=== PATIENT | female | born 1995 | race Caucasian/White ===

== ENCOUNTER 2017-06-03 19:43 | Emergency (ER) | payer OTHER, SELFPAY ==
[2017-06-03 21:56] VITALS: BP 151/76; PULSE 65; RESP 16; TEMP 36.7; O2SAT 100; BMI 31.1
[2017-06-03 22:29] LABS: Strep Scrn Group A (Rapid) Negative (Negative)
== END 2017-06-03 23:57 | disposition left against medical advice (07) ==
PROVIDERS: Emergency Provider Emergency Medicine
DX: Z53.29 Procedure and treatment not carried out because of patient's decision for other reasons (principal)
CPT/HCPCS: 87275; 87276; 87430; 99283

== ENCOUNTER → 2017-06-13 10:54 | Outpatient (REF) | payer OTHER, SELFPAY ==
[2017-06-13 15:33] LABS: Basophils # 0.1 K/mm3 (0-0.2); Basophils % 0.8 % (0.1-2.0); Eosinophils # 0.1 K/mm3 (0.0-0.4); Eosinophils % 0.9 % (0.1-12.0); Hematocrit 39.9 % (37.0-47.0); Hemoglobin 12.9 g/dL (12.2-16.2); Lymphocytes # 2.8 K/mm3 (0.7-4.5); Lymphocytes % 41.5 K/mm3 (10-50); Mean Corpuscular HGB Conc 32.2 g/dL (31.8-35.4); Mean Corpuscular Hemoglobin 29.7 pg (27.0-31.2); Mean Corpuscular Volume 92.1 fl (81-99); Mean Platelet Volume 9.1 fl (7.4-10.4); Monocytes # 0.8 K/mm3 (0.1-1.0); Monocytes % 11.2 % (1.7-9.3); Neutrophils # 3.1 K/mm3 (1.8-7.8); Neutrophils % 45.6 % (37.0-80.0); Platelet Count 338 K/mm3 (142-424); Red Blood Count 4.33 M/mm3 (4.20-5.40); Red Cell Distribution Width 12.5 % (11.5-17.5); White Blood Count 6.7 K/mm3 (4.5-13.0)
[2017-06-13 16:20] LABS: Alanine Aminotransferase 52 U/L (12-78); Albumin Level 4.3 gm/dL (3.4-5.0); Albumin/Globulin Ratio 1.4 (1.1-1.8); Alkaline Phosphatase 122 U/L (46-116); Anion Gap 14.2 mEq/L (5-15); Aspartate Amino Transferase 29 U/L (15-37); Bilirubin,Total 0.4 mg/dL (0.2-1.0); Blood Urea Nitrogen 11 mg/dL (7-18); Calcium 9.2 mg/dL (8.5-10.1); Carbon Dioxide 26 mmol/L (21.0-32.0); Chloride 105 mmol/L (98-107); Chol/HDL Ratio 2.3 (1-3.5); Cholesterol 152 mg/dL (140-200); Estimated Glomerular Filt Rate 129 ml/min (>60); Free T4 (Free Thyroxine) 0.98 ng/dl (0.78-1.34); GFR (African American) 156 ML/MIN (>60); Glucose 90 mg/dL (74-106); HDL Cholesterol 67 mg/dL (29-89); LDL Cholesterol 72 mg/dL (0-130); Potassium 4.2 mmoL/L (3.5-5.1); Sodium 141 mmol/L (136-145); Total Protein,Serum 7.3 gm/dL (6.4-8.2); Triglycerides 65 mg/dL (30-200); VLDL Cholesterol 13 mg/dL (0-40)
[2017-06-13 16:34] LABS: Hemoglobin A1C 5.1 % (0.0-7.0)
[2017-06-15 09:13] LABS: Vitamin D 25 Hydroxy 15.3 ng/mL (30.0-100.0)
== END ==
LOC: LAB 10:54
PROVIDERS: Visit Provider Nurse Practitioner Family
DX: R53.83 Other fatigue (principal); R35.1 Nocturia; N64.4 Mastodynia; E55.9 Vitamin D deficiency, unspecified
CPT/HCPCS: 80053; 80061; 82652; 83036; 84439; 84443; 85025

== ENCOUNTER 2017-06-16 14:14 | Emergency (ER) | payer OTHER, SELFPAY ==
[2017-06-16 15:19] VITALS: BMI 31.1
== END 2017-06-16 16:00 | disposition left against medical advice (07) ==
PROVIDERS: Emergency Provider Nurse Practitioner Family; PCP Nurse Practitioner Family
DX: Z53.29 Procedure and treatment not carried out because of patient's decision for other reasons (principal)

== ENCOUNTER → 2017-12-11 19:13 | Outpatient (REF) | payer OTHER, SELFPAY ==
[2017-12-15 01:08] LABS: Neisseria gonorrhoeae, NAA Negative (Negative)
== END ==
LOC: LAB 19:13
PROVIDERS: Visit Provider Nurse Practitioner Obstetrics & Gynecology
DX: Z34.90 Encounter for supervision of normal pregnancy, unspecified, unspecified trimester (principal)
CPT/HCPCS: 87491; 87591

== ENCOUNTER → 2017-12-13 12:57 | Outpatient (CLI) | payer OTHER, SELFPAY ==
--- NOTE | 2017-12-13 13:01 | US_ITS ---
US OB transvaginal: INDICATION: ITS.REASON: US OB Dates ORDERING PHYSICIAN: Carson De Leon MD PATIENT AGE: 22 years TECHNIQUE: ultrasound. Primarily transvaginal scanning. COMPARISON: No previous relevant studies. FINDINGS: Single viable intrauterine gestation. Variable position study fetus mainly towards cephalic position for majority of study Placenta: Developing Posterior. Small 8 mm venous brink mid placenta noted The cervix appears satisfactory. Closed and measuring 2.75 cm-3 cm length. Small 8 mm venous brink MID placenta Limited survey performed at this early point in gestation. Submitted images unremarkable in PACS. No discrete anomalies identified on survey imaging by technologist. Active fetus.Three-vessel cord with satisfactory umbilical cord insertion. Survey of brain & ventricles. posterior fossa region unremarkable Face and neck survey unremarkable. At this limited early point in gestation Diaphragm and chest region unremarkable. What appears to be 4- chamber heart imaged. Cine loop included documenting cardiac activity Abdomen: Region of kidneys noted unremarkable.. Stomach noted and satisfactory. Spine: Limited images of developing spine unremarkable. Both arms and legs noted.Amniotic Fluid: Adequate. Maternal adnexa: No significant findings encountered. Measurements: Average ultrasound age 13 weeks 1 day. Gestational Age 11 weeks 4 days based on LMP 09/23/2017. Estimated due date by ultrasound age 106/19/2018. CRL = 6.42 cm = 12 weeks 6 day BPD = 1.94 cm = 13 weeks 1 day AC = 6.29 cm = 13 week 1 day FL = 1.01 cm = 13 week 1 day Heart Rate = 139 BPM FL/BPD is 52%. FL/AC is 16%. IMPRESSION: Single active viable intrauterine gestation. 13 week 1 day average ultrasound age Developing posterior Placenta. . Limited but unremarkable survey at this early point in gestation.. .
[2017-12-13 14:32] LABS: Basophils % 0.3 % (0.1-2.0); Eosinophils % 0.3 % (0.1-12.0); Hematocrit 39.5 % (37.0-47.0); Hemoglobin 12.9 g/dL (12.2-16.2); Lymphocytes # 3.3 K/mm3 (0.7-4.5); Lymphocytes % 33.4 K/mm3 (10-50); Mean Corpuscular HGB Conc 32.7 g/dL (31.8-35.4); Mean Corpuscular Hemoglobin 29.5 pg (27.0-31.2); Mean Corpuscular Volume 90.3 fl (81-99); Mean Platelet Volume 8.4 fl (7.4-10.4); Monocytes # 0.9 K/mm3 (0.1-1.0); Monocytes % 9.6 % (1.7-9.3); Neutrophils # 5.6 K/mm3 (1.8-7.8); Neutrophils % 56.3 % (37.0-80.0); Platelet Count 317 K/mm3 (142-424); Red Blood Count 4.38 M/mm3 (4.20-5.40); Red Cell Distribution Width 12.5 % (11.5-17.5); White Blood Count 9.9 K/mm3 (4.5-13.0)
[2017-12-15 17:43] LABS: Rapid Plasma Reagin Ab Titer Non Reactive (NonRea<1:1)
[2017-12-17 02:27] LABS: HIV Screen 4th Generation wRfx Non Reactive (Non Reactive)
[2017-12-17 19:21] LABS: Hepatitis B Surface Antigen Negative (Negative); Hepatitis C Antibody <0.1 s/co ratio (0.0-0.9)
== END ==
PROVIDERS: PCP Physician Assistant; Visit Provider Nurse Practitioner Obstetrics & Gynecology
DX: O26.841 Uterine size-date discrepancy, first trimester (principal)
CPT/HCPCS: 36415; 76830; 85025; 86592; 86703; 86762; 86850; 87340; 87380; G0432

== ENCOUNTER → 2018-02-05 12:55 | Outpatient (CLI) | payer OTHER, SELFPAY ==
--- NOTE | 2018-02-05 12:57 | US_ITS ---
US OB /maternal detail: INDICATION: ITS.REASON: US OB Complete ORDERING PHYSICIAN: Carson De Leon MD PATIENT AGE: 22 years TECHNIQUE: ultrasound transabdominal scanning. COMPARISON: No previous relevant studies. FINDINGS: Single viable intrauterine gestation. Cephalic position. Placenta: Posterior placenta grade 1. There is average amount fluid. The cervix appears satisfactory. Closed and measuring 3 cm in length. Complete survey performed and was unremarkable on the submitted images as in PACS. No discrete anomalies identified on survey imaging by technologist. Active fetus. Three-vessel cord with satisfactory umbilical cord insertion. 4- chamber heart noted. Survey of brain & ventricles unremarkable. Face and neck survey unremarkable. Diaphragm and chest views unremarkable. Abdomen: Both kidneys noted and unremarkable. Stomach noted and satisfactory. Spine: Survey of the spine satisfactory with no anomalies identified nor imaged. Both arms and legs noted. Amniotic Fluid: Adequate. Maternal adnexa: No significant findings. Measurements: Average ultrasound age 20w0d. Gestational Age 20w6d. Estimated due date by ultrasound age 0106/25/2018. Estimated weight 315 grams. BPD = 20w1d OFD = 20w4d HC = 19w5d AC = 19w4d FL = 20w2d Growth Percentile= 7% based on established due date of 06/19/2018 Heart Rate = 144 Cerebellum = 20w5d Humerus = 19w6d HC/AC is 1.21 (1.09-1.26). CI is 77% (70-86%). FL/BPD is 70%. FL/AC is 23%. IMPRESSION: There is a single live fetus which is in cephalic presentation with an average ultrasound age of 20 weeks and 0 days. Weight percentile is 7%. No obvious anomalies. All parameters correlate. The placenta is posterior and grade 1. Please see above for detail
== END ==
PROVIDERS: PCP Physician Assistant; Visit Provider Nurse Practitioner Obstetrics & Gynecology
DX: Z36.0 Encounter for antenatal screening for chromosomal anomalies (principal)
CPT/HCPCS: 76811

== ENCOUNTER 2018-03-16 23:01 | Observation (INO) ==
[2018-03-16 23:16] LABS: Microscopic, Urine URINE MICROSCOPIC (MICROSCOPIC)
[2018-03-16 23:17] LABS: Appearance,Urine SL CLOUDY (Clear); Blood, Urine Negative (Negative); Color,Urine YELLOW (Yellow); Glucose,Urine (UA) Negative (Negative); Ketones,Urine 1+ (Negative); Leukocyte Esterase,Urine TRACE (Negative); PH,Urine 5.5 (5.0-8.5); Protein,Urine 1+ (Negative); Specific Gravity, Urine >= 1.030 (1.005-1.030)
[2018-03-16 23:24] LABS: Bilirubin,Urine Negative (Negative)
[2018-03-16 23:25] LABS: Amorphous Sediment,Urine 1+ /lpf; Bacteria,Urine Trace /lpf
[2018-03-16 23:55] VITALS: BP 138/71
[2018-03-17 00:25] LABS: Amphetamine/Metha Screen,Urine Negative ng/mL (<1000); Barbiturates Screen,Urine Negative ng/mL (<200); Benzodiazepines Screen,Urine Negative ng/mL (<200); Cannabinoid Screen,Urine Negative ng/mL (<50); Cocaine Screen,Urine Negative ng/mL (<300); Methadone Screen,Urine Negative ng/mL (<300); Opiate Screen,Urine Negative ng/mL (<300); Phencyclidine Screen,Urine Negative ng/mL (<25)
[2018-03-17 00:48] LABS: Basophils % 0.1 % (0.1-2.0); Eosinophils % 0.3 % (0.1-12.0); Hematocrit 30.6 % (37.0-47.0); Hemoglobin 10.2 g/dL (12.2-16.2); Lymphocytes # 2.7 K/mm3 (0.7-4.5); Lymphocytes % 24.5 K/mm3 (10-50); Mean Corpuscular HGB Conc 33.3 g/dL (31.8-35.4); Mean Corpuscular Hemoglobin 30.7 pg (27.0-31.2); Mean Corpuscular Volume 92.4 fl (81-99); Mean Platelet Volume 7.7 fl (7.4-10.4); Monocytes # 0.9 K/mm3 (0.1-1.0); Monocytes % 8.1 % (1.7-9.3); Neutrophils # 7.3 K/mm3 (1.8-7.8); Platelet Count 377 K/mm3 (142-424); Red Blood Count 3.31 M/mm3 (4.20-5.40); Red Cell Distribution Width 13.2 % (11.5-17.5); White Blood Count 10.9 K/mm3 (4.5-13.0)
[2018-03-17 00:57] LABS: Activated Partial Thrombo Time 25.6 seconds (23.6-34.0); INR 0.91 (0.9-1.1); Prothrombin Time 9.4 seconds (9.4-11.8)
[2018-03-17 00:59] LABS: Albumin/Globulin Ratio 0.8 (1.1-1.8); Anion Gap 13.5 mEq/L (5-15); Bilirubin,Total 0.4 mg/dL (0.2-1.0); Calcium 9.2 mg/dL (8.5-10.1); Globulin 3.8 gm/dl (1.3-3.2); Potassium 4.5 mmoL/L (3.5-5.1); Total Protein,Serum 6.8 gm/dL (6.4-8.2); Uric Acid 3.2 mg/dL (2.6-7.2)
--- NOTE | 2018-03-17 08:45 | H&P/Discharge Summary ---
General - General Admission date:: 03/17/18 Discharge date: 03/17/18 *Admission Date: 03/16/18 *Chief complaint: Lightheadedness *History of present illness: She is a 22-year-old 1 para 0 who is approximately 26 weeks gestational age. She is working at [employer] and felt that she was quite lightheaded and was seeing spots in front of her eyes. She was also quite nauseous. As result of that she was admitted for observation. [facility] History I have reviewed the patient's past medical history: Yes Medical History: Reports:: Asthma Denies:: Cancer, Diabetes Mellitus Type 1, Diabetes Mellitus Type 2, MRSA Other Surgeries: Yes: Appendectomy. No: Amputation: No Fractures: No - *Social History Smoking Status: Never smoker Alcohol Intake: never Substance Use Type: denies use *Family Hx:: Diabetes, Cancer, Hypertension Para: 2 Review of Systems - Review of Systems Review of systems:: pertinent systems reviewed and negative unless documented below Exam Vital signs and Labs for Last 24 Hours: Temp Pulse Resp BP Pulse Ox 98.4 F 92 H 17 138/71 98 03/16/18 23:55 03/16/18 23:55 03/16/18 23:55 03/16/18 23:55 03/16/18 23:55 Laboratory Results - last 24 hr 03/16/18 23:10: Urine Color Yellow, Urine Appearance Sl cloudy, Urine pH 5.5, Ur Specific [place] >= 1.030, Urine Protein 1+, Urine Glucose (UA) Negative, Urine Ketones 1+, Urine Blood Negative, Urine Nitrate Negative, Urine Bilirubin Negative, Urine Urobilinogen 1.0, Ur Leukocyte Esterase Trace, Urine WBC 3-5, Ur Squamous Epith Cells 10-20, Amorphous Sediment 1+, Urine Bacteria Trace 03/16/18 23:10: Urine Opiates Screen Negative, Urine Methadone Screen Negative, Ur Barbituates Screen Negative, Ur Phencyclidine Scrn Negative, Ur Amphetamines Screen Negative, U Benzodiazepines Scrn Negative, Urine Cocaine Screen Negative, U Marijuana (THC) Screen Negative 03/16/18 23:19: POC Glucose 132 H 03/17/18 00:40: WBC 10.9, RBC 3.31 L, Hgb 10.2 L, Hct 30.6 L, MCV 92.4, MCH 30.7, MCHC 33.3, RDW 13.2, Plt Count 377, MPV 7.7, Neut % (Auto) 67.0, Lymph % (Auto) 24.5, [place] % (Auto) 8.1, Eos % (Auto) 0.3, Baso % (Auto) 0.1, Neut # (Auto) 7.3, Lymph # (Auto) 2.7, [place] # (Auto) 0.9, Eos # (Auto) 0.0, Baso # (Auto) 0.0 03/17/18 00:40: PT 9.4, INR 0.91, APTT 25.6, Fibrinogen 474, D-Dimer 1260 H* 03/17/18 00:40: Sodium 137, Potassium 4.5, Chloride 104, Carbon Dioxide 24, Anion Gap 13.5, BUN 10, Creatinine 0.45 L, Estimated Creat Clear 252, Estimated GFR 178, Est GFR ( Amer) 215, Glucose 93, Uric Acid 3.2, Calcium 9.2, Total Bilirubin 0.4, AST 13 L, ALT 14, Alkaline Phosphatase 125 H, Total Protein 6.8, Albumin 3.0 L, Globulin 3.8 H, Albumin/Globulin Ratio 0.8 L I & O for Last 24 hours: Intake & Output 03/14/18 03/15/18 03/16/18 03/17/18 11:59 11:59 11:59 11:59 Weight 176 lb 4 oz - Constitutional no acute distress - *Routine HEENT Exam Head: Present: normocephalic Eye: Present: EOMI, PERRL ENT: Present: mucous membranes moist - *Routine Neck Exam Present: supple, full ROM - *Routine Respiratory Exam Absent: accessory muscle use (good air entry bilaterally), wheezes, crackles - *Routine Cardiovascular Exam Present: RRR. Absent: murmur - *Routine Abdominal Exam Present: soft, normoactive bowel sounds. Absent: tenderness, rebound, guarding, mass - *Routine Rectal Exam Patient deferred: visual exam, digital exam - *Routine Exam Patient deferred: external exam, groin exam, perineal exam - *Routine Extremities Exam Present: full ROM. Absent: cyanosis, edema, calf tenderness - *Routine Skin Exam Present: intact (good color) - *Routine Neurological Exam Present: alert, oriented X3 - Routine Psychiatric Exam Present: normal affect Hospital Course Hospital Course: She received IV fluids as well as IV Phenergan. She is doing a little better this morning. She is hungry. We will feed her before she goes. She still has some episodes of lightheadedness and I suspect this is just related or possibly low blood sugar. I have reassured her. She has an appointment with me next week. Results Labs on day of discharge: Labs from last 24 hours 03/17/18 03/17/18 03/17/18 00:40 00:40 00:40 WBC 10.9 RBC 3.31 L Hgb 10.2 L Hct 30.6 L MCV 92.4 MCH 30.7 MCHC 33.3 RDW 13.2 Plt Count 377 MPV 7.7 Neut % (Auto) 67.0 Lymph % (Auto) 24.5 [place] % (Auto) 8.1 Eos % (Auto) 0.3 Baso % (Auto) 0.1 Neut # (Auto) 7.3 Lymph # (Auto) 2.7 [place] # (Auto) 0.9 Eos # (Auto) 0.0 Baso # (Auto) 0.0 PT 9.4 INR 0.91 APTT 25.6 Fibrinogen 474 D-Dimer 1260 H* Sodium 137 Potassium 4.5 Chloride 104 Carbon Dioxide 24 Anion Gap 13.5 BUN 10 Creatinine 0.45 L Estimated Creat Clear 252 Estimated GFR 178 Est GFR ( Amer) 215 Glucose 93 POC Glucose Uric Acid 3.2 Calcium 9.2 Total Bilirubin 0.4 AST 13 L ALT 14 Alkaline Phosphatase 125 H Total Protein 6.8 Albumin 3.0 L Globulin 3.8 H Albumin/Globulin Ratio 0.8 L Urine Color Urine Appearance Urine pH Ur Specific [place] Urine Protein Urine Glucose (UA) Urine Ketones Urine Blood Urine Nitrate Urine Bilirubin Urine Urobilinogen Ur Leukocyte Esterase Urine WBC Ur Squamous Epith Cells Amorphous Sediment Urine Bacteria Urine Opiates Screen Urine Methadone Screen Ur Barbituates Screen Ur Phencyclidine Scrn Ur Amphetamines Screen U Benzodiazepines Scrn Urine Cocaine Screen U Marijuana (THC) Screen 03/16/18 03/16/18 03/16/18 23:19 23:10 23:10 WBC RBC Hgb Hct MCV MCH MCHC RDW Plt Count MPV Neut % (Auto) Lymph % (Auto) [place] % (Auto) Eos % (Auto) Baso % (Auto) Neut # (Auto) Lymph # (Auto) [place] # (Auto) Eos # (Auto) Baso # (Auto) PT INR APTT Fibrinogen D-Dimer Sodium Potassium Chloride Carbon Dioxide Anion Gap BUN Creatinine Estimated Creat Clear Estimated GFR Est GFR ( Amer) Glucose POC Glucose 132 H Uric Acid Calcium Total Bilirubin AST ALT Alkaline Phosphatase Total Protein Albumin Globulin Albumin/Globulin Ratio Urine Color Yellow Urine Appearance Sl cloudy Urine pH 5.5 Ur Specific [place] >= 1.030 Urine Protein 1+ Urine Glucose (UA) Negative Urine Ketones 1+ Urine Blood Negative Urine Nitrate Negative Urine Bilirubin Negative Urine Urobilinogen 1.0 Ur Leukocyte Esterase Trace Urine WBC 3-5 Ur Squamous Epith Cells 10-20 Amorphous Sediment 1+ Urine Bacteria Trace Urine Opiates Screen Negative Urine Methadone Screen Negative Ur Barbituates Screen Negative Ur Phencyclidine Scrn Negative Ur Amphetamines Screen Negative U Benzodiazepines Scrn Negative Urine Cocaine Screen Negative U Marijuana (THC) Screen Negative DS: Diagnosis - Discharge Diagnosis (1) Benign paroxysmal positional vertigo Status: Acute (2) Hyperemesis gravidarum Status: Acute (3) Nausea & vomiting Status: Acute Discharge Medications - Medications for Discharge Home Medication List at Discharge: Continue ferrous sulfate 325 mg (65 mg iron) tablet 325 mg PO DAILY #30 tab Ergocalciferol (Vitamin D2) [Vitamin D2] 50,000 unit PO QWEEK Cholecalciferol (Vitamin D3) [Vitamin D3 1,000 Unit Cap] 1,000 unit PO ONCE Promethazine HCl [Phenergan 25mg tab] 25 mg PO Q6H PRN #12 tablet PRN Reason: Nausea And Vomiting Albuterol Sulfate [Proventil-HFA 90mcg/puff Inh] 1 puff INHALATION Q6H Disposition Disposition: Home, Self-Care
== END 2018-03-17 09:40 | disposition home or self-care (01) ==
LOC: OB 23:01 → OBOUT 23:01 → OB 23:02
PROVIDERS: ADMIT Obstetrics & Gynecology; ATTEND Obstetrics & Gynecology

== ENCOUNTER 2018-04-11 01:36 | Outpatient (CLI) | payer OTHER, SELFPAY ==
[2018-04-11 01:56] VITALS: BMI 31.0
[2018-04-11 02:16] VITALS: BP 117/71; PULSE 135; RESP 20; TEMP 37.2; O2SAT 97; BMI 31.0
[2018-04-11 02:37] LABS: Appearance,Urine CLEAR (Clear); Bilirubin,Urine Negative (Negative); Blood, Urine Negative (Negative); Color,Urine YELLOW (Yellow); Glucose,Urine (UA) Negative (Negative); Ketones,Urine Negative (Negative); Leukocyte Esterase,Urine Negative (Negative); Microscopic, Urine URINE MICROSCOPIC (MICROSCOPIC); Nitrate,Urine Negative (Negative); Protein,Urine Negative (Negative); Specific Gravity, Urine 1.025 (1.005-1.030); Urobilinogen,Urine 0.2 EU/dl (0.2)
[2018-04-11 02:45] LABS: Fetal Membrane Rupture (Rapid) Negative (Negative)
[2018-04-11 03:20] LABS: Bacteria,Urine 1+ /lpf; Mucus,Urine 1+ /lpf
[2018-04-11 03:50] LABS: Fetal Fibronectin (Rapid) Negative (Negative)
[2018-04-11 04:00] LABS: Anion Gap 16.4 mEq/L (5-15); Blood Urea Nitrogen 7 mg/dL (7-18); Calcium 9.3 mg/dL (8.5-10.1); Carbon Dioxide 22 mmol/L (21.0-32.0); Chloride 102 mmol/L (98-107); Creatinine Clearance Estimated 323 mL/min (50-200); Creatinine,Serum 0.36 mg/dL (0.55-1.02); Estimated Glomerular Filt Rate 230 ml/min (>60); GFR (African American) 278 ML/MIN (>60); Glucose 90 mg/dL (74-106); Potassium 3.4 mmoL/L (3.5-5.1); Sodium 137 mmol/L (136-145)
== END 2018-04-11 04:50 | disposition home or self-care (01) ==
LOC: OBOUT 01:40 → OB 01:40
PROVIDERS: PCP Nurse Practitioner Family; Referring Provider Nurse Practitioner Obstetrics & Gynecology; Visit Provider Obstetrics & Gynecology
DX: O26.893 Other specified pregnancy related conditions, third trimester (principal); Z3A.30 30 weeks gestation of pregnancy; R10.30 Lower abdominal pain, unspecified
CPT/HCPCS: 59025; 80048; 81001; 82731; 84112; 96360; 96367

== ENCOUNTER 2018-05-05 22:23 | Outpatient (CLI) | payer OTHER, SELFPAY ==
[2018-05-05 23:04] VITALS: BMI 32.1
[2018-05-05 23:05] VITALS: BP 128/78; PULSE 108; RESP 22; TEMP 36.6; O2SAT 99
[2018-05-05 23:06] VITALS: BMI 32.1
[2018-05-06 00:10] VITALS: BP 128/78; PULSE 108; RESP 22; TEMP 36.6; O2SAT 99
== END 2018-05-06 01:25 | disposition home or self-care (01) ==
LOC: OBOUT 22:25 → OB 22:26
PROVIDERS: PCP Nurse Practitioner Obstetrics & Gynecology; Visit Provider Nurse Practitioner Obstetrics & Gynecology
DX: O47.03 False labor before 37 completed weeks of gestation, third trimester (principal); Z3A.33 33 weeks gestation of pregnancy; R11.2 Nausea with vomiting, unspecified
CPT/HCPCS: 59025; 96360; 96361; J2405

== ENCOUNTER 2018-05-07 21:47 | Observation (INO) ==
[2018-05-07 23:25] VITALS: BP 122/61
[2018-05-07 23:57] LABS: Microscopic, Urine URINE MICROSCOPIC (MICROSCOPIC)
[2018-05-08 00:28] LABS: Appearance,Urine CLEAR (Clear); Bilirubin,Urine Negative (Negative); Blood, Urine Negative (Negative); Color,Urine YELLOW (Yellow); Glucose,Urine (UA) Negative (Negative); Ketones,Urine Negative (Negative); Leukocyte Esterase,Urine Negative (Negative); PH,Urine 5.5 (5.0-8.5); Protein,Urine Negative (Negative); Specific Gravity, Urine >= 1.030 (1.005-1.030); Urobilinogen,Urine 0.2 EU/dl (0.2)
[2018-05-08 00:36] LABS: Bacteria,Urine 1+ /lpf; Mucus,Urine 1+ /lpf; RBC,Urine Occasional #/hpf (0-3); WBC,Urine Occasional #/hpf (0-3)
--- NOTE | 2018-05-08 08:05 | History & Physical Report ---
OB - H&P: HPI Antepartum - History of Present Illness Chief complaint: Right lower quadrant pain, lower abdominal pain, labor History of present illness: She is a 22-year-old 1 para 0 at 34 weeks gestational age. She complains of lower abdominal pain. Her pain is mostly on the right side down near her right lower quadrant. She was having a few contrast on arrival. Her urine is clear. She is no longer having contractions on the monitor now. - History of Present Criteria for establishing EDC:: LMP confirmed by 1st trimester US care: good care Ultrasounds: normal 1st trimester US, normal mid trimester US Obstetrical complications: none Medical complications: psychiatric [facility] History I have reviewed the patient's past medical history: Yes Medical History: Reports:: Asthma Denies:: Cancer, Diabetes Mellitus Type 1, Diabetes Mellitus Type 2, MRSA Other Surgeries: Yes: Appendectomy. No: Amputation: No Fractures: No - *Social History Smoking Status: Never smoker Alcohol Intake: never Substance Use Type: denies use *Family Hx:: Diabetes, Cancer, Hypertension Para: 0 Review of Systems - Review of Systems Review of systems:: pertinent systems reviewed and negative unless documented below Meds Home Medications Medication Instructions Recorded Confirmed Type ferrous sulfate 325 mg (65 mg 325 mg PO DAILY tab 03/19/18 05/07/18 History iron) tablet Fluoxetine HCl [Prozac 10mg 10 mg PO DAILY 05/08/18 05/08/18 History Capsule] Allergies Allergy/AdvReac Type Severity Reaction Status Date / Time No Known Allergies Allergy Verified 05/06/18 14:53 OB - H&P: Exam - Physical Exam Vital signs: Temp Pulse Resp BP Pulse Ox 98.0 F 110 H 18 122/61 97 05/07/18 23:21 05/07/18 23:21 05/07/18 23:21 05/07/18 23:21 05/07/18 23:21 - Constitutional no acute distress - Routine HEENT Exam Head: Present: normocephalic Eye: Present: EOMI, PERRL ENT: Present: mucous membranes moist - Routine Neck Exam Present: supple, full ROM - Routine Respiratory Exam Absent: accessory muscle use (good air entry bilaterally), respiratory distress, wheezes, crackles - Routine Cardiovascular Exam Present: RRR. Absent: murmur - Routine Abdominal Exam Present: soft, normoactive bowel sounds, tenderness. Absent: distended, guarding Comments: She is tender in the right lower quadrant. - Routine Rectal Exam Patient deferred: visual exam, digital exam - Routine Exam Patient deferred: external exam, groin exam, perineal exam - Routine Extremities Exam Present: full ROM. Absent: cyanosis, edema - Routine Skin Exam Present: intact. Absent: cyanosis - Routine Neurological Exam Present: alert, oriented X3 - Routine Psychiatric Exam Present: normal affect OB - Results - Labs Labs: Urine 05/07/18 Range/Units 23:55 Urine Color Yellow (Yellow) Urine Appearance Clear (Clear) Urine pH 5.5 (5.0-8.5) Ur Specific [place] >= 1.030 (1.005-1.030) Urine Protein Negative (Negative) Urine Glucose (UA) Negative (Negative) OB - A/P Antepartum - Additional Plan Plan: expectant management Additional Information:: We will get an ultrasound this morning. We will go ahead and give her steroids. We will give her Tylenol for pain. We will continue to observe her throughout the day.
[2018-05-08 12:14] LABS: Basophils % 0.2 % (0.1-2.0); Eosinophils % 0.2 % (0.1-12.0); Hematocrit 28.9 % (37.0-47.0); Hemoglobin 9.4 g/dL (12.2-16.2); Lymphocytes # 2.1 K/mm3 (0.7-4.5); Lymphocytes % 23.8 % (10-50); Mean Corpuscular HGB Conc 32.4 g/dL (31.8-35.4); Mean Corpuscular Hemoglobin 30.1 pg (27.0-31.2); Mean Corpuscular Volume 92.8 fl (81-99); Mean Platelet Volume 8.9 fl (7.4-10.4); Monocytes # 0.4 K/mm3 (0.1-1.0); Monocytes % 4.3 % (1.7-9.3); Neutrophils # 6.4 K/mm3 (1.8-7.8); Neutrophils % 71.4 % (37.0-80.0); Platelet Count 336 K/mm3 (142-424); Red Blood Count 3.11 M/mm3 (4.20-5.40); Red Cell Distribution Width 13.8 % (11.5-17.5); White Blood Count 8.9 K/mm3 (4.5-13.0)
[2018-05-08 12:18] LABS: Anion Gap 15.3 mEq/L (5-15); Potassium 4.3 mmoL/L (3.5-5.1)
--- NOTE | 2018-05-08 17:34 | Discharge Summary ---
General - General Admission date:: 05/08/18 Discharge date: 05/08/18 HPI HPI: She is a 22-year-old 1 para 0 at 34 weeks gestational age. She complains of severe lower abdominal pain. She was having a few contractions on arrival and received Brethine and fluids. Urinalysis was negative. She was admitted overnight. Hospital Course Hospital Course: She continued to have lower abdominal pain. The pain was in the right lower quadrant overlying the bladder. She had point tenderness there. There is no lateralizing appendicitis. There were no peritoneal signs. There were no contractions on the monitor after initially receiving fluids and 1 dose of Brethine. The Brethine did not help with her pain. She did receive Tylenol as well as Stadol and refused these pain medicines later on this afternoon. She was crying in bed and did not seem to be getting any better. She did have an ultrasound that was essentially negative for abruption. She has no bleeding. Growth and fluid was appropriate. She also received her first dose of Celestone. As result of her continued pain we have elected to transfer her to for further care. She was accepted by Dr. Franklin. Objective Vital signs: Temp Pulse Resp BP Pulse Ox 98.0 F 110 H 18 122/61 97 05/07/18 23:21 05/07/18 23:21 05/07/18 23:21 05/07/18 23:21 05/07/18 23:21 mild distress, obese - *Routine Abdominal Exam Present: soft, tenderness Comments: She had tenderness in the right side of her lower uterus. Results Labs on day of discharge: Labs from last 24 hours 05/08/18 05/08/18 05/07/18 12:00 12:00 23:55 WBC 8.9 RBC 3.11 L Hgb 9.4 L Hct 28.9 L MCV 92.8 MCH 30.1 MCHC 32.4 RDW 13.8 Plt Count 336 MPV 8.9 Neut % (Auto) 71.4 Lymph % (Auto) 23.8 [place] % (Auto) 4.3 Eos % (Auto) 0.2 Baso % (Auto) 0.2 Neut # (Auto) 6.4 Lymph # (Auto) 2.1 [place] # (Auto) 0.4 Eos # (Auto) 0.0 Baso # (Auto) 0.0 Sodium 136 Potassium 4.3 Chloride 104 Carbon Dioxide 21 Anion Gap 15.3 H BUN 6 L Creatinine 0.41 L Estimated Creat Clear 288 Estimated GFR 198 Est GFR ( Amer) 239 Glucose 109 H Calcium 9.0 Urine Color Yellow Urine Appearance Clear Urine pH 5.5 Ur Specific [place] >= 1.030 Urine Protein Negative Urine Glucose (UA) Negative Urine Ketones Negative Urine Blood Negative Urine Nitrate Negative Urine Bilirubin Negative Urine Urobilinogen 0.2 Ur Leukocyte Esterase Negative Urine RBC Occasional Urine WBC Occasional Urine Bacteria 1+ Urine Mucus 1+ Membrane Rupture Fibronectin 05/07/18 05/07/18 22:10 22:10 WBC RBC Hgb Hct MCV MCH MCHC RDW Plt Count MPV Neut % (Auto) Lymph % (Auto) [place] % (Auto) Eos % (Auto) Baso % (Auto) Neut # (Auto) Lymph # (Auto) [place] # (Auto) Eos # (Auto) Baso # (Auto) Sodium Potassium Chloride Carbon Dioxide Anion Gap BUN Creatinine Estimated Creat Clear Estimated GFR Est GFR ( Amer) Glucose Calcium Urine Color Urine Appearance Urine pH Ur Specific [place] Urine Protein Urine Glucose (UA) Urine Ketones Urine Blood Urine Nitrate Urine Bilirubin Urine Urobilinogen Ur Leukocyte Esterase Urine RBC Urine WBC Urine Bacteria Urine Mucus Membrane Rupture Negative Fibronectin Negative DS: Diagnosis - Discharge Diagnosis (1) Right lower quadrant pain Status: Acute (2) labor Status: Acute Discharge Plan - Patient Discharge Instructions ACTIVITY: No heavy lifting DIET: continue same diet Patient Instructions: Antepartum Care Forms: Transfer Record - Follow up Plan Disposition: Xfer Short-Term Hosp Home Medications: Home Medications Medication Instructions Recorded Confirmed Type ferrous sulfate 325 mg (65 mg 325 mg PO DAILY tab 03/19/18 05/07/18 History iron) tablet Fluoxetine HCl [Prozac 10mg 10 mg PO DAILY 05/08/18 05/08/18 History Capsule] Prescriptions/Medication Reconciliation: Continue ferrous sulfate 325 mg (65 mg iron) tablet 325 mg PO DAILY tab ondansetron 4 mg disintegrating tablet 4 mg PO Q4H PRN 30 Days #30 tab PRN Reason: nausea and vomiting Fluoxetine HCl [Prozac 10mg Capsule] 10 mg PO DAILY
== END 2018-05-08 18:20 | disposition short-term general hospital (02) ==
LOC: OB 21:47 → OBOUT 21:47 → OB 21:51
PROVIDERS: ADMIT Nurse Practitioner Obstetrics & Gynecology; ATTEND Nurse Practitioner Obstetrics & Gynecology
CPT/HCPCS: 36415; 59025; 76819; 76820; 80048; 81001; 82731; 84112; 85025; 96360; 96372; G0378; J0595

== ENCOUNTER → 2018-05-20 16:58 | Outpatient (CLI) | payer OTHER, SELFPAY | LOC: LAB 17:02 → LAB.DROPOF 18:09 | PROVIDERS: Visit Provider Nurse Practitioner Obstetrics & Gynecology | DX: Z34.90 Encounter for supervision of normal pregnancy, unspecified, unspecified trimester (principal) | CPT/HCPCS: 86403 ==

== ENCOUNTER 2018-05-27 18:24 | Outpatient (CLI) | payer OTHER, SELFPAY ==
[2018-05-27 18:47] VITALS: RESP 20; TEMP 36.9; O2SAT 95; BMI 32.3; BMI 32.8
[2018-05-27 18:55] LABS: Microscopic, Urine URINE MICROSCOPIC (MICROSCOPIC)
[2018-05-27 18:57] LABS: Appearance,Urine CLEAR (Clear); Bilirubin,Urine Negative (Negative); Blood, Urine Negative (Negative); Color,Urine YELLOW (Yellow); Glucose,Urine (UA) Negative (Negative); Ketones,Urine Negative (Negative); Leukocyte Esterase,Urine TRACE (Negative); Nitrate,Urine Negative (Negative); Protein,Urine Negative (Negative); Urobilinogen,Urine 0.2 EU/dl (0.2)
[2018-05-27 19:12] LABS: Bacteria,Urine 1+ /lpf; Fetal Membrane Rupture (Rapid) Negative (Negative); Mucus,Urine 1+ /lpf; Squamous Epithelial Cell,Urine TNTC #/hpf (0-5)
== END 2018-05-27 19:30 | disposition home or self-care (01) ==
LOC: OBOUT 18:26 → OB 18:28
PROVIDERS: PCP Physician Assistant; Visit Provider Obstetrics & Gynecology
DX: O26.893 Other specified pregnancy related conditions, third trimester (principal); Z3A.37 37 weeks gestation of pregnancy; R10.9 Unspecified abdominal pain
CPT/HCPCS: 59025; 81001; 84112

== ENCOUNTER 2018-05-29 23:10 | Outpatient (CLI) | payer OTHER, SELFPAY ==
[2018-05-29 23:52] VITALS: BMI 32.5
[2018-05-29 23:58] VITALS: BP 140/58; PULSE 97; RESP 22; O2SAT 99; BMI 28.8
[2018-05-30 00:05] LABS: Fetal Membrane Rupture (Rapid) Negative (Negative)
[2018-05-30 00:49] LABS: Microscopic, Urine URINE MICROSCOPIC (MICROSCOPIC)
[2018-05-30 00:50] LABS: Appearance,Urine CLEAR (Clear); Blood, Urine Negative (Negative); Color,Urine YELLOW (Yellow); Glucose,Urine (UA) Negative (Negative); Ketones,Urine TRACE (Negative); Leukocyte Esterase,Urine Negative (Negative); Nitrate,Urine Negative (Negative); Protein,Urine TRACE (Negative); Specific Gravity, Urine >= 1.030 (1.005-1.030)
[2018-05-30 00:54] LABS: Bilirubin,Urine Negative (Negative)
[2018-05-30 01:28] LABS: Bacteria,Urine 1+ /lpf; Mucus,Urine 2+ /lpf
== END 2018-05-30 03:28 | disposition home or self-care (01) ==
LOC: OBOUT 23:12 → OB 23:13
PROVIDERS: PCP Physician Assistant; Visit Provider Obstetrics & Gynecology
DX: O60.03 Preterm labor without delivery, third trimester (principal); Z3A.37 37 weeks gestation of pregnancy
CPT/HCPCS: 59025; 81001; 84112; 96360

== ENCOUNTER 2018-06-02 20:29 | Outpatient (CLI) | payer OTHER, SELFPAY ==
[2018-06-02 20:38] VITALS: BMI 32.5
[2018-06-02 20:46] LABS: Microscopic, Urine URINE MICROSCOPIC (MICROSCOPIC)
[2018-06-02 20:48] LABS: Appearance,Urine CLEAR (Clear); Bilirubin,Urine Negative (Negative); Blood, Urine Negative (Negative); Color,Urine YELLOW (Yellow); Glucose,Urine (UA) Negative (Negative); Ketones,Urine Negative (Negative); Leukocyte Esterase,Urine 1+ (Negative); Nitrate,Urine Negative (Negative); Protein,Urine Negative (Negative); Specific Gravity, Urine >= 1.030 (1.005-1.030)
[2018-06-02 21:01] LABS: Bacteria,Urine Trace /lpf
[2018-06-02 21:06] VITALS: BP 150/76; PULSE 85; RESP 18; TEMP 36.8; O2SAT 99; BMI 32.5
== END 2018-06-02 21:45 | disposition home or self-care (01) ==
LOC: OBOUT 20:32 → OB 20:32
PROVIDERS: PCP Nurse Practitioner Obstetrics & Gynecology; Visit Provider Obstetrics & Gynecology
DX: Z34.90 Encounter for supervision of normal pregnancy, unspecified, unspecified trimester (principal)
CPT/HCPCS: 59025; 81001; 87086

== ENCOUNTER → 2018-06-04 11:26 | Outpatient (CLI) | payer OTHER, SELFPAY ==
[2018-06-04 12:08] LABS: Basophils # 0.1 K/mm3 (0-0.2); Basophils % 0.6 % (0.1-2.0); Eosinophils % 0.5 % (0.1-12.0); Hematocrit 28.9 % (37.0-47.0); Hemoglobin 9.2 g/dL (12.2-16.2); Lymphocytes # 2.9 K/mm3 (0.7-4.5); Lymphocytes % 36.8 % (10-50); Mean Corpuscular HGB Conc 31.8 g/dL (31.8-35.4); Mean Corpuscular Hemoglobin 28.5 pg (27.0-31.2); Mean Corpuscular Volume 89.7 fl (81-99); Mean Platelet Volume 9.9 fl (7.4-10.4); Monocytes # 0.7 K/mm3 (0.1-1.0); Monocytes % 9.1 % (1.7-9.3); Neutrophils # 4.1 K/mm3 (1.8-7.8); Platelet Count 334 K/mm3 (142-424); Red Blood Count 3.22 M/mm3 (4.20-5.40); Red Cell Distribution Width 14.6 % (11.5-17.5); White Blood Count 7.7 K/mm3 (4.5-13.0)
[2018-06-04 12:18] LABS: Activated Partial Thrombo Time 26.2 seconds (23.6-34.0); Fibrinogen 423 mg/dL (204-500); INR 0.91 (0.9-1.1); Prothrombin Time 9.4 seconds (9.4-11.8)
[2018-06-04 13:03] LABS: Alanine Aminotransferase 28 U/L (12-78); Anion Gap 15.9 mEq/L (5-15); Aspartate Amino Transferase 34 U/L (15-37); Blood Urea Nitrogen 7 mg/dL (7-18); Calcium 9.2 mg/dL (8.5-10.1); Carbon Dioxide 21 mmol/L (21.0-32.0); Chloride 104 mmol/L (98-107); Creatinine,Serum 0.43 mg/dL (0.55-1.02); Estimated Glomerular Filt Rate 187 ml/min (>60); GFR (African American) 227 ML/MIN (>60); Glucose 87 mg/dL (74-106); Potassium 3.9 mmoL/L (3.5-5.1); Sodium 137 mmol/L (136-145)
[2018-06-04 13:14] LABS: D-Dimer 2680 ng/mL (0-400)
== END ==
PROVIDERS: Visit Provider Nurse Practitioner Obstetrics & Gynecology
DX: Z34.90 Encounter for supervision of normal pregnancy, unspecified, unspecified trimester (principal)
CPT/HCPCS: 36415; 80048; 84450; 84460; 84550; 85025; 85378; 85384; 85610; 85730

== ENCOUNTER → 2018-06-06 08:47 | Outpatient (CLI) | payer OTHER, SELFPAY ==
[2018-06-06 09:17] LABS: Creatinine,Urine Random 106 mg/dL (20-320)
[2018-06-06 09:23] LABS: Collection Time,Urine 24 hours; Creatinine 24 Hour,Urine 1219 mg/24hr (630-2500); Total Volume,Urine 1150 mL (600-1600)
[2018-06-06 13:02] LABS: Total Protein 24 Hour,Urine 259 mg/24 hr (40-90); Total Protein,Urine Random 22.5 mg/dL (0.0-11.9)
== END ==
PROVIDERS: Visit Provider Nurse Practitioner Obstetrics & Gynecology
DX: Z34.90 Encounter for supervision of normal pregnancy, unspecified, unspecified trimester (principal)
CPT/HCPCS: 82570; 84155

== ENCOUNTER 2018-06-09 05:09 | Inpatient (IN) ==
[2018-06-09 05:30] LABS: Microscopic, Urine URINE MICROSCOPIC (MICROSCOPIC)
[2018-06-09 05:52] LABS: Basophils # 0.1 K/mm3 (0-0.2); Basophils % 0.6 % (0.1-2.0); Eosinophils # 0.1 K/mm3 (0.0-0.4); Eosinophils % 0.7 % (0.1-12.0); Hemoglobin 9.4 g/dL (12.2-16.2); Lymphocytes # 3.4 K/mm3 (0.7-4.5); Lymphocytes % 38.1 % (10-50); Mean Corpuscular HGB Conc 32.2 g/dL (31.8-35.4); Mean Corpuscular Hemoglobin 28.6 pg (27.0-31.2); Mean Corpuscular Volume 88.8 fl (81-99); Monocytes # 0.7 K/mm3 (0.1-1.0); Monocytes % 8.3 % (1.7-9.3); Neutrophils # 4.6 K/mm3 (1.8-7.8); Neutrophils % 52.3 % (37.0-80.0); Platelet Count 339 K/mm3 (142-424); Red Blood Count 3.27 M/mm3 (4.20-5.40); Red Cell Distribution Width 14.8 % (11.5-17.5); White Blood Count 8.9 K/mm3 (4.5-13.0)
[2018-06-09 05:55] LABS: Hematocrit 29.1 % (37.0-47.0)
[2018-06-09 05:58] LABS: Appearance,Urine SL CLOUDY (Clear); Bilirubin,Urine Negative (Negative); Blood, Urine Negative (Negative); Color,Urine YELLOW (Yellow); Glucose,Urine (UA) Negative (Negative); Ketones,Urine Negative (Negative); Leukocyte Esterase,Urine 1+ (Negative); Protein,Urine Negative (Negative); Specific Gravity, Urine >= 1.030 (1.005-1.030); Urobilinogen,Urine 0.2 EU/dl (0.2)
[2018-06-09 06:01] LABS: Anion Gap 14.7 mEq/L (5-15); Calcium 8.8 mg/dL (8.5-10.1); Potassium 3.7 mmoL/L (3.5-5.1); Uric Acid 3.5 mg/dL (2.6-7.2)
[2018-06-09 06:04] LABS: Amorphous Sediment,Urine Trace /lpf; Bacteria,Urine Trace /lpf; Mucus,Urine Trace /lpf; Squamous Epithelial Cell,Urine 20-50 #/hpf (0-5)
[2018-06-09 06:58] LABS: INR 0.91 (0.9-1.1); Prothrombin Time 9.4 seconds (9.4-11.8)
--- NOTE | 2018-06-09 07:29 | History & Physical Report ---
OB - H&P: HPI Antepartum - History of Present Illness Chief complaint: -induced hypertension, term History of present illness: She is a 22-year-old 1 para 0 at 38 and 6 weeks gestational age. She has induced hypertension and pressure in the office was in the 150 over 90s range as much as 150/100 range. Blood pressure did settle with bedrest but since she is now term we have elected to deliver her. - History of Present Criteria for establishing EDC:: LMP confirmed by 1st trimester US care: good care Ultrasounds: normal 1st trimester US, normal mid trimester US Obstetrical complications: preeclampsia Medical complications: none [facility] History I have reviewed the patient's past medical history: Yes Medical History: Reports:: Asthma Denies:: Cancer, Diabetes Mellitus Type 1, Diabetes Mellitus Type 2, MRSA Other Surgeries: Yes: Appendectomy. No: Amputation: No Fractures: No - *Social History Smoking Status: Never smoker Alcohol Intake: never Substance Use Type: denies use *Family Hx:: Diabetes, Cancer, Hypertension Para: 0 Review of Systems - Review of Systems Review of systems:: pertinent systems reviewed and negative unless documented below Meds Home Medications Medication Instructions Recorded Confirmed Type ferrous sulfate 325 mg (65 mg 325 mg PO DAILY tab 03/19/18 06/09/18 History iron) tablet ondansetron 4 mg disintegrating 4 mg PO Q4H PRN 30 Days #30 tab 05/06/18 06/09/18 Rx tablet 1 tab PO DAILY 05/29/18 06/09/18 History vitamin,calcium,onjoaxgc-rpls-eyepk acid tablet Allergies Allergy/AdvReac Type Severity Reaction Status Date / Time No Known Allergies Allergy Verified 06/06/18 09:02 OB - H&P: Exam - Physical Exam Vital signs: Temp Pulse Resp BP Pulse Ox 98.5 F 86 18 136/72 98 06/09/18 06:18 06/09/18 06:18 06/09/18 06:18 06/09/18 06:55 06/09/18 06:18 - Constitutional no acute distress - Routine HEENT Exam Head: Present: normocephalic Eye: Present: EOMI, PERRL ENT: Present: mucous membranes moist - Routine Neck Exam Present: supple, full ROM - Routine Respiratory Exam Absent: accessory muscle use (good air entry bilaterally), respiratory distress, wheezes, crackles - Routine Cardiovascular Exam Present: RRR. Absent: murmur - Routine Abdominal Exam Present: soft, normoactive bowel sounds. Absent: tenderness, distended, guarding - Routine Rectal Exam Patient deferred: visual exam, digital exam - Routine Exam Patient deferred: external exam, groin exam, perineal exam - Routine Extremities Exam Present: full ROM. Absent: cyanosis, edema - Routine Skin Exam Present: intact. Absent: cyanosis - Routine Neurological Exam Present: alert, oriented X3 - Routine Psychiatric Exam Present: normal affect OB - Results - Labs Labs: Short CBC 06/09/18 Range/Units 05:40 WBC 8.9 (4.5-13.0) K/mm3 Hgb 9.4 L (12.2-16.2) g/dL Hct 29.1 L (37.0-47.0) % Plt Count 339 (142-424) K/mm3 BMP 06/09/18 05:40 Sodium 135 L Potassium 3.7 Chloride 103 Carbon Dioxide 21 BUN 8 Creatinine 0.37 L Glucose 89 Calcium 8.8 Liver Function 06/09/18 Range/Units 05:40 AST 50 H (15-37) U/L ALT 43 (12-78) U/L Urine 06/09/18 Range/Units 05:15 Urine Color Yellow (Yellow) Urine Appearance Sl cloudy (Clear) Urine pH 6.0 (5.0-8.5) Ur Specific [place] >= 1.030 (1.005-1.030) Urine Protein Negative (Negative) Urine Glucose (UA) Negative (Negative) OB - A/P Antepartum (1) induced hypertension Current visit: Yes Status: Acute - Additional Plan Planning to breastfeed?: No Plan: induction Additional Information:: She is 38 and 6 weeks gestational age with increased blood pressure. We will go ahead and deliver her.
--- NOTE | 2018-06-09 11:58 | Progress Note ---
Labor Note - Subjective: Date: 06/09/18 Time: 11:57 regular contraction - Objective: NST:: Reactive Contractions:: every 2-3 minutes Cervical Dilation:: 4 Effacement:: 75% Station: -2 Membranes: artificially ruptured - Fetus: Monitoring?: Yes monitoring type:: Internal and External - Assessment: Labor progressing?: Yes Cephalopelvic disproportion?: No Patient Problems: All Active Problems (Last Updated 06/26/17 @ 13:36 by SOHEILA Damian) (Acute) Hyperemesis gravidarum (Acute) Benign paroxysmal positional vertigo (Acute) Nausea & vomiting (Acute) Viral URI with cough (Acute) Right lower quadrant pain (Acute) labor (Acute) induced hypertension (Acute) Contraceptive management (Acute) Vitamin D deficiency (Acute ~06/2017) Streptococcal sore throat (Acute) - Plan: Anesthesia for epidural?: Yes Continue to labor down?: Yes Plan for ?: No Continue to monitor?: Yes Start pushing?: No
--- NOTE | 2018-06-09 15:14 | Progress Note ---
Labor Note - Subjective: Date: 06/09/18 Time: 15:13 regular contraction - Objective: NST:: Reactive Contractions:: every 2-3 minutes Cervical Dilation:: 9-10 Effacement:: 100% Station: +1 Membranes: artificially ruptured - Fetus: Monitoring?: Yes monitoring type:: Internal Comment:: She had an IUPC and I have applied a scalp clip - Assessment: Labor progressing?: Yes Cephalopelvic disproportion?: No Patient Problems: All Active Problems (Last Updated 06/26/17 @ 13:36 by SOHEILA Damian) (Acute) Hyperemesis gravidarum (Acute) Benign paroxysmal positional vertigo (Acute) Nausea & vomiting (Acute) Viral URI with cough (Acute) Right lower quadrant pain (Acute) labor (Acute) induced hypertension (Acute) Contraceptive management (Acute) Vitamin D deficiency (Acute ~06/2017) Streptococcal sore throat (Acute) - Plan: Anesthesia for epidural?: Yes Continue to labor down?: Yes Plan for ?: No Continue to monitor?: Yes Start pushing?: No
--- NOTE | 2018-06-09 16:00 | Procedure Note ---
- Delivery Note Delivery Date:: 06/09/18 Delivery Time:: 15:33 Anesthesia Type: Epidural Was labor medically induced?: Yes Induction method: per pitocin protocol Infant delivered prior to 39 weeks?: Yes Justification for early elective delivery:: Pre-eclampsia Infant Gender: Female at 1 minute: 8 at 5 minutes: 9 AF:: Clear fluid Delivery Procedure:: She is a 22-year-old 1 para 0 at 38 and 6 weeks gestational age. She has had an increase in blood pressure and as a result of that we elected to deliver her. She was started on IV oxytocin and progressed to full dilation under labor epidural. She delivered spontaneously a liveborn female child at 3:33 PM in the afternoon of June 09, 2018. On deliver the head the anterior shoulder rapidly delivered followed by the rest of the infant's body atraumatically. The oropharynx and nasopharynx were bulb suction. The baby was stimulated and she cried. We allowed the cord to continue to pulsate for 1 minute. The cord was then doubly clamped and cut and the infant was placed on the mother's abdomen for further care. The nurses assigned Apgars of 8 at 1 and 9 at 5 minutes. We then obtained cord blood as well as cord pH. I attempted to deliver the placenta but the cord tore off and the placenta was still firmly attached to the uterine wall. As result of this we are going to take her for a manual removal and exploration of the uterine contents. This will be done under ultrasound guidance. We discussed the risks of surgery that includes bleeding and infection. Estimated blood loss was approximately 400 cc. There were no perineal or vaginal lacerations. Placental Delivery Description: Manual Removal, Uterine Exploration
--- NOTE | 2018-06-09 16:56 | Operative Note ---
Date of procedure: 06/09/18 Pre-op Diagnosis:: Retained placenta Post-op Diagnosis:: Retained placenta Procedure performed:: Manual removal of retained placenta under ultrasound guidance Surgeon:: Carson De Leon MD SUPPLIER SPECIALIST:: Miguel Angel Matthews Anesthesia: MAC, regional Estimated blood loss (mL): 500 Clinical Note:: She is a 22-year-old 1 now para 1 who was approximately 30 minutes . She had a cane placenta and as a result of that was taken the operating room for manual removal of the placenta. Operative findings:: She had a completely retained placenta. I was able to remove it in pieces. I did this under ultrasound guidance and at the end of the procedure it seemed that the entire placenta had been removed. Operative note:: She was taken to the operating room where epidural anesthesia was found be adequate. She also received propofol and fentanyl. She was placed in lithotomy position and I was able to grasp the placenta and remove it in pieces. As we went we used the ultrasound to ensure that the placenta was completely removed. At the end of procedure the placenta was completely removed from the uterine cavity. The estimated blood loss was approximately 500 cc. She had a small posterior vaginal laceration that was repaired with a single [id number] 3-0 Vicryl Rapide suture. She She tolerated procedure well and was taken to the recovery room in excellent condition. All sponge instrument and needle counts were correct. The estimated blood loss was approximately 500 cc. Condition: stable Disposition: PACU Specimens:: Placenta Complications:: None
--- NOTE | 2018-06-09 17:05 | Progress Note ---
[facility] Anesthesia Checklist - Patient Identification Patient Identification: Arm Band, Verbal (Name & ) - Structural Data Admitted From: Inpatient Planned Operative Procedure/s: labor epidural Consent for Planned Operative Procedure(s) Verified: Yes Verified Documents: History and Physical - NPO Status Verified Time NPO: 00:00 - Additional verifications Patient : Yes Anesthesia Reactions: No Hx Blood Transfusions: No Blood Transfusion Reaction: No Cephalosporin Allergy: No Previous Colonoscopy: No - Cardiovascular Assessment Heart Sounds: S1 & S2 Pulse Strength: Baseline Pulse Rhythm: Regular Peripheral Edema: No - Airway Assessment C-Spine Mobility Assessed: Yes TMJ Mobility Assessed: Yes Dentition: Good Dentition - Neurological Assessment Level of Consciousness: Awake, Alert, Appropriate Hx Seizures: No Numbness or tingling in extremities: No - Anesthesia Plan Anesthesia Risk discussed: Yes Anesthesia Plan: Verified ASA Class: II Anesthesia Type: Epidural [facility] History I have reviewed the patient's past medical history: Yes Medical History: Reports:: Asthma Denies:: Cancer, Diabetes Mellitus Type 1, Diabetes Mellitus Type 2, MRSA Have you ever received a pneumonia vaccine?: No Have you received a flu vaccine this season?: No Other Surgeries: Yes: Appendectomy. No: Amputation: No Fractures: No - *Social History Smoking Status: Never smoker Alcohol Intake: never Substance Use Type: denies use *Family Hx:: Diabetes, Cancer, Hypertension Para: 0
--- NOTE | 2018-06-09 17:07 | Progress Note ---
[facility] Anesthesia Record Part I Intake, IV Amount: 700 Estimated blood loss (mL): 500 Urine output (mL): 0 Blood Products used (#): none Blood Pressure: 129/76 SaO2: 96 Pulse Rate: 79 Respiratory Rate: 20 Temperature: 98.0 F Patient is:: Awake, Stable Stable to PACU at:: 17:02
--- NOTE | 2018-06-09 17:08 | Progress Note ---
[facility] Anesthesia Record Part II Discharge Time: 17:32 Destination: Obstetric PACU nurse assessment reviewed?: Yes Patient Condition:: Good Anesthesia Complications:: None
[2018-06-10 06:57] LABS: Hematocrit 25.6 % (37.0-47.0); Hemoglobin 8.4 g/dL (12.2-16.2)
--- NOTE | 2018-06-10 08:12 | Progress Note ---
Internal Medicine - PN: Subj *Date: 06/10/18 *Time: 08:10 Interval history: She continued warning. She is eating and drinking and ambulating. She is bottlefeeding. Her lochia is normal. She continues with IV antibiotics as well as oxytocin. She had a retained placenta. We will stop oxytocin this morning.. She has 1 more dose of antibiotics. Exam Vital signs and Labs for Last 24 Hours: Temp Pulse Resp BP Pulse Ox 98.2 F 77 18 126/86 95 06/09/18 17:32 06/09/18 17:32 06/09/18 17:32 06/09/18 17:32 06/09/18 17:32 Laboratory Results - last 24 hr 06/09/18 15:59: Cord ABG pH 7.30 L 06/10/18 06:12: Hgb 8.4 L, Hct 25.6 L I & O for Last 24 hours: Intake & Output 06/07/18 06/08/18 06/09/18 06/10/18 11:59 11:59 11:59 11:59 Intake Total 775 / 775 Balance 775 / 775 Weight 184 lb Microbiology Reports for the Last 24 Hours: Microbiology 06/09/18 05:15 Urine,Random Urine Culture - Final Multiple organisms, suggests contamination. - Constitutional no acute distress Assessment and Plan (1) induced hypertension Current visit: Yes Status: Acute Category: Medical Code(s): O13.9 - Gestational [-induced] hypertension without significant proteinuria, unspecified trimester (2) Retained placenta after delivery without hemorrhage but with other complication Current visit: Yes Status: Acute Category: Medical Code(s): O73.0 - Retained placenta without hemorrhage (3) Anemia in , delivered, current hospitalization Current visit: Yes Status: Acute Category: Medical Code(s): O99.02 - Anemia complicating childbirth - Assessment and plan all Dx Assessment and Plan for all problems:: Her hemoglobin is 8.4 this morning. It was 9.4 prior to delivery. We will make sure she takes iron tablets and vitamins when she goes home. We will plan to discharge her home tomorrow at she has 1 more dose of antibiotics this morning.
[2018-06-10 21:44] VITALS: BP 131/63
--- NOTE | 2018-06-11 08:35 | Discharge Summary ---
General - General Admission date:: 06/09/18 Discharge date: 06/11/18 HPI HPI: She is a 22-year-old 1 now para 0 who was 38 and 4 weeks gestational age. She had increased blood pressure and as result of that was brought in for induction of labor at term. Blood pressure was in the 150/90 range. Hospital Course Hospital Course: She was started on IV oxytocin and had her membranes ruptured. She progressed to full dilation and delivered spontaneously a liveborn female child at 3:33 PM in the afternoon of June 09, 2018. The baby had Apgars of 8 at 1 minute and 9 at 5 minutes. She had a retained placenta and as a result of that was taken to the operating room where the placenta was nearly removed. Postoperatively she has done well and has remained afebrile throughout her hospitalization. She is eating and drinking and ambulating. She is bottlefeeding. She has attempted to feed as well. She has O+ blood, is rubella immune and was group B streptococcus negative. She is discharged home to follow-up with me in approximately 2 weeks time. She was given the signs of worsening blood pressure. Her condition on discharge is stable. Rhogam Administration: Not Indicated Objective Vital signs: Temp Pulse Resp BP Pulse Ox 98.5 F 76 18 131/63 98 06/10/18 19:37 06/10/18 19:37 06/10/18 19:37 06/10/18 19:37 06/10/18 19:37 no acute distress DS: Diagnosis - Discharge Diagnosis (1) induced hypertension Status: Acute (2) Retained placenta after delivery without hemorrhage but with other complication Status: Acute (3) Anemia in , delivered, current hospitalization Status: Acute Discharge Plan - Patient Discharge Instructions ACTIVITY: No heavy lifting DIET: continue same diet - Follow up Plan Disposition: Home, Self-Snf Medications: Home Medications Medication Instructions Recorded Confirmed Type ferrous sulfate 325 mg (65 mg 325 mg PO DAILY tab 03/19/18 06/09/18 History iron) tablet ondansetron 4 mg disintegrating 4 mg PO Q4H PRN 30 Days #30 tab 05/06/18 06/09/18 Rx tablet 1 tab PO DAILY 05/29/18 06/09/18 History vitamin,calcium,prtdwhtv-ocxj-bteeb acid tablet Prescriptions/Medication Reconciliation: Continue ferrous sulfate 325 mg (65 mg iron) tablet 325 mg PO DAILY tab ondansetron 4 mg disintegrating tablet 4 mg PO Q4H PRN 30 Days #30 tab PRN Reason: nausea and vomiting vitamin,calcium,azpsfltq-rolv-jfnhi acid tablet 1 tab PO DAILY
== END 2018-06-11 10:55 | disposition home or self-care (01) | DRG 807 ==
LOC: OB 05:09
PROVIDERS: ADMIT Nurse Practitioner Obstetrics & Gynecology; ATTEND Nurse Practitioner Obstetrics & Gynecology
CPT/HCPCS: 36415; 59025; 76856; 80048; 81001; 82570; 82800; 84155; 84450; 84460; 84550; 85014; 85018; 85025; 85378; 85384; 85610; 85730; 86850; 87086; 94761; C1758; J2405

== ENCOUNTER 2018-08-12 21:25 | Observation (INO) ==
[2018-08-12 21:46] LABS: Microscopic, Urine URINE MICROSCOPIC (MICROSCOPIC)
[2018-08-12 21:48] LABS: Appearance,Urine CLOUDY (Clear); Blood, Urine 3+ (Negative); Color,Urine AMBER (Yellow); Glucose,Urine (UA) Negative (Negative); Ketones,Urine Negative (Negative); Leukocyte Esterase,Urine Negative (Negative); Protein,Urine 1+ (Negative); Specific Gravity, Urine >= 1.030 (1.005-1.030); Urobilinogen,Urine 0.2 EU/dl (0.2)
[2018-08-12 21:51] LABS: Bacteria,Urine Trace /lpf; Bilirubin,Urine Negative (Negative); RBC,Urine 20-50 #/hpf (0-3); WBC,Urine Occasional #/hpf (0-3)
[2018-08-12 22:02] LABS: Albumin Level 4.1 gm/dL (3.4-5.0); Albumin/Globulin Ratio 1.1 (1.1-1.8); Anion Gap 15.7 mEq/L (5-15); Bilirubin,Total 0.9 mg/dL (0.2-1.0); C-Reactive Protein 0.2 mg/L (0.0-0.9); Calcium 9.3 mg/dL (8.5-10.1); Globulin 3.7 gm/dl (1.3-3.2); Potassium 3.7 mmoL/L (3.5-5.1); Total Protein,Serum 7.8 gm/dL (6.4-8.2)
[2018-08-12 22:16] LABS: Basophils % 0.6 % (0.1-2.0); Eosinophils % 0.3 % (0.1-12.0); Hematocrit 37.6 % (37.0-47.0); Hemoglobin 12.1 g/dL (12.2-16.2); Lymphocytes # 2.4 K/mm3 (0.7-4.5); Lymphocytes % 40.1 % (10-50); Mean Corpuscular HGB Conc 32.4 g/dL (31.8-35.4); Mean Corpuscular Volume 86.4 fl (81-99); Mean Platelet Volume 8.5 fl (7.4-10.4); Monocytes # 0.4 K/mm3 (0.1-1.0); Monocytes % 6.9 % (1.7-9.3); Neutrophils # 3.1 K/mm3 (1.8-7.8); Neutrophils % 52.2 % (37.0-80.0); Platelet Count 294 K/mm3 (142-424); Red Blood Count 4.34 M/mm3 (4.20-5.40); Red Cell Distribution Width 15.5 % (11.5-17.5)
--- NOTE | 2018-08-12 22:46 | Emergency Department Note ---
ED Disposition Clinical Impression: Elevated liver enzymes Cholelithiasis Qualifiers: Cholelithiasis location: gallbladder Cholecystitis presence: without cholecystitis Biliary obstruction: without biliary obstruction Qualified Co de(s): K80.20 - Calculus of gallbladder without cholecystitis without obstruction Disposition: Admitted as Observation Condition on Discharge: Good Instructions: DI for Acute Abdomen Referrals: Glo Horowitz PA [Primary Care Provider] - - Critical Care Critical Care Time: No Attestation: On 08/12/18, the high probability of a clinically significant, sudden or life threatening deterioration of the following system(s) required my full and direct attention, intervention and personal management. The time I documented below is in addition to time spent performing reported procedures but includes the following listed in this critical care notation. Medical Decision Making - Medical Records Medical records reviewed: Yes: I reviewed the patient's medical records. - Zach Inquiry Pt receiving controlled substance: No Vital Signs: 08/12/18 21:32 Temperature 98.5 F Temperature Source Oral Pulse Rate [Right Radial] 66 Respiratory Rate 18 Blood Pressure [Right Arm] 133/83 Blood Pressure Mean [Right Arm] 99 02 Sat by Pulse Oximetry 100 - Lab Data Lab results reviewed: Yes: I reviewed the patient's lab results. Lab Results 08/12/18 21:30: Urine Color Katie, Urine Appearance Cloudy, Urine pH 5.0, Ur Specific [place] >= 1.030, Urine Protein 1+, Urine Glucose (UA) Negative, Urine Ketones Negative, Urine Blood 3+, Urine Nitrate Negative, Urine Bilirubin Negative, Urine Urobilinogen 0.2, Ur Leukocyte Esterase Negative, Urine RBC 20- 50, Urine WBC Occasional, Urine Bacteria Trace 08/12/18 21:30: Urine HCG, Qual Negative 08/12/18 21:35: WBC 6.0, RBC 4.34, Hgb 12.1 L, Hct 37.6, MCV 86.4, MCH 28.0, MCHC 32.4, RDW 15.5, Plt Count 294, MPV 8.5, Neut % (Auto) 52.2, Lymph % (Auto) 40.1, [place] % (Auto) 6.9, Eos % (Auto) 0.3, Baso % (Auto) 0.6, Neut # (Auto) 3.1, Lymph # (Auto) 2.4, [place] # (Auto) 0.4, Eos # (Auto) 0.0, Baso # (Auto) 0.0 08/12/18 21:35: Sodium 140, Potassium 3.7, Chloride 102, Carbon Dioxide 26, Anion Gap 15.7 H, BUN 10, Creatinine 0.65, Estimated Creat Clear 165, Estimated GFR 116, Est GFR ( Amer) 141, Glucose 96, Calcium 9.3, Total Bilirubin 0.9, AST 416 H* D, ALT 231 H D, Alkaline Phosphatase 220 H, C-Reactive Protein 0.2, Total Protein 7.8, Albumin 4.1, Globulin 3.7 H, Albumin/Globulin Ratio 1.1, Amylase 27 D, Lipase 90 Result diagrams: 08/12/18 21:35 08/12/18 21:35 Orders (Tests/Meds): ED MEDICATIONS Generic Name Dose Route Start Last Admin Trade Name Freq PRN Reason Stop Dose Admin Sodium Chloride 1,000 mls @ 999 mls/hr 08/12/18 21:45 08/12/18 21:56 Sod Chlor 0.9% 1000ml Bag IV 08/12/18 22:45 999 mls/hr .Q1H1M NICHO Administration Sodium Chloride 10 ml 08/12/18 21:39 Saline Flush 10ml Syringe IV 09/11/18 21:38 NEEDED PRN Maintain IV Site Discontinued Medications Generic Name Dose Route Start Last Admin Trade Name Freq PRN Reason Stop Dose Admin Famotidine 20 mg 08/12/18 21:39 08/12/18 21:56 Pepcid 20mg/2ml Vial IV 08/12/18 21:40 20 mg ONCE ONE Administration Ioversol 75 ml 08/12/18 22:15 08/12/18 22:16 Rad-Optiray 350 100ml Vial IV 08/12/18 22:16 75 ml ONCE ONE Administration Ketorolac Tromethamine 30 mg 08/12/18 21:39 08/12/18 21:56 Toradol 30mg/Ml Vial IV 08/12/18 21:40 30 mg ONCE ONE Administration Metoclopramide HCl 10 mg 08/12/18 21:39 08/12/18 21:56 Reglan 10mg/2ml Vial IVP 08/12/18 21:40 10 mg ONCE ONE Administration Ondansetron HCl 4 mg 08/12/18 21:39 08/12/18 21:56 Zofran 4mg/2ml Vial IV 08/12/18 21:40 4 mg ONCE ONE Administration Sodium Chloride 10 ml 08/12/18 22:15 08/12/18 22:16 Rad-Saline Flush 10ml Syringe IV 08/12/18 22:16 10 ml ONCE ONE Administration ORDERS Category Date Time Status CT abdomen pelvis w con Stat Cat Scan 08/12/18 21:39 Taken Erythrocyte Sedimentation Rate Stat Lab 08/12/18 21:35 Received - CT Data CT Scan: Abdomen, Pelvis Time Received: 23:[address] Reviewed: Yes: I have viewed the radiologist's interpretation Preliminary Findings: Abnormal (see report) - Physician Consults Physician Consulted: roberto Reason -: Pt condition Nausea/Vomiting/Diarrhea HPI - General Chief complaint: Abdominal Pain Stated complaint: Right Abd pain Time Seen by Provider: 08/12/18 21:50 Mode of Arrival: Family Vehicle Source of Information: Patient, Medical Record Limitations: No Limitations Description of Symptoms (Recalled from ER Triage Doc. by RN): pt c/o epigastric/right upper quad pain, nausea/vomiting. pt states she was seen in [facility] today and told that it was probley her galbladder and to come to ed if it worsened. pt states the pain is worse now. - History of Present Illness HPI Narrative: pt with rt upper abd pain with nausea with hx of gallbladder disease - MD complaint: nausea, vomiting, abdominal pain Onset (ago): day(s) Associated Abdominal Pain: Yes Location of pain: RUQ Severity: moderate Quality: sharp Consistency: intermittent Associated symptoms: denies other symptoms - Related Data Home Medications Medication Instructions Recorded Confirmed Omeprazole [Omeprazole 40mg 40 mg PO DAILY 08/12/18 08/12/18 Capsule] Previous Rx's Medication Instructions Recorded Ondansetron [Zofran 4mg ODT] 4 mg PO Q8HP PRN #20 tab.rapdis 08/12/18 Allergies Allergy/AdvReac Type Severity Reaction Status Date / Time No Known Allergies Allergy Verified 08/12/18 21:38 [facility] History - Hepatitis A Screen Drug use history?: No High risk sexual behaviors?: No History of sexually transmitted infection?: No Currently employed?: No Childcare worker?: No Do you have indoor plumbing?: Yes Do you have electricity?: Yes Attestation statement:: This patient has been screened for Hepatitis A risk factors. I have reviewed the patient's past medical history: Yes Medical History: Reports:: Asthma Denies:: Cancer, Diabetes Mellitus Type 1, Diabetes Mellitus Type 2, MRSA, Seizures Other Medical History: Denies: Blood Transfusion Reaction Other Surgeries: Yes: Appendectomy. No: Amputation: No Fractures: No Comment: Cyst Removal of lower abdomen X 2 - Social History Smoking Status: Never smoker Alcohol Intake: never Substance Use Type: denies use Occupational Status: unemployed Housing: house - Psychiatric History Expresses thoughts of harming self/others: None Suicide Plan Description: No Plan Family Hx:: Diabetes, Cancer, Hypertension ROS Obtained: Yes All systems reviewed & no additional complaints - Constitutional Constitutional: Denies fever(s) - Eyes Eyes: Denies change in vision - ENT Ears, Nose, Mouth, and Throat: Denies sore throat - Cardiovascular Cardiovascular: Denies chest pain - Respiratory Respiratory: No cough - Gastrointestinal Gastrointestingal: Reports: as per HPI, abdominal pain, nausea, vomiting - Genitourinary Female Genitourinary: Denies hematuria - Musculoskeletal Musculoskeletal: Denies joint pain, Denies neck pain - Integumentary/Breasts Skin/Breast: Denies rash - Neurologic Neurologic: Denies seizure-like activity Physical Exam - General General appearance: alert - Head Head exam: normocephalic - Eye Eye exam: Present: PERRL, EOMI. Absent: scleral icterus - ENT ENT exam: Present: mucous membranes moist, mucous membranes dry - Neck Neck exam: Present: trachea midline - Respiratory Respiratory exam: Absent: respiratory distress - Cardiovascular Cardiovascular exam: Present: regular rate - Abdominal Exam Abdominal exam: Present: soft, tenderness, Levin's sign Abdominal tenderness: Present: RUQ, moderate - Extremities Exam Extremities exam: Present: normal inspection - Neurological Exam Neurological exam: Present: alert, CN II-XII intact - Skin Skin exam: Absent: rash
[2018-08-13 07:10] LABS: Basophils % 0.9 % (0.1-2.0); Eosinophils % 0.8 % (0.1-12.0); Hematocrit 33.7 % (37.0-47.0); Lymphocytes # 1.8 K/mm3 (0.7-4.5); Lymphocytes % 55.4 % (10-50); Mean Corpuscular HGB Conc 31.9 g/dL (31.8-35.4); Mean Corpuscular Hemoglobin 27.8 pg (27.0-31.2); Mean Corpuscular Volume 87.1 fl (81-99); Mean Platelet Volume 8.9 fl (7.4-10.4); Monocytes # 0.3 K/mm3 (0.1-1.0); Monocytes % 8.9 % (1.7-9.3); Neutrophils # 1.1 K/mm3 (1.8-7.8); Platelet Count 260 K/mm3 (142-424); Red Blood Count 3.87 M/mm3 (4.20-5.40); Red Cell Distribution Width 15.6 % (11.5-17.5); White Blood Count 3.2 K/mm3 (4.5-13.0)
[2018-08-13 07:18] LABS: Albumin Level 3.2 gm/dL (3.4-5.0); Anion Gap 12.6 mEq/L (5-15); Bilirubin,Total 1.1 mg/dL (0.2-1.0); Calcium 8.4 mg/dL (8.5-10.1); Globulin 3.1 gm/dl (1.3-3.2); Potassium 3.6 mmoL/L (3.5-5.1); Total Protein,Serum 6.3 gm/dL (6.4-8.2)
--- NOTE | 2018-08-13 07:19 | Consult Report ---
*Admission Date: 08/13/18 *Chief complaint: Abdominal pain *History of present illness: Patient is a 22-year-old white female who is 2 months from vaginal delivery. She apparently had been having symptoms of abdominal pain possibly consistent with biliary colic late in her and had an ultrasound performed at an outside facility which reportedly revealed gallstones. She had delivered on June 09 of this year. She had presented to the urgent treatment center yesterday afternoon with right upper quadrant epigastric pain with associated nausea. Laboratory studies were unremarkable at that time. Gallbladder disease was suspected. She was able to be managed as an outpatient but then developed recurrent progressive symptoms in the evening and presented to the emergency department. She was seen and evaluated and had some increasing elevation of transaminases and alkaline phosphatase with unremarkable bilirubin. She was admitted for inpatient management and surgical consultation. Review of Systems - Review of Systems Review of systems:: pertinent systems reviewed and negative unless documented below - Constitutional Reports anorexia - Eyes Denies change in vision - ENT Denies abnormal hearing - *Cardiovascular Denies chest pain - *Respiratory Denies shortness of breath - *Gastrointestinal Reports abdominal pain - *Musculoskeletal Denies joint pain - *Neurologic Denies seizure-like activity [facility] History Medical History: Reports:: Asthma Denies:: Cancer, Diabetes Mellitus Type 1, Diabetes Mellitus Type 2, MRSA, Seizures *Have you ever received a pneumonia vaccine?: No (refuses) *Have you received a flu vaccine this season?: No (refuses) Other Medical History: Denies: Blood Transfusion Reaction Other Surgeries: Yes: Appendectomy. No: Amputation: No Fractures: No - *Social History Educational Level: Completed High School Smoking Status: Never smoker Alcohol Intake: never Substance Use Type: denies use *Occupational Status:: unemployed Housing: house Household Members: significant other *Travel in the last 8 weeks: None - Psychiatric History Expresses thoughts of harming self/others: None Suicide Plan Description: No Plan Family Hx:: Diabetes, Cancer, Hypertension Meds Home Medications Medication Instructions Recorded Confirmed Type Omeprazole [Omeprazole 40mg 40 mg PO DAILY 08/12/18 08/12/18 History Capsule] Ondansetron [Zofran 4mg ODT] 4 mg PO Q8HP PRN #20 tab.rapdis 08/12/18 08/12/18 Rx Allergies Allergy/AdvReac Type Severity Reaction Status Date / Time No Known Allergies Allergy Verified 08/12/18 21:38 Exam Vital signs and Labs for Last 24 Hours: Temp Pulse Resp BP Pulse Ox 98.2 F 58 L 17 113/59 L 97 08/13/18 04:00 08/13/18 04:00 08/13/18 04:00 08/13/18 04:00 08/13/18 04:00 Laboratory Results - last 24 hr 08/12/18 21:30: Urine Color Katie, Urine Appearance Cloudy, Urine pH 5.0, Ur Specific [place] >= 1.030, Urine Protein 1+, Urine Glucose (UA) Negative, Urine Ketones Negative, Urine Blood 3+, Urine Nitrate Negative, Urine Bilirubin Negative, Urine Urobilinogen 0.2, Ur Leukocyte Esterase Negative, Urine RBC 20- 50, Urine WBC Occasional, Urine Bacteria Trace 08/12/18 21:30: Urine HCG, Qual Negative 08/12/18 21:35: WBC 6.0, RBC 4.34, Hgb 12.1 L, Hct 37.6, MCV 86.4, MCH 28.0, MCHC 32.4, RDW 15.5, Plt Count 294, MPV 8.5, Neut % (Auto) 52.2, Lymph % (Auto) 40.1, [place] % (Auto) 6.9, Eos % (Auto) 0.3, Baso % (Auto) 0.6, Neut # (Auto) 3.1, Lymph # (Auto) 2.4, [place] # (Auto) 0.4, Eos # (Auto) 0.0, Baso # (Auto) 0.0 08/12/18 21:35: Sodium 140, Potassium 3.7, Chloride 102, Carbon Dioxide 26, Anion Gap 15.7 H, BUN 10, Creatinine 0.65, Estimated Creat Clear 165, Estimated GFR 116, Est GFR ( Amer) 141, Glucose 96, Calcium 9.3, Total Bilirubin 0.9, AST 416 H* D, ALT 231 H D, Alkaline Phosphatase 220 H, C-Reactive Protein 0.2, Total Protein 7.8, Albumin 4.1, Globulin 3.7 H, Albumin/Globulin Ratio 1.1, Amylase 27 D, Lipase 90 08/12/18 21:35: ESR 16 I & O for Last 24 hours: Intake & Output 08/10/18 08/11/18 08/12/18 08/13/18 11:59 11:59 11:59 11:59 Intake Total 1651 / 1651 Balance 1651 / 1651 Weight 165 lb 5 oz - *Routine HEENT Exam Head: Present: normocephalic Eye: Present: EOMI, PERRL ENT: Present: mucous membranes moist - *Routine Neck Exam Present: supple. Absent: lymphadenopathy - *Routine Respiratory Exam Present: CTA bilaterally - *Routine Cardiovascular Exam Present: RRR - *Routine Abdominal Exam Present: soft, normoactive bowel sounds. Absent: tenderness - *Routine Extremities Exam Absent: cyanosis, clubbing, edema - *Routine Skin Exam Present: warm. Absent: rash - *Routine Neurological Exam Present: alert, oriented X3 - Detailed Eye Exam Eyelids: Left normal inspection Results - Labs 08/12/18 21:35 08/12/18 21:35 Laboratory Results - last 24 hr 08/12/18 21:30: Urine Color Katie, Urine Appearance Cloudy, Urine pH 5.0, Ur Specific [place] >= 1.030, Urine Protein 1+, Urine Glucose (UA) Negative, Urine Ketones Negative, Urine Blood 3+, Urine Nitrate Negative, Urine Bilirubin Negative, Urine Urobilinogen 0.2, Ur Leukocyte Esterase Negative, Urine RBC 20- 50, Urine WBC Occasional, Urine Bacteria Trace 08/12/18 21:30: Urine HCG, Qual Negative 08/12/18 21:35: WBC 6.0, RBC 4.34, Hgb 12.1 L, Hct 37.6, MCV 86.4, MCH 28.0, MCHC 32.4, RDW 15.5, Plt Count 294, MPV 8.5, Neut % (Auto) 52.2, Lymph % (Auto) 40.1, [place] % (Auto) 6.9, Eos % (Auto) 0.3, Baso % (Auto) 0.6, Neut # (Auto) 3.1, Lymph # (Auto) 2.4, [place] # (Auto) 0.4, Eos # (Auto) 0.0, Baso # (Auto) 0.0 08/12/18 21:35: Sodium 140, Potassium 3.7, Chloride 102, Carbon Dioxide 26, Anion Gap 15.7 H, BUN 10, Creatinine 0.65, Estimated Creat Clear 165, Estimated GFR 116, Est GFR ( Amer) 141, Glucose 96, Calcium 9.3, Total Bilirubin 0.9, AST 416 H* D, ALT 231 H D, Alkaline Phosphatase 220 H, C-Reactive Protein 0.2, Total Protein 7.8, Albumin 4.1, Globulin 3.7 H, Albumin/Globulin Ratio 1.1, Amylase 27 D, Lipase 90 08/12/18 21:35: ESR 16 Assessment and Plan - Assessment and plan all Dx Assessment and Plan for all problems:: Clinical scenario is consistent with cholelithiasis and possible cholecystitis. Agree with ultrasound. Recheck laboratory studies. Possible cholecystectomy.
--- NOTE | 2018-08-13 07:38 | Pharmacy Consult Notes ---
[facility] Pharmacy VTE Monitoring - Patient Demographics Admission date: 08/12/18 Report Date: 08/13/18 Time: 07:37 Allergies/Adverse Reactions: Patient Allergies No Known Allergies Allergy (Verified 08/12/18 21:38) Height: 1.65 m Weight: 74.984 kg Patient Problems: Current Active Problems (Last Updated 06/26/17 @ 13:36 by SOHEILA Damian) Cholelithiasis (Acute) Elevated liver enzymes (Acute) - VTE Risk Labs: VTE Related Lab Results Hgb 12.1 g/dL (12.2-16.2) L 08/12/18 21:35 Hct 33.7 % (37.0-47.0) L 08/13/18 06:29 Plt Count 260 K/mm3 (142-424) 08/13/18 06:29 BUN 10 mg/dL (7-18) 08/13/18 06:29 Creatinine 0.61 mg/dL (0.55-1.02) 08/13/18 06:29 Estimated Creat Clear 174 mL/min (50-200) 08/13/18 06:29 Was VTE Risk Assessment Performed: Yes VTE Score: 0 VTE Risk Level: Very Low Risk Clinical Trial Participant: No - Prophylaxis VTE Prophylaxis Ordered?: Yes Types of VTE Prophylaxis: TEDS Knee High Location of Applied Device: Bilateral Lower Extremeties
[2018-08-13 08:05] LABS: Hemoglobin 10.8 g/dL (12.2-16.2)
[2018-08-13 09:38] LABS: Lymphocytes % 45 % (10-50); Monocytes % 10 % (2-9); Neutrophils % 40 % (42-76); Total Cells Counted 100
--- NOTE | 2018-08-13 19:13 | Operative Note ---
Date of procedure: 08/13/18 Pre-op Diagnosis:: Cholecystitis, cholelithiasis Post-op Diagnosis:: Same Procedure performed:: Laparoscopic cholecystectomy with intraoperative cholangiogram Surgeon:: Magdaleno Waters MD CHILLER OPERATOR:: [place] Anesthesia: GETA Estimated blood loss (mL): 15 Clinical Note:: Patient is a 22-year-old white female who is 2 months from a normal vaginal delivery. Late in her she had some symptoms consistent with symptomatic gallstones. She actually was sent to [facility] due to the potential need for surgical intervention during her . She did not undergo cholecystectomy. Yesterday she had recurrent episode of right upper quadrant pain and nausea. This was felt to be possible biliary in etiology after she had been seen in the urgent treatment center. At that time her laboratory studies were unremarkable. She had progressive recurrent pain and presented to the emergency department in the late evening of 08/12/17. At that time she had some abnormality of her liver function tests. She was admitted for inpatient management and surgical consultation was obtained. She had progressive increase in transaminases the following morning. She had a gallbladder ultrasound performed which revealed some prominence of the biliary tree and gallstones. Please note that the CT scan performed in the emergency department questioned if she had possible stone within her bile duct. She therefore underwent MRCP which revealed no evidence of any definite filling defect but radiology did recommend intraoperative cholangiogram at the time of her cholecystectomy. Patient had significant ongoing abdominal tenderness and plan was made to proceed with cholecystectomy with intraoperative cholangiogram. Operative findings:: Patient had an acutely inflamed edematous gallbladder. Operative note:: Consent was obtained and patient was taken to the operating room. She was given preoperative intravenous antibiotics. In the operating room she was placed within a supine position. General anesthesia was induced via endotracheal tube. Abdomen was prepped and draped in the standard surgical fashion. Subumbilical skin incision was made and while performing abdominal wall lift Veress needle was inserted. CO2 pneumoperitoneum was achieved to 15 mmHg. 10/11 mm optical trocar was inserted at the umbilicus. Intraperitoneal contents were visualized. She was positioned in reverse Trendelenburg left side down. A couple of 5 mm trochars were inserted in the right upper abdomen. 10 mm trocar was inserted in the epigastrium. Gallbladder was grasped and retracted anteriorly and superiorly over the dome of the liver. Gallbladder was noninfected but it was acutely inflamed and edematous with some mild pericholecystic fluid. Infundibulum/Mann's pouch of the gallbladder was retracted anterior laterally. Blunt dissection was carried out at the neck of the gallbladder bluntly incising the visceral peritoneum. The cystic duct was dissected free and isolated. Cystic duct was clipped proximal to the gallbladder. Through a small incision in the right upper quadrant taut cholangiocatheter introducer was inserted. A taut cholangiocatheter was manipulated into the cystic duct after a small ductotomy was created. Cholangiocatheter was secured with a Hemoclip. Intraoperative cholangiogram was performed which revealed no evidence of any filling defect or obstruction. Patient was repositioned and the cholangiocatheter was removed. The cystic duct was then multiply clipped and then divided. Cystic artery was carefully coagulated with JULIANNA ultrasonic harmonic shantanu and divided. The gallbladder was dissected free from the liver in a retrograde fashion using JULIANNA ultrasonic harmonic shantanu. Gallbladder was placed within an Endo Catch retrieval device and removed from the peritoneal cavity via the umbilical trocar site. Gallbladder fossa and perihepatic space were irrigated and aspirated until clear. Trochars were removed as CO2 pneumoperitoneum was evacuated. Fascia at the umbilicus was closed with a 0 Vicryl [id number] suture. Local anesthetic was infiltrated. Skin incisions were closed with 4-0 Monocryl in a subcuticular fashion. Steri-Strips and dressings were applied. Condition: stable Disposition: PACU Specimens:: Gallbladder and contents Complications:: None immediately apparent
--- NOTE | 2018-08-13 19:20 | Progress Note ---
[facility] Anesthesia Checklist - Structural Data Admitted From: Inpatient Planned Operative Procedure/s: gerber valle Consent for Planned Operative Procedure(s) Verified: Yes - Airway Assessment C-Spine Mobility Assessed: Yes TMJ Mobility Assessed: Yes Dentition: Good Dentition - Neurological Assessment Level of Consciousness: Awake, Alert, Appropriate - Anesthesia Plan Anesthesia Risk discussed: Yes Anesthesia Plan: Verified ASA Class: II Anesthesia Type: General [facility] History I have reviewed the patient's past medical history: Yes Medical History: Reports:: Asthma Denies:: Cancer, Diabetes Mellitus Type 1, Diabetes Mellitus Type 2, MRSA, Seizures *Have you ever received a pneumonia vaccine?: No (refuses) *Have you received a flu vaccine this season?: No (refuses) Other Medical History: Denies: Blood Transfusion Reaction Other Surgeries: Yes: Appendectomy. No: Amputation: No Fractures: No - *Social History Educational Level: Completed High School Smoking Status: Never smoker Alcohol Intake: never Substance Use Type: denies use *Occupational Status:: unemployed Housing: house Household Members: significant other *Travel in the last 8 weeks: None - Psychiatric History Expresses thoughts of harming self/others: None Suicide Plan Description: No Plan Family Hx:: Diabetes, Cancer, Hypertension
--- NOTE | 2018-08-13 19:21 | Progress Note ---
[facility] Anesthesia Record Part II Discharge Time: 19:40 Destination: floor PACU nurse assessment reviewed?: Yes Patient Condition:: Good Anesthesia Complications:: None Swallowing reflex intact?: Yes Cyanosis?: No
--- NOTE | 2018-08-13 19:21 | Progress Note ---
[facility] Anesthesia Record Part I Intake, IV Amount: 2,000 Estimated blood loss (mL): 0 Urine output (mL): 0 Blood Pressure: 127/63 SaO2: 96 Pulse Rate: 76 Respiratory Rate: 12 Temperature: 97.5 F Patient is:: Awake, Stable Stable to PACU at:: 19:10
--- NOTE | 2018-08-13 21:07 | History & Physical Report ---
*Admission Date: 08/12/18 *Chief complaint: abd pain *History of present illness: pt with hx of progressive rt upper abd pain - she had known gallstones while - she presented to ed with increased pain and elevated lft and abn ct and was admitted -for pain meds and ivf and surg consult [facility] History I have reviewed the patient's past medical history: Yes Medical History: Reports:: Asthma Denies:: Cancer, Diabetes Mellitus Type 1, Diabetes Mellitus Type 2, MRSA, Seizures *Have you ever received a pneumonia vaccine?: No (refuses) *Have you received a flu vaccine this season?: No (refuses) Other Medical History: Denies: Blood Transfusion Reaction Other Surgeries: Yes: Appendectomy. No: Amputation: No Fractures: No - *Social History Educational Level: Completed High School Smoking Status: Never smoker Alcohol Intake: never Substance Use Type: denies use *Occupational Status:: unemployed Housing: house Household Members: significant other *Travel in the last 8 weeks: None - Psychiatric History Expresses thoughts of harming self/others: None Suicide Plan Description: No Plan Family Hx:: Diabetes, Cancer, Hypertension Review of Systems - Review of Systems Review of systems:: pertinent systems reviewed and negative unless documented below - Constitutional Denies fever(s) - Eyes Denies change in vision - ENT Denies ear discharge - *Cardiovascular Denies chest pain with activity - *Respiratory Denies cough - *Gastrointestinal Reports abdominal pain, Reports nausea, Reports vomiting, Denies black, tarry stools - *Genitourinary Denies blood in urine, Denies pelvic pain - *Musculoskeletal Denies joint pain, Denies neck pain - Integumentary/Breasts Denies rash - *Neurologic Denies abnormal hearing, Denies seizure-like activity Meds Allergies Allergy/AdvReac Type Severity Reaction Status Date / Time No Known Allergies Allergy Verified 08/12/18 21:38 Exam Vital signs and Labs for Last 24 Hours: Temp Pulse Resp BP Pulse Ox 98.0 F 61 14 118/69 99 08/13/18 19:50 08/13/18 19:50 08/13/18 19:50 08/13/18 19:50 08/13/18 20:00 Laboratory Results - last 24 hr 08/12/18 21:30: Urine Color Katie, Urine Appearance Cloudy, Urine pH 5.0, Ur Specific [place] >= 1.030, Urine Protein 1+, Urine Glucose (UA) Negative, Urine Ketones Negative, Urine Blood 3+, Urine Nitrate Negative, Urine Bilirubin N egative, Urine Urobilinogen 0.2, Ur Leukocyte Esterase Negative, Urine RBC 20- 50, Urine WBC Occasional, Urine Bacteria Trace 08/12/18 21:30: Urine HCG, Qual Negative 08/12/18 21:35: WBC 6.0, RBC 4.34, Hgb 12.1 L, Hct 37.6, MCV 86.4, MCH 28.0, MCHC 32.4, RDW 15.5, Plt Count 294, MPV 8.5, Neut % (Auto) 52.2, Lymph % (Auto) 40.1, [place] % (Auto) 6.9, Eos % (Auto) 0.3, Baso % (Auto) 0.6, Neut # (Auto) 3.1, Lymph # (Auto) 2.4, [place] # (Auto) 0.4, Eos # (Auto) 0.0, Baso # (Auto) 0.0 08/12/18 21:35: Sodium 140, Potassium 3.7, Chloride 102, Carbon Dioxide 26, Anion Gap 15.7 H, BUN 10, Creatinine 0.65, Estimated Creat Clear 165, Estimated GFR 116, Est GFR ( Amer) 141, Glucose 96, Calcium 9.3, Total Bilirubin 0.9, AST 416 H* D, ALT 231 H D, Alkaline Phosphatase 220 H, C-Reactive Protein 0.2, Total Protein 7.8, Albumin 4.1, Globulin 3.7 H, Albumin/Globulin Ratio 1.1, Amylase 27 D, Lipase 90 08/12/18 21:35: ESR 16 08/13/18 06:29: WBC 3.2 L D, RBC 3.87 L, Hgb 10.8 L D, Hct 33.7 L, MCV 87.1, MCH 27.8, MCHC 31.9, RDW 15.6, Plt Count 260, MPV 8.9, Neut % (Auto) 34.0 L, Lymph % (Auto) 55.4 H, [place] % (Auto) 8.9, Eos % (Auto) 0.8, Baso % (Auto) 0.9, Neut # ( Auto) 1.1 L, Lymph # (Auto) 1.8, [place] # (Auto) 0.3, Eos # (Auto) 0.0, Baso # (Auto) 0.0, Total Counted 100, Neutrophils % (Manual) 40 L, Lymphocytes % (Manual) 45, Atypical Lymphs % 5.0, Monocytes % (Manual) 10 H, Platelet Estimate Normal, RBC Morphology Not Reportable 08/13/18 06:29: Sodium 141, Potassium 3.6, Chloride 108 H, Carbon Dioxide 24, Anion Gap 12.6, BUN 10, Creatinine 0.61, Estimated Creat Clear 174, Estimated GFR 125, Est GFR ( Amer) 151, Glucose 87, Calcium 8.4 L, Total Bilirubin 1.1 H, AST 884 H* D, ALT 606 H*, Alkaline Phosphatase 217 H, Total Protein 6.3 L , Albumin 3.2 L D, Globulin 3.1, Albumin/Globulin Ratio 1.0 L 08/13/18 06:29: Lipase 67 L I & O for Last 24 hours: Intake & Output 08/11/18 08/12/18 08/13/18 08/14/18 11:59 11:59 11:59 11:59 Intake Total 1651 / 1651 2825 / 2825 Balance 1651 / 1651 2825 / 2825 Weight 165 lb 5 oz - Constitutional no acute distress - *Routine HEENT Exam Head: Present: normocephalic Eye: Present: EOMI, PERRL. Absent: conjunctival icterus ENT: Present: mucous membranes dry - *Routine Neck Exam Present: supple - *Routine Respiratory Exam Present: CTA bilaterally - *Routine Cardiovascular Exam Present: RRR, murmur - *Routine Abdominal Exam Present: soft, tenderness Comments: positive murphys sign - *Routine Extremities Exam Present: full ROM - Routine Back/Spine/Pelvis Exam Back/Spine: Absent: CVA tenderness - *Routine Skin Exam Present: intact - *Routine Neurological Exam Present: alert, oriented X3, CN II-XII intact - Routine Psychiatric Exam Present: normal affect Assessment and Plan (1) Cholelithiasis Current visit: Yes Status: Acute Qualifiers: Cholelithiasis location: gallbladder Cholecystitis presence: without cholecystitis Biliary obstruction: without biliary obstruction Qualified Code(s): K80.20 - Calculus of gallbladder without cholecystitis without obstruction Category: Medical Code(s): K80.20 - Calculus of gallbladder without cholecystitis without obstruction (2) Elevated liver enzymes Current visit: Yes Status: Acute Category: Medical Code(s): R74.8 - Abnormal levels of other serum enzymes
[2018-08-14 07:36] LABS: Basophils % 0.2 % (0.1-2.0); Hematocrit 34.6 % (37.0-47.0); Lymphocytes # 1.3 K/mm3 (0.7-4.5); Lymphocytes % 33.4 % (10-50); Mean Corpuscular HGB Conc 31.9 g/dL (31.8-35.4); Mean Corpuscular Hemoglobin 27.7 pg (27.0-31.2); Mean Corpuscular Volume 86.8 fl (81-99); Monocytes # 0.3 K/mm3 (0.1-1.0); Monocytes % 7.1 % (1.7-9.3); Neutrophils # 2.3 K/mm3 (1.8-7.8); Neutrophils % 59.3 % (37.0-80.0); Platelet Count 250 K/mm3 (142-424); Red Blood Count 3.98 M/mm3 (4.20-5.40); Red Cell Distribution Width 15.5 % (11.5-17.5); White Blood Count 3.9 K/mm3 (4.5-13.0)
[2018-08-14 07:47] LABS: Albumin Level 3.3 gm/dL (3.4-5.0); Anion Gap 17.9 mEq/L (5-15); Bilirubin,Total 1.9 mg/dL (0.2-1.0); Calcium 8.8 mg/dL (8.5-10.1); Globulin 3.3 gm/dl (1.3-3.2); Potassium 3.9 mmoL/L (3.5-5.1); Total Protein,Serum 6.6 gm/dL (6.4-8.2)
--- NOTE | 2018-08-14 08:08 | Progress Note ---
Subjective Patient reports: feels better Narrative: Patient feels better. No complaints. Tolerating diet. Exam Vital signs and Labs for Last 24 Hours: Temp Pulse Resp BP Pulse Ox 98.4 F 57 L 16 112/53 L 96 08/14/18 04:00 08/14/18 04:00 08/14/18 04:00 08/14/18 04:00 08/14/18 04:00 Laboratory Results - last 24 hr 08/13/18 06:29: Hgb 10.8 L D, Total Counted 100, Neutrophils % (Manual) 40 L, Lymphocytes % (Manual) 45, Atypical Lymphs % 5.0, Monocytes % (Manual) 10 H, Platelet Estimate Normal, RBC Morphology Not Reportable 08/14/18 06:32: WBC 3.9 L, RBC 3.98 L, Hgb 11.0 L, Hct 34.6 L, MCV 86.8, MCH 27.7, MCHC 31.9, RDW 15.5, Plt Count 250, MPV 9.0, Neut % (Auto) 59.3, Lymph % (Auto) 33.4, [place] % (Auto) 7.1, Eos % (Auto) 0.0 L, Baso % (Auto) 0.2, Neut # (Auto) 2.3, Lymph # (Auto) 1.3, [place] # (Auto) 0.3, Eos # (Auto) 0.0, Baso # (Auto) 0.0 08/14/18 06:32: Sodium 139, Potassium 3.9, Chloride 103, Carbon Dioxide 22, Anion Gap 17.9 H, BUN 7 D, Creatinine 0.56, Estimated Creat Clear 190, Estimated GFR 138, Est GFR ( Amer) 167, Glucose 156 H, Calcium 8.8, Total Bilirubin 1.9 H, AST 600 H* D, ALT 713 H*, Alkaline Phosphatase 348 H, Total Protein 6.6, Albumin 3.3 L, Globulin 3.3 H, Albumin/Globulin Ratio 1.0 L I & O for Last 24 hours: Intake & Output 08/11/18 08/12/18 08/13/18 08/14/18 11:59 11:59 11:59 11:59 Intake Total 1651 / 1651 2825 / 2825 Output Total 300 / 300 Balance 1651 / 1651 2525 / 2525 Weight 165 lb 5 oz - *Routine Abdominal Exam Present: soft Progress Note: A&P (1) Cholelithiasis Status: Acute Current Visit: Yes (2) Elevated liver enzymes Status: Acute Current Visit: Yes Assessment and Plan for All Diagnoses:: LFTs somewhat elevated but within reasonable limits. Clinically better with normal MRCP and cholangiogram yesterday. Hepatitis panel pending. Should be okay to discharge home with outpatient follow up.
[2018-08-14 08:20] VITALS: BP 109/54
--- NOTE | 2018-08-14 08:20 | Discharge Summary ---
General - General Admission date:: 08/12/18 Discharge date: 08/14/18 HPI HPI: pt with hx of progressive rt upper abd pain - she had known gallstones while - she presented to ed with increased pain and elevated lft and abn ct and was admitted -for pain meds and ivf and surg consult Hospital Course Hospital Course: CT ABD/Pelvis: IMPRESSION: 1. Cholelithiasis with distended gallbladder. Suggest right upper quadrant ultrasound for confirmation 2. Mild prominence of the intra and extrahepatic biliary radicals with possible choledocholithiasis. Consider MRCP for further evaluation. 3. 3 cm right ovarian cyst GB U/S: IMPRESSION: Cholelithiasis with mild intrahepatic biliary ductal dilatation and minimal gallbladder wall thickening. MRCP may be of further value for the possibility of a common duct stone MRI ABD W/O Contrast: IMPRESSION: 1. Cholelithiasis. 2. No definite common bile duct stone. There is mild ectasia of the intra and extrahepatic biliary radicals which may be due to spasm at the sphincter [place] from recently passed stone. Would recommend intraoperative cholangiogram if patient has gallbladder surgery to confirm the above findings 3. There is distal insertion of the cystic duct on the common bile duct as well as low insertion of a normal caliber pancreatic duct on the common bile duct Objective Vital signs: Temp Pulse Resp BP Pulse Ox 98.4 F 57 L 16 112/53 L 96 08/14/18 04:00 08/14/18 04:00 08/14/18 04:00 08/14/18 04:00 08/14/18 04:00 no acute distress - *Routine HEENT Exam Head: Present: normocephalic Eye: Present: EOMI, PERRL, normal accommodation ENT: Present: mucous membranes moist - *Routine Neck Exam Present: supple, full ROM - Routine Chest/Breast/Axilla Exam Chest wall: Absent: tenderness - *Routine Respiratory Exam Present: CTA bilaterally - *Routine Cardiovascular Exam Present: RRR, Normal S1, Normal S2 - *Routine Abdominal Exam Present: soft, normoactive bowel sounds - *Routine Extremities Exam Present: full ROM, pulses intact, normal capillary refill - Routine Back/Spine/Pelvis Exam Back/Spine: Present: full ROM - *Routine Skin Exam Present: intact, dry - *Routine Neurological Exam Present: alert, oriented X3, CN II-XII intact - Routine Psychiatric Exam Present: normal affect, normal thought process Results Labs on day of discharge: Labs from last 24 hours 08/14/18 08/14/18 08/13/18 06:32 06:32 06:29 WBC 3.9 L RBC 3.98 L Hgb 11.0 L Hct 34.6 L MCV 86.8 MCH 27.7 MCHC 31.9 RDW 15.5 Plt Count 250 MPV 9.0 Neut % (Auto) 59.3 Lymph % (Auto) 33.4 [place] % (Auto) 7.1 Eos % (Auto) 0.0 L Baso % (Auto) 0.2 Neut # (Auto) 2.3 Lymph # (Auto) 1.3 [place] # (Auto) 0.3 Eos # (Auto) 0.0 Baso # (Auto) 0.0 Total Counted 100 Neutrophils % (Manual) 40 L Lymphocytes % (Manual) 45 Atypical Lymphs % 5.0 Monocytes % (Manual) 10 H Platelet Estimate Normal RBC Morphology Not Reportable Sodium 139 Potassium 3.9 Chloride 103 Carbon Dioxide 22 Anion Gap 17.9 H BUN 7 D Creatinine 0.56 Estimated Creat Clear 190 Estimated GFR 138 Est GFR ( Amer) 167 Glucose 156 H Calcium 8.8 Total Bilirubin 1.9 H AST 600 H* D ALT 713 H* Alkaline Phosphatase 348 H Total Protein 6.6 Albumin 3.3 L Globulin 3.3 H Albumin/Globulin Ratio 1.0 L DS: Diagnosis - Discharge Diagnosis (1) Cholelithiasis Status: Acute (2) Elevated liver enzymes Status: Acute Discharge Plan - Patient Discharge Instructions ACTIVITY: Continue current activity, Ambulate as tolerated DIET: advance to your usual diet Patient Instructions: DI for Strep Throat, DI for Cholecystectomy, DI for Gallstones, DI for Surgical Site Infection, Cholecystectomy -- Laparoscopic Surgery - Follow up Plan Follow up with: Grayson Hines MD [Emergency Provider] - Robbin Dean MD [Staff Physician] - Disposition: Home, Self-Longterm Medications: Home Medications Medication Instructions Recorded Confirmed Type Hydrocod/Acet 5/325 mg [[place] 1 - 2 tab PO Q6HP PRN #21 tab 08/14/18 Rx 5/325mg tablet] Prescriptions/Medication Reconciliation: New Hydrocod/Acet 5/325 mg [[place] 5/325mg tablet] 1 - 2 tab PO Q6HP PRN #21 tab PRN Reason: Moderate Pain - Additional Information Additional Information: Follow up with General Surgery
[2018-08-14 10:26] LABS: Hepatitis B Core Antibody IgM Negative (Negative); Hepatitis B Surface Antigen Negative (Negative)
[2018-08-14 12:53] LABS: Hepatitis C Antibody <0.1 s/co ratio (0.0-0.9)
== END 2018-08-14 10:36 | disposition home or self-care (01) ==
LOC: ER 21:25 → 2ND 21:25
PROVIDERS: ADMIT Emergency Medicine; ATTEND Emergency Medicine
DX: K80.46 Calculus of bile duct with acute and chronic cholecystitis without obstruction; Z82.49 Family history of ischemic heart disease and other diseases of the circulatory system; Z80.9 Family history of malignant neoplasm, unspecified; Z83.3 Family history of diabetes mellitus; J45.909 Unspecified asthma, uncomplicated; Z87.19 Personal history of other diseases of the digestive system; R74.8 Abnormal levels of other serum enzymes
CPT/HCPCS: 36415; 74177; 74181; 74300; 76000; 76376; 76705; 80053; 80074; 81001; 81025; 82150; 83690; 85007; 85025; 85651; 86140; 88304; 96365; 96375; 96376; 99284; G0378; J2405; J2710; Q9967

== ENCOUNTER → 2018-08-22 13:29 | Outpatient (CLI) | payer OTHER, SELFPAY ==
[2018-08-22 14:25] LABS: Alanine Aminotransferase 251 U/L (12-78); Albumin Level 3.8 gm/dL (3.4-5.0); Albumin/Globulin Ratio 1.1 (1.1-1.8); Alkaline Phosphatase 399 U/L (46-116); Amylase 41 U/L (25-115); Aspartate Amino Transferase 76 U/L (15-37); Bilirubin,Total 1.2 mg/dL (0.2-1.0); Blood Urea Nitrogen 11 mg/dL (7-18); Calcium 9.7 mg/dL (8.5-10.1); Carbon Dioxide 29 mmol/L (21.0-32.0); Chloride 107 mmol/L (98-107); Creatinine,Serum 0.52 mg/dL (0.55-1.02); Estimated Glomerular Filt Rate 150 ml/min (>60); GFR (African American) 182 ML/MIN (>60); Globulin 3.4 gm/dl (1.3-3.2); Glucose 90 mg/dL (74-106); Lipase 206 u/L (73-393); Sodium 144 mmol/L (136-145); Total Protein,Serum 7.2 gm/dL (6.4-8.2)
== END ==
PROVIDERS: Visit Provider Surgery
DX: R10.9 Unspecified abdominal pain (principal)
CPT/HCPCS: 36415; 80053; 82150; 83690

== ENCOUNTER 2020-04-02 05:46 | Emergency (ER) | payer OTHER, SELFPAY ==
[2020-04-02 05:46] VITALS: BP 121/82; PULSE 101; RESP 16; TEMP 37.2; O2SAT 98; BMI 32.0
[2020-04-02 06:00] VITALS: BP 139/78; PULSE 88; RESP 18; O2SAT 99
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
[2020-04-02 06:20] LABS: Basophils # 0.1 K/mm3 (0-0.2); Basophils % 0.6 % (0.1-2.0); Eosinophils # 0.3 K/mm3 (0.0-0.4); Eosinophils % 2.6 % (0.1-12.0); Hematocrit 40.4 % (37.0-47.0); Hemoglobin 13.1 g/dL (12.2-16.2); Lymphocytes # 2.3 K/mm3 (0.7-4.5); Lymphocytes % 23.1 % (10-50); Mean Corpuscular HGB Conc 32.5 g/dL (31.8-35.4); Mean Corpuscular Hemoglobin 29.9 pg (27.0-31.2); Mean Corpuscular Volume 91.9 fl (81-99); Monocytes # 1.1 K/mm3 (0.1-1.0); Monocytes % 10.4 % (1.7-9.3); Neutrophils # 6.4 K/mm3 (1.8-7.8); Neutrophils % 63.2 % (37.0-80.0); Platelet Count 321 K/mm3 (142-424); Red Blood Count 4.39 M/mm3 (4.20-5.40); Red Cell Distribution Width 13.5 % (11.5-17.5); White Blood Count 10.1 K/mm3 (4.8-10.8)
[2020-04-02 06:22] LABS: Chloride 104 mmol/L (98-107); Sodium 139 mmol/L (136-145)
[2020-04-02 06:25] LABS: Alanine Aminotransferase 26 U/L (12-78); Albumin Level 4.6 g/dl (3.5-5.0); Albumin/Globulin Ratio 1.5 (1.1-1.8); Alkaline Phosphatase 98 U/L (38-126); Aspartate Amino Transferase 39 U/L (14-36); Bilirubin,Total 0.8 mg/dl (0.2-1.3); Blood Urea Nitrogen 12 mg/dl (7-17); Calcium 9.4 mg/dl (8.4-10.2); Carbon Dioxide 26 mmol/L (22.0-30.0); Creatinine Clearance Estimated 158 mL/min (50-200); Estimated Glomerular Filt Rate 105 ml/min (>60); GFR (African American) 127 ML/MIN (>60); Globulin 3.1 g/dL (1.3-3.2); Glucose 123 mg/dl (74-100); Total Protein,Serum 7.7 g/dl (6.3-8.2)
[2020-04-02 06:27] LABS: HCG Qualitative, Serum Negative (Negative)
[2020-04-02 06:28] VITALS: BP 148/85; PULSE 104; RESP 18; O2SAT 100
[2020-04-02 06:29] LABS: Ethyl Alcohol < 10 mg/dl (0-10)
--- NOTE | 2020-04-02 06:31 | PC.NURSE ---
pt to CT
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
--- NOTE | 2020-04-02 07:25 | PC.NURSE ---
pt return from ct
[2020-04-02 07:27] VITALS: BP 122/70; PULSE 80; O2SAT 100
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
--- NOTE | 2020-04-02 07:32 | PC.NURSE ---
c-collar removed per verbal order dr beltran
[2020-04-02 08:00] VITALS: BP 116/66; PULSE 79; O2SAT 100
[2020-04-02 08:27] VITALS: BP 122/74; PULSE 74; RESP 18; TEMP 36.6; O2SAT 98
[2020-04-21 09:33] LABS: POC Glucose,Bedside 181 (70-110)
== END 2020-04-02 08:28 | disposition home or self-care (01) ==
PROVIDERS: Emergency Provider Emergency Medicine; PCP Physician Assistant
DX: S16.1XXA Strain of muscle, fascia and tendon at neck level, initial encounter (principal); S29.019A Strain of muscle and tendon of unspecified wall of thorax, initial encounter; S89.92XA Unspecified injury of left lower leg, initial encounter; V40.5XXA Car driver injured in collision with pedestrian or animal in traffic accident, initial encounter; Y92.488 Other paved roadways as the place of occurrence of the external cause
CPT/HCPCS: 70450; 71045; 71100; 71275; 72125; 72128; 72170; 73590; 73610; 80053; 82962; 84703; 85025; 96374; 99282; Q9967

== ENCOUNTER 2020-11-18 16:23 | Emergency (ER) | payer OTHER, SELFPAY ==
[2020-11-18 17:05] VITALS: BP 112/65; PULSE 83; RESP 21; TEMP 36.8; O2SAT 98; BMI 37.0
[2020-11-18 17:50] LABS: UTC Pregnancy Test, Urine Negative (Negative)
[2020-11-18 18:16] VITALS: BP 112/65; PULSE 83; RESP 21; TEMP 36.8; O2SAT 98
--- NOTE | 2020-11-18 18:16 | HMH.EDUTC ---
[facility] [place] Disposition Clinical Impression: Amenorrhea, Nausea Disposition: Home, Self-Care Condition on Discharge: Good Instructions: DI for Amenorrhea Additional Instructions: FoDrink plenty of fluids. Take tylenol for pain or fever. Follow up with your regular doctor. GO TO THE ER FOR ANY WORSENING SYMPTOMS Referrals: Dennise Mejía APRN [Primary Care Provider] - Time of Disposition: 18:18 Medical Decision Making - Medical Records Medical records reviewed: No: I reviewed the patient's medical records. - Zach Inquiry Pt receiving controlled substance: No Vital Signs: 11/18/20 17:05 11/18/20 18:16 Temperature 98.3 F 98.3 F Temperature Source Oral Pulse Rate 83 Pulse Rate [Right Brachial] 83 Respiratory Rate 21 21 Blood Pressure 112/65 Blood Pressure [Right Arm] 112/65 Blood Pressure Mean [Right Arm] 80 Blood Pressure Source [Right Arm] Automatic Cuff Blood Pressure Position [Right Arm] Sitting 02 Sat by Pulse Oximetry 98 Oxygen Delivery Method Room Air - Lab Data Lab results reviewed: Yes: I reviewed the patient's lab results. Lab Results 11/18/20 17:46: Tst Clinic Negative [facility] [place] HPI - General Stated complaint: upset stomach, vomitting Time Seen by Provider: 11/18/20 17:35 Mode of Arrival: Ambulatory Source of Information: Patient Limitations: No Limitations Description of Symptoms (Recalled from Triage Doc. by RN): PATIENT C/O VOMITING X 2 WEEKS HEENT Symptoms (Recalled from RN notes): No Resp Symptoms (Recalled from RN notes): No Skin Symptoms (Recalled from RN notes): No MS Symptoms (Recalled from RN notes): No Functional Status (Recalled from RN notes): WNL - History of Present Illness Provider Complaint: She states that her period is late and she has been having nausea at times. - Related Data Home Medications Medication Instructions Recorded Confirmed etonogestrel 68 mg subdermal SUBDERMAL 08/22/20 10/19/20 implant Previous Rx's Medication Instructions Recorded vit no.127-ferrous fum 15 1 tab PO HS #60 tab 08/22/20 mg iron-folic acid 1,000 mcg tablet Allergies Allergy/AdvReac Type Severity Reaction Status Date / Time famotidine Allergy Intermediate Rash Verified 10/19/20 15:23 metoclopramide [From Reglan] Allergy Intermediate Rash Verified 10/19/20 15:23 - Worker's Comp Is this a Worker's Comp case?: No [facility] History - Hepatitis A Screen Drug use history?: No High risk sexual behaviors?: No History of sexually transmitted infection?: No Currently employed?: No Childcare worker?: No Do you have indoor plumbing?: Yes Do you have electricity?: Yes Attestation statement:: This patient has been screened for Hepatitis A risk factors. I have reviewed the patient's past medical history: Yes Medical History: Reports:: Asthma Denies:: Cancer, Diabetes Mellitus Type 1, Diabetes Mellitus Type 2, MRSA, Seizures Other Medical History: Denies: Blood Transfusion Reaction Other Surgeries: Yes: Appendectomy, Cholecystectomy, Other. No: Amputation: No Fractures: No Comment: Cyst Removal of lower abdomen X 2 - Social History Smoking Status: Never smoker Alcohol Intake: never Alcohol Intake Frequency:: other Substance Use Type: denies use Occupational Status: other Housing: house Household Members: significant other Family Hx:: Diabetes, Cancer, Hypertension ROS Obtained: Yes All systems reviewed & no additional complaints - Constitutional Constitutional: Reports system reviewed and no additional complaints, except as docu - Eyes Eyes: Reports system reviewed and no additional complaints, except as docu - ENT Ears, Nose, Mouth, and Throat: Reports system reviewed and no additional complaints, except as docu - Cardiovascular Cardiovascular: Reports system reviewed and no additional complaints, except as docu - Respiratory Respiratory: Reports system reviewed and no additional complaints, ex
== END 2020-11-18 18:24 | disposition home or self-care (01) ==
PROVIDERS: Emergency Provider Nurse Practitioner Family; PCP Nurse Practitioner Family
DX: N91.2 Amenorrhea, unspecified (principal); R11.0 Nausea
CPT/HCPCS: 81025; 99202; G0463

== ENCOUNTER 2020-11-25 16:33 | Emergency (ER) | payer OTHER, SELFPAY ==
[2020-11-25 16:43] VITALS: BP 131/64; PULSE 91; RESP 16; TEMP 37.1; O2SAT 100; BMI 23.2
--- NOTE | 2020-11-25 17:24 | HMH.EDUTC ---
[facility] [place] Disposition Clinical Impression: Abscess, abdomen Cellulitis Qualifiers: Site of cellulitis: trunk Site of cellulitis of trunk: abdominal wall Qualified Code(s): L03.311 - Cellulitis of abdominal wall Disposition: Home, Self-Care Condition on Discharge: Good Instructions: Cellulitis, Boil Additional Instructions: Apply warm wet compresses to the affected sites three or four times per day for 15 minutes as tolerated. Take the antibiotics as directed and apply the topical antibiotic ointment as directed. Follow up with your regular doctor. GO TO THE ER FOR ANY WORSENING SYMPTOMS OR CONCERNS Prescriptions: Sulfamethoxazole/Trimethoprim [Bactrim DS tablet] 1 each PO BID 10 Days #20 tab Transmission Status: Received by [facility] Mupirocin [Bactroban 2% Ointment 22gm tube] 1 applicatio TP TID 7 Days #1 tube Transmission Status: Received by [facility] cephALEXin [cephALEXin 500mg capsule] 500 mg PO Q6H 10 Days #40 cap Transmission Status: Received by [facility] Referrals: Glo Horowitz PA [Primary Care Provider] - Forms: Work/School Release Time of Disposition: 17:27 Medical Decision Making - Medical Records Medical records reviewed: No: I reviewed the patient's medical records. - Zach Inquiry Pt receiving controlled substance: No Vital Signs: 11/25/20 16:43 11/25/20 17:47 Temperature 98.7 F 0 F L Temperature Source Oral Pulse Rate 0 L Pulse Rate [Right] 91 H Respiratory Rate 16 16 Blood Pressure 000/00 L Blood Pressure [Right Arm] 131/64 Blood Pressure Mean [Right Arm] 86 02 Sat by Pulse Oximetry 100 Oxygen Delivery Method Room Air - Lab Data Lab Results 11/25/20 18:08: Tst Clinic Negative [facility] [place] HPI - General Stated complaint: Knot on botton stomach Time Seen by Provider: 11/25/20 17:24 Mode of Arrival: Ambulatory Source of Information: Patient Limitations: No Limitations Description of Symptoms (Recalled from Triage Doc. by RN): pt c/o a knot on her lower stomach. that is red warm and tender to the touch. pt states, I'm in so much pain I can barely walk. HEENT Symptoms (Recalled from RN notes): No Resp Symptoms (Recalled from RN notes): No Skin Symptoms (Recalled from RN notes): Yes (red warm swollen area on lower abd) MS Symptoms (Recalled from RN notes): No Functional Status (Recalled from RN notes): na - History of Present Illness Provider Complaint: She reports that she has a red area on her lower abdomen. She states that is has been present for the past 3 days. It is painful to touch. She denies any fever/chills. - Related Data Home Medications Medication Instructions Recorded Confirmed etonogestrel 68 mg subdermal SUBDERMAL 08/22/20 10/19/20 implant Previous Rx's Medication Instructions Recorded vit no.127-ferrous fum 15 1 tab PO HS #60 tab 08/22/20 mg iron-folic acid 1,000 mcg tablet Mupirocin [Bactroban 2% Ointment 1 applicatio TP TID 7 Days #1 tube 11/25/20 22gm tube] Sulfamethoxazole/Trimethoprim 1 each PO BID 10 Days #20 tab 11/25/20 [Bactrim DS tablet] cephALEXin [cephALEXin 500mg 500 mg PO Q6H 10 Days #40 cap 11/25/20 capsule] Allergies Allergy/AdvReac Type Severity Reaction Status Date / Time famotidine Allergy Intermediate Rash Verified 10/19/20 15:23 metoclopramide [From Reglan] Allergy Intermediate Rash Verified 10/19/20 15:23 - Worker's Comp Is this a Worker's Comp case?: No [facility] History - Hepatitis A Screen Drug use history?: No High risk sexual behaviors?: No History of sexually transmitted infection?: No Currently employed?: No Childcare worker?: No Do you have indoor plumbing?: Yes Do you have electricity?: Yes Attestation statement:: This patient has been screened for Hepatitis A risk factors. I have reviewed the patient's past medical history: Yes Medical History: Reports:: Asthma Denies:: Cancer, Diabetes Mellitus
[2020-11-25 17:47] VITALS: BP 000/00; PULSE 0; RESP 16; TEMP -17.7; TEMP 0
[2020-11-25 18:33] LABS: UTC Pregnancy Test, Urine Negative (Negative)
== END 2020-11-25 17:51 | disposition home or self-care (01) ==
PROVIDERS: Emergency Provider Nurse Practitioner Family; PCP Physician Assistant
DX: L03.311 Cellulitis of abdominal wall (principal); J45.909 Unspecified asthma, uncomplicated
CPT/HCPCS: 81025; 99202; G0463

== ENCOUNTER → 2021-02-01 15:20 | Outpatient (CLI) | payer OTHER, SELFPAY ==
[2021-02-01 16:49] LABS: HCG,Quantitative < 2 mIU/ml (0-5.42)
== END ==
PROVIDERS: Visit Provider Physician Assistant
DX: Z32.00 Encounter for pregnancy test, result unknown (principal)
CPT/HCPCS: 36415; 84702

== ENCOUNTER 2021-02-27 17:27 | Emergency (ER) | payer OTHER, SELFPAY ==
[2021-02-27 17:30] VITALS: BP 125/74; PULSE 85; RESP 20; TEMP 36.9; O2SAT 98; BMI 31.4
--- NOTE | 2021-02-27 18:16 | HMH.EDUTC ---
[facility] Disposition Clinical Impression: test negative Disposition: Home, Self-Care Condition on Discharge: Good Instructions: Home and Clinic Tests, In-Home Tests: Your Questions Answered Additional Instructions: Make sure to follow up for retest in a couple weeks with your Family Doctor or OBGYN if needed Straight to ER if any life threatening symptoms Return if needed Follow up with OBGYN as needed Referrals: Glo Horowitz PA [Primary Care Provider] - As needed Time of Disposition: 18:52 Medical Decision Making - Zach Inquiry Pt receiving controlled substance: No Zach was queried for this patient: No Vital Signs: 02/27/21 17:30 Temperature 98.5 F Temperature Source Oral Pulse Rate [Right Brachial] 85 Respiratory Rate 20 Blood Pressure [Right Arm] 125/74 Blood Pressure Mean [Right Arm] 91 Blood Pressure Source [Right Arm] Automatic Cuff Blood Pressure Position [Right Arm] Sitting 02 Sat by Pulse Oximetry 98 Oxygen Delivery Method Room Air - Lab Data Lab results reviewed: Yes: I reviewed the patient's lab results. Lab Results 02/27/21 18:15: Serum HCG, Qual Positive Medical Decision Narrative: Urine test positive in [facility] so ordered HCG Qual and the result was negative recommended that patient follow up in the next few weeks if she still has not had her monthly period to get rechecked for Pregancy Patient denies cramping, bleeding or any pain [facility] HPI - General Stated complaint: vomiting Time Seen by Provider: 02/27/21 18:17 Mode of Arrival: Ambulatory Source of Information: Patient Limitations: No Limitations Description of Symptoms (Recalled from Triage Doc. by RN): PATIENT C/O NAUSEA AND VOMITING, REQUESTING TEST HEENT Symptoms (Recalled from RN notes): No Resp Symptoms (Recalled from RN notes): No Skin Symptoms (Recalled from RN notes): No MS Symptoms (Recalled from RN notes): No Functional Status (Recalled from RN notes): WNL - History of Present Illness Provider Complaint: Patient states that she noticed she was having some nausea and vomiting in the mornings when she would get up and she has taken multiple home tests States that earlier a test that she took was positive so she came in to get checked here to see if the test here showed positive too - Related Data Home Medications Medication Instructions Recorded Confirmed etonogestrel 68 mg subdermal SUBDERMAL 08/22/20 10/19/20 implant Previous Rx's Medication Instructions Recorded vit no.127-ferrous fum 15 1 tab PO HS #60 tab 08/22/20 mg iron-folic acid 1,000 mcg tablet Mupirocin [Bactroban 2% Ointment 1 applicatio TP TID 7 Days #1 tube 11/25/20 22gm tube] Sulfamethoxazole/Trimethoprim 1 each PO BID 10 Days #20 tab 11/25/20 [Bactrim DS tablet] cephALEXin [cephALEXin 500mg 500 mg PO Q6H 10 Days #40 cap 11/25/20 capsule] Allergies Allergy/AdvReac Type Severity Reaction Status Date / Time famotidine Allergy Intermediate Rash Verified 10/19/20 15:23 metoclopramide [From Reglan] Allergy Intermediate Rash Verified 10/19/20 15:23 - Worker's Comp Is this a Worker's Comp case?: No [facility] History - Hepatitis A Screen Drug use history?: No High risk sexual behaviors?: No History of sexually transmitted infection?: No Currently employed?: No Childcare worker?: No Do you have indoor plumbing?: Yes Do you have electricity?: Yes Attestation statement:: This patient has been screened for Hepatitis A risk factors. I have reviewed the patient's past medical history: Yes Medical History: Reports:: Asthma Denies:: Cancer, Diabetes Mellitus Type 1, Diabetes Mellitus Type 2, MRSA, Seizures Other Medical History: Denies: Blood Transfusion Reaction Other Surgeries: Yes: Appendectomy, Cholecystectomy, Other. No: Amputation: No Fractures: No Comment: Cyst Removal of lower abdomen X 2 - Social History Smoking Statu
[2021-02-27 18:47] LABS: HCG Qualitative, Serum Positive (Negative)
[2021-02-27 18:57] VITALS: BP 125/74; PULSE 85; RESP 20; TEMP 36.9; O2SAT 98
[2021-02-27 21:46] LABS: UTC Pregnancy Test, Urine Positive (Negative)
== END 2021-02-27 18:59 | disposition home or self-care (01) ==
PROVIDERS: Emergency Provider Nurse Practitioner; PCP Physician Assistant
DX: R11.2 Nausea with vomiting, unspecified (principal); Z32.02 Encounter for pregnancy test, result negative; J45.909 Unspecified asthma, uncomplicated
CPT/HCPCS: 81025; 84703; 99203; G0463

== ENCOUNTER → 2021-03-04 11:07 | Outpatient (CLI) | payer OTHER, SELFPAY ==
[2021-03-04 14:01] LABS: HCG,Quantitative < 2 mIU/ml (0-5.42)
== END ==
PROVIDERS: Visit Provider Nurse Practitioner Obstetrics & Gynecology
DX: Z32.00 Encounter for pregnancy test, result unknown (principal)
CPT/HCPCS: 36415; 84702

== ENCOUNTER → 2021-03-11 10:21 | Outpatient (CLI) | payer OTHER, SELFPAY ==
[2021-03-11 12:20] LABS: HCG,Quantitative < 2 mIU/ml (0-5.42)
== END ==
PROVIDERS: Visit Provider Nurse Practitioner Obstetrics & Gynecology
DX: N92.6 Irregular menstruation, unspecified (principal)
CPT/HCPCS: 36415; 84702

== ENCOUNTER 2021-05-02 19:36 | Emergency (ER) | payer OTHER, SELFPAY ==
[2021-05-02 21:14] VITALS: BP 128/64; PULSE 59; RESP 18; TEMP 36.7; O2SAT 100; BMI 37.5
--- NOTE | 2021-05-02 21:26 | HMH.EDUTC ---
[facility] [place] Clinical Impression: Gastroenteritis Disposition: Home, Self-Care Condition on Discharge: Good Instructions: DI for Viral Gastroenteritis -- Adult, Ondansetron Additional Instructions: Drink plenty of fluids. Take tylenol for pain. Take the medications as directed. The zofran is for nausea/vomiting. Follow up with your regular doctor. GO TO THE ER FOR ANY WORSENING SYMPTOMS If your symptoms get worse, please return celine and got to the ER. Prescriptions: Ondansetron [Zofran 4mg ODT] 4 mg PO Q8HP PRN #20 tab PRN Reason: Nausea Transmission Status: Pending to [id number] Referrals: Glo Horowitz PA [Primary Care Provider] - Forms: Work/School Release Time of Disposition: 21:30 Medical Decision Making - Medical Records Medical records reviewed: No: I reviewed the patient's medical records. - Zach Inquiry Pt receiving controlled substance: No Vital Signs: 05/02/21 21:14 Temperature 98.1 F Temperature Source Oral Pulse Rate [Left] 59 L Respiratory Rate 18 Blood Pressure [Right Arm] 128/64 Blood Pressure Mean [Right Arm] 85 02 Sat by Pulse Oximetry 100 - Lab Data Lab results reviewed: Yes: I reviewed the patient's lab results. Orders (Tests/Meds): ORDERS Category Date Time Status Urine Culture Stat Micro 05/02/21 21:11 Ordered [facility] [place] - General Stated complaint: vomiting Time Seen by Provider: 05/02/21 21:26 Mode of Arrival: Ambulatory Source of Information: Patient Limitations: No Limitations Description of Symptoms (Recalled from Triage Doc. by RN): pt c/o n/v and epigasteric pain. HEENT Symptoms (Recalled from RN notes): No Resp Symptoms (Recalled from RN notes): No Skin Symptoms (Recalled from RN notes): No MS Symptoms (Recalled from RN notes): No Functional Status (Recalled from RN notes): wnl - History of Present Illness Provider Complaint: She states that for the for the past 2 days she has had vomiting and abdominal cramping. She denies any fever or chills. She has had a normal bm. She does not have an appendix or gall bladder. She denies any history of bowel blockage or symptoms similar to what she is having now. - Related Data Previous Rx's Medication Instructions Recorded Ondansetron [Zofran 4mg ODT] 4 mg PO Q8HP PRN #20 tab 05/02/21 medroxyprogesterone 10 mg tablet 10 mg PO DAILY 10 Days #10 tab 05/02/21 Allergies Allergy/AdvReac Type Severity Reaction Status Date / Time famotidine Allergy Intermediate Rash Verified 05/02/21 14:47 metoclopramide [From Reglan] Allergy Intermediate Rash Verified 05/02/21 14:47 - Worker's Comp Is this a Worker's Comp case?: No [facility] History - Hepatitis A Screen Drug use history?: No High risk sexual behaviors?: No History of sexually transmitted infection?: No Currently employed?: No Childcare worker?: No Do you have indoor plumbing?: Yes Do you have electricity?: Yes Attestation statement:: This patient has been screened for Hepatitis A risk factors. I have reviewed the patient's past medical history: Yes Medical History: Reports:: Asthma Denies:: Cancer, Diabetes Mellitus Type 1, Diabetes Mellitus Type 2, MRSA, Seizures Other Medical History: Denies: Blood Transfusion Reaction Other Surgeries: Yes: Appendectomy, Cholecystectomy, Other. No: Amputation: No Fractures: No Comment: Cyst Removal of lower abdomen X 2 - Social History Smoking Status: Never smoker Alcohol Intake: never Alcohol Intake Frequency:: other Substance Use Type: denies use Occupational Status: other Housing: house Household Members: significant other Family Hx:: Diabetes, Cancer, Hypertension ROS Obtained: Yes All systems reviewed & no additional complaints - Constitutional Constitutional: Denies chills, Denies fever(s), Reports poor appetite, Denies malaise - Eyes Eyes: Denies eye discharge - ENT Ears, Nose, Mouth, and Throat: Denies dizziness, De
[2021-05-02 21:30] LABS: Apearance,Urine Slightly Cloudy (Clear); Color,Urine Yellow (Yellow); Glucose,Urine (UA) Negative (Negative); Ketones,Urine Negative (Negative); PH,Urine 5.5 (5.0-8.5); Protein,Urine Negative (Negative); Specific Gravity, Urine > 1.030 (1.005-1.030)
[2021-05-02 21:31] LABS: Bilirubin,Urine Negative (Negative); Blood, Urine Trace (Negative); UTC Leukocyte Esterase,Urine Negative (Negative); UTC Nitrate,Urine Negative (Negative); UTC Pregnancy Test, Urine Negative (Negative); Urobilinogen,Urine 0.2 EU/dl (0.2)
[2021-05-02 21:36] VITALS: BP 128/64; PULSE 63; RESP 16; TEMP 36.6
== END 2021-05-02 21:37 | disposition home or self-care (01) ==
PROVIDERS: Emergency Provider Nurse Practitioner Family; PCP Physician Assistant
DX: K52.9 Noninfective gastroenteritis and colitis, unspecified (principal); J45.909 Unspecified asthma, uncomplicated
CPT/HCPCS: 81003; 81025; 87086; 99202; G0463

== ENCOUNTER 2021-06-15 15:13 | Emergency (ER) | payer OTHER, SELFPAY ==
--- NOTE | 2021-06-15 15:16 | ECG_ITS ---
APPROVED REPORT Exam: Resting ECG HR:70 bpm ECG Measurements Heart Rate 70 AXES RI 148 P 20 QRSd 82 QRS 20 QT 408 T -3 QTc 440 Conclusion Normal sinus rhythm Normal ECG Electronically signed by : Miguel Angel Auguste MD 06/16/2021 17:34:09
[2021-06-15 15:17] VITALS: BMI 28.3
[2021-06-15 15:30] VITALS: BP 139/90; PULSE 69; RESP 16; O2SAT 100
--- NOTE | 2021-06-15 15:32 | XR_ITS ---
FINAL REPORT CLINICAL HISTORY: chest pain COMPARISON: 04/02/2020 FINDINGS: SINGLE VIEW CHEST The heart is normal in size. The mediastinum is unremarkable. The lungs are clear. There is no pneumothorax. IMPRESSION: No acute cardiopulmonary process. Reviewed, Interpreted and Dictated by Magdaleno Davies III, MD Transcribed by Temitope Cameron Authenticated by Magdaleno Davies III, MD on 06/15/2021 04:25:[address] [facility]
--- NOTE | 2021-06-15 15:45 | HMH.EDGENADL ---
ED Disposition Clinical Impression: Atypical chest pain Disposition: Home, Self-Care Condition on Discharge: Good Instructions: DI for Atypical Chest Pain Additional Instructions: follow up pcp Referrals: Provider,Referral, [Referring] - Time of Disposition: 17:25 - Critical Care Critical Care Time: No Attestation: On 06/15/21, the high probability of a clinically significant, sudden or life threatening deterioration of the following system(s) required my full and direct attention, intervention and personal management. The time I documented below is in addition to time spent performing reported procedures but includes the following listed in this critical care notation. Medical Decision Making - Zach Inquiry Pt receiving controlled substance: No - Lab Data Lab Results 06/15/21 15:40: WBC 10.4, RBC 4.32, Hgb 13.4, Hct 41.3, MCV 95.7, MCH 30.9, MCHC 32.3, RDW 12.9, Plt Count 386, MPV 8.8, Neut % (Auto) 54.2, Lymph % (Auto) 36.2, [place] % (Auto) 8.3, Eos % (Auto) 0.4, Baso % (Auto) 0.9, Neut # (Auto) 5.6, Lymph # (Auto) 3.8, [place] # (Auto) 0.9, Eos # (Auto) 0.0, Baso # (Auto) 0.1 06/15/21 15:40: Sodium 139, Potassium 4.0, Chloride 102, Carbon Dioxide 29, Anion Gap 12.0, BUN 12, Creatinine 0.60, Estimated Creat Clear 178, Estimated GFR 124, Est GFR ( Amer) 150, Glucose 85, Calcium 9.6, Total Bilirubin 0.8, AST 54 H, ALT 58, Alkaline Phosphatase 127 H, Troponin I < 0.01, Total Protein 7.8, Albumin 4.8, Globulin 3.0, Albumin/Globulin Ratio 1.6 06/15/21 15:40: D-Dimer 0.53 H 06/15/21 15:40: Serum HCG, Qual Negative Result diagrams: 06/15/21 15:40 06/15/21 15:40 Orders (Tests/Meds): ED MEDICATIONS Discontinued Medications Generic Name Dose Route Start Last Admin Trade Name Freq PRN Reason Stop Dose Admin Aspirin 324 mg 06/15/21 15:47 06/15/21 15:49 Aspirin 81mg Chewable Tablet PO 06/15/21 15:48 324 mg ONCE ONE Administration Iopamidol 70 ml 06/15/21 16:58 06/15/21 16:59 Iopamidol-370 (76%);100ml Bottle IV 06/15/21 16:59 70 ml ONCE ONE Administration Sodium Chloride 10 ml 06/15/21 16:58 06/15/21 16:59 Sodium Chloride 0.9% 10ml Syr (Rad Only) IV 06/15/21 16:59 10 ml ONCE ONE Administration Sodium Chloride 50 ml 06/15/21 16:58 06/15/21 16:59 0.9 % Sodium Chloride 50 Ml Vial IV 06/15/21 16:59 50 ml ONCE ONE Administration ORDERS Category Date Time Status Troponin I Q3H Lab 06/15/21 18:45 Ordered Troponin I Q3H Lab 06/15/21 21:45 Ordered - ECG Data Tracing #1 ekg by ak nsr, qrs nml, no st elev General Adult HPI - General Chief complaint: Chest Pain Stated complaint: CHEST PAIN Time Seen by Provider: 06/15/21 15:13 Mode of Arrival: Ambulatory Source of Information: Patient Limitations: No Limitations - History of Present Illness HPI narrative: sharp cp 1 week, constant non rad, moderate, no assoc symptoms Radiation: non-radiation Severity: moderate Relieving factors: none Exacerbating factors: none Associated symptoms: denies other symptoms - Related Data Previous Rx's Medication Instructions Recorded Ondansetron [Zofran 4mg ODT] 4 mg PO Q8HP PRN #20 tab 05/02/21 medroxyprogesterone 10 mg tablet 10 mg PO DAILY 10 Days #10 tab 05/02/21 Allergies Allergy/AdvReac Type Severity Reaction Status Date / Time famotidine Allergy Intermediate Rash Verified 05/02/21 14:47 metoclopramide [From Reglan] Allergy Intermediate Rash Verified 05/02/21 14:47 [facility] History - Hepatitis A Screen Attestation statement:: This patient has been screened for Hepatitis A risk factors. Medical History: Reports:: Asthma Denies:: Cancer, Diabetes Mellitus Type 1, Diabetes Mellitus Type 2, MRSA, Seizures Other Medical History: Denies: Blood Transfusion Reaction Other Surgeries: Yes: Appendectomy, Cholecystectomy, Other. No: Amputation: No Fractures: No Comment: Cyst Removal of lower abdomen X 2 - Social Hist
[2021-06-15 16:00] VITALS: BP 155/80; PULSE 73; RESP 16; O2SAT 97
[2021-06-15 16:06] LABS: Alanine Aminotransferase 58 U/L (12-78); Albumin Level 4.8 g/dl (3.5-5.0); Albumin/Globulin Ratio 1.6 (1.1-1.8); Alkaline Phosphatase 127 U/L (38-126); Aspartate Amino Transferase 54 U/L (14-36); Bilirubin,Total 0.8 mg/dl (0.2-1.3); Blood Urea Nitrogen 12 mg/dl (7-17); Calcium 9.6 mg/dl (8.4-10.2); Carbon Dioxide 29 mmol/L (22.0-30.0); Chloride 102 mmol/L (98-107); Creatinine Clearance Estimated 178 mL/min (50-200); Estimated Glomerular Filt Rate 124 ml/min (>60); GFR (African American) 150 ML/MIN (>60); Glucose 85 mg/dl (74-100); Sodium 139 mmol/L (136-145); Total Protein,Serum 7.8 g/dl (6.3-8.2)
[2021-06-15 16:10] LABS: D-Dimer 0.53 ug/mL (0.0-0.5)
[2021-06-15 16:11] LABS: Basophils # 0.1 K/mm3 (0-0.2); Basophils % 0.9 % (0.1-2.0); Eosinophils % 0.4 % (0.1-12.0); Hematocrit 41.3 % (37.0-47.0); Hemoglobin 13.4 g/dL (12.2-16.2); Lymphocytes # 3.8 K/mm3 (0.7-4.5); Lymphocytes % 36.2 % (10-50); Mean Corpuscular HGB Conc 32.3 g/dL (31.8-35.4); Mean Corpuscular Hemoglobin 30.9 pg (27.0-31.2); Mean Corpuscular Volume 95.7 fl (81-99); Mean Platelet Volume 8.8 fl (7.4-10.4); Monocytes # 0.9 K/mm3 (0.1-1.0); Monocytes % 8.3 % (1.7-9.3); Neutrophils # 5.6 K/mm3 (1.8-7.8); Neutrophils % 54.2 % (37.0-80.0); Platelet Count 386 K/mm3 (142-424); Red Blood Count 4.32 M/mm3 (4.20-5.40); Red Cell Distribution Width 12.9 % (11.5-17.5); White Blood Count 10.4 K/mm3 (4.8-10.8)
[2021-06-15 16:20] LABS: Troponin I < 0.01 ng/ml (0.00-0.034)
[2021-06-15 16:21] LABS: HCG Qualitative, Serum Negative (Negative)
--- NOTE | 2021-06-15 16:34 | CT_ITS ---
PROCEDURE INFORMATION: Exam: CTA Chest With Contrast Exam date and time: 06/15/2021 4:34 PM Age: 25 years old Clinical indication: Shortness of breath; Additional info: Pleuritic cp elev d dimer TECHNIQUE: Imaging protocol: Computed tomographic angiography of the chest with contrast. 3D rendering (Not supervised by radiologist): MIP and/or 3D reconstructed images were created by the technologist. Radiation optimization: All CT scans at this facility use at least one of these dose optimization techniques: automated exposure control; mA and/or kV adjustment per patient size (includes targeted exams where dose is matched to clinical indication); or iterative reconstruction. Contrast material: ISOVUE 370; Contrast volume: 70 ml; Contrast route: INTRAVENOUS (IV); COMPARISON: CT ANGIO CHEST 04/02/2020 6:57 AM FINDINGS: Pulmonary arteries: No pulmonary emboli. Aorta: No aortic aneurysm. No aortic dissection. Lungs: Unremarkable. No consolidation. No masses. Pleural spaces: Unremarkable. No pneumothorax. No pleural effusion. Heart: No cardiomegaly. No pericardial effusion. Lymph nodes: No significant adenopathy. Liver: Hepatic steatosis. Bones/joints: No acute findings. Soft tissues: Unremarkable. IMPRESSION: No acute findings.
[2021-06-15 17:00] VITALS: BP 140/75; PULSE 71; RESP 16; TEMP 36.6; O2SAT 98
[2021-06-15 19:15] VITALS: BP 132/63; PULSE 71; RESP 16; TEMP 36.6; O2SAT 94
== END 2021-06-15 19:17 | disposition home or self-care (01) ==
PROVIDERS: Emergency Provider Emergency Medicine; PCP Physician Assistant
DX: R07.89 Other chest pain (principal); J45.909 Unspecified asthma, uncomplicated
CPT/HCPCS: 71045; 71275; 80053; 84484; 84703; 85025; 85378; 93005; 99281; Q9967

== ENCOUNTER → 2021-08-21 16:00 | Outpatient (CLI) | payer OTHER, SELFPAY ==
[2021-08-21 19:04] LABS: HCG,Quantitative < 2 mIU/ml (0-5.42)
== END ==
PROVIDERS: Visit Provider Physician Assistant
DX: Z32.00 Encounter for pregnancy test, result unknown (principal)
CPT/HCPCS: 84702

== ENCOUNTER → 2021-09-04 22:16 | Outpatient (CLI) | payer OTHER, SELFPAY ==
[2021-09-04 22:32] LABS: Coronavirus 19, PCR Not Detected (NotDetected); Influenza A, PCR Not Detected (NotDetected); Influenza B, PCR Not Detected (NotDetected)
[2021-09-04 22:57] LABS: Strep Scrn Group A (Rapid) Negative (Negative)
== END ==
PROVIDERS: PCP Physician Assistant; Visit Provider Emergency Medicine
DX: Z20.822 Contact with and (suspected) exposure to COVID-19 (principal); R51.9 Headache, unspecified; R05.9 Cough, unspecified; R19.7 Diarrhea, unspecified; H92.03 Otalgia, bilateral
CPT/HCPCS: 87430; C9803; U0003; U0005

== ENCOUNTER → 2021-09-06 14:19 | Outpatient (CLI) | payer OTHER, SELFPAY ==
[2021-09-06 17:14] LABS: Adenovirus,PCR Not Detected (NotDetected); Bordetella Pertussis Not Detected (NotDetected); Chlamydophila Pneumoniae, PCR Not Detected (NotDetected); Coronavirus 19, PCR Not Detected (NotDetected); Coronavirus 229E Not Detected (NotDetected); Coronavirus NL63 Not Detected (NotDetected); Coronavirus OC43 Not Detected (NotDetected); Coronovirus HKU1,PCR Not Detected (NotDetected); Human Metapneumovirus Not Detected (NotDetected); Influenza A, PCR Not Detected (NotDetected); Influenza AH1, 2009 Not Detected (NotDetected); Influenza AH1, PCR Not Detected (NotDetected); Influenza AH3,PCR Not Detected (NotDetected); Influenza B, PCR Not Detected (NotDetected); Mycoplasma Pneumoniae, PCR Not Detected (NotDetected); Parainfluenza 1, PCR Not Detected (NotDetected); Parainfluenza 2, PCR Not Detected (NotDetected); Parainfluenza 3, PCR Not Detected (NotDetected); Parainfluenza 4, PCR Not Detected (NotDetected); Respiratory Syncytial Virus Not Detected (NotDetected); Rhinovirus/Enterovirus Not Detected (NotDetected)
== END ==
PROVIDERS: Visit Provider Nurse Practitioner Family
DX: R50.9 Fever, unspecified (principal); R05.9 Cough, unspecified; R51.9 Headache, unspecified; R09.89 Other specified symptoms and signs involving the circulatory and respiratory systems; R11.0 Nausea; Z11.52 Encounter for screening for COVID-19
CPT/HCPCS: 87581; 87632; 87798; C9803; U0003; U0005

== ENCOUNTER 2021-09-10 16:03 | Emergency (ER) | payer OTHER, SELFPAY ==
--- NOTE | 2021-09-10 16:46 | HMH.EDUTC ---
[facility] Disposition Clinical Impression: Viral syndrome Otitis media Qualifiers: Otitis media type: suppurative Chronicity: acute Laterality: bilateral Recurrence: non-recurrent Spontaneous tympanic membrane rupture: without spontaneous rupture Qualified Code(s): H66.003 - Acute suppurative otitis media without spontaneous rupture of ear drum, bilateral Disposition: Home, Self-Care Condition on Discharge: Good Instructions: Middle Ear Infection Additional Instructions: Drink plenty of fluids. Take tylenol or ibuprofen for pain or fever. Take the medications as directed. Follow up with your regular doctor. GO TO THE ER FOR ANY WORSENING SYMPTOMS Prescriptions: Amoxicillin/Potassium Clav [Amox-Clav 875-125 mg Tablet] 1 tab PO BID #20 tab Transmission Status: Received by [id number] methylPREDNISolone [Medrol] 4 mg PO DIRECTED 6 Days #21 packet Transmission Status: Received by [id number] Referrals: Glo Horowitz PA [Primary Care Provider] - Time of Disposition: 17:45 Medical Decision Making - Medical Records Medical records reviewed: No: I reviewed the patient's medical records. - Zach Inquiry Pt receiving controlled substance: No Vital Signs: 09/10/21 17:01 09/10/21 17:58 Temperature 98.1 F 98.1 F Temperature Source Oral Pulse Rate 89 Pulse Rate [Left] 89 Respiratory Rate 16 16 Blood Pressure 144/81 H Blood Pressure [Right Arm] 144/81 H Blood Pressure Mean [Right Arm] 102 02 Sat by Pulse Oximetry 96 - Lab Data Lab results reviewed: Yes: I reviewed the patient's lab results. [facility] HPI - General Stated complaint: right ear pain Time Seen by Provider: 09/10/21 16:46 - History of Present Illness Provider Complaint: She c/o right ear pain for the past 2 days. - Related Data Previous Rx's Medication Instructions Recorded gvlpwxljnhwurbv-baqzrzxvndnheaf-QL 5 ml PO Q4-6H PRN #118 ml 09/06/21 2 mg-30 mg-10 mg/5 mL oral syrup Amoxicillin/Potassium Clav 1 tab PO BID #20 tab 09/10/21 [Amox-Clav 875-125 mg Tablet] methylPREDNISolone [Medrol] 4 mg PO DIRECTED 6 Days #21 09/10/21 packet Allergies Allergy/AdvReac Type Severity Reaction Status Date / Time famotidine Allergy Intermediate Rash Verified 09/06/21 14:31 metoclopramide [From Reglan] Allergy Intermediate Rash Verified 09/06/21 14:31 [facility] History - Hepatitis A Screen Attestation statement:: This patient has been screened for Hepatitis A risk factors. I have reviewed the patient's past medical history: Yes Medical History: Reports:: Asthma Denies:: Cancer, Diabetes Mellitus Type 1, Diabetes Mellitus Type 2, MRSA, Seizures Other Medical History: Denies: Blood Transfusion Reaction Other Surgeries: Yes: Appendectomy, Cholecystectomy, Other. No: Amputation: No Fractures: No Comment: Cyst Removal of lower abdomen X 2 - Social History Smoking Status: Never smoker Alcohol Intake: never Alcohol Intake Frequency:: other Substance Use Type: denies use Occupational Status: other Housing: house Household Members: significant other Family Hx:: Diabetes, Cancer, Hypertension ROS Obtained: Yes All systems reviewed & no additional complaints - Constitutional Constitutional: Reports as per HPI - Eyes Eyes: Denies eye discharge - ENT Ears, Nose, Mouth, and Throat: Reports as per HPI - Cardiovascular Cardiovascular: Denies chest pain - Respiratory Respiratory: Reports chest congestion, Reports cough Physical Exam - General General appearance: alert, in no apparent distress - Head Head exam: atraumatic, normocephalic, normal inspection - Eye Eye exam: Present: normal appearance, PERRL, EOMI - ENT ENT exam: Present: mucous membranes moist, normal external ear exam - Expanded ENT Exam TM/Canal exam: Bilateral TM: erythema, bulging, effusion Nose exam: Absent: sinus tenderness Nasal speculum exam: Bilateral: normal Mouth exam: Pr
[2021-09-10 17:01] VITALS: BP 144/81; PULSE 89; RESP 16; TEMP 36.7; O2SAT 96; BMI 37.6
[2021-09-10 17:58] VITALS: BP 144/81; PULSE 89; RESP 16; TEMP 36.7
== END 2021-09-10 17:59 | disposition home or self-care (01) ==
PROVIDERS: Emergency Provider Nurse Practitioner Family; PCP Physician Assistant
DX: B34.9 Viral infection, unspecified (principal); H66.003 Acute suppurative otitis media without spontaneous rupture of ear drum, bilateral; E55.9 Vitamin D deficiency, unspecified; J45.909 Unspecified asthma, uncomplicated; Z88.8 Allergy status to other drugs, medicaments and biological substances; Z82.49 Family history of ischemic heart disease and other diseases of the circulatory system; Z80.9 Family history of malignant neoplasm, unspecified; Z83.3 Family history of diabetes mellitus
CPT/HCPCS: 99213; G0463

== ENCOUNTER 2021-09-23 21:58 | Emergency (ER) | payer OTHER, SELFPAY ==
[2021-09-23 22:00] VITALS: BP 115/64; PULSE 74; RESP 16; TEMP 37; O2SAT 99; BMI 35.6
[2021-09-23 22:55] VITALS: BP 115/63; PULSE 69; O2SAT 92
[2021-09-24] VITALS: BP 119/65; PULSE 74; O2SAT 99
--- NOTE | 2021-09-24 00:07 | PC.NURSE ---
Rechecked pt condition. No new needs.
--- NOTE | 2021-09-24 00:09 | HMH.EDEAR ---
ED Disposition Clinical Impression: Otitis externa Qualifiers: Otitis externa type: unspecified type Chronicity: acute Laterality: right Qualified Code(s): H60.501 - Unspecified acute noninfective otitis externa, right ear Disposition: Home, Self-Care Condition on Discharge: Good Instructions: DI for Otitis Externa Additional Instructions: use meds and see pcp this week Referrals: Glo Horowitz PA [Primary Care Provider] - - Critical Care Critical Care Time: No Attestation: On 09/23/21, the high probability of a clinically significant, sudden or life threatening deterioration of the following system(s) required my full and direct attention, intervention and personal management. The time I documented below is in addition to time spent performing reported procedures but includes the following listed in this critical care notation. Medical Decision Making - Medical Records Medical records reviewed: Yes: I reviewed the patient's medical records. - Zach Inquiry Pt receiving controlled substance: No Vital Signs: 09/23/21 22:00 Temperature 98.6 F Temperature Source Oral Pulse Rate [Right] 74 Respiratory Rate 16 Blood Pressure [Right Arm] 115/64 Blood Pressure Mean [Right Arm] 81 02 Sat by Pulse Oximetry 99 - Lab Data Lab results reviewed: Yes: I reviewed the patient's lab results. Medical Decision Narrative: has otitis externa and seble give trial of ear gtts and see pcp for follow up Ear HPI - General Chief complaint: Ear Stated complaint: ear ache Time Seen by Provider: 09/24/21 00:09 Mode of Arrival: Ambulatory Source of Information: Patient, Medical Record Limitations: No Limitations Description of Symptoms (Recalled from ER Triage Doc. by RN): pt c/o rt ear pain x 2 weeks and been on abx, when not relief - History of Present Illness HPI Narrative: rt ear pain over the last 2 weeks - has been on abx - has ongoing ear pain w/o d/c or bleeding Complaint: ear pain Location: right ear Duration: intermittent Discharge from ear: no - Related Data Allergies Allergy/AdvReac Type Severity Reaction Status Date / Time famotidine Allergy Intermediate Rash Verified 09/06/21 14:31 metoclopramide [From Reglan] Allergy Intermediate Rash Verified 09/06/21 14:31 [facility] History - Hepatitis A Screen Drug use history?: No High risk sexual behaviors?: No History of sexually transmitted infection?: No Currently employed?: No Childcare worker?: No Do you have indoor plumbing?: Yes Do you have electricity?: Yes Attestation statement:: This patient has been screened for Hepatitis A risk factors. I have reviewed the patient's past medical history: Yes Medical History: Reports:: Asthma Denies:: Cancer, Diabetes Mellitus Type 1, Diabetes Mellitus Type 2, MRSA, Seizures Other Medical History: Denies: Blood Transfusion Reaction Other Surgeries: Yes: Appendectomy, Cholecystectomy, Other. No: Amputation: No Fractures: No Comment: Cyst Removal of lower abdomen X 2 - Social History Smoking Status: Never smoker Alcohol Intake: never Alcohol Intake Frequency:: other Substance Use Type: denies use Occupational Status: other Housing: house Household Members: significant other Family Hx:: Diabetes, Cancer, Hypertension ROS Obtained: Yes All systems reviewed & no additional complaints - Constitutional Constitutional: Denies fever(s) - Eyes Eyes: Denies change in vision - ENT Ears, Nose, Mouth, and Throat: Reports as per HPI, Denies ear discharge, Reports otalgia, Denies sore throat - Cardiovascular Cardiovascular: Denies chest pain - Respiratory Respiratory: Denies shortness of breath - Gastrointestinal Gastrointestingal: Denies: abdominal pain - Genitourinary Female Genitourinary: Denies abnormal vaginal bleeding - Musculoskeletal Musculoskeletal: Denies joint pain - Integumentary/Breasts Skin/Breast: Denies rash - Neurologic Neurologic: Denies seizure
[2021-09-24 00:26] VITALS: BP 119/65; PULSE 76; RESP 16; TEMP 37.1; O2SAT 100
== END 2021-09-24 00:28 | disposition home or self-care (01) ==
PROVIDERS: Emergency Provider Emergency Medicine; PCP Physician Assistant
DX: H60.91 Unspecified otitis externa, right ear (principal); E55.9 Vitamin D deficiency, unspecified; J45.909 Unspecified asthma, uncomplicated; Z79.51 Long term (current) use of inhaled steroids; Z79.52 Long term (current) use of systemic steroids; Z79.899 Other long term (current) drug therapy; Z88.8 Allergy status to other drugs, medicaments and biological substances; Z82.49 Family history of ischemic heart disease and other diseases of the circulatory system; Z80.9 Family history of malignant neoplasm, unspecified; Z83.3 Family history of diabetes mellitus
CPT/HCPCS: 99282

== ENCOUNTER 2021-09-25 18:57 | Emergency (ER) | payer OTHER, SELFPAY ==
[2021-09-25 19:58] VITALS: BP 131/86; PULSE 78; RESP 19; TEMP 37; O2SAT 99; BMI 33.7
--- NOTE | 2021-09-25 20:21 | HMH.EDUTC ---
[facility] Disposition Clinical Impression: Otitis externa Qualifiers: Otitis externa type: unspecified type Chronicity: unspecified Laterality: right Qualified Code(s): H60.91 - Unspecified otitis externa, right ear Disposition: Home, Self-Care Condition on Discharge: Good Instructions: DI for Otitis Externa Additional Instructions: Continue using drops as prescribed Follow up with your Family Doctor as recommended Have family member help you place the drops in your ear Return if needed Straight to ER if any life threatening symptoms Referrals: Glo Horowitz PA [Primary Care Provider] - As needed Forms: Work/School Release Time of Disposition: 20:29 Medical Decision Making - Zach Inquiry Pt receiving controlled substance: No Zach was queried for this patient: No Vital Signs: 09/25/21 19:58 Temperature 98.6 F Temperature Source Oral Pulse Rate [Right Radial] 78 Respiratory Rate 19 Blood Pressure [Right Arm] 131/86 Blood Pressure Mean [Right Arm] 101 Blood Pressure Source [Right Arm] Automatic Cuff Blood Pressure Position [Right Arm] Sitting 02 Sat by Pulse Oximetry 99 Oxygen Delivery Method Room Air Medical Decision Narrative: Patient was concerned that with swelling the ear drops was not going into ear, ear canal swollen however not closed off Patient had ear drops with her had patient lay on her side and ear drops placed in right ear without difficulty Patient instructed if she is having trouble getting drops into her ear on her own have family member to assist her and she verbalized understanding [facility] HPI - General Stated complaint: r EAR PAIN Time Seen by Provider: 09/25/21 20:21 Mode of Arrival: Ambulatory Source of Information: Patient Limitations: No Limitations Description of Symptoms (Recalled from Triage Doc. by RN): C/O rt ear pain x3 weeks HEENT Symptoms (Recalled from RN notes): Yes (Ear pain) Resp Symptoms (Recalled from RN notes): No Skin Symptoms (Recalled from RN notes): No MS Symptoms (Recalled from RN notes): No Functional Status (Recalled from RN notes): n/a - History of Present Illness Provider Complaint: Patient states that she has been having pain in her right ear for about 2-3 weeks States that she was seen in ED and was prescribed drops but she has been having issues getting the drops in and was worried that it had got worse so she came in to get it checked again - Related Data Allergies Allergy/AdvReac Type Severity Reaction Status Date / Time famotidine Allergy Intermediate Rash Verified 09/06/21 14:31 metoclopramide [From Reglan] Allergy Intermediate Rash Verified 09/06/21 14:31 - Worker's Comp Is this a Worker's Comp case?: No [facility] History - Hepatitis A Screen Drug use history?: No High risk sexual behaviors?: No History of sexually transmitted infection?: No Currently employed?: No Childcare worker?: No Do you have indoor plumbing?: Yes Do you have electricity?: Yes Attestation statement:: This patient has been screened for Hepatitis A risk factors. I have reviewed the patient's past medical history: Yes Medical History: Reports:: Asthma Denies:: Cancer, Diabetes Mellitus Type 1, Diabetes Mellitus Type 2, MRSA, Seizures Other Medical History: Denies: Blood Transfusion Reaction Other Surgeries: Yes: Appendectomy, Cholecystectomy, Other. No: Amputation: No Fractures: No Comment: Cyst Removal of lower abdomen X 2 - Social History Smoking Status: Never smoker Alcohol Intake: never Alcohol Intake Frequency:: other Substance Use Type: denies use Occupational Status: other Housing: house Household Members: significant other Family Hx:: Diabetes, Cancer, Hypertension ROS Obtained: Yes All systems reviewed & no additional complaints, Yes Systems reviewed as appropriate & no additional complaints - Constitutional Constitutional: Reports system reviewed and no additional complaints, except as deborahu, Denies fever(s) - ENT Ears, No
[2021-09-25 20:37] VITALS: BP 131/86; PULSE 78; RESP 19; TEMP 37; O2SAT 99
== END 2021-09-25 20:38 | disposition home or self-care (01) ==
PROVIDERS: Emergency Provider Nurse Practitioner; PCP Physician Assistant
DX: H60.91 Unspecified otitis externa, right ear (principal); J45.909 Unspecified asthma, uncomplicated
CPT/HCPCS: 99212; G0463

== ENCOUNTER 2021-10-11 10:51 | Emergency (ER) | payer OTHER, SELFPAY ==
[2021-10-11 12:01] VITALS: BP 0/0; PULSE 0; RESP 0; TEMP -17.7; TEMP 0
== END 2021-10-11 12:02 | disposition left against medical advice (07) ==
LOC: UTC 10:58
PROVIDERS: Emergency Provider Nurse Practitioner Family; PCP Physician Assistant
DX: Z53.21 Procedure and treatment not carried out due to patient leaving prior to being seen by health care provider (principal)

== ENCOUNTER → 2022-03-20 10:54 | Outpatient (CLI) | payer OTHER, SELFPAY ==
[2022-03-20 13:17] LABS: Basophils # 0.1 K/mm3 (0-0.2); Basophils % 0.8 % (0.1-2.0); Eosinophils % 0.6 % (0.1-12.0); Hematocrit 41.8 % (37.0-47.0); Hemoglobin 13.5 g/dL (12.2-16.2); Lymphocytes # 2.9 K/mm3 (0.7-4.5); Lymphocytes % 37.8 % (10-50); Mean Corpuscular HGB Conc 32.2 g/dL (31.8-35.4); Mean Corpuscular Hemoglobin 31.3 pg (27.0-31.2); Mean Corpuscular Volume 97.3 fl (81-99); Monocytes # 0.7 K/mm3 (0.1-1.0); Monocytes % 9.2 % (1.7-9.3); Neutrophils % 51.7 % (37.0-80.0); Platelet Count 395 K/mm3 (142-424); Red Cell Distribution Width 12.9 % (11.5-17.5); White Blood Count 7.8 K/mm3 (4.8-10.8)
[2022-03-20 13:23] LABS: Chloride 102 mmol/L (98-107); Sodium 139 mmol/L (136-145)
[2022-03-20 13:24] LABS: HCG Qualitative, Serum Positive (Negative); Potassium 4.4 mmoL/L (3.5-5.1)
[2022-03-20 13:26] LABS: Alanine Aminotransferase 32 U/L (12-78); Albumin Level 4.5 g/dl (3.5-5.0); Albumin/Globulin Ratio 1.6 (1.1-1.8); Alkaline Phosphatase 128 U/L (38-126); Anion Gap 15.4 mEq/L (5-15); Aspartate Amino Transferase 37 U/L (14-36); Bilirubin,Total 0.7 mg/dl (0.2-1.3); Blood Urea Nitrogen 9 mg/dl (7-17); Carbon Dioxide 26 mmol/L (22.0-30.0); Estimated Glomerular Filt Rate 152 ml/min (>60); GFR (African American) 183 ML/MIN (>60); Globulin 2.9 g/dL (1.3-3.2); Total Protein,Serum 7.4 g/dl (6.3-8.2)
[2022-03-20 13:27] LABS: Calcium 9.3 mg/dl (8.4-10.2); Chol/HDL Ratio 2.9 (1-3.5); Cholesterol 147 mg/dl (140-200); Glucose 88 mg/dl (74-100); HDL Cholesterol 51 mg/dl (40-60); Triglycerides 85 mg/dl (30-150); VLDL Cholesterol 17 mg/dL (0-40)
[2022-03-20 13:38] LABS: Direct LDL Cholesterol 69.04 mg/dL (100-129)
[2022-03-20 13:43] LABS: 25-OH Vitamin D, Total 15.4 ng/mL (30-100)
[2022-03-20 13:57] LABS: Thyroid Stimulating Hormone 1.02 uIU/mL (0.465-4.68)
[2022-03-20 20:45] LABS: HCG,Quantitative 367 mIU/ml (0-5.42)
[2022-03-21 08:16] LABS: Prolactin 15.3 ng/mL (4.8-23.3)
[2022-03-21 10:41] LABS: FSH 0.5 mIU/mL (.); Testosterone,Total 56 ng/dL (13-71)
[2022-03-21 13:10] LABS: C-Peptide 3.9 ng/mL (1.1-4.4)
[2022-04-18 11:42] LABS: Anti Mullerian Hormone (AMH) 7.83
== END ==
PROVIDERS: PCP Physician Assistant; Visit Provider Physician Assistant
DX: N91.2 Amenorrhea, unspecified (principal)
CPT/HCPCS: 80053; 80061; 82306; 82397; 83001; 83036; 83498; 84146; 84403; 84443; 84681; 84702; 84703; 85025

== ENCOUNTER → 2022-04-03 13:42 | Outpatient (CLI) | payer OTHER, SELFPAY | PROVIDERS: PCP Physician Assistant; Visit Provider Physician Assistant | DX: G47.30 Sleep apnea, unspecified (principal); R53.83 Other fatigue | CPT/HCPCS: G0399 ==

== ENCOUNTER → 2022-04-05 09:44 | Outpatient (CLI) | payer OTHER, SELFPAY ==
--- NOTE | 2022-04-05 09:48 | US_ITS ---
FINAL REPORT CLINICAL HISTORY: amenorrhea FINDINGS: Transvaginal sonographic images of the pelvis were obtained. A gestational sac is present in the uterus. Yolk sac and pole are identified. Rotan-rump length measures 4.72 mm corresponding to 6 week 2 day gestation. Heart rate is identified at 125 beats per minute. The ovaries appear normal. There is a fluid collection in the region of the lower uterine segment measuring 2.2 x 0.4 cm of uncertain significance. IMPRESSION: Single living intrauterine . Fluid collection in the lower uterine segment of uncertain significance. Consider follow-up ultrasound. Reviewed, Interpreted and Dictated by Magdaleno Davies III, MD Transcribed by Temitope Cameron Authenticated and [facility]
== END ==
PROVIDERS: PCP Physician Assistant; Visit Provider Physician Assistant
DX: N91.2 Amenorrhea, unspecified (principal); E55.9 Vitamin D deficiency, unspecified
CPT/HCPCS: 76817

== ENCOUNTER 2022-04-08 20:01 | Emergency (ER) | payer OTHER, SELFPAY ==
[2022-04-08 20:18] VITALS: BP 112/62; PULSE 77; RESP 18; TEMP 36.7; O2SAT 99; BMI 37.5
--- NOTE | 2022-04-08 21:41 | HMH.EDGENADL ---
Discharge Plan Disposition Patient Disposition: Home, Self-Care Condition: Good Prescriptions Prescriptions: New ondansetron 4 mg tablet,disintegrating 4 mg PO Q8H PRN (Reason: nausea and vomiting) 3 Days Qty: 10 0RF No Action vit-iron fum-folic ac [ Vitamin with Minerals] 28 mg iron- 800 mcg tablet 1 tab PO DAILY Qty: 30 12RF metformin 500 mg tablet extended release 24 hr 500 mg PO BID Qty: 60 2RF Rx Instructions: Once a day for 2 weeks - if tolerated can increase to two a day albuterol sulfate [ProAir HFA] 90 mcg/actuation HFA aerosol inhaler See Rx Instructions .ROUTE .COMPLEX Qty: 9 0RF Dose Instruction: INHALE 2 PUFFS BY MOUTH EVERY 4 TO 6 HOURS NEEDED FOR SHORTNESS OF BREATH OR WHEEZING Rx Instructions: INHALE 2 PUFFS BY MOUTH EVERY 4 TO 6 HOURS NEEDED FOR SHORTNESS OF BREATH OR WHEEZING ergocalciferol (vitamin D2) 1,250 mcg (50,000 unit) capsule 1,250 mcg PO WEEKLY Qty: 14 3RF cholecalciferol (vitamin D3) 25 mcg (1,000 unit) capsule 25 mcg PO DAILY Qty: 90 3RF Referrals Follow up/Referrals: Glo Horowitz PA [Primary Care Provider] - See instructions Activity Restrictions/Add. Instructions Additional Instructions/Restrictions: Stay hydrated with water or a sports drink. Zofran as needed. PCP in 1 to 2 days. Clinical Impressions Clinical Impression: Acute viral syndrome Instructions Patient Instructions: DI for Diarrhea and Traveler's Diarrhea -- Adult, DI for Diarrhea and Traveler's Diarrhea -- Child, DI for Nausea -- Adult, DI for Nausea -- Child Discharge ED Provider: Sudhir Fonseca General Adult HPI General Chief complaint: Nausea/Vomiting/Diarrhea Stated complaint: vomiting stuffie nose Time Seen by Provider: 04/08/22 21:11 Mode of Arrival: Ambulatory Source of Information: Patient Limitations: No Limitations Description of Symptoms (Recalled from ER Triage Doc. by RN): Pt c/o nausea and vomiting for 3 days. Does report that she is 6 weeks . Also c/o stuffy nose and right ear pain. History of Present Illness HPI narrative: 26yo F reports being 6w5d presents to the ER secondary to rhinorrhea/stuffy nose, right otalgia, nausea with vomiting. Symptoms ongoing for approximately 4 days. Reports daughter recently became ill with the exact same symptoms. No fever. Has not seen OB yet. Related Data Previous Rx's Medication Instructions Recorded ProAir HFA 90 mcg/actuation See Rx Instructions .Route 12/27/21 aerosol inhaler (albuterol sulfate) .COMPLEX #9 grams metformin 500 mg tablet,extended 500 mg PO BID #60 tabs 03/20/22 release 24 hr vitamin-ferrous fumarate 1 tab PO DAILY #30 tabs 03/20/22 28 mg iron-folic acid 800 mcg tablet ( Vitamins with Minerals) cholecalciferol (vitamin D3) 25 25 mcg PO DAILY #90 caps 03/21/22 mcg (1,000 unit) capsule ergocalciferol (vitamin D2) 1,250 1,250 mcg PO WEEKLY #14 caps 03/21/22 mcg (50,000 unit) capsule ondansetron 4 mg disintegrating 4 mg PO Q8H PRN nausea and 04/08/22 tablet vomiting 3 days #10 tabs Allergies Allergy/AdvReac Type Severity Reaction Status Date / Time famotidine Allergy Intermediate Rash Verified 03/20/22 09:56 metoclopramide [From Reglan] Allergy Intermediate Rash Verified 03/20/22 09:56 [facility] Medical History Benign paroxysmal positional vertigo Vitamin D deficiency (~06/2017) Social History Smoking Status: Never smoker second hand exposure: No alcohol intake: never substance use type: denies use current occupational status: other Travel in the last 8 weeks: None household members: significant other housing: house 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
[2022-04-08 21:59] VITALS: BP 110/60; PULSE 75; RESP 18; TEMP 36.6; O2SAT 99
== END 2022-04-08 22:01 | disposition home or self-care (01) ==
PROVIDERS: Emergency Provider Family Medicine; PCP Physician Assistant
DX: O26.91 Pregnancy related conditions, unspecified, first trimester (principal); H81.13 Benign paroxysmal vertigo, bilateral; O21.9 Vomiting of pregnancy, unspecified; O99.611 Diseases of the digestive system complicating pregnancy, first trimester; R19.7 Diarrhea, unspecified; O99.511 Diseases of the respiratory system complicating pregnancy, first trimester; R06.02 Shortness of breath; O26.891 Other specified pregnancy related conditions, first trimester; H92.01 Otalgia, right ear; Z79.51 Long term (current) use of inhaled steroids; Z79.84 Long term (current) use of oral hypoglycemic drugs; Z79.899 Other long term (current) drug therapy; Z3A.01 Less than 8 weeks gestation of pregnancy
CPT/HCPCS: 99282

== ENCOUNTER → 2022-05-03 13:19 | Outpatient (CLI) | payer OTHER, SELFPAY ==
[2022-05-03 14:07] LABS: Basophils % 0.5 % (0.1-2.0); Eosinophils # 0.1 K/mm3 (0.0-0.4); Eosinophils % 0.9 % (0.1-12.0); Hematocrit 36.1 % (37.0-47.0); Lymphocytes # 2.3 K/mm3 (0.7-4.5); Lymphocytes % 29.3 % (10-50); Mean Corpuscular HGB Conc 33.2 g/dL (31.8-35.4); Mean Corpuscular Hemoglobin 30.6 pg (27.0-31.2); Mean Corpuscular Volume 92.3 fl (81-99); Mean Platelet Volume 9.4 fl (7.4-10.4); Monocytes # 0.8 K/mm3 (0.1-1.0); Monocytes % 9.8 % (1.7-9.3); Neutrophils # 4.7 K/mm3 (1.8-7.8); Neutrophils % 59.5 % (37.0-80.0); Platelet Count 319 K/mm3 (142-424); Red Blood Count 3.91 M/mm3 (4.20-5.40); Red Cell Distribution Width 12.7 % (11.5-17.5); White Blood Count 7.9 K/mm3 (4.8-10.8)
[2022-05-19 21:26] LABS: HIV Screen 4th Generation wRfx Non Reactive
[2022-05-19 21:27] LABS: Hepatitis B Surface Antigen Negative; Hepatitis C Antibody <0.1; Rapid Plasma Reagin Ab Titer Non Reactive; Rubella Antibodies, IgG 1.57
== END ==
PROVIDERS: PCP Physician Assistant; Visit Provider Nurse Practitioner Obstetrics & Gynecology
DX: Z34.90 Encounter for supervision of normal pregnancy, unspecified, unspecified trimester (principal)
CPT/HCPCS: 36415; 84702; 85025; 86592; 86703; 86762; 86850; 87340; 87380; G0432

== ENCOUNTER 2022-05-05 18:17 | Emergency (ER) | payer OTHER, SELFPAY ==
--- NOTE | 2022-05-05 20:13 | EXP.UTC ---
Discharge Plan Disposition Patient Disposition: Home, Self-Care Condition: Good Prescriptions Prescriptions: New promethazine 25 mg Tablet 25 mg PO Q6H PRN (Reason: Nausea And Vomiting) Qty: 20 1RF No Action vit-iron fum-folic ac [ Vitamin with Minerals] 28 mg iron- 800 mcg tablet 1 tab PO DAILY Qty: 30 12RF albuterol sulfate [ProAir HFA] 90 mcg/actuation HFA aerosol inhaler See Rx Instructions .ROUTE .COMPLEX Qty: 9 0RF Dose Instruction: INHALE 2 PUFFS BY MOUTH EVERY 4 TO 6 HOURS NEEDED FOR SHORTNESS OF BREATH OR WHEEZING Rx Instructions: INHALE 2 PUFFS BY MOUTH EVERY 4 TO 6 HOURS NEEDED FOR SHORTNESS OF BREATH OR WHEEZING ergocalciferol (vitamin D2) 1,250 mcg (50,000 unit) capsule 1,250 mcg PO WEEKLY Qty: 14 3RF cholecalciferol (vitamin D3) 25 mcg (1,000 unit) capsule 25 mcg PO DAILY Qty: 90 3RF ondansetron 4 mg tablet,disintegrating 4 mg PO Q8H PRN (Reason: nausea and vomiting) 3 Days Qty: 10 0RF Referrals Follow up/Referrals: Glo Horowitz PA [Primary Care Provider] - See instructions Activity Restrictions/Add. Instructions Additional Instructions/Restrictions: Drink plenty of fluids. Take tylenol for pain or fever. Take the medications as directed. Follow up with your regular doctor. Follow up with your forming department end finder doctor. GO TO THE ER FOR ANY WORSENING SYMPTOMS Clinical Impressions Clinical Impression: Nausea & vomiting, Instructions Patient Instructions: Diet, Promethazine Discharge ED Provider: Trung Peguero [facility] General Stated complaint: 10 WKS PREG VOMITING COUGH Time Seen by Provider: 05/05/22 20:13 History of Present Illness Provider Complaint: She states that for the past 1 day she has had nausea. She has vomited X2 today. She denies any abdominal pain. She is 10 weeks . She attibutes her n/v to her being . She does not have any promethazine at home. She denies any urinary symptoms, back pain and abdominal pain. Related Data Previous Rx's Medication Instructions Recorded ProAir HFA 90 mcg/actuation See Rx Instructions .Route 12/27/21 aerosol inhaler (albuterol sulfate) .COMPLEX #9 grams vitamin-ferrous fumarate 1 tab PO DAILY #30 tabs 03/20/22 28 mg iron-folic acid 800 mcg tablet ( Vitamins with Minerals) cholecalciferol (vitamin D3) 25 25 mcg PO DAILY #90 caps 03/21/22 mcg (1,000 unit) capsule ergocalciferol (vitamin D2) 1,250 1,250 mcg PO WEEKLY #14 caps 03/21/22 mcg (50,000 unit) capsule ondansetron 4 mg disintegrating 4 mg PO Q8H PRN nausea and 04/08/22 tablet vomiting 3 days #10 tabs promethazine 25 mg tablet 25 mg PO Q6H PRN Nausea And 05/05/22 Vomiting #20 tabs Allergies Allergy/AdvReac Type Severity Reaction Status Date / Time famotidine Allergy Intermediate Rash Verified 05/05/22 20:34 metoclopramide [From Reglan] Allergy Intermediate Rash Verified 05/05/22 20:34 [facility] PFS Disclaimer: The information contained in this section may have been updated after the patient was seen, as this information can be updated by other users. 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
[2022-05-05 20:26] LABS: UTC Influenza A Antigen Negative (Negative); UTC Influenza B Antigen Negative (Negative); UTC Strep Screen (Rapid) Negative (Negative)
[2022-05-05 20:29] VITALS: BP 143/66; PULSE 90; RESP 16; TEMP 36.7; O2SAT 98; BMI 35.4
[2022-05-05 20:43] VITALS: BP 143/66; PULSE 90; RESP 16; TEMP 36.7
== END 2022-05-05 20:44 | disposition home or self-care (01) ==
PROVIDERS: Emergency Provider Nurse Practitioner Family; PCP Physician Assistant
DX: O21.9 Vomiting of pregnancy, unspecified (principal); O99.355 Diseases of the nervous system complicating the puerperium; H81.10 Benign paroxysmal vertigo, unspecified ear; O99.511 Diseases of the respiratory system complicating pregnancy, first trimester; R06.02 Shortness of breath; O99.283 Endocrine, nutritional and metabolic diseases complicating pregnancy, third trimester; E55.9 Vitamin D deficiency, unspecified; Z3A.10 10 weeks gestation of pregnancy; Z79.51 Long term (current) use of inhaled steroids; Z79.899 Other long term (current) drug therapy
CPT/HCPCS: 87804; 87880; 99213; G0463

== ENCOUNTER → 2022-07-05 09:34 | Outpatient (CLI) | payer OTHER, SELFPAY ==
--- NOTE | 2022-07-05 09:38 | US_ITS ---
FINAL REPORT CLINICAL HISTORY: 20 wk+ Anatomy Scan US OB Complete FINDINGS: There is a single live intrauterine gestation. Presentation is cephalic. The cervix is closed and measures 3.1 cm. Placenta is posterior, grade 1. movement is noted. Heart rate is measured at 147 beats per minute. Three-vessel cord with satisfactory umbilical cord insertion. Four-chamber heart is noted. brain and ventricles are unremarkable. Chest and diaphragm are unremarkable. ABDOMEN: Both kidneys are unremarkable. Stomach is unremarkable. SPINE: No anomalies identified. Both arms and legs noted. AMNIOTIC FLUID: Appropriate amount. MEASUREMENTS: ULTRASOUND AGE: 19 weeks 5 days. GESTATION AGE: 20 weeks 1 days. ESTIMATED WEIGHT: 301 g GROWTH PERCENTILE: 18% LMP percentile BPD: 4.6 cm corresponding with 20 weeks 0 days. OFD: 5.6 cm corresponding with 19 weeks 4 days. HC: 16.1 cm corresponding with 19 weeks 0 days. AC: 14.1 cm corresponding with 19 weeks 4 days. FL: 3.1 cm corresponding with 19 weeks 6 days. CEREBELLUM: 1.9 cm corresponding with 19 weeks 6 days. HUMERUS: 3.0 cm corresponding with 20 weeks 0 days. HC/AC: 1.14 CI: 82% FL/BPD: 68% FL/AC: 22% IMPRESSION: Single living IUP with an ultrasound age of 19 weeks 5 days. No gross anomaly identified. Reviewed, Interpreted and Dictated by Magdaleno Davies III, MD Transcribed by Niki Thorne Authenticated and [facility]
== END ==
PROVIDERS: PCP Physician Assistant; Visit Provider Nurse Practitioner Obstetrics & Gynecology
DX: Z34.90 Encounter for supervision of normal pregnancy, unspecified, unspecified trimester (principal); Z3A.20 20 weeks gestation of pregnancy
CPT/HCPCS: 76811

== ENCOUNTER 2022-07-14 00:32 | Emergency (ER) | payer OTHER, SELFPAY ==
[2022-07-14 00:35] VITALS: BP 119/60; PULSE 99; RESP 18; TEMP 36.5; O2SAT 99; BMI 38.7
--- NOTE | 2022-07-14 00:47 | HMH.EDGENADL ---
Discharge Plan Disposition Patient Disposition: Home, Self-Care Condition: Fair Prescriptions Prescriptions: New promethazine 25 mg tablet 25 mg PO Q6H PRN (Reason: sedation) Qty: 30 0RF No Action vit-iron fum-folic ac [ Vitamin with Minerals] 28 mg iron- 800 mcg tablet 1 tab PO DAILY Qty: 30 12RF albuterol sulfate [ProAir HFA] 90 mcg/actuation HFA aerosol inhaler See Rx Instructions .ROUTE .COMPLEX Qty: 9 0RF Dose Instruction: INHALE 2 PUFFS BY MOUTH EVERY 4 TO 6 HOURS NEEDED FOR SHORTNESS OF BREATH OR WHEEZING Rx Instructions: INHALE 2 PUFFS BY MOUTH EVERY 4 TO 6 HOURS NEEDED FOR SHORTNESS OF BREATH OR WHEEZING ergocalciferol (vitamin D2) 1,250 mcg (50,000 unit) capsule 1,250 mcg PO WEEKLY Qty: 14 3RF cholecalciferol (vitamin D3) 25 mcg (1,000 unit) capsule 25 mcg PO DAILY Qty: 90 3RF promethazine 25 mg Tablet 25 mg PO Q6H PRN (Reason: Nausea And Vomiting) Qty: 20 1RF ondansetron 4 mg tablet,disintegrating 4 mg PO Q8H PRN (Reason: nausea and vomiting) 3 Days Qty: 10 0RF Referrals Follow up/Referrals: Glo Horowitz PA [Primary Care Provider] - See instructions Clinical Impressions Clinical Impression: Acute viral syndrome Instructions Patient Instructions: DI for Viral Upper Respiratory Infection -- Adult Discharge ED Provider: Taqueria Earl General Adult HPI General Chief complaint: Upper Respiratory Infection Stated complaint: Cough,vomiting,21 wks Time Seen by Provider: 07/14/22 00:35 History of Present Illness HPI narrative: Patient is a 26-year-old female who presents with concern for nausea, cough, right ear pain. She states that her symptoms started a couple days ago. She states that many of the people in her house are now are currently sick. She says that she has been coughing quite a bit. She has not taken anything for her symptoms because she is . She says that she has also been nauseous and has been vomiting. She says that she has been taking her Phenergan but she has ran out of this. Denies any fever. She locates her ear pain in her right ear. Related Data Previous Rx's Medication Instructions Recorded ProAir HFA 90 mcg/actuation See Rx Instructions .Route 12/27/21 aerosol inhaler (albuterol sulfate) .COMPLEX #9 grams vitamin-ferrous fumarate 1 tab PO DAILY #30 tabs 03/20/22 28 mg iron-folic acid 800 mcg tablet ( Vitamins with Minerals) cholecalciferol (vitamin D3) 25 25 mcg PO DAILY #90 caps 03/21/22 mcg (1,000 unit) capsule ergocalciferol (vitamin D2) 1,250 1,250 mcg PO WEEKLY #14 caps 03/21/22 mcg (50,000 unit) capsule ondansetron 4 mg disintegrating 4 mg PO Q8H PRN nausea and 04/08/22 tablet vomiting 3 days #10 tabs promethazine 25 mg tablet 25 mg PO Q6H PRN Nausea And 05/05/22 Vomiting #20 tabs promethazine 25 mg tablet 25 mg PO Q6H PRN sedation #30 tabs 07/14/22 Allergies Allergy/AdvReac Type Severity Reaction Status Date / Time famotidine Allergy Intermediate Rash Verified 07/05/22 10:59 metoclopramide [From Reglan] Allergy Intermediate Rash Verified 07/05/22 10:59 PFSH PFSH Disclaimer: The information contained in this section may have been updated after the patient was seen, as this information can be updated by other users. Medical History Benign paroxysmal positional vertigo Vitamin D deficiency (~06/2017) Surgical History History of laparoscopic appendectomy Hx laparoscopic cholecystectomy Social History Smoking Status: Unknown if ever smoked second hand exposure: No alcohol intake: never substance use type: denies use current occupational status: other Travel in the last 8 weeks: None household members: significant other housing: house current occupatio
[2022-07-14 00:52] LABS: Coronavirus 19, PCR Not Detected (NotDetected); Influenza A, PCR Not Detected (NotDetected); Influenza B, PCR Not Detected (NotDetected)
[2022-07-14 01:09] VITALS: BP 98/68; PULSE 109; O2SAT 96
[2022-07-14 01:23] VITALS: BP 105/72; PULSE 108; RESP 18; TEMP 36.6; O2SAT 99
== END 2022-07-14 01:27 | disposition home or self-care (01) ==
PROVIDERS: Emergency Provider Student in an Organized Health Care Education/Training Program; PCP Physician Assistant
DX: O99.891 Other specified diseases and conditions complicating pregnancy (principal); B34.9 Viral infection, unspecified; Z3A.21 21 weeks gestation of pregnancy; Z90.49 Acquired absence of other specified parts of digestive tract; Z20.822 Contact with and (suspected) exposure to COVID-19
CPT/HCPCS: 99283; 99284; C9803; U0003; U0005

== ENCOUNTER → 2022-09-05 10:27 | Outpatient (CLI) | payer OTHER, SELFPAY ==
[2022-09-05 11:15] LABS: Basophils # 0.1 K/mm3 (0-0.2); Basophils % 0.6 % (0.1-2.0); Eosinophils # 0.1 K/mm3 (0.0-0.4); Hematocrit 32.8 % (37.0-47.0); Hemoglobin 11.3 g/dL (12.2-16.2); Lymphocytes # 2.6 K/mm3 (0.7-4.5); Mean Corpuscular HGB Conc 34.4 g/dL (31.8-35.4); Mean Corpuscular Hemoglobin 31.8 pg (27.0-31.2); Mean Corpuscular Volume 92.6 fl (81-99); Mean Platelet Volume 9.3 fl (7.4-10.4); Monocytes % 11.4 % (1.7-9.3); Neutrophils # 4.6 K/mm3 (1.8-7.8); Platelet Count 348 K/mm3 (142-424); Red Blood Count 3.54 M/mm3 (4.20-5.40); White Blood Count 8.3 K/mm3 (4.8-10.8)
[2022-09-05 11:57] LABS: Glucose,Fasting 94 mg/dl (74-100)
[2022-09-05 12:34] LABS: Glucose 1 Hour 154 mg/dL (74-100)
== END ==
PROVIDERS: PCP Physician Assistant; Visit Provider Nurse Practitioner Obstetrics & Gynecology
DX: Z34.90 Encounter for supervision of normal pregnancy, unspecified, unspecified trimester (principal)
CPT/HCPCS: 82951; 85025

== ENCOUNTER 2022-09-19 01:40 | Emergency (ER) | payer OTHER, SELFPAY ==
[2022-09-19 01:45] VITALS: BP 126/82; PULSE 102; O2SAT 99
[2022-09-19 01:48] VITALS: BP 126/82; PULSE 98; RESP 15; TEMP 36.5; O2SAT 100; BMI 38.0
[2022-09-19 02:00] VITALS: BP 119/70; PULSE 105; O2SAT 96
[2022-09-19 02:11] LABS: Strep Scrn Group A (Rapid) Negative (Negative)
[2022-09-19 02:30] VITALS: BP 114/68; PULSE 103; O2SAT 100
--- NOTE | 2022-09-19 03:12 | HMH.EDURI ---
Discharge Plan Disposition Patient Disposition: Home, Self-Care Chief Complaint: Upper Respiratory Infection Prescriptions Prescriptions: No Action vit-iron fum-folic ac [ Vitamin with Minerals] 28 mg iron- 800 mcg tablet 1 tab PO DAILY Qty: 30 12RF ferrous sulfate 325 mg (65 mg iron) tablet 325 mg PO DAILY Qty: 30 11RF Rx Instructions: Take 1 tablet by mouth daily. albuterol sulfate [ProAir HFA] 90 mcg/actuation HFA aerosol inhaler See Rx Instructions .ROUTE .COMPLEX Qty: 9 0RF Dose Instruction: INHALE 2 PUFFS BY MOUTH EVERY 4 TO 6 HOURS NEEDED FOR SHORTNESS OF BREATH OR WHEEZING Rx Instructions: INHALE 2 PUFFS BY MOUTH EVERY 4 TO 6 HOURS NEEDED FOR SHORTNESS OF BREATH OR WHEEZING ergocalciferol (vitamin D2) 1,250 mcg (50,000 unit) capsule 1,250 mcg PO WEEKLY Qty: 14 3RF cholecalciferol (vitamin D3) 25 mcg (1,000 unit) capsule 25 mcg PO DAILY Qty: 90 3RF promethazine 25 mg tablet 25 mg PO Q6H PRN (Reason: sedation) Qty: 30 0RF Referrals Follow up/Referrals: Glo Horowitz PA [Primary Care Provider] - See instructions Clinical Impressions Clinical Impression: , Viral infection Instructions Patient Instructions: DI for Acute Bronchitis Discharge ED Provider: Donny (ED)[place] URI/Sore Throat HPI General Chief Complaint: Upper Respiratory Infection Stated Complaint: sore throat; cough; ear pain Time Seen by Provider: 09/19/22 03:12 Mode of Arrival: Family Vehicle Source of Information: Patient and Medical Record Limitations: No Limitations Description of Symptoms (Recalled from ER Triage Doc. by RN): 26 yo female 30 weeks preg presents with chief complaint of bilat ear pain, sore throat and cough. patient states she has had the symptoms for 24 hours and has remained afebrile to the best of her knowledge. no significant PMH. Current meds: vitamins and vit D supplements. Reports no known covid or flu contacts. History of Present Illness HPI Narrative: over the last 24 hrs has ear pain and sore throat with manager inpatient cough - pt is 30 weeks MD Complaint: cough, sore throat and nasal congestion Onset (ago): day(s) Duration: intermittent Severity: moderate Able to tolerate fluids by mouth: Yes Associated symptoms: denies other symptoms Related Data Previous Rx's Medication Instructions Recorded ProAir HFA 90 mcg/actuation See Rx Instructions .Route 12/27/21 aerosol inhaler (albuterol sulfate) .COMPLEX #9 grams vitamin-ferrous fumarate 1 tab PO DAILY #30 tabs 03/20/22 28 mg iron-folic acid 800 mcg tablet ( Vitamins with Minerals) cholecalciferol (vitamin D3) 25 25 mcg PO DAILY #90 caps 03/21/22 mcg (1,000 unit) capsule ergocalciferol (vitamin D2) 1,250 1,250 mcg PO WEEKLY #14 caps 03/21/22 mcg (50,000 unit) capsule promethazine 25 mg tablet 25 mg PO Q6H PRN sedation #30 tabs 07/14/22 ferrous sulfate 325 mg (65 mg 325 mg PO DAILY #30 tabs 08/06/22 iron) tablet Allergies Allergy/AdvReac Type Severity Reaction Status Date / Time famotidine Allergy Intermediate Rash Verified 09/04/22 14:51 metoclopramide [From Reglan] Allergy Intermediate Rash Verified 09/04/22 14:51 [facility] Disclaimer: The information contained in this section may have been updated after the patient was seen, as this information can be updated by other users. Medical History Benign paroxysmal positional vertigo Vitamin D deficiency (~06/2017) Surgical History History of laparoscopic appendectomy Hx laparoscopic cholecystectomy Social History Smoking Status: Never smoker second hand exposure: No alcohol intake: never substance use type: denies use current occupational status: other Travel in the last 8 weeks: None household members
[2022-09-19 03:23] LABS: Coronavirus 19, PCR Not Detected (NotDetected); Influenza A, PCR Not Detected (NotDetected); Influenza B, PCR Not Detected (NotDetected)
[2022-09-19 04:40] VITALS: BP 121/76; PULSE 97; RESP 15; TEMP 36.5; O2SAT 100
== END 2022-09-19 04:44 | disposition home or self-care (01) ==
PROVIDERS: Emergency Provider Emergency Medicine; PCP Physician Assistant
DX: O98.513 Other viral diseases complicating pregnancy, third trimester (principal); J06.9 Acute upper respiratory infection, unspecified; Z3A.30 30 weeks gestation of pregnancy
CPT/HCPCS: 87430; 99283; C9803; U0003; U0005

== ENCOUNTER → 2022-09-25 10:32 | Outpatient (CLI) | payer OTHER, SELFPAY ==
[2022-09-25 11:23] LABS: Glucose,Fasting 108 mg/dl (74-100)
[2022-09-25 12:52] LABS: Glucose 1 Hour 191 mg/dL (74-100)
[2022-09-25 13:48] LABS: Glucose 2 Hour 141 mg/dL (74-100)
[2022-09-25 15:54] LABS: Glucose 3 Hour 114 mg/dL (74-100)
== END ==
PROVIDERS: PCP Physician Assistant; Visit Provider Nurse Practitioner Obstetrics & Gynecology
DX: Z34.90 Encounter for supervision of normal pregnancy, unspecified, unspecified trimester (principal); Z3A.28 28 weeks gestation of pregnancy
CPT/HCPCS: 36415; 82951

== ENCOUNTER → 2022-11-01 14:44 | Outpatient (CLI) | payer OTHER, SELFPAY ==
--- NOTE | 2022-11-01 14:45 | US_ITS ---
PROCEDURE: US OB FOLLOW UP CLINICAL INDICATION: lga COMPARISON: US US OB TRANSVAGINAL from 04/05/2022 US US OB /MATERNAL DETAIL from 07/05/2022 FINDINGS: The following parameters are obtained: 37 weeks and 1 day from early dating ultrasound BPD: 37weeks 2days OFD: 38weeks 2days HC: 36weeks 5days AC: 38weeks FL: 36weeks 5days heart rate: 156bpm bpm. HC/AC: 0.95 Cephalic index: 0.81 FL/BPD: 0.78 FL/AC: 0.21 Amniotic fluid index: 17.31cm The femur length is 36weeks 5days No obvious anomalies evident from this limited scan. Four-chamber view seen. Placenta: Posterior placenta grade 1 Cervix: 3.61 centimeters IMPRESSION: There is a single live fetus present in cephalic presentation with a posterior placenta grade 1. Fetus is active. Average ultrasound age 37weeks 2days with an estimated weight 3,199g, 7 pounds 1 ounce which is 64 percentile. Amniotic fluid index is normal at 17.31 centimeters. Dictated by: Carson De Leon MD 11/01/2022 19:25 Carson De Leon MD in [facility] 11/01/2022 19:25
== END ==
PROVIDERS: PCP Physician Assistant; Visit Provider Nurse Practitioner Obstetrics & Gynecology
DX: O36.60X0 Maternal care for excessive fetal growth, unspecified trimester, not applicable or unspecified (principal)
CPT/HCPCS: 76816

== ENCOUNTER → 2022-11-06 23:34 | Outpatient (CLI) | payer OTHER, SELFPAY | PROVIDERS: PCP Physician Assistant; Visit Provider Nurse Practitioner Obstetrics & Gynecology | DX: Z34.90 Encounter for supervision of normal pregnancy, unspecified, unspecified trimester (principal) | CPT/HCPCS: 86403 ==

== ENCOUNTER 2022-11-08 02:04 | Outpatient (CLI) | payer OTHER, SELFPAY ==
[2022-11-08 02:07] VITALS: BMI 38.5
[2022-11-08 02:24] LABS: Microscopic, Urine URINE MICROSCOPIC (MICROSCOPIC)
[2022-11-08 02:26] VITALS: BP 135/78; PULSE 95; RESP 17; TEMP 37.1; O2SAT 98; BMI 38.5
[2022-11-08 02:28] LABS: Appearance,Urine CLEAR (Clear); Blood, Urine Negative (Negative); Color,Urine YELLOW (Yellow); Glucose,Urine (UA) Negative (Negative); Ketones,Urine Negative (Negative); Leukocyte Esterase,Urine Negative (Negative); Nitrate,Urine Negative (Negative); Protein,Urine TRACE (Negative); Specific Gravity, Urine >= 1.030 (1.005-1.030); Urobilinogen,Urine 0.2 EU/dl (0.2)
[2022-11-08 02:38] LABS: Bacteria,Urine 1+ /lpf; Bilirubin,Urine Negative (Negative); Mucus,Urine 1+ /lpf; WBC,Urine Occasional #/hpf (0-3)
[2022-11-08 03:09] LABS: Barbiturates Screen,Urine Negative ng/ml (<200)
[2022-11-08 03:10] LABS: Benzodiazepines Screen,Urine Negative ng/ml (<200)
[2022-11-08 03:11] LABS: Amphetamine/Metha Screen,Urine Negative ng/ml (<1000); Cocaine Screen,Urine Negative ng/ml (<300)
[2022-11-08 03:12] LABS: Cannabinoid Screen,Urine Negative ng/ml (<50); Methadone Screen,Urine Negative ng/ml (<300)
[2022-11-08 03:50] LABS: Phencyclidine Screen,Urine Negative ng/ml (<25)
[2022-11-08 03:51] LABS: Opiate Screen,Urine Negative ng/ml (<300)
== END 2022-11-08 03:01 | disposition home or self-care (01) ==
LOC: OBOUT 02:05 → OB 02:06
PROVIDERS: PCP Physician Assistant; Visit Provider Nurse Practitioner Obstetrics & Gynecology
DX: O60.03 Preterm labor without delivery, third trimester (principal); Z3A.37 37 weeks gestation of pregnancy
CPT/HCPCS: 59025; 80305; 81001; G0463

== ENCOUNTER → 2022-11-14 12:47 | Outpatient (CLI) | payer OTHER, SELFPAY ==
--- NOTE | 2022-11-14 12:48 | US_ITS ---
PROCEDURE: US OB BIOPHYSICAL PROFILE CLINICAL INDICATION: decreased movement COMPARISON: FINDINGS: From her last menstrual period she is 38weeks 1day. The following parameters are obtained: Viable fetus in the cephalic presentation. Average ultrasound age is 38weeks. Estimated due date by ultrasound is 11/28/2022. Estimated weight is 7lb 7.27oz. 61Percentile. heart rate: 121bpm bpm. BPD: 35weeks 5days OFD: 35weeks 5days HC: 36 weeks 4 days AC: 38 weeks 2 days FL: 38 weeks 1 day HC/AC: 0.94 Cephalic index: 0.86 FL/BPD: 0.79 FL/AC: 0.22 Amniotic fluid index: 14.8cm Qualitative AFV: 2 breathing movements: 2 Gross body movements: 2 Tone: 2 Biophysical profile score: 8 Doppler evaluation of the umbilical artery: SD ratio: 2.66 Resistive index: 0.62 No obvious anomalies evident.Kidney, three-vessel cord appear normal. Four-chamber view is seen and appears normal. Placenta: Posterior grade 2 IMPRESSION: 1. Viable fetus in the cephalic presentation with a posterior placenta grade 2. 2. The amniotic fluid index is normal. 3. Biophysical profile is 8/8 with good breathing movement seen. 4. There has been good interval growth. Dictated by: Carson De Leon MD 11/14/2022 19:15 Carson De Leon MD in [facility] 11/14/2022 19:15
== END ==
PROVIDERS: PCP Physician Assistant; Visit Provider Nurse Practitioner Obstetrics & Gynecology
DX: O36.8130 Decreased fetal movements, third trimester, not applicable or unspecified (principal); Z3A.38 38 weeks gestation of pregnancy
CPT/HCPCS: 76816; 76819; 76820

== ENCOUNTER 2022-11-21 04:59 | Inpatient (IN) | payer OTHER, SELFPAY ==
[2022-11-21 05:07] VITALS: BMI 38.4
[2022-11-21 05:27] VITALS: BP 123/65; PULSE 74; RESP 15; TEMP 36.7; O2SAT 98; BMI 38.4
[2022-11-21 06:08] LABS: Coronavirus 19, PCR Not Detected (NotDetected); Influenza A, PCR Not Detected (NotDetected); Influenza B, PCR Not Detected (NotDetected); Microscopic, Urine URINE MICROSCOPIC (MICROSCOPIC)
[2022-11-21 06:13] LABS: Basophils % 0.3 % (0.1-2.0); Eosinophils # 0.1 K/mm3 (0.0-0.4); Eosinophils % 0.7 % (0.1-12.0); Hematocrit 32.2 % (37.0-47.0); Hemoglobin 10.9 g/dL (12.2-16.2); Lymphocytes # 3.8 K/mm3 (0.7-4.5); Lymphocytes % 36.5 % (10-50); Mean Corpuscular HGB Conc 33.7 g/dL (31.8-35.4); Mean Corpuscular Hemoglobin 29.6 pg (27.0-31.2); Mean Corpuscular Volume 87.9 fl (81-99); Mean Platelet Volume 10.4 fl (7.4-10.4); Monocytes # 1.1 K/mm3 (0.1-1.0); Monocytes % 10.6 % (1.7-9.3); Neutrophils # 5.4 K/mm3 (1.8-7.8); Neutrophils % 51.9 % (37.0-80.0); Platelet Count 276 K/mm3 (142-424); Red Blood Count 3.66 M/mm3 (4.20-5.40); Red Cell Distribution Width 14.7 % (11.5-17.5); White Blood Count 10.4 K/mm3 (4.8-10.8)
[2022-11-21 06:28] LABS: Appearance,Urine CLEAR (Clear); Bilirubin,Urine Negative (Negative); Blood, Urine Negative (Negative); Color,Urine YELLOW (Yellow); Glucose,Urine (UA) Negative (Negative); Ketones,Urine Negative (Negative); Leukocyte Esterase,Urine 2+ (Negative); Nitrate,Urine Negative (Negative); Protein,Urine Negative (Negative); Specific Gravity, Urine 1.025 (1.005-1.030); Urobilinogen,Urine 0.2 EU/dl (0.2)
[2022-11-21 06:44] LABS: Bacteria,Urine 2+ /lpf; Mucus,Urine Trace /lpf
[2022-11-21 06:48] LABS: Amphetamine/Metha Screen,Urine Negative ng/ml (<1000); Barbiturates Screen,Urine Negative ng/ml (<200)
[2022-11-21 06:49] LABS: Benzodiazepines Screen,Urine Negative ng/ml (<200)
[2022-11-21 06:50] LABS: Cannabinoid Screen,Urine Negative ng/ml (<50); Cocaine Screen,Urine Negative ng/ml (<300)
[2022-11-21 06:51] LABS: Methadone Screen,Urine Negative ng/ml (<300); Opiate Screen,Urine Negative ng/ml (<300)
[2022-11-21 06:52] LABS: Phencyclidine Screen,Urine Negative ng/ml (<25)
--- NOTE | 2022-11-21 07:47 | HMH.PHAINT1 ---
Pharmacy Intervention Comments: MEDICATION RECONCILIATION COMPLETED ON PATIENT USING EXTERNAL FILL HISTORY FROM PHARMACY. -DEWEY SAGASTUME, KALEBD
--- NOTE | 2022-11-21 08:48 | EXP.LABOR.NO ---
Labor Note Subjective: Date: 11/21/22 Time: 08:48 regular contraction Objective: NST:: Reactive Contractions:: every 2-3 minutes Cervical Dilation:: 2-3 Effacement:: 50% Station: -1 Membranes: artificially ruptured Comment:: I ruptured her membranes and there was clear fluid. Fetus: Monitoring?: Yes monitoring type:: External Assessment: Labor progressing?: Yes Cephalopelvic disproportion?: No Plan: Anesthesia for epidural?: Yes Continue to labor down?: Yes Plan for ?: No Continue to monitor?: Yes Start pushing?: No Comment:: She is doing well. She is having regular contractions. The nonstress test is reactive. There was clear fluid when I ruptured her membranes.
--- NOTE | 2022-11-21 11:44 | EXP.LABOR.NO ---
Labor Note Subjective: Date: 11/21/22 Time: 11:44 regular contraction Objective: NST:: Reactive Contractions:: every 2-3 minutes Cervical Dilation:: 5-6 Effacement:: 100% Station: 0 Membranes: artificially ruptured Fetus: Monitoring?: Yes monitoring type:: External Assessment: Labor progressing?: Yes Cephalopelvic disproportion?: No Plan: Anesthesia for epidural?: Yes Continue to labor down?: Yes Plan for ?: No Continue to monitor?: Yes Start pushing?: No Comment:: She is doing well. Her contractions are regular. The cervix is dilating. Nonstress test is reactive. We will expect a vaginal delivery.
--- NOTE | 2022-11-21 13:25 | EXP.DN ---
Delivery Note Delivery Date:: 11/21/22 Delivery Time:: 13:03 Anesthesia Type: Epidural Was labor medically induced?: Yes Induction method: per pitocin protocol Gestational age (weeks): 39 delivered prior to 39 weeks?: No Infant Gender: Male at 1 minute: 8 at 5 minutes: 9 LAC or MLE?: LAC Delivery Procedure:: She is a 27-year-old 2 para 1 at 39 weeks gestational age. She requested induction of labor at term. She was started on IV oxytocin and had her membranes ruptured. Under labor epidural she progressed to full dilation and delivered spontaneously a liveborn male child at 1:03 PM in the afternoon of November 21, 2022. On deliver the head it was noted that there was a loose nuchal cord which was easily reduced. This was followed by the anterior shoulder and the rest the infant's body atraumatically. The baby was vigorous so we allowed the cord to continue to pulsate for approximately 1 minute. The oropharynx and nasopharynx were bulb suction. The cord was then doubly clamped and cut and the infant was placed on the mother's abdomen for further care. The nurses assigned Apgars of 8 at 1 minute and 9 at 5 minutes. We then obtained cord blood. She received IV oxytocin using gentle traction on the cord and countertraction the fundus I was able to easily deliver the placenta intact 4 minutes after delivery. He had a normal three-vessel cord. She had a small midline labial tear just below the clitoris and there was an active bleeding vessel there. [id number] sutures were used to reapproximate the tissue and stop the bleeding. Estimated blood loss was 250 cc. She has O+ blood, she is rubella immune and was group B streptococcus negative. She plans to breast-feed. Laceration:: labial Placental Delivery Description: Spontaneous
--- NOTE | 2022-11-21 13:35 | EXP.HP ---
History of Present Illness *Admission Date: 11/21/22 *Reason for visit:: Induction of labor at term. *History of present illness: She is a 27-year-old 2 para 1 at 39+ weeks gestational age. She requested induction of labor at term. [facility] Disclaimer: The information contained in this section may have been updated after the patient was seen, as this information can be updated by other users. 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 current occupational exposures/hazards: No caffeine: Yes do you feel safe at home: Yes victim of physical abuse: No victim of emotional abuse: No victim of sexual abuse: No Review of Systems Review of Systems Review of systems:: pertinent systems reviewed and negative unless documented below Meds Home Medications and Allergies Home Medications Medication Instructions Recorded Confirmed Type albuterol sulfate 90 mcg/actuation 2 puff inhalation Q4HP PRN 11/21/22 11/21/22 History aerosol inhaler (ProAir HFA) Shortness Of Breath cholecalciferol (vitamin D3) 25 25 mcg PO DAILY Supplement 11/21/22 11/21/22 History mcg (1,000 unit) capsule ergocalciferol (vitamin D2) 1,250 1,250 mcg PO WEEKLY Supplement 11/21/22 11/21/22 History mcg (50,000 unit) capsule ferrous sulfate 325 mg (65 mg 325 mg PO DAILY Supplement 11/21/22 11/21/22 History iron) tablet vitamin-ferrous fumarate 1 tab PO DAILY Supplement 11/21/22 11/21/22 History 28 mg iron-folic acid 800 mcg tablet ( Vitamins with Minerals) New Prescriptions to Start Prescriptions: Allergies Allergy/AdvReac Type Severity Reaction Status Date / Time famotidine Allergy Intermediate Rash Verified 11/13/22 11:02 metoclopramide [From Reglan] Allergy Intermediate Rash Verified 11/13/22 11:02 Exam Data for Last 24 hours Vital signs and Labs for Last 24 Hours: Temp Pulse Resp BP Pulse Ox 98.0 F 74 15 123/65 98 11/21/22 05:27 11/21/22 05:27 11/21/22 05:27 11/21/22 05:27 11/21/22 05:27 Laboratory Results - last 24 hr 11/21/22 05:54: WBC 10.4, RBC 3.66 L, Hgb 10.9 L, Hct 32.2 L, MCV 87.9, MCH 29.6, MCHC 33.7, RDW 14.7, Plt Count 276, MPV 10.4, Neut % (Auto) 51.9, Lymph % (Auto) 36.5, [place] % (Auto) 10.6 H, Eos % (Auto) 0.7, Baso % (Auto) 0.3, Neut # (Auto) 5.4, Lymph # (Auto) 3.8, [place] # (Auto) 1.1 H, Eos # (Auto) 0.1, Baso # (Auto) 0.0 11/21/22 05:54: Urine Color Yellow, Urine Appearance Clear, Urine pH 6.0, Ur Specific [place] 1.025, Urine Protein Negative, Urine Glucose (UA) Negative, Urine Ketones Negative, Urine Blood Negative, Urine Nitrate Negative, Urine Bilirubin Negative, Urine Urobilinogen 0.2, Ur Leukocyte Esterase 2+ A, Urine RBC 5-10, Urine WBC 10-20, Ur Squamous Epith Cells 5-10, Urine Bacteria 2+, Urine Mucus Trace 11/21/22 05:54: SARS-CoV-2 (PCR) Not detected, Influenza A Untype (PCR) Not detected, Influenza Type B (PCR) Not detected 11/21/22 05:54: Urine Opiates Screen Negative, Urine Methadone Screen Negative, Ur Barbituates Screen Negative, Ur Phencyclidine Scrn Negative, Ur Amphetamines Screen Negative, U Benzodiazepines Scrn Negative, Urine Cocaine Screen Negative, U Marijuana (THC) Screen Negative 11/21/22 05:54: Blood Type O Positive, Antibody Screen Negative I & O for Las
--- NOTE | 2022-11-21 14:06 | EXP.ANES.CKL ---
[facility] Disclaimer: The information contained in this section may have been updated after the patient was seen, as this information can be updated by other users. 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 current occupational exposures/hazards: No caffeine: Yes do you feel safe at home: Yes victim of physical abuse: No victim of emotional abuse: No victim of sexual abuse: No [facility] Anesthesia Checklist Patient Identification Patient Identification: Arm Band and Family Structural Data Admitted From: Home Planned Operative Procedure/s: Epidural for labor Consent for Planned Operative Procedure(s) Verified: Yes Verified Documents: Surgical Consent and History and Physical NPO Status Verified Time NPO: 00:00 Additional verifications Patient : Yes Anesthesia Reactions: No Hx Blood Transfusions: No Blood Transfusion Reaction: No Cephalosporin Allergy: No Previous Colonoscopy: No Airway Assessment C-Spine Mobility Assessed: Yes TMJ Mobility Assessed: Yes Dentition: Good Dentition Neurological Assessment Level of Consciousness: Awake, Alert, Appropriate, Follows Commands and Restless Hx Seizures: No Numbness or tingling in extremities: No Anesthesia Plan Anesthesia Risk discussed: Yes ASA Class: II Anesthesia Type: Epidural Preoperative Comments Pre-Operative Comments: 27 weeks in active labor
[2022-11-22 06:03] LABS: Hematocrit 30.9 % (37.0-47.0); Hemoglobin 10.2 g/dL (12.2-16.2)
--- NOTE | 2022-11-22 16:33 | EXP.ACUTE.PN ---
Subjective *Date: 11/22/22 *Time: 07:25 Interval history: She is doing very well this morning. She is eating and drinking and ambulating. Her lochia is normal. She is pumping her breast. Medical Exam Vital signs and Labs for Last 24 Hours: Laboratory Results - last 24 hr 11/22/22 05:26: Hgb 10.2 L, Hct 30.9 L I & O for Labs for Last 24 Hours: Intake & Output 11/20/22 11/21/22 11/22/22 11/23/22 11:59 11:59 11:59 11:59 Weight 210 lb Microbiology Reports for the Last 24 Hours: Microbiology 11/21/22 05:54 Urine,Clean Catch Urine Culture - Preliminary NO GROWTH AFTER 24 HOURS Head: Present atraumatic Neck: Present normal inspection Respiratory: Present normal respiratory effort; Absent accessory muscle use Assessment and Plan *Assessment and plan (1) Normal delivery at term: Status: Acute Category: Medical Code(s): O80 - Encounter for full-term uncomplicated delivery Plan She continues to do well. We will plan to send her home tomorrow.
[2022-11-22 20:15] VITALS: BP 118/60; PULSE 85; RESP 17; TEMP 36.8; O2SAT 99
[2022-11-23 04:45] VITALS: BP 126/61; PULSE 72; RESP 17; TEMP 36.7; O2SAT 99
--- NOTE | 2022-11-23 11:27 | EXP.DC.SUM ---
General Admission date:: 11/21/22 Discharge date: 11/23/22 HPI HPI HPI: She is a 27-year-old 2 para 1 at 39+ weeks gestational age. She requested induction of labor at term. Hospital Course Hospital Course Hospital Course: She was admitted on November 21, 2022 and started on IV oxytocin. She had her membranes ruptured and progressed under epidural to full dilation. She delivered spontaneously a liveborn male child at 1:07 PM in the afternoon of November 21, 2022. The baby weighed 8 pounds 12 ounces and was 20 inches long. He had Apgars of 8 at 1 minute and 9 at 5 minutes. She has done well and has remained afebrile throughout hospitalization. She is eating and drinking and ambulating. She is breast-feeding and bottlefeeding. Her lochia is normal. She denies any pain. She has O+ blood, she is rubella immune and was group B streptococcus negative. 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 Plans for ongoing care. She is discharged home to follow-up with me in approximately 2 weeks time. She would like Nexplanon for control. She will continue with her vitamins and iron. She was given the usual instructions with respect to limiting her activity, driving and sexual activity. She will take vsqm-tzq-tkfsvco analgesics for any discomfort. Her condition on discharge is stable and improved. Exam Data for Last 24 hours Vital signs and Labs for Last 24 Hours: Temp Pulse Resp BP Pulse Ox 98.1 F 72 17 126/61 99 11/23/22 04:45 11/23/22 04:45 11/23/22 04:45 11/23/22 04:45 11/23/22 04:45 I & O for Last 24 hours: Intake & Output 11/20/22 11/21/22 11/22/22 11/23/22 11:59 11:59 11:59 11:59 Weight 210 lb Microbiology Reports for the Last 24 Hours: Microbiology 11/21/22 05:54 Urine,Clean Catch Urine Culture - Final NO GROWTH AFTER 48 HOURS Constitutional Constitutional: no acute distress *Routine HEENT Exam Head: Present normocephalic *Routine Respiratory Exam Respiratory: Present normal respiratory effort *Routine Skin Exam Skin: Present intact DS: Diagnosis Discharge Diagnosis (1) Normal delivery at term: Status: Acute Code(s): O80 - Encounter for full-term uncomplicated delivery Meds Home Medications and Allergies Home Medications Medication Instructions Recorded Confirmed Type albuterol sulfate 90 mcg/actuation 2 puff inhalation Q4HP PRN 11/21/22 11/21/22 History aerosol inhaler (ProAir HFA) Shortness Of Breath cholecalciferol (vitamin D3) 25 25 mcg PO DAILY Supplement 11/21/22 11/21/22 History mcg (1,000 unit) capsule ergocalciferol (vitamin D2) 1,250 1,250 mcg PO WEEKLY Supplement 11/21/22 11/21/22 History mcg (50,000 unit) capsule ferrous sulfate 325 mg (65 mg 325 mg PO DAILY Supplement 11/21/22 11/21/22 History iron) tablet vitamin-ferrous fumarate 1 tab PO DAILY Supplement 11/21/22 11/21/22 History 28 mg iron-folic acid 800 mcg tablet ( Vitamins with Minerals) New Prescriptions to Start Prescriptions: Allergies Allergy/AdvReac Type Severity Reaction Status Date / Time famotidine Allergy Intermediate Rash Verified 11/13/22 11:02 metoclopramide [From Reglan] Allergy Intermediate Rash Verified 11/13/22 11:02 Discharge Plan Disposition Patient Disposition: Home, Self-Care Discharge Order Discharge Orders: Discharge Order (Routine); Ordered 11/23/22 Ordered By: Carson De Leon Follow up Plan Follow up with: Carson De Leon MD [Staff Physician] - 12/05/22 2:00 pm Prescriptions/Medication Reconciliation: Continued ferrous sulfate 325 mg (65 mg iron) tablet 325 mg PO DAILY vit-iron fum-folic ac [ Vitamin with Minerals] 28 mg iron- 800 mcg tablet 1 tab PO DAILY ergocalciferol (vitamin D2) 1,250 mcg (50,000 unit) capsule 1,250 mcg PO WEEKLY albuterol sulfate [ProAir HFA] 90 mcg/actuation HFA aerosol inhaler
== END 2022-11-23 11:45 | disposition home or self-care (01) | DRG 807 ==
PROVIDERS: Admitting Provider Nurse Practitioner Obstetrics & Gynecology; PCP Physician Assistant; Visit Provider Nurse Practitioner Obstetrics & Gynecology
DX: O70.0 First degree perineal laceration during delivery (principal); Z37.0 Single live birth; Z3A.39 39 weeks gestation of pregnancy; Z23 Encounter for immunization
CPT/HCPCS: 59409; 36415; 59025; 80305; 81001; 85014; 85018; 85025; 86850; 87086; 87636; 94761; C9803; G0283; J2405; U0003; U0005

== ENCOUNTER → 2023-01-18 21:21 | Outpatient (CLI) | payer OTHER, SELFPAY ==
[2023-01-18 22:10] LABS: Coronavirus 19, PCR Not Detected (NotDetected); Influenza A, PCR Not Detected (NotDetected); Influenza B, PCR Not Detected (NotDetected)
== END ==
PROVIDERS: PCP Emergency Medicine; Visit Provider Emergency Medicine
DX: Z20.822 Contact with and (suspected) exposure to COVID-19 (principal)
CPT/HCPCS: 87635; 87636

== ENCOUNTER → 2023-01-22 11:00 | Outpatient (CLI) | payer OTHER, SELFPAY | PROVIDERS: PCP Student in an Organized Health Care Education/Training Program; Visit Provider Student in an Organized Health Care Education/Training Program | DX: R50.9 Fever, unspecified (principal); J02.9 Acute pharyngitis, unspecified; R05.9 Cough, unspecified; Z20.822 Contact with and (suspected) exposure to COVID-19 | CPT/HCPCS: 87635 ==

== ENCOUNTER 2023-03-29 20:41 | Emergency (ER) | payer OTHER, SELFPAY ==
[2023-03-29 20:42] VITALS: BP 121/68; PULSE 83; RESP 16; TEMP 36.9; O2SAT 98; BMI 34.2
[2023-03-29 21:22] VITALS: BP 121/68; PULSE 83; RESP 16; TEMP 36.9; O2SAT 98
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
== END 2023-03-29 21:34 | disposition home or self-care (01) ==
PROVIDERS: Emergency Provider Student in an Organized Health Care Education/Training Program; PCP Physician Assistant
DX: S00.33XA Contusion of nose, initial encounter (principal); J45.909 Unspecified asthma, uncomplicated; W50.1XXA Accidental kick by another person, initial encounter
CPT/HCPCS: 99283

== ENCOUNTER 2023-07-03 17:23 | Emergency (ER) | payer OTHER, SELFPAY ==
--- NOTE | 2023-07-03 18:09 | EXP.UTC ---
Discharge Plan Disposition Patient Disposition: Home, Self-Care Condition: Good Prescriptions Prescriptions: New amoxicillin [amoxicillin] 875 mg tablet 875 mg PO Q12H Qty: 20 0RF qzefouaewqwiqma-mudaizvbw-WO [Bromfed DM] 2-30-10 mg/5 mL Syrup 5 ml PO Q6H PRN (Reason: Cough) Qty: 240 0RF methylprednisolone 4 mg Tablets,Dose Pack 4 mg PO DIRECTED 6 Days Qty: 21 0RF Rx Instructions: Take 1 pack as directed for 6 days albuterol sulfate [Ventolin HFA] 90 mcg/actuation HFA aerosol inhaler 2 puff inhalation Q6H PRN (Reason: shortness of breath or wheezing) Qty: 6.7 0RF No Action ferrous sulfate 325 mg (65 mg iron) tablet 325 mg PO DAILY vit-iron fum-folic ac [ Vitamin with Minerals] 28 mg iron- 800 mcg tablet 1 tab PO DAILY ergocalciferol (vitamin D2) 1,250 mcg (50,000 unit) capsule 1,250 mcg PO WEEKLY albuterol sulfate [ProAir HFA] 90 mcg/actuation HFA aerosol inhaler 2 puff inhalation Q4HP PRN (Reason: Shortness Of Breath) cholecalciferol (vitamin D3) 25 mcg (1,000 unit) capsule 25 mcg PO DAILY Referrals Follow up/Referrals: Glo Horowitz PA [Primary Care Provider] - See instructions Activity Restrictions/Add. Instructions Additional Instructions/Restrictions: Drink plenty of fluids. Take tylenol or ibuprofen for pain or fever. Take the medications as directed. Follow up with your regular doctor. GO TO THE ER FOR ANY WORSENING SYMPTOMS Clinical Impressions Clinical Impression: Asthma exacerbation, Otitis media Instructions Patient Instructions: Middle Ear Infection, Asthma -- Adult Discharge ED Provider: Trung Peguero [facility] General Stated complaint: cough, bilateral ear pain Time Seen by Provider: 07/03/23 18:08 History of Present Illness Provider Complaint: She states that for the past 3 days she has had worsening cough, chest congestion, sore throat, sinus congestion, and bilateral ear pain. She denies fever/chills/body aches. Related Data Home Medications Medication Instructions Recorded Confirmed albuterol sulfate 90 mcg/actuation 2 puff inhalation Q4HP PRN 11/21/22 07/03/23 aerosol inhaler (ProAir HFA) Shortness Of Breath cholecalciferol (vitamin D3) 25 25 mcg PO DAILY Supplement 11/21/22 01/22/23 mcg (1,000 unit) capsule ergocalciferol (vitamin D2) 1,250 1,250 mcg PO WEEKLY Supplement 11/21/22 01/22/23 mcg (50,000 unit) capsule ferrous sulfate 325 mg (65 mg 325 mg PO DAILY Supplement 11/21/22 01/22/23 iron) tablet vitamin-ferrous fumarate 1 tab PO DAILY Supplement 11/21/22 01/22/23 28 mg iron-folic acid 800 mcg tablet ( Vitamins with Minerals) Previous Rx's Medication Instructions Recorded albuterol sulfate 90 mcg/actuation 2 puff inhalation Q6H PRN 07/03/23 aerosol inhaler (Ventolin HFA) shortness of breath or wheezing #6.7 grams amoxicillin 875 mg tablet 875 mg PO Q12H #20 tabs 07/03/23 hvqatlpqqnvbqsz-qwwsotajrzvyukc-IY 5 ml PO Q6H PRN Cough #240 mL 07/03/23 2 mg-30 mg-10 mg/5 mL oral syrup (Bromfed DM) methylprednisolone 4 mg tablets in 4 mg PO DIRECTED 6 days #21 tabs 07/03/23 a dose pack Allergies Allergy/AdvReac Type Severity Reaction Status Date / Time famotidine Allergy Intermediate Rash Verified 07/03/23 18:21 metoclopramide [From Reglan] Allergy Intermediate Rash Verified 07/03/23 18:21 [facility] Disclaimer: The information contained in this section may have been updated after the patient was seen, as this information can be updated by other users. 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 current occupational exposures/hazards: No caffeine: Yes do you feel safe at home: Yes victim of physical abuse: No victim of emotional abuse: No victim of sexual abuse: No ROS Obtained: Yes All systems reviewed & no additional complaints except as documented Constitutional Constitutional: Denies chills, Reports fever(s) and Reports poor appetite Eyes Eyes: Denies eye discharge ENT Ears, Nose, Mouth, and Throat: Denies ear discharge, Reports otalgia, Denies hearing loss, Denies sinus pain and Reports sore throat Cardiovascular Cardiovascular: Denies chest pain and Denies dyspnea Respiratory Respiratory: Denies shortness of breath, Reports chest congestion, Reports cough, Denies dyspnea, Denies stridor and Denies wheezing Gastrointestinal Gastrointestingal: Denies abdominal pain, diarrhea, nausea or vomiting Musculoskeletal Musculoskeletal: Denies arthralgias Integumentary/Breasts Skin/Breast: Denies rash Allergic/Immunologic Allergic/Immunologic: Denies wheezing Physical Exam General General appearance: alert and in no apparent distress Head Head exam: atraumatic, normocephalic and normal inspection Eye Eye exam: Present normal appearance; Absent PERRL or EOMI ENT ENT exam: Present mucous membranes moist and normal external ear exam Expanded ENT Exam TM/Canal exam: Bilateral TM: erythema, bulging and effusion Nose exam: Absent sinus tenderness Nasal speculum exam: Bilateral: normal Mouth exam: Present normal external inspection and other; Absent drooling Teeth exam: Present normal inspection Throat exam: Present tonsillar erythema and tonsillomegaly Neck Neck exam: Present normal inspection, full ROM and trachea midline; Absent tenderness, meningismus or lymphadenopathy Chest Chest inspection: Present normal inspection and symmetric chest wall rise; Absent tenderness Respiratory Respiratory exam: Present normal lung sounds bilaterally; Absent respiratory distress, wheezes or stridor Cardiovascular Cardiovascular exam: Present regular rate, normal rhythm and normal heart sounds; Absent tachycardia or irregular rhythm Abdominal Exam Abdominal exam: Present soft and normal bowel sounds; Absent distention, tenderness, guarding, rebound or rigidity Extremities Exam Extremities exam: Present normal inspection and normal capillary refill; Absent tenderness, joint swelling or calf tenderness Back Exam Back exam: Present normal inspection and full ROM; Absent tenderness, CVA tenderness (R) or CVA tenderness (L) Neurological Exam Neurological exam: Present alert, oriented X3, CN II-XII intact, normal gait and reflexes normal; Absent motor sensory deficit Psychiatric Psychiatric exam: Present normal affect and normal mood Skin Skin exam: Present warm, dry, intact and normal color Lymphatic Lymphatic Findings: no adenopathy Medical Decision Making Medical Records Medical records reviewed: No I reviewed the patient's medical records. Zach Inquiry Pt receiving controlled substance: No
[2023-07-03 18:10] VITALS: BP 116/73; PULSE 76; RESP 18; TEMP 37.3; O2SAT 99; BMI 36.0
[2023-07-03 18:40] VITALS: BP 116/73; PULSE 76; RESP 18; TEMP 37.3; O2SAT 99
== END 2023-07-03 18:39 | disposition home or self-care (01) ==
PROVIDERS: Emergency Provider Nurse Practitioner Family; PCP Physician Assistant
DX: H66.93 Otitis media, unspecified, bilateral (principal); J45.901 Unspecified asthma with (acute) exacerbation; R50.9 Fever, unspecified; R05.9 Cough, unspecified; R09.89 Other specified symptoms and signs involving the circulatory and respiratory systems; R07.0 Pain in throat; R09.81 Nasal congestion
CPT/HCPCS: 99212; 99214; G0463

== ENCOUNTER 2023-08-16 17:48 | Outpatient (CLI) | payer OTHER, SELFPAY ==
[2023-08-16 19:00] LABS: Basophils # 0.1 K/mm3 (0-0.2); Basophils % 0.8 % (0.1-2.0); Eosinophils # 0.1 K/mm3 (0.0-0.4); Eosinophils % 0.8 % (0.1-12.0); Hematocrit 41.3 % (37.0-47.0); Hemoglobin 13.6 g/dL (12.2-16.2); Lymphocytes # 3.5 K/mm3 (0.7-4.5); Lymphocytes % 39.2 % (10-50); Mean Corpuscular HGB Conc 33.1 g/dL (31.8-35.4); Mean Corpuscular Hemoglobin 31.9 pg (27.0-31.2); Mean Corpuscular Volume 96.4 fl (81-99); Monocytes # 0.9 K/mm3 (0.1-1.0); Monocytes % 9.9 % (1.7-9.3); Neutrophils # 4.4 K/mm3 (1.8-7.8); Neutrophils % 49.3 % (37.0-80.0); Platelet Count 332 K/mm3 (142-424); Red Blood Count 4.28 M/mm3 (4.20-5.40); Red Cell Distribution Width 13.4 % (11.5-17.5); White Blood Count 8.9 K/mm3 (4.8-10.8)
[2023-08-16 19:10] LABS: HCG Qualitative, Serum Negative (Negative)
[2023-08-16 19:11] LABS: Alanine Aminotransferase 28 U/L (12-78); Albumin Level 4.7 g/dl (3.5-5.0); Albumin/Globulin Ratio 1.8 (1.1-1.8); Alkaline Phosphatase 127 U/L (38-126); Anion Gap 13.7 mEq/L (5-15); Aspartate Amino Transferase 30 U/L (14-36); Bilirubin,Total 0.6 mg/dl (0.2-1.3); Blood Urea Nitrogen 10 mg/dl (7-17); Calcium 9.6 mg/dl (8.4-10.2); Carbon Dioxide 25 mmol/L (22.0-30.0); Chloride 106 mmol/L (98-107); Chol/HDL Ratio 3.1 (1-3.5); Cholesterol 135 mg/dl (140-200); Estimated Glomerular Filt Rate 150 ml/min (>60); GFR (African American) 182 ML/MIN (>60); Globulin 2.6 g/dL (1.3-3.2); Glucose 101 mg/dl (74-100); HDL Cholesterol 43 mg/dl (40-60); Potassium 3.7 mmoL/L (3.5-5.1); Sodium 141 mmol/L (136-145); Total Protein,Serum 7.3 g/dl (6.3-8.2); Triglycerides 196 mg/dl (30-150); VLDL Cholesterol 39 mg/dL (0-40)
[2023-08-16 19:22] LABS: Direct LDL Cholesterol 61.45 mg/dL (100-129)
[2023-08-16 19:33] LABS: 25-OH Vitamin D, Total 29.8 ng/mL (30-100)
[2023-08-16 19:36] LABS: HCG,Quantitative < 2 mIU/ml (0-5.42)
[2023-08-16 19:42] LABS: Thyroid Stimulating Hormone 0.68 uIU/mL (0.465-4.68)
[2023-08-16 20:01] LABS: Vitamin B12 522 pg/mL (239-931)
== END 2023-08-16 23:59 ==
LOC: LAB.DROPOF 17:48
PROVIDERS: PCP Family Medicine; Visit Provider Family Medicine
DX: R53.83 Other fatigue (principal); L65.9 Nonscarring hair loss, unspecified; E55.9 Vitamin D deficiency, unspecified; Z80.8 Family history of malignant neoplasm of other organs or systems; Z32.00 Encounter for pregnancy test, result unknown; Z79.899 Other long term (current) drug therapy
CPT/HCPCS: 80053; 80061; 82306; 82607; 84443; 84702; 84703; 85025

== ENCOUNTER 2023-10-04 15:39 | Outpatient (CLI) | payer OTHER, SELFPAY ==
--- NOTE | 2023-10-04 15:44 | US_ITS ---
PROCEDURE: US TRANSVAGINAL CLINICAL INDICATION: Amenorrhea COMPARISON: No exams were available for comparison FINDINGS: Transvaginal sonographic images of the pelvis were obtained. Her last menstrual period is unknown. An intrauterine gestational sac is present with a pole with a crown-rump length of 3.44cm This correlates to a gestational age of 10weeks 3days. heart tones are present with an FHR of 156bpm. Yolk sac is noted. The yolk sac measures 8.0mm. There is a fluid-filled area in the lower uterine segment that measures 1.9 x 1.0 cm. Possible vanishing twin or small subchorionic hemorrhage. The right ovary is seen and appears normal. The left ovary is seen and appears normal. There is no fluid in the cul-de-sac. IMPRESSION: 1. Viable fetus within the uterine cavity. 2. Fetus measures 10 weeks and 3 days and the due date will be 04/28/2024. 3. There is a small cystic area in the lower uterine segment that could represent a vanishing twin or small subchorionic hemorrhage. 4. Both ovaries are seen and appear normal. Dictated by: Carson De Leon MD 10/05/2023 09:50 Carson De Leon MD in [facility] 10/05/2023 09:50
== END 2023-10-04 23:59 | disposition home or self-care (01) ==
LOC: RAD 15:40
PROVIDERS: PCP Physician Assistant; Visit Provider Nurse Practitioner Obstetrics & Gynecology
DX: N91.2 Amenorrhea, unspecified (principal)
CPT/HCPCS: 76830

== ENCOUNTER 2023-10-14 17:01 | Outpatient (CLI) | payer OTHER, SELFPAY | END 2023-10-14 23:59 | disposition home or self-care (01) | LOC: LAB.DROPOF 17:01 | PROVIDERS: PCP Nurse Practitioner Obstetrics & Gynecology; Visit Provider Nurse Practitioner Obstetrics & Gynecology | DX: O26.891 Other specified pregnancy related conditions, first trimester (principal); Z3A.11 11 weeks gestation of pregnancy | CPT/HCPCS: 87086 ==

== ENCOUNTER 2023-10-18 15:09 | Outpatient (CLI) | payer OTHER, SELFPAY ==
[2023-10-18 16:09] LABS: Basophils # 0.1 K/mm3 (0-0.2); Basophils % 0.5 % (0.1-2.0); Eosinophils # 0.1 K/mm3 (0.0-0.4); Eosinophils % 0.5 % (0.1-12.0); Hematocrit 36.7 % (37.0-47.0); Hemoglobin 12.2 g/dL (12.2-16.2); Lymphocytes # 3.3 K/mm3 (0.7-4.5); Lymphocytes % 31.6 % (10-50); Mean Corpuscular HGB Conc 33.3 g/dL (31.8-35.4); Mean Corpuscular Volume 93.1 fl (81-99); Mean Platelet Volume 9.4 fl (7.4-10.4); Monocytes # 0.8 K/mm3 (0.1-1.0); Monocytes % 7.3 % (1.7-9.3); Neutrophils # 6.3 K/mm3 (1.8-7.8); Neutrophils % 60.2 % (37.0-80.0); Platelet Count 299 K/mm3 (142-424); Red Blood Count 3.94 M/mm3 (4.20-5.40); Red Cell Distribution Width 13.7 % (11.5-17.5); White Blood Count 10.5 K/mm3 (4.8-10.8)
[2023-10-18 17:01] LABS: Free Thyroxine Index 3.3 ug/dL (5.93-13.13); Triiodothryronine (T3) Uptake 22 % (23.5-40.5)
[2023-10-18 17:15] LABS: Thyroid Stimulating Hormone 0.22 uIU/mL (0.465-4.68)
[2023-10-19 14:19] LABS: FSH <0.3 mIU/mL (.); HCV Ab Non Reactive (Non Reactive); HIV Screen 4th Generation wRfx Non Reactive (Non Reactive); Hepatitis B Surface Antigen Negative (Negative); LH <0.3 mIU/mL (.); Rapid Plasma Reagin Ab Titer Non Reactive titer (NonRea<1:1); Rubella Antibodies, IgG 1.45 index (Immune >0.99)
== END 2023-10-18 23:59 | disposition home or self-care (01) ==
LOC: LAB 15:09
PROVIDERS: PCP Physician Assistant; Visit Provider Nurse Practitioner Obstetrics & Gynecology
DX: Z01.419 Encounter for gynecological examination (general) (routine) without abnormal findings (principal); O26.891 Other specified pregnancy related conditions, first trimester; Z3A.12 12 weeks gestation of pregnancy
CPT/HCPCS: 36415; 83001; 83002; 84436; 84443; 84479; 85025; 86593; 86703; 86762; 86850; 87340; G0432

== ENCOUNTER 2023-10-21 11:56 | Outpatient (CLI) | payer OTHER, SELFPAY ==
[2023-10-24 16:54] LABS: Parvovirus B19, IgG 4.8 index (0.0-0.8); Parvovirus B19, IgM 0.2 index (0.0-0.8)
== END 2023-10-21 23:59 | disposition home or self-care (01) ==
LOC: LAB 11:56
PROVIDERS: PCP Physician Assistant; Visit Provider Nurse Practitioner Obstetrics & Gynecology
DX: O26.891 Other specified pregnancy related conditions, first trimester (principal); Z3A.12 12 weeks gestation of pregnancy; B34.3 Parvovirus infection, unspecified; B97.6 Parvovirus as the cause of diseases classified elsewhere
CPT/HCPCS: 36415; 86747

== ENCOUNTER 2023-12-13 12:48 | Outpatient (CLI) | payer OTHER, SELFPAY ==
--- NOTE | 2023-12-13 12:51 | US_ITS ---
PROCEDURE: US OB /MATERNAL DETAIL CLINICAL INDICATION: 20 week anatomy scan COMPARISON: US US TRANSVAGINAL from 10/04/2023 FINDINGS: Transabdominal sonographic images of the pelvis were obtained. From her established due date she is 20 weeks 3 days. Single viable intrauterine gestation. Cephalic position. Placenta: Right lateral wrappedplacenta grade 1. There is an average amount of fluid. The cervix appears satisfactory. Closed and measuring 4.0 cm in length. Complete survey performed and was unremarkable on the submitted images as in PACS. No discrete anomalies identified on survey imaging by technologist. Active fetus. Three-vessel cord with satisfactory umbilical cord insertion. 4- chamber heart noted. Situs, aortic arch, LVOT, RVOT, three-vessel view appear normal. Survey of brain & ventricles Unremarkable. Cerebellum, thalamus, choroid plexus, cisterna magna appear normal. Face and neck survey unremarkable. Profile, nasion, lips and nose appeared normal. Diaphragm and chest views unremarkable. Abdomen: Both kidneys noted and unremarkable. Stomach and bladder noted and satisfactory. Spine: Survey of the spine satisfactory with no anomalies identified nor imaged. Cervical, thoracic, lower spine appear normal. Both arms and legs noted. Amniotic Fluid: Adequate. MVP 3.39 cm. Measurements: Average ultrasound age 20weeks 5days. Estimated due date by ultrasound age 1104/26/2024. Estimated weight 375g BPD = 20weeks 4days HC = 20weeks 3days AC = 21weeks 2days FL = 20weeks 3days Growth Percentile= 64 Heart Rate = 152bpm Cerebellum = 19weeks 5days Humerus = 20weeks 6days HC/AC is 1.12 FL/BPD is 0.69 FL/AC is 0.21 IMPRESSION: 1. Viable fetus in the cephalic presentation with a right laterally wrapped placenta grade 1. 2. The fluid is within normal limits with an MVP 3.39 cm. 3. Anatomical scan appears normal. 4. biometry is consistent with the dates. Dictated by: Carson De Leon MD 12/14/2023 06:51 Carson De Leon MD in [facility] 12/14/2023 06:53
== END 2023-12-13 23:59 | disposition home or self-care (01) ==
LOC: RAD 12:49
PROVIDERS: PCP Physician Assistant; Visit Provider Nurse Practitioner Obstetrics & Gynecology
DX: Z36.89 Encounter for other specified antenatal screening (principal); Z3A.20 20 weeks gestation of pregnancy
CPT/HCPCS: 76811

== ENCOUNTER 2024-02-10 11:13 | Outpatient (CLI) | payer OTHER, SELFPAY | END 2024-02-10 23:59 | disposition home or self-care (01) | LOC: LAB 11:14 | PROVIDERS: PCP Physician Assistant; Visit Provider Nurse Practitioner Obstetrics & Gynecology | DX: Z02.9 Encounter for administrative examinations, unspecified (principal) ==

== ENCOUNTER 2024-02-13 09:36 | Outpatient (CLI) | payer OTHER, SELFPAY ==
[2024-02-13 10:19] LABS: Basophils # 0.1 K/mm3 (0-0.2); Basophils % 0.5 % (0.1-2.0); Eosinophils # 0.1 K/mm3 (0.0-0.4); Eosinophils % 0.7 % (0.1-12.0); Hematocrit 36.2 % (37.0-47.0); Hemoglobin 11.5 g/dL (12.2-16.2); Lymphocytes # 2.8 K/mm3 (0.7-4.5); Lymphocytes % 30.1 % (10-50); Mean Corpuscular HGB Conc 31.9 g/dL (31.8-35.4); Mean Corpuscular Hemoglobin 30.7 pg (27.0-31.2); Mean Corpuscular Volume 96.4 fl (81-99); Mean Platelet Volume 10.4 fl (7.4-10.4); Monocytes # 0.7 K/mm3 (0.1-1.0); Monocytes % 7.6 % (1.7-9.3); Neutrophils # 5.7 K/mm3 (1.8-7.8); Platelet Count 304 K/mm3 (142-424); Red Blood Count 3.76 M/mm3 (4.20-5.40); Red Cell Distribution Width 14.3 % (11.5-17.5); White Blood Count 9.4 K/mm3 (4.8-10.8)
[2024-02-13 10:23] LABS: Glucose,Fasting 90 mg/dl (74-100)
[2024-02-13 11:32] LABS: Glucose 1 Hour 128 mg/dL (74-100)
[2024-02-14 12:14] LABS: Rapid Plasma Reagin Ab Titer Non Reactive titer (NonRea<1:1)
== END 2024-02-13 23:59 | disposition home or self-care (01) ==
LOC: LAB 09:37
PROVIDERS: PCP Physician Assistant; Visit Provider Nurse Practitioner Obstetrics & Gynecology
DX: Z34.90 Encounter for supervision of normal pregnancy, unspecified, unspecified trimester (principal)
CPT/HCPCS: 36415; 82951; 85025; 86593

== ENCOUNTER 2024-03-03 12:51 | Outpatient (CLI) | payer OTHER, SELFPAY ==
--- NOTE | 2024-03-03 12:52 | US_ITS ---
PROCEDURE: US OB BIOPHYSICAL PROFILE CLINICAL INDICATION: LGA COMPARISON: US US TRANSVAGINAL from 10/04/2023 US US OB /MATERNAL DETAIL from 12/13/2023 FINDINGS: Transabdominal sonographic images of the uterus were obtained. From her established due date she is 32weeks 0 days. The following parameters are obtained: Viable Fetus in the cephalic presentation with a posterior placenta grade 1. Average ultrasound age is 32weeks 3days Estimated weight 1,922g, 4 lb 4 oz Measurements: heart Rate = 158bpm BPD = 32weeks 1day, 42 percentile HC = 32weeks 6days, 34 percentile AC = 32weeks 3days, 58 percentile FL = 31weeks 6days, 32 percentile HC/AC is 1.05 FL/BPD is 0.77 FL/AC is 0.22 45 percentile Amniotic fluid index: 13.61cm, MVP 4.8 cm. Qualitative AFV:2 Breathing movements: 2 Gross Body Movements: 2 Tone: 2 Biophysical profile score: 8 No obvious anomalies evident.Kidneys, profile, stomach, bladder, three-vessel cord appear normal. IMPRESSION: 1. Viable fetus in the cephalic presentation with a posterolateral placenta grade 1. 2. The fluid is within normal limits with an amniotic fluid index of 13.61 cm, MVP 4.8 cm. 3. Biophysical profile is 8/8 with good breathing movement and movement seen. 4. There has been good interval growth with the fetus currently 45th percentile. 5. Limited anatomical scan appears normal. Dictated by: Carson De Leon MD 03/03/2024 18:14 Carson De Leon MD in [facility] 03/03/2024 18:14
== END 2024-03-03 23:59 | disposition home or self-care (01) ==
LOC: RAD 12:52
PROVIDERS: PCP Physician Assistant; Visit Provider Nurse Practitioner Obstetrics & Gynecology
DX: O36.63X0 Maternal care for excessive fetal growth, third trimester, not applicable or unspecified (principal); Z3A.32 32 weeks gestation of pregnancy
CPT/HCPCS: 76816; 76819

== ENCOUNTER 2024-03-06 06:53 | Outpatient (CLI) | payer OTHER, SELFPAY ==
[2024-03-06 06:59] VITALS: BMI 36.6
[2024-03-06 07:14] LABS: Microscopic, Urine URINE MICROSCOPIC (MICROSCOPIC)
[2024-03-06 07:16] VITALS: BP 116/63; PULSE 82; RESP 18; TEMP 36.7; O2SAT 99; BMI 36.6
[2024-03-06 07:24] LABS: Appearance,Urine SL CLOUDY (Clear); Bilirubin,Urine Negative (Negative); Blood, Urine Negative (Negative); Color,Urine YELLOW (Yellow); Glucose,Urine (UA) Negative (Negative); Ketones,Urine Negative (Negative); Leukocyte Esterase,Urine 2+ (Negative); Nitrate,Urine Negative (Negative); Protein,Urine Negative (Negative); Specific Gravity, Urine >= 1.030 (1.005-1.030); Urobilinogen,Urine 0.2 EU/dl (0.2)
[2024-03-06] MEDS: LACTATED RINGERS 1000ML 1,000 ML 999 ML IV ×2 (07:25→09:00)
[2024-03-06 07:37] LABS: Barbiturates Screen,Urine Negative ng/ml (<200)
[2024-03-06 07:38] LABS: Amphetamine/Metha Screen,Urine Negative ng/ml (<1000); Benzodiazepines Screen,Urine Negative ng/ml (<200)
[2024-03-06 07:39] LABS: Cannabinoid Screen,Urine Negative ng/ml (<50)
[2024-03-06 07:40] LABS: Bacteria,Urine Trace /lpf; Cocaine Screen,Urine Negative ng/ml (<300); Methadone Screen,Urine Negative ng/ml (<300)
[2024-03-06 07:41] LABS: Opiate Screen,Urine Negative ng/ml (<300); Phencyclidine Screen,Urine Negative ng/ml (<25)
[2024-03-06] MEDS: CEFAZOLIN SODIUM 2 GM in 0.9 % SODIUM CHLORIDE 100 ML IV (09:00)
== END 2024-03-06 09:55 | disposition home or self-care (01) ==
LOC: OBOUT 06:54 → OB 06:55
PROVIDERS: PCP Physician Assistant; Visit Provider Nurse Practitioner Obstetrics & Gynecology
DX: O26.893 Other specified pregnancy related conditions, third trimester (principal); Z3A.32 32 weeks gestation of pregnancy; R10.31 Right lower quadrant pain
CPT/HCPCS: 80307; 81001; 87086; G0463; J0690; J7120

== ENCOUNTER 2024-03-18 13:38 | Outpatient (CLI) | payer OTHER, SELFPAY ==
[2024-03-18 14:51] LABS: Triiodothryronine (T3) Uptake 22 % (23.5-40.5)
[2024-03-18 14:53] LABS: Free Thyroxine Index 3.3 ug/dL (5.93-13.13); T4 (Thyroxine) 15.1 ug/dl (5.53-11.0)
[2024-03-18 15:05] LABS: Thyroid Stimulating Hormone 0.43 uIU/mL (0.465-4.68)
== END 2024-03-18 23:59 | disposition home or self-care (01) ==
LOC: LAB 13:39
PROVIDERS: Visit Provider Nurse Practitioner Obstetrics & Gynecology
DX: E05.90 Thyrotoxicosis, unspecified without thyrotoxic crisis or storm (principal)
CPT/HCPCS: 36415; 84436; 84443; 84479

== ENCOUNTER 2024-03-31 15:00 | Outpatient (CLI) | payer OTHER, SELFPAY | END 2024-03-31 23:59 | disposition home or self-care (01) | LOC: LAB.DROPOF 04-01 12:41 | PROVIDERS: PCP Nurse Practitioner Obstetrics & Gynecology; Visit Provider Nurse Practitioner Obstetrics & Gynecology | DX: Z34.90 Encounter for supervision of normal pregnancy, unspecified, unspecified trimester (principal) | CPT/HCPCS: 86403 ==

== ENCOUNTER 2024-04-07 14:01 | Outpatient (CLI) | payer OTHER, SELFPAY ==
--- NOTE | 2024-04-07 14:02 | US_ITS ---
PROCEDURE: US OB BIOPHYSICAL PROFILE CLINICAL INDICATION: LGA COMPARISON: US US TRANSVAGINAL from 10/04/2023 US US OB /MATERNAL DETAIL from 12/13/2023 US US OB BIOPHYSICAL PROFILE from 03/03/2024 FINDINGS: Transabdominal sonographic images of the uterus were obtained. From her established due date she is 37weeks 0 days. The following parameters are obtained: Viable Fetus in the cephalic presentation with a posterolateral placenta grade 2. Average ultrasound age is 37weeks 4days Estimated weight 3,388g, 7 lb 8 oz Cervix measures 3.85 cm. Measurements: heart Rate = 149bpm BPD = 36weeks 4days, 50 percentile HC = 37weeks 2day, 30 percentile AC = 39weeks 0 days, 97 percentile FL = 37weeks 2day, 54 percentile HC/AC is 0.94 FL/BPD is 0.81 FL/AC is 0.21 83 percentile Amniotic fluid index: 14.33cm, MVP 3.88 cm. Qualitative AFV:2 Breathing movements: 2 Gross Body Movements: 2 Tone: 2 Biophysical profile score: 8 No obvious anomalies evident.Kidneys, bladder, stomach, four-chamber heart, three-vessel cord appear normal. IMPRESSION: 1. Viable fetus in the cephalic presentation with a posterolateral placenta grade 2. 2. The fluid is within normal limits with an amniotic fluid index 14.33 cm, MVP 3.88 cm. 3. Biophysical profile is 8/8 with good breathing movement and movement seen. 4. There has been good interval growth with the fetus currently 83rd percentile. The abdominal circumference is 2 weeks ahead. 5. Limited anatomical scan appears normal. Dictated by: Carson De Leon MD 04/07/2024 15:10 Carson De Leon MD in [facility] 04/07/2024 15:10
== END 2024-04-07 23:59 | disposition home or self-care (01) ==
LOC: RAD 14:02
PROVIDERS: PCP Physician Assistant; Visit Provider Nurse Practitioner Obstetrics & Gynecology
DX: O36.63X0 Maternal care for excessive fetal growth, third trimester, not applicable or unspecified (principal)
CPT/HCPCS: 76816; 76819

== ENCOUNTER 2024-04-21 05:10 | Inpatient (IN) | payer OTHER, SELFPAY ==
[2024-04-21 05:13] VITALS: BMI 37.9
--- OUTSIDE RECORDS SUMMARY | 2024-04-21 05:13 | XMS_ITS | Encounter Summary ---
Author Organization [place] [address] Care Team Providers Care Costumed Character Name Role Phone Simeon Marley MD Primary Care Provider [phone] Reason for Visit * Reason Onset Date Comments Follow-up 08/23/2015 Encounter Details Date Type Department Care Team (Late st Contact Info) Description 08/23/2015 Patient Outreach SEP [facility] [address] [place] [address] Simeon Marley MD [address] [place] [address] Follow-up Social History Tobacco Use Types Packs/Day Years Used Date Smoking Tobacco: Never Alcohol Use Standard Drinks/Week Comments No 0 (1 standard drink = 0.6 oz pur e alcohol) Comments No Sex and Gender Information Value Date Recorded Sex Assigned at Not on file Legal Sex Female 4:43 AM EDT Gender Identity Not on file Sexual Orientation Not on file Occupation Industry Job Start Date Job End Date 7th grade [employer] Not on file Not on file Not on file documented as of this encounter Miscellaneous Notes * Telephone Encounter - Ana Cristina Shabazz RMA - 08/23/2015 2:10 PM EDT Number not in service at this time Letter sent * Telephone Encounter - Tara Norman - 08/23/2015 1:31 PM EDT Pt was in ED. Please call and follow up with pt. documented in this encounter Plan of Treatment Not on file documented as of this encounter Visit Diagnoses Not on filedocumented in this encounter Care Teams Costumed Character Relationship Specialty Start Date End Date Simeon Marley MD [address] [place] [id number] PCP - General 03/11/09 08/30/16 documented as of this encounter
--- OUTSIDE RECORDS SUMMARY | 2024-04-21 05:13 | XMS_ITS | Encounter Summary ---
Author Organization [place] [place] [address] Care Team Providers Care Auto Air Conditioning Apprentice Name Role Phone Simeon Marley MD Primary Care Provider [phone] Reason for Visit * Reason Comments Sore Throat no fever.hard to swa llow. no cough.no abd pain cpta-ibuprofen 1500 400 mg Encounter Details Date Type Department Care Team (Late st Contact Info) Description 07/25/2011 9:44 PM EST - 07/25/2011 10:56 PM EST Emergency [facility] [address] [place] [address] Amada Ramos MD [address] [place] [phone] Acute streptococcal pharyngitis Discharge Disposition: Home or Self Care Social History Tobacco Use Types Packs/Day Years [...] on file documented as of this encounter Last Filed Vital Signs Vital Sign Reading Time Taken Comments Blood Pressure 108/66 07/25/2011 9:44 PM EST Pulse 113 07/25/2011 9:42 PM EST Temperature 37.3 ??C (99.2 ??F) 07/25/2011 9:42 PM ES T Respiratory Rate 20 07/25/2011 9:42 PM EST Oxygen Saturation 100% 07/25/2011 9:42 PM EST Inhaled Oxygen Concentration - - Weight 69.9 kg (154 lb) 07/25/2011 9:42 PM EST Height 162.6 cm (5' 4 ) 07/25/2011 9:42 PM EST Body Mass Index 26.43 07/25/2011 9:42 PM EST Body Mass Index Percentile 94.12% 07/25/2011 9:4 2 PM EST Growth Chart: CDC (Girls, 2- 20 Years) documented in this encounter Discharge Instructions * Discharge Instructions* Amada Ramos MD - 07/25/2011 10:27 PM EST Change your toothbrush. Avoid sharing glasses and foods with others. Do not go to school on . You may return to school on Saturday if you do not have a fever. Drink plenty of fluids. * Attachments The following attachments cannot be sent through Care Everywhere. * STREP THROAT, CHILD ([place]) * PENICILLIN G BENZATHENE INJ ([place]) documented in this encounter Medications at Time of Discharge amphetamine-dextroam phetamine (ADDERALL) 10 mg tabletIndications:AD HD (attention deficit hyperactivity disorder) Take 1 Tab by mouth 2 times daily. 60 Tab 0 12/18/2010 documented as of this encounter Discharge Disposition Disposition Code Departure Means Destination Home or Self [facility] documented in this encounter Progress Notes * Unknown, Unknown - 07/25/2011 11:08 PM EST * Unknown, Unknown - 07/25/2011 11:08 PM EST documented in this encounter ED Notes * Unknown, Unknown - 07/26/2011 2:17 AM EST * Chaka Mcgraw RN - 07/25/2011 10:54 PM EST Discharge instructions given to patient and Dad who verbalized understanding and posed no questions. Patient awake, alert, MM pink, respirations easy and unlaborded, NAD. Pt out of ED ambulatory. 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 * Amada Ramos MD - 07/25/2011 9:53 PM EST CHIEF COMPLAINT Chief Complaint Patient presents with ??? Sore Throat no fever.hard to swallow. no cough.no abd pain cpta-ibuprofen 1500 400 mg HPI Azalia Blancas is a 15 y.o. female who presents to the emergency department for evaluation of a 12 hour history of sore throat. Patient states that she has difficulty swallowing secondary to the pain. No associated fever, URI symptoms, cough, vomiting. No diarrhea or urinary symptoms. No rash. Patient's father states that he gave her ibuprofen at 3 PM today with some relief. Patient's friends ill with strep throat. Patient is speaking in normal phonation upon presentation. She is crying. Patient denies any relieving factors to her symptoms. She states her symptoms are exacerbated with swallowing. REVIEW OF SYSTEMS See HPI for further details. Review of systems otherwise negative. PAST MEDICAL HISTORY History reviewed. No pertinent past medical history. FAMILY HISTORY Family History Problem Relation Age of Onset ??? Diabetes Paternal Grandmother ??? Heart Disease Neg Hx SOCIAL HISTORY History Social History ??? Marital Status: Single Spouse Name: N/A Number of Children: 0 ??? Years of Education: N/A Occupational History ??? 7th grade [employer] Social History Main Topics ??? Smoking status: Never Smoker ??? Smokeless tobacco: None ??? Alcohol Use: No ??? Drug Use: No ??? Sexually Active: None Other Topics Concern ??? None Social History Narrative ??? None SURGICAL HISTORY Past Surgical History Procedure Date ??? Appendectomy 2010 CURRENT MEDICATIONS Current Outpatient Rx Name Route Sig Dispense Refill ??? AMPHETAMINE-DEXTROAMPHETAMINE 10 MG TAB Oral Take 1 Tab by mouth 2 times daily. 60 Tab 0 ALLERGIES No Known Allergies PHYSICAL EXAM VITAL SIGNS: BP 108/66 Pulse 113 Temp(Src) 99.2 ??F (37.3 ??C) (Oral) Resp 20 Ht 5' 4 (1.626 m) Wt 154 lb (69.854 kg) BMI 26.43 kg/m2 SpO2 100% LMP 06/27/2011 Constitutional: Well developed, Well nourished, No acute distress, Non-toxic appearance. HENT: Normocephalic. Posterior oropharynx erythematous. No peritonsillar exudates. Uvula midline. TMs are clear. Patient is tolerating her secretions well. She is speaking in normal phonation Eyes: Pupils midrange and reactive. No conjunctival injection. No discharge Neck: Normal range of motion, No tenderness, Supple, No stridor. Lymphatic: No palpable cervical lymphadenopathy. Cardiovascular: Tachycardic. No murmur Thorax & Lungs: Lungs are clear. No wheezing Skin: Warm, Dry, No erythema, No rash. Extremities: Intact distal pulses, No edema, No tenderness, No cyanosis RADIOLOGY/PROCEDURES Results for orders placed during the hospital encounter of 07/25/11 STREP SCREEN Component Value Range Strep Screen Positive (*) COURSE & MEDICAL DECISION MAKING Pertinent Labs studies reviewed. (See chart for details) Patient provided with Decadron as well as Bicillin secondary to acute strep pharyngitis. Patient isnontoxic appearing throughout ED course. She is tolerating her secretions well. I will give the patient a school note for tomorrow. She was advised to change her toothbrush and to avoid sharing glasses or foods with others. She is further advised to seek medical attention for any worsening symptoms. Patient and her father are in agreement to plan. FINAL IMPRESSION Acute strep pharyngitis Patient discharged in stable condition Amada Ramos MD 07/25/11 2226 documented in this encounter Plan of Treatment Not on file documented as of this encounter Procedures Procedure Name Priority Date/Time Associated Diagnosis Comments STREP SCREEN STAT 07/25/2011 10:00 PM EST documented in this encounter Results * (ABNORMAL) STREP SCREEN (07/25/2011 10:00 PM EST) Strep Screen Positive(A ) [facility] Throat 07/25/2011 10:0 0 PM EST 07/25/2011 10:01 PM EST us Amada Ramos MD MICROBIOLOGY - GENERAL ORDER [place] Final Result [facility] [address] [place] [address] documented in this encounter Visit Diagnoses Diagnosis Acute streptococcal pharyngitis Streptococcal sore throat documented in this encounter Administered Medications Inactive Administered Medications - up to 1 most recent administrations Medication Order MAR Action Action Date Dose Rate Site dexamethasone (DECADRON) 10 mg/mL injection 10 mg 10 mg, Intramuscular, ONCE, 1 dose, On Sat07/25/11 at 2230 Given 07/25/2011 10:30 PM EST 10 mg Left Upper Outer Quadrant penicillin G benzathine (BICILLIN-LA) injection 1,200,000 Units 1,200,000 Units (1.2 Million Units), Intramuscular, ONCE, 1 dose, On Sat07/25/11 at 2230 Given 07/25/2011 10:30 PM EST 1,200,000 Units Right Upper Outer Quadrant documented in this encounter Discontinued Medications Medication Sig Discontinue Reason Start Date End Da te Acetaminophen-Codeine (TYLENOL #3) 300-30 mg per tablet Take 30 mg by mouth every 6 hours as needed for Pain. DELETE-Therapy completed 02/04/2011 07/25/2011 ibuprofen (ADVIL;MOTRIN) 400 mg tablet Take 1 Tab by mouth every 6 hours as needed for Pain for 12 doses. DELETE-Therapy completed 02/04/2011 07/25/2011 documented as of this encounter Active and Recently Administered Medications Times are shown in EST. Scheduled Medication Order 07/23/2011 07/24/2011 07/25/2011 dexamethasone (DECADRON) 10 mg/mL injection 10 mg (COMPLETED) 10 mg, Intramuscular, ONCE, 1 dose, On Sat07/25/11 at 2230 2230 (Given - Provid er: Chaka Mcgraw RN) penicillin G benzathine (BICILLIN-LA) injection 1,200,000 Units (COMPLETED) 1,200,000 Units (1.2 Million Units), Intramuscular, ONCE, 1 dose, On Sat07/25/11 at 2230 2230 (Given - Provid er: Chaka Mcgraw RN) documented in this encounter Care Teams Auto Air Conditioning Apprentice Relationship Specialty Start Date End Date Simeon Marley MD [address] [place] [address] [place] [phone] PCP - General 03/11/09 08/30/16 documented as of this encounter
--- OUTSIDE RECORDS SUMMARY | 2024-04-21 05:13 | XMS_ITS | Referral Summary ---
Author Organization [facility] Address [address] [place] [address] Phone Care Team Providers Care Operations Welder Name Role Phone Unavailable Primary Care Provider Unavailabl e Allergies No known active allergies Medications amphetamine-dextro amphetamine (ADDERALL) 10 mg tabletIndications: ADHD (attention deficit hyperactivity disorder) Take 1 Tab by mouth 2 times daily. 60 Tab 0 12/18/2010 Active Active Problems Problem Noted Date Diagnosed Date Otitis media, Right 01/13/2010 Assessment & Plan (01/13/2010 5:51 PM EDT): Looks chronic Augmentin 500bid Cont Cipro otic recheck 3 wks - ? need ENT Well child check 01/13/2010 Assessment & Plan (01/13/2010 5:51 PM EDT): - Well child check - Varivax - varicella vacc, sq - Adacel - tdap vaccine >= 7yo im - Menactra - mening conj vacc 4-valent, im - Gardasil - hpv vaccine quadravalent, 3 dose im See scanned 6th grade school form - [place] ADHD (attention deficit hyperactivity disorder) Assessment & Plan (01/13/2010 5:51 PM EDT): behavioral tx only, no Rx's Resolved Problems Problem Noted Date Diagnosed Date Resolved Date Otitis externa 12/20/2009 01/13/2010 Immunizations Name Administration Dates Next Due DTaP 01/07/2002, 9,06/27/1998,1997,1997 HPV Quadrivalent 01/13/2010 Hepatitis B, Unspecified Formulation 06/27/1998, 1997,1997 HiB, Unspecified Formulation 04/27/1999, 02/17/1999,04/27/1998,1997 IPV 01/07/2002, 9,04/27/1998,1997 MMR 03/06/2000,10/04/1998 Meningococcal Conjugate 01/13/2010 Tdap 01/13/2010 Varicella 01/13/2010,10/04/1998 Social History Tobacco Use Types Packs/Day Years [...] file Not on file Not on file Last Filed Vital Signs Vital Sign Reading Time Taken Comments Blood Pressure 135/79 08/22/2015 5:55 PM EDT Pulse 62 08/22/2015 5:55 PM EDT Temperature 36.9 ??C (98.4 ??F) 08/22/2015 5:55 PM ED T Respiratory Rate 20 08/22/2015 5:55 PM EDT Oxygen Saturation 100% 08/22/2015 5:55 PM EDT Inhaled Oxygen Concentration - - Weight 66.9 kg (147 lb 8 oz) 08/22/2015 5:55 PM EDT Height 154.9 cm (5' 1 ) 08/22/2015 5:55 PM EDT Body Mass Index 27.87 08/22/2015 5:55 PM EDT Plan of Treatment Not on file Insurance [employer] [facility] [place] [address]
--- OUTSIDE RECORDS SUMMARY | 2024-04-21 05:13 | XMS_ITS | Encounter Summary ---
Author Organization [facility] Address [address] [place] [address] Care Team Providers Care Parking Inspector Name Role Phone Unavailable Primary Care Provider Unavailabl e Encounter Details Date Type Department Care Team (Late st Contact Info) Description 08/16/2018 3:55 AM EDT - 08/18/2018 12:33 PM EDT Hospital Encounter [facility] Inpatient [address] [place] [address] Matt Villagomez MD [address] [facility] [address] [place] [address] Other specified diseases of biliary tract Social History Tobacco Use Types Packs/Day Years Used Date Smoking Tobacco: Never Assessed Comments Unknown Sex and Gender Information Value Date Recorded Sex Assigned at Not on file Legal Sex Female 8:04 PM EDT Gender Identity Not on file Sexual Orientation Not on file documented as of this encounter Miscellaneous Notes * Social Care Assessment Summary - ProviderKolby MD - 08/18/2018 12:00 AM EDT Patient Name: JEANNINE CUBA Date of : 1995 Discharge Note Discharge Note Who Will Provide Assistance Post-Discharge? Answers: Family mother fariha cuba [phone] How Many Hours is/are the Caregiver(s) Available? Answers: 24 Hours Discharge Disposition Answers: Home Is Home Health Needed? If Yes, Specify Agency Name and Service Needed. Answers: No Is DME Needed? If Yes, Select Type of Equipment Needed and DME Company. Answers: No DME Needs I Certify that the Patient has been Provided with a Choice for DME, Home Health, Infusion Services and Facility. Answers: Not Applicable Is This a High-Risk LACE Patient? Answers: No Follow Up Appointments Scheduled? Answers: No patient to f/u with surgeon that performed surgery Does the Patient Have Transportation to Follow up Appointments? Answers: Yes Scholarship? Answers: Yes, Patient Meets 300% Federal Poverty Level meets federal poverty guidelines FCO? Answers: No Medicare Second Notice? Answers: Not applicable Were Services Declined? Answers: No Additional Comments: Notes: 22 yo female admitted with ruq pain, hyperbilirubemia. Mri showed bilary dilatation , thought to be post op edema. Symtoms resolved and patient able to tolerate diet. Discharge today Case management met with patient and mother at bedside. Patient lives with parents and her 2 month old child. Mother Fariha Soriano [phone]. Patient's pcp is Dr. Hines in [place] [facility]. Patient is insured by [id number].Household income 1800 and 522 in food stamps monthly. Mother able to provide 24 hr assist. Mother given card of transition nurse Neelam Butler who handles [facility] paperwork. Electronically signed by: Maggie Cárdenas * Discharge Summary - Matt Villagomez - 08/18/2018 12:00 AM EDT HOSPITALIZATION: Admit Date:16-Aug-2018 Discharge Date:18-Aug-2018 Discharge Atttending Matt Weeks MD, I Admitting DiagnosisHyperbilirubinemia DISCHARGE DIAGNOSIS: Hyperbilirubinemia: Reason for Hospitalization This is a 22-year-old female with recent laparoscopic cholecystectomy at outside hospital on 08/13/18 presenting on 08/16/18 with worsening right upper quadrant pain and hyperbilirubinemia with concernfor retained stone versus common bile duct injury. HOSPITAL COURSE: Hospital Course 08/16/18 -Patient with recent lap CCY was admitted with RUQ pain, hyperbilirubinemia, and transaminitis concerning for retained stone vs. CBD injury. Was made NPO and started on IVF. 08/17/18 -MRI showed biliary dilatation could be related to papillary edema, sphincter of Barrera dysfunction or papillary stenosis. pain well controlled. bilirubin decrease from 2.8 to 1.4, WBC nl, afebrile. Likely postop edema that will resolve with time. 08/18/18 -Symptoms resolved and tolerating regular diet. Bilirubin continuing to trend down. Patient was appropriate and agreeable for dischage. PHYSICAL EXAMINATION: - GENERAL: Resting comfortably, in NAD EYES: PERRL EOMI No scleral icterus or conjunctivitis HENT: No nasal discharge, no lesions in oropharynx, moist mucous membranes NECK: No lymphadenopathy. Neck veins are not distended. The trachea appears midline. RESP: Symmetric expansion; no retractions. Clear lung sounds bilaterally CARD: RRR, S1S2, no murmurs appreciated. Extremities: No edema, cyanosis or clubbing. Pulses palpable +2. GI: Soft, appropriately tender to palpation, incisions c/d/i. SKIN: No rash, sores, lesions or subcutaneous nodules. NEURO: A&O x3, strength and sensation intact bilaterally PSYCH: mood appropriate, communicative DISCHARGE INFORMATION: DispositionHome Discharge Conditionstable (signs or symptoms of potential problems absent or manageable) Discharge MedicationsFinal Medication List for Discharge Summary Pending ResultsNo Pending Results DISCHARGE INSTRUCTIONS: Diet: No Restrictions. Resume regular at home diet. Lifting: No Restrictions. Activity: move around as you are able. Recommended Follow Up Instructions: Follow Up Instructions: Follow up with: Operating Surgeon. ATTESTATION STATEMENTS: Attending Attestation Statement: I saw and evaluated the patient with the resident/fellow. I discussed the case with the resident/fellow and agree with the findings and plan as documented. Attending Billing: I spent < 30 minutes of patient care and instruction time in preparation for this discharge. Electronic Signatures: Everardo MARTIN, Norberto Tiwari (Resident) (Signed 18-Aug-18 11:27) Authored: HOSPITALIZATION, DISCHARGE DIAGNOSIS, HOSPITAL COURSE, PHYSICAL EXAMINATION, DISCHARGE INFORMATION, DISCHARGE INSTRUCTIONS, Recommended Follow Up Instructions Matt Gaviria MD, I (Attending) (Signed 30-Aug-18 10:23) Authored: ATTESTATION STATEMENTS Co-Signer: HOSPITALIZATION, DISCHARGE DIAGNOSIS, HOSPITAL COURSE, PHYSICAL EXAMINATION, DISCHARGE INFORMATION, DISCHARGE INSTRUCTIONS, Recommended Follow Up Instructions Last Updated: 30-Aug-18 10:23 by Matt Gaviria MD, I (Attending) * ED Notes - Kolby Martinez MD - 08/16/2018 12:00 AM EDT Registration:: ED Presentation: * ED Arriva Date & Time:16-Aug-2018 02:40 * Reason for Visit:BOWEL LEAK Disposition: : Boarding Evaluation: * Will this patient be boarding in the ED?yes * What location is the patient boarding for?Floor Electronic Signatures: Mickie Sanchez RN (Nurse) (Signed 16-Aug-18 04:10) Authored: Disposition: Jose Juan Juarez (Patient Registration) (Signed 16-Aug-18 02:43) Authored: Registration: Last Updated: 16-Aug-18 04:10 by Mickie Sanchez RN (Nurse) * ED Notes - Kolby Martinez MD - 08/16/2018 12:00 AM EDT Triage Presentation: * ED Arriva Date & Time:16-Aug-2018 02:40(1) Triage Initial: * Triage Time:16-Aug-2018 02:45 * Chief Complaintabdominal pain * Mode of Arrivalambulance * Transferred From :Transfer from ED Chief Complaint Information: * History of Present Illnessreports gallbladder removed laparoscopic. 08-13-18. States hit with car door -15 now with c/o increasing abd pain. OSH concerned for possible bile leak. Primary Care Physician (PCP): * PCP contacted? No. Home Medications: Vital Sign Assessment: * Systolic 143 mm Hg * Kjcauhkit50 mm Hg * BP Noninvasive Wkrm250 mm Hg * Temperature F98.7 degrees F * Temperature Walcwjg70.05 degrees C * Heart Rate97 bpm * Respiratory Rate16 breaths per minute * Pulse Oximetry SpO2 (%)98 percent hemoglobin Dago Coma Scale: [place] Coma Scale: * GCS - Best Eye Response4= spontaneous * GCS - Best Motor Response6= obeys commands * GCS - Best Verbal Response5= oriented * [place] Coma Scale15 Triage Height/Weight: * Initial Weight (lbs)165.3 lb * Initial Weight (kg)75 kg Primary Evaluation: Triage Primary Assessment: * Airway: No Apparent Problems. * Circulation: No Apparent Problems. * Disability: No Apparent Problems. Additional Triage Assessment: * Pain Rating (0-10):5 Allergies: Allergen/ProductStatus * No Known AllergiesActive General Information: Home Medications: Hepatitis C Testing: If you have blood drawn today, as part of your care, we will also do a Hepatitis C test at no cost to you, unless you say no. If your test is positive, someone will contact you.Continue Pharmacy Opt In/Out Statement: Your drug prescriptions will be sent to [facility] pharmacy and will be ready for you at discharge from the Emergency Department. If you wish to decline this service, your prescriptions will be printed for you or sent to a pharmacy of your choice.Opt In Travel Information: * Have you traveled outside the [place] in the past 60 days?no General Information: * Language Assistance Needed?no Acuity: * Acuity:3 Triage Completion Time: * Triage Completion [id number] 02:50 Electronic Signatures: Henri Cordon RN (Nurse) (Signed 16-Aug-18 02:50) Authored: Triage Presentation, Primary Evaluation, General Information Last Updated: 16-Aug-18 02:50 by Henri Cordon RN (Nurse) References: 1. Data Referenced From ED Registration/Disposition Note 08/16/2018 2:43 AM * ED Notes - Jb Sherman - 08/16/2018 12:00 AM EDT Evaluation: - CHIEF COMPLAINT: Abdominal pain HISTORY OF PRESENT ILLNESS: 22-year-old with history of cholelithiasis presents to the emergency department of the [facility] with concern for right upper quadrant pain. Patient had alaparoscopic cholecystectomy on 313 without complication. On postop day 2, patient had worsening abdominal pain, nausea and vomiting continued to worsen today. Patient denied fevers, chest pain. PAST MEDICAL HISTORY: Reviewed PAST SURGICAL HISTORY: Laparoscopic cholecystectomy, appendectomy ALLERGIES: Reviewed per nursing records. SOCIAL HISTORY: Negative for current tobacco, alcohol, or recreational drug use. FAMILY MEDICAL HISTORY: Reviewed with patient and not pertinent REVIEW OF SYSTEMS: All systems were reviewed with the patient and negative except as noted in the HPI. VITALS: VITALS (last 24h) [retrieved for LAURA CUBA at 16 Aug 2018 03:29]: Tc: 37.1 Tmax: 37.1 @ Aug 02:45 Tf: 98.7 Tmax: 98.7 @ Aug 02:45 HR: 97 (97 - 97) BP: 143/83 (143/83 - 143/83) RR: 16 (16 - 16) SpO2: 98% (98% - 98%) PHYSICAL EXAM: GENERAL: Well *developed, well *nourished, no acute distress HEENT: Normocephalic, atraumatic. PERRL. Mucous membranes moist NECK: No LAD, neck supple, no tracheal deviation HEART: Regular rhythm, no murmurs, gallops, or rubs appreciated LUNGS: Clear bilaterally with normal effort and good air movement. No wheezes, rales, or rhonchi ABDOMEN: Soft, diffusely tender worsen right upper quadrant, nondistended. Bowel sounds present EXTREMITIES: Moving all four extremities with no acute deformity or joint effusions SKIN: Warm, dry, well *perfused, no rashes NEURO: Alert, awake, and oriented to person, place, and time. Grossly nonfocal with intact strengthand sensation to bilateral upper and lower extremities LABS/IMAGING: Reviewed and interpreted MEDICAL DECISION MAKING: Patient was seen and examined with Dr. Sherman. Patient presents in stable condition complaining of abdominal pain. Outside imaging and records were reviewed and showed concern for fluid, or fossa as well as the pericolic gutters. Patient's workup was remarkable for an increased total bilirubin, AST and ALT with concerns of possible biliary leak, retained stone or cholangitis. Blue surgeries consulted for further management. Repeat blood work was ordered. IMPRESSION: Bowel pain with concern for possible biliary leak postoperatively DISPOSITION: Admitted Attending Attestation: I saw and evaluated the patient. I discussed the case with the resident/fellow and agree with the findings and plan as documented. Electronic Signatures: Miley MARTIN, Ethan Garcia (Resident) (Signed 16-Aug-18 04:01) Authored: EVALUATION Jb Sherman MD (Attending) (Signed 16-Aug-18 15:33) Authored: ATTENDING ATTESTATION/ CRITICAL CARE CHARGING Co-Signer: EVALUATION Last Updated: 16-Aug-18 15:33 by Jb Sherman MD (Attending) * ED Notes - ProviderKolby MD - 08/16/2018 12:00 AM EDT General Information: Travel Information: * Have you traveled outside the [place] in the past 60 days?no (1) Tobacco Screening: * Patient: Any Form of Tobacco Use in last 30 days?no... (2) * Smoking History:Never smoker * NRT therapy if allowed by your physicianMD Contraindicated See order #[id number] * Are there smokers that live in the patient's home?no * Does the patient have any regular exposure to second hand smoke?no (2) Alcohol Screening: * ETOH Screen: How often in the past year did pt. drink beer, wine, distilled spirits?never (2) Street Drug/Inhalent/Medication Use: * Street drug/inhalent/medication: How many times in the past year has the patient used an illlegaldrug or Rx medication for non medical reasons?never(2) Suicide: Initial Screening Questions * In the past week including today, have you felt like life is not worth living?no (2) * In the past week including today, have you wanted to kill yourself?no (2) Vaccine Screening !: * Pneumococcal Vaccine Indications- all patients with ONE of the listed conditions. If the patient has none of the listed indications, select PATIENT HAS NO INDICATIONS FOR PNEUMOCOCCAL VACCINATION.patient has no indications for pneumococcal vaccination * Influenza vaccine indications: Is Current Flu Season?yes * CONTRAINDICATIONS to the Influenza vaccination. Select one contraindication, or if the patient has no contraindications, select PATIENT HAS NO CONTRAINDICATIONS TO INFLUENZA VACCINATIONpatient has no contraindications that would prevent the patient from recieving the flu vaccine * Patient meets criteria for influenza vaccinationPatient/Parent/Guardian Refuses Vaccine Activity/ Functional Level: Mac Scale Evaluation: Mac Score (Assess Every Shift): * Mac(4) no impairment(2) * Mac Moisture(4) rarely moist(2) * Mac Activity(3) walks occasionally(2) * Mac Mobility(3) slightly limited(2) * Mac Nutrition(3) adequate(2) * Mac Friction and Shear(3) no apparent problem(2) * Mac Score 20 * Bradenlow risk Yarsanism Fall Risk Assessment: [facility] High Risk Falls Assessment: * Is the patient imminently dying?No * Yarsanism Fall Risk Assessment< 60 Narcotics * Assessment Score Total1 * Nurses' Clinical Judgment Score2 * Considerations for Clinical Judgment Score:Multiple lines/tubes/equipment * TOTAL FALL RISK SCORE 3 Patient's Learning Needs Assessment: Learning Assessment for Patient / Responsible republican: * Education Levelhigh school(2) * Factors Influencing Readiness to Learnnone * Factors that Impact Ability to Learnnone(2) * Cultural Considerationsnone (2) * Developmental Considerationsnone * Rastafarian Considerationsnone (2) Patient Safety: Patient Safety: Health/safety practices reviewed with patient/family: fall reduction strategies, hand washing, importance of pain management and how to communicate it, informing customer service of any safety concerns, rapid response, safe sleep initiative and speak up for safety. Krames folder: Admission safety packet given. Patient/family state health/safety practices in hospital. Electronic Signatures: Adilia Galan (Nurse) (Signed 16-Aug-18 04:14) Authored: General Information, Activity/ Functional Level, Patient's Learning Needs Assessment, Patient Safety Last Updated: 16-Aug-18 04:14 by Adilia Galan (Nurse) References: 1. Data Referenced From 1.5 ED High Acuity Initial Assessment Flowsheet 08/16/2018 2:45 AM 2. Data Referenced From 1.5 ED High Acuity Initial Assessment Flowsheet 08/16/2018 4:00 AM * ED Notes - Kolby Martinez MD - 08/16/2018 12:00 AM EDT Composite Section: Call Information: * Call date/time:2018-08-16 00:36:47 -04:00 * Medical Reason for Transfercholangitis vs bile duct injury Patient Demographics: * NameLaura Cuba * :1995 * Age22 * GenderFemale * Current Bed TypeER Referring Information: * NameDr. Noe Lemon * [facility] * Summary/Med Hxcholecystectomy at OSH 2 days ago Increasing abd pain, Labs show new increase in bili, temp of 100.5 [facility] ED Information: * Mode of TransportGround * Accepting Carlos Archer MD * Expected Arrival date/time:2018-08-16 03:00:00 -04:00 * [id number] * Visit [id number] * Arrival date/time:2018-08-16 03:51:17 -04:00 Nurse Report: * Chief ComplaintAbdominal pain * Report date/time:2018-08-16 01:10:00 -04:00 * HR56 * RR16 * VqK970 * Gadd351 * BP155/79 * Allergiespepcid, reglan * Tcjvge38 left AC, 20 right hand * I&O2L of NS * Medications Ovssl127xo ibuprofen, 25mg phenergran, 1mg hydromorphone, 1gram ivanz, 10mg reglan, 20mg pepcid, 25mg benadryl * ReportChest and abdominal pain gallbladder removed recently. Possible bile duct leak, pleural effusion. PMH gallbladder issues, DNC, asthma, appendectomy, tori Provider Report: * Documentation Audit:: <16-Aug-2018 00:38:07> scmservices: { transferReason : cholangitis vsbile duct injury , summaryMedHx : cholecystectomy at OSH 2 days ago Increasing abd pain, Labs show new increase in bili, temp of 100.5 , acceptingMD_value : Carlos Woods MD } <16-Aug-2018 01:07:45> kdoua2: { ukTransport : Ground , chiefComplaint : Abdominal pain , hear tRate :56, respiratoryRate :16, OxygenSaturation :97, TemperatureF :100, systoli cBP :155, diastolicBP :79, allergies : pepcid, reglan , access : 20 left AC, 20 right hand , IntakeOutput : 2L of NS , NurseReport : Chest and abdominal pain gallbladder removed recently. Possible bile duct leak, pleural effusion. PMH gallbladder issues, DNC, asthma, appendectomy, tori , expectedArrival : [id number] 7:00:00.000Z , reportTime : [id number]:10:00.000Z } Electronic Signatures: Crys Ladd (Clerical Staff) (Signed 16-Aug-18 05:02) Authored: Composite Section Last Updated: 16-Aug-18 05:02 by Crys Ladd (Clerical Staff) * Consults - Mello Baez - 08/16/2018 12:00 AM EDT Consultation Service: Service/ Team: SGB - Surgery / Surgery Blue Team C. Requesting Attending Physician: Davida Sewell MD(Attending): Attending, Emergency Medicine, Medicine Consult Information: * Consult Requested Date/[id number] 03:30 * Consult Completed Date/[id number] 03:37 Chief Complaint: Requesting ServiceED Reason for ConsultCholedocholithiasis hyperbilirubinemia/ Consult Note: - Date: 16 August 2018 Patient: LAURA CUBA HPI: This is a 22-year-old female with a recent past medical history of a lap cholecystectomy on August 13 at an outside hospital who presents in transfer with worsening right upper quadrant pain and hyperbilirubinemia. There is concern for retained stone versus common bile duct injury so surgery was consulted for evaluation. Patient's family states that she had had symptomatically cholelithiasis during her and was offered a laparoscopic cholecystectomy earlier in the month for resolution of her symptoms. Postoperatively she had continued right upper quadrant pain nausea, vomiting. In itially he thought this was normal postoperative course and presented to the outside hospital and was found to have an elevated bilirubin transaminitis she was transferred to the recipient for higherlevel of care. CT scan of the abdomen and pelvis performed at the outside hospital demonstrated minimal fluid in the gallbladder fossa. There is no obvious evidence of common bile duct dilation. Patient is he waited in stable. At the outside hospital she had a white count of 10.6. Bilirubin was 3.9. Labs here are currently pending. Review of Systems: A complete review of systems was conducted and is negative except as noted above. PMH: Symptomatic cholelithiasis PSH: Lap cholecystectomy Lap appendectomy FMH: Reviewed Social History: Tobacco: Denies Alcohol: Denies Illicit Drugs: denies Allergies: No Known Allergies Physical Exam: GENERAL: Resting comfortably, in NAD EYES: PERRL EOMI No scleral icterus or conjunctivitis HENT: No nasal discharge, no lesions in oropharynx, moist mucous membranes NECK: No lymphadenopathy. Neck veins are not distended. The trachea appears midline. RESP: Symmetric expansion; no retractions. Clear lung sounds bilaterally CARD: RRR, S1S2, no murmurs appreciated. Extremities: No edema, cyanosis or clubbing. Pulses palpable +2. GI: Soft, tender to palpation right upper quadrant and epigastrium. Nondistended. No rigidity or peritonitis. SKIN: No rash, sores, lesions or subcutaneous nodules. NEURO: A&O x3, strength and sensation intact bilaterally PSYCH: mood appropriate, communicative Objective: All laboratory and vital sign data are reviewed. unknown 0.0cm 75.0kg VITALS (last 24h) [retrieved for LAURA CUBA at 16 Aug 2018 03:38]: Tc: 37.1 Tmax: 37.1 @ Aug 02:45 Tf: 98.7 Tmax: 98.7 @ Aug 02:45 HR: 97 (97 - 97) BP: 143/83 (143/83 - 143/83) RR: 16 (16 - 16) SpO2: 98% (98% - 98%)BP 143/83 HR 97 R 16 T 98.7 (37.1) Wt 75.0kg (0.0lbs) RESPIRATORY SETTINGS [retrieved at 16 Aug 2018 03:38]: (// @ ) No I&O data recorded in last 24 hours No lab data resulted in last 24 hours Febrile here is is fairly SCHEDULED MEDS [retrieved for LAURA CUBA at 16 Aug 2018 03:38]: (Pharmacy) 1 EACH <see task> GivenOnce (Pharmacy) 1 EACH <see task> GivenOnce PRN MEDS [retrieved for LAURA CUBA at 16 Aug 2018 03:38]: Morphine Inj. 4 MG IntraVenously every 2 hours Ondansetron Inj. 4 MG IntraVenously every 6 hours Radiographs & Diagnostics: All recent imaging studies, procedures, and results have been reviewed. Assessment & Plan: This is a 22-year-old female with recent laparoscopic cholecystectomy at outside hospital presenting with worsening respiratory quadrant pain and hyperbilirubinemia with concern for retained stone versus common bile duct injury. #Abdominal Pain - Patient with recent lap CCY, now with hyperbilirubinemia and transaminitis, no leukocytosis - concern for retained stone versus CBD injury - will consult GI in the morning for ERCP - NPO - IVF -pain control - DVT PPX #Transaminitis #Hyperbilirubinemia - 2/2 retained stone versus CBD injury Snehal Mckeon MD General Surgery [id number] Electronic Signatures for Addendum Section: Mello Baez MD (Attending) (Signed Addendum 18-Aug-18 08:01) Patient seen and examined, case discussed with resident and consultants. Vitals, I/Os, any labs, and imaging have been personally reviewed. Agree with the assessment and plan as noted in the H&P above, which I have personally reviewed. Time spent on the evaluation and management of this patientis exclusive of any procedures. Electronic Signatures: Snehal Mckeon MD (Resident) (Signed 16-Aug-18 04:43) Authored: CONSULTATION SERVICE, EVALUATION Mello Baez MD (Attending) (Signed 18-Aug-18 06:35) Co-Signer: CONSULTATION SERVICE, EVALUATION Last Updated: 18-Aug-18 08:01 by Mello Baez MD (Attending) documented in this encounter Plan of Treatment Not on file documented as of this encounter Procedures Procedure Name Priority Date/Time Associated Diagnosis Comments HEPATIC FUNCTION PANEL Timed 9 5:01 AM EDT ACUTE HEPATITIS PANEL Routine 08/17/2018 1:34 PM EDT COMPREHENSIVE METABOLIC PANEL, PLASMA Routine 08/17/2018 2:38 AM EDT MR ABDOMEN MRCP W AND WO IV CONTRAST Routine 08/16/2018 2:21 PM EDT EXTRA TUBES Routine 08/16/2018 3:34 AM EDT HEPATITIS C ANTIBODY - ED W/REFLEX TO HCV QUANT PCR Routine 08/16/2018 3:34 AM EDT WBC DIFFERENTIAL STAT 08/16/2018 3:34 AM EDT APTT STAT 08/16/2018 3:34 AM EDT PROTHROMBIN TIME(PT) / INR STAT 08/16/2018 3:34 AM EDT CBC W/O DIFFERENTIAL STAT 08/16/2018 3:34 AM EDT LIPASE, PLASMA STAT 08/16/2018 3:34 AM EDT COMPREHENSIVE METABOLIC PANEL, PLASMA STAT 08/16/2018 3:34 AM EDT documented in this encounter Results * (ABNORMAL) Hepatic Function Panel (08/18/2018 5:01 AM EDT) AST, Plasma 70(H) 11 - 32 U/L [facility] ALT, Plasma 222(H) 8 - 33 U/L [facility] Alkaline Phosphatase, Plasma 381(H) 35 - 104 U/L [facility] Total Bilirubin, Plasma 1.3(H) 0.2 - 1.1 mg/dL [facility] Bili,Conj 0.7(H) 0.0 - 0.2 mg/dL [facility] Total Protein 6.4 6.3 - 7.9 g/dL [facility] Albumin, Plasma 3.3 3.3 - 4.6 g/dL [facility] 08/18/2018 5:01 AM EDT 08/18/2018 5:08 AM EDT us Historical Provider LAB BLOOD ORDERABLES Nichole l Result [facility] * Acute Hepatitis Panel (08/17/2018 1:34 PM EDT) Hepatitis B Surf Antigen NEGATIVE Reference Value: Negative [facility] Hepatitis C Antibody NEGATIVE Reference Range: Negative [facility] Hepatitis A Antibody IgM NEGATIVE Reference Value: Negative [facility] External Hepatitis B Core IgM (HBCM) NEGATIVE Reference Value: Negative SUNQUEST 08/17/2018 1:34 PM EDT 08/17/2018 5:18 PM EDT us Historical Provider LAB BLOOD ORDERABLES Nichole l Result SUNQUEST * (ABNORMAL) Comprehensive Metabolic Panel, Plasma (08/17/2018 2:38 AM EDT) Pathologist [facility] Glucose, Plasma 56(L) 74 - 99 mg/dL SUNQUEST BUN, Plasma 5(L) 7 - 21 mg/dL SUNQUEST Creatinine, Plasma 0.53(L) 0.60 - 1.10 mg/dL SUNQUEST BUN/Creatinine Ratio 9 8 - 20 SUNQUEST Sodium, Plasma 138 136 - 145 mmol/L SUNQUEST Potassium, Plasma 3.9 3.7 - 4.8 mmol/L SUNQUEST Chloride, Plasma 102 101 - 108 mmol/L SUNQUEST CO2, Plasma 18(L) 22 - 29 mmol/L SUNQUEST Anion Gap 18(H) 6 - 16 mmol/L SUNQUEST Calcium, Plasma 9.4 8.9 - 10.2 mg/dL SUNQUEST AST, Plasma 72(H) 11 - 32 U/L SUNQUEST ALT, Plasma 271(H) 8 - 33 U/L SUNQUEST Alkaline Phosphatase, Plasma 384(H) 35 - 104 U/L SUNQUEST Total Bilirubin, Plasma 1.4(H) 0.2 - 1.1 mg/dL SUNQUEST Total Protein 6.9 6.3 - 7.9 g/dL SUNQUEST Albumin, Plasma 3.6 3.3 - 4.6 g/dL SUNQUEST eGFR >60 >60 SEE NOTE SUNQUEST eGFR, if AFR/AM >60 >60 SEE NOTE SUNQUEST Comment: (NOTE) eGFR = estimated GFR; eGFR units = mL/min/1.73 sq meters Chronic Kidney Disease is considered if eGFR <60 mL/min/1.73 sq meters Kidney failure is considered if eGFR is <15 mL/min/1.73 sq meters. eGFR assumes steady state plasma creatinine concentration; not applicable if renal function is rapidly changing or patient is on dialysis. 08/17/2018 2:38 AM EDT 08/17/2018 5:18 PM EDT us Norberto Mcgee MD LAB BLOOD ORDERABLES Fin al Result SUNQUEST * MR Abdomen MRCP w and wo IV Contrast (08/16/2018 2:21 PM EDT) Anatomical Region Laterality Modality Abdomen Magnetic Resonan ce Narrative 08/16/2018 2:32 PM EDT REQUESTING PHYSICIAN: FLOWER QUINN REASON FOR EXAMINATION/PROCEDURE: RAD PDP:Y ??* ??RUQ pain EXAMINATION / PROCEDURE: MR Abdomen W MRCP W IVCON Aug 16 2018 - 14:21; ?? CLINICAL INDICATION: Right upper quadrant pain and bile duct dilatio n TECHNIQUE: MR imaging of the abdomen was performed with and without intravenous contrast material using the following sequences: coronal single shot T2 weighted fast spin echo, axial T2 weighted sequences with and without fat saturation, a xial dual phase gradient echo, pre and dynamic postcontrast 3-D T1 weighted gradient echo with fat saturation (axial and coronal), and axial diffusion. Heavily T2-weighted thick slab, 2D, and 3D MRCP sequences. 7.5 mL of Gadavist was administere d. COMPARISON: Correlation outside hospital CT abdomen pelvis August 15, 2018 FINDINGS: Gallbladder: There is a small amount of fluid in the gallbladder fossa. The gallbladder is absent. Biliary tree: There is a low insertion of the cysti c duct near the pancreaticobiliary junction. There is dilation of the common duct measuring up to 11 mm. There is mild central intrahepatic duct dilation. There is no filling defect within the bile duct. There is mild peribiliary wall thickeni ng and enhancement. Pancreas: There is normal signal of the pancreatic parenchyma. No pancreatic duct dilation. There is periportal edema. Liver: No evidence of hepatic steatosis. No focal liver lesion. Spleen: The spleen is upper limits o f normal. Adrenal Glands: Normal Kidneys: Normal Fluid Survey: None Vasculature: Hepatic arterial anatomy appears conventional. The portal and hepatic veins are patent. Aorta and IVC appear patent. Lymph Nodes: No adenopathy. Mus culoskeletal: No suspicious osseous lesion. Mild basilar atelectasis. No evidence of bowel obstruction. ?? IMPRESSION: No filling defect seen within the mildly dilated common bile duct. There is evidence of inflammation with peribiliary wa ll thickening and enhancement and periportal edema. Correlate with signs or symptoms of cholangitis. Biliary dilatation could be related to papillary edema, sphincter of Barrera dysfunction or papillary stenosis. Consider endoscopy and ERCP for a dditional characterization. CRITICAL RESULT: No. COMMUNICATION: Per this written report. ?? Verified by: NEO HUIZAR M.D. on Aug 16 2018 ??2:30P Transcribed by: PSCB on Aug 16 2018 ??2:30P Dictated by: NEO HUIZAR M.D. on Aug 16 ??2:23P Procedure Note Neo Huizar - 09/26/2020 REQUESTING PHYSICIAN: FLOWER QUINN REASON FOR EXAMINATION/PROCEDURE: RAD PDP:Y * RUQ pain EXAMINATION / PROCEDURE: MR Abdomen W MRCP W IVCON Aug 16 2018 - 14:21; CLINICAL INDICATION: Right upper quadrant pain and bile duct dilatio n TECHNIQUE: MR imaging of the abdomen was performed with and without intravenous contrast material using the following sequences: coronal single shot T2 weighted fast spin echo, axial T2 weighted sequences with and without fat saturation, a xial dual phase gradient echo, pre and dynamic postcontrast 3-D T1 weighted gradient echo with fat saturation (axial and coronal), and axial diffusion. Heavily T2-weighted thick slab, 2D, and 3D MRCP sequences. 7.5 mL of Gadavist was administere d. COMPARISON: Correlation outside hospital CT abdomen pelvis August 15, 2018 FINDINGS: Gallbladder: There is a small amount of fluid in the gallbladder fossa. The gallbladder is absent. Biliary tree: There is a low insertion of the cysti c duct near the pancreaticobiliary junction. There is dilation of the common duct measuring up to 11 mm. There is mild central intrahepatic duct dilation. There is no filling defect within the bile duct. There is mild peribiliary wall thickeni ng and enhancement. Pancreas: There is normal signal of the pancreatic parenchyma. No pancreatic duct dilation. There is periportal edema. Liver: No evidence of hepatic steatosis. No focal liver lesion. Spleen: The spleen is upper limits o f normal. Adrenal Glands: Normal Kidneys: Normal Fluid Survey: None Vasculature: Hepatic arterial anatomy appears conventional. The portal and hepatic veins are patent. Aorta and IVC appear patent. Lymph Nodes: No adenopathy. Mus culoskeletal: No suspicious osseous lesion. Mild basilar atelectasis. No evidence of bowel obstruction. IMPRESSION: No filling defect seen within the mildly dilated common bile duct. There is evidence of inflammation with peribiliary wa ll thickening and enhancement and periportal edema. Correlate with signs or symptoms of cholangitis. Biliary dilatation could be related to papillary edema, sphincter of Barrera dysfunction or papillary stenosis. Consider endoscopy and ERCP for a dditional characterization. CRITICAL RESULT: No. COMMUNICATION: Per this written report. Verified by: NEO HUIZAR M.D. on Aug 16 2018 2:30P Transcribed by: PSCB on Aug 16 2018 2:30P Dictated by: NEO HUIZAR M.D. on Aug 16 2:23P Flower Quinn MD IMG MRI PROCEDURES Final Res ult * Extra Tubes (08/16/2018 3:34 AM EDT) Pathologist [facility] Extra GREEN TOP TUBE. PLASMA REFRIGERATED IN LAB 72 HOURS. SUNQUEST 08/16/2018 3:34 AM EDT 08/16/2018 3:45 AM EDT Historical Provider LAB BLOOD ORDERABLES Nichole l Result SUNQUEST * (ABNORMAL) CBC W/O Differential (08/16/2018 3:34 AM EDT) WBC Count 6.02 3.7 - 10.3 k/uL SUNQUEST RBC Count 3.61(L) 3.9 - 5.2 M/uL SUNQUEST HGB 9.9(L) 11.2 - 15.7 g/dL SUNQUEST HCT 30.5(L) 34 - 45 % SUNQUEST Platelet Count 254 155 - 369 k/uL SUNQUEST MCV 85 79 - 98 fL SUNQUEST MCH 27.4 26 - 32 pg SUNQUEST MCHC 32.5 30.7 - 35.5 g/dL SUNQUEST RDW 15.4(H) 12.4 - 14.9 % SUNQUEST MPV 11.4 8.8 - 12.5 fL SUNQUEST NRBC COUNT 0.0 0 % SUNQUEST 08/16/2018 3:34 AM EDT 08/16/2018 3:57 AM EDT Historical Provider MD LAB BLOOD ORDERABLES Nichole l Result SUNQUEST * WBC Differential (08/16/2018 3:34 AM EDT) Differential Type AUTOMATED SUNQUEST Neutrophils % 52 % SUNQUEST Lymphocytes 36 % SUNQUEST Monocytes 11 % SUNQUEST Eosinophils 0 % SUNQUEST Basophils 1 % SUNQUEST Immature Granulocytes % 0 % SUNQUEST ABS Neutrophil 3.19 1.6 - 6.1 k/uL SUNQUEST ABS Lymphocyte 2.14 1.2 - 3.9 k/uL SUNQUEST ABS Monocyte 0.64 0.3 - 0.9 k/uL SUNQUEST ABS Eosinophil 0.01 0 - 0.5 k/uL SUNQUEST ABS Basophil 0.03 0 - 0.1 k/uL SUNQUEST Immature Granulocyte Absolute 0.01 0 - 0.06 k/uL SUNQUEST 08/16/2018 3:34 AM EDT 08/16/2018 3:57 AM EDT Narrative SUNQUEST - 08/16/2018 4:10 AM EDT Therapeutic decision making should be based on absolute values, rather than percentages. Therapeutic decision making should be based on absolute values, rather than percentages. Therapeutic decision making should be based on absolute values, rather than percentages. Therapeutic decision making should be based on absolute values, rather than percentages. Historical Provider MD LAB BLOOD ORDERABLES Nichole l Result SUNQUEST * APTT (08/16/2018 3:34 AM EDT) Pathologist [facility] aPTT 29 25 - 36 sec SUNQUEST 08/16/2018 3:34 AM EDT 08/16/2018 3:43 AM EDT Historical Provider MD LAB BLOOD ORDERABLES Nichole l Result Performing Organization Address [facility] de Phone Number SUNQUEST * Prothrombin Time/INR (08/16/2018 3:34 AM EDT) Prothrombin Time 13.1 12.3 - 14.8 sec SUNQUEST INR 1.0 0.9 - 1.1 SUNQUEST Comment: (NOTE) OPTIMAL INR RANGES FOR PATIENT ON ORAL ANTICOAGULANT THERAPY Prevention of venous thromboembolism ?INR 2.0 to 3.0 In patients with heart disease: ?Atrial fibrillation ?INR 2.0 to 3.0 ?Valvular heart disease ? INR 2.0 to 3.0 ?Tissue heart valves ?INR 2.0 to 3.0 ?Mechanical prosthetic valves ? INR 2.5 to 3.5 ?Prevention of recurrent NE ? INR 2.5 to 3.5 08/16/2018 3:34 AM EDT 08/16/2018 3:43 AM EDT Historical Provider MD LAB BLOOD ORDERABLES Nichole l Result Performing Organization Address [facility] de Phone Number SUNQUEST * (ABNORMAL) Lipase, Plasma (08/16/2018 3:34 AM EDT) Lipase, Plasma 10(L) 19 - 63 U/L SUNQUEST 08/16/2018 3:34 AM EDT 08/16/2018 3:42 AM EDT Historical Provider MD LAB BLOOD ORDERABLES Nichole l Result Performing Organization Address [facility] de Phone Number SUNQUEST * (ABNORMAL) Comprehensive Metabolic Panel, Plasma (08/16/2018 3:34 AM EDT) Glucose, Plasma 77 74 - 99 mg/dL SUNQUEST BUN, Plasma 3(L) 7 - 21 mg/dL SUNQUEST Creatinine, Plasma 0.45(L) 0.60 - 1.10 mg/dL SUNQUEST BUN/Creatinine Ratio 7(L) 8 - 20 SUNQUEST Sodium, Plasma 140 136 - 145 mmol/L SUNQUEST Potassium, Plasma 3.4(L) 3.7 - 4.8 mmol/L SUNQUEST Chloride, Plasma 104 101 - 108 mmol/L SUNQUEST CO2, Plasma 23 22 - 29 mmol/L SUNQUEST Anion Gap 13 6 - 16 mmol/L SUNQUEST Calcium, Plasma 8.4(L) 8.9 - 10.2 mg/dL SUNQUEST AST, Plasma 168(H) 11 - 32 U/L SUNQUEST ALT, Plasma 403(H) 8 - 33 U/L SUNQUEST Alkaline Phosphatase, Plasma 305(H) 35 - 104 U/L SUNQUEST Total Bilirubin, Plasma 2.8(H) 0.2 - 1.1 mg/dL SUNQUEST Total Protein 6.4 6.3 - 7.9 g/dL SUNQUEST Albumin, Plasma 3.4 3.3 - 4.6 g/dL SUNQUEST eGFR >60 >60 SEE NOTE SUNQUEST eGFR, if AFR/AM >60 >60 SEE NOTE SUNQUEST Comment: (NOTE) eGFR = estimated GFR; eGFR units = mL/min/1.73 sq meters Chronic Kidney Disease is considered if eGFR <60 mL/min/1.73 sq meters Kidney failure is considered if eGFR is <15 mL/min/1.73 sq meters. eGFR assumes steady state plasma creatinine concentration; not applicable if renal function is rapidly changing or patient is on dialysis. 08/16/2018 3:34 AM EDT 08/16/2018 3:42 AM EDT us Historical Provider LAB BLOOD ORDERABLES Nichole l Result TODD * [place] Hepatitis C Antibody (08/16/2018 3:34 AM EDT) Pathologist [facility] [place] Hepatitis C Ab NEGATIVE Reference Range: Negative SUNQUEST 08/16/2018 3:34 AM EDT 08/16/2018 3:57 AM EDT us Matt Villagomez MD LAB BLOOD ORDERABLES Fin al Result SUNQUEST documented in this encounter Visit Diagnoses Diagnosis Other specified diseases of biliary tract documented in this encounter
--- OUTSIDE RECORDS SUMMARY | 2024-04-21 05:13 | XMS_ITS | Clinical Summary ---
Author Organization [facility] Address [address] [place] [address] Phone Care Team Providers Care Medicaid Collection Specialist Name Role Phone Unavailable Primary Care Provider [...] Meningococcal Conjugate 01/13/2010 Tdap 01/13/2010 Varicella 01/13/2010,10/04/1998 Surgical History Surgery Date Site/Laterality Comments APPENDECTOMY 2009 Family History Medical History Relation Name Comments Diabetes Paternal Grandmother Heart Disease Neg Hx Relation Name Status Comments Paternal Grandmother Social History Tobacco Use Types Packs/Day Years [...] file Not on file Not on file Obstetrics History Last Filed Vital Signs Vital Sign Reading [...] 08/22/2015 5:55 PM EDT Plan of Treatment Health Maintenance Due Date Last Done Comments Annual Wellness Exam 10/01/1999 HPV (2 - 2-dose series) 07/16/2010 01/13/2010 Cervical Cancer Screening 2018 Pap Smear 2018 DTaP/TDaP/Td (7 - Td or Tdap) 01/14/2020 01/13/2010, 01/07/2002, 02/17/1999, Additional history exists COVID-19 Vaccine (2023- season) 2024 Influenza Vaccine (#1) 2024 Hepatitis B Vaccine Completed 06/27/1998, 1997, 1997 Pneumococcal Vaccine 0-64 Aged Out No longer eligible based on patient's age to complete this topic Insurance [facility] [place] [address] [place] [id number]
--- OUTSIDE RECORDS SUMMARY | 2024-04-21 05:13 | XMS_ITS | Clinical Summary ---
Author Organization [facility] Address [address] [place] [address] Care Team Providers Care Cloth Bolt Bander Name Role Phone Unavailable Primary Care Provider Unavailabl e Social History Tobacco Use Types Packs/Day Years Used Date Smoking Tobacco: Never Assessed Comments Unknown Sex and Gender Information Value Date Recorded Sex Assigned at Not on file Legal Sex Female 8:04 PM EDT Gender Identity Not on file Sexual Orientation Not on file Plan of Treatment Not on file
--- OUTSIDE RECORDS SUMMARY | 2024-04-21 05:13 | XMS_ITS | Encounter Summary ---
Author Organization [facility] [address] Care Team Providers Care Cake Tester Name Role Phone Simeon Marley MD Primary Care Provider [phone] Reason for Visit * Reason Comments Emesis pt mother states pt has abdominal cramping and N/V starting today, mother reports she just found out daughter sexually active and wants her checked down there states had period august 06 one day concern for Encounter Details Date Type Department Care Team (Late st Contact Info) Description 08/22/2015 6:59 PM EDT - 08/22/2015 8:28 PM EDT Emergency [facility] Emergency [address] [address] Garry Figueora MD [address] [place] [address] test negative (Primary Dx); Non-intractable vomiting with nausea, vomiting of unspecified type Discharge Disposition: Home or Self Care Social [...] Mass Index 27.87 08/22/2015 5:55 PM EDT Body Mass Index Percentile 91.56% 08/22/2015 5:5 5 PM EDT Growth Chart: [facility] (Girls, 2- 20 Years) documented in this encounter Discharge Instructions * Discharge Instructions* Garry Figueroa MD - 08/22/2015 8:17 PM EDT Take medication as prescribed for nausea Return to the emergency room for any concerns. Always practice safe sex. Followup with the [facility] for complete STD testing including HIV and hepatitis. [place] [id number] * Attachments The following attachments cannot be sent through Care Everywhere. * NAUSEA AND VOMITING (EMIRATI) * TESTS (EMIRATI) documented in this encounter Medications at Time of Discharge amphetamine-dextroa mphetamine (ADDERALL) 10 mg tabletIndications:A DHD (attention deficit hyperactivity disorder) Take 1 Tab by mouth 2 times daily. 60 Tab 0 12/18/2010 ondansetron (ZOFRAN, HYDROCHLORIDE,) 4 mg Oral Tablet Take 1 Tab by mouth every 6 hours for 3 days. 10 Tab 0 08/22/2015 08/25/2015 documented as of this encounter Ordered Prescriptions Prescription Sig Dispense Quantity Refills Last Filled Start Date End Date ondansetron (ZOFRAN, HYDROCHLORIDE,) 4 mg Oral Tablet Take 1 Tab by mouth every 6 hours for 3 days. 10 Tab 0 08/22/2015 08/25/2015 documented in this encounter Discharge Disposition Disposition Code Departure Means Destination Home or Self Alf documented in this encounter ED Notes * Garry Figueroa MD - 08/22/2015 7:32 PM EDT Chief Complaint Patient presents with ??? Emesis pt mother states pt has abdominal cramping and N/V starting today, mother reports she just found out daughter sexually active and wants her checked down there states had period august 06 one day concern for HPI Comments: The patient is a sexually active 19-year-old female with no medical history, presents to the emergency room with complaints of flulike symptoms. Patient's mother is concerned that she might be . She just found out that her daughter is sexually active. Patient has hadoccasional abdominal cramping. Patient only had a one-day period on August 06 of this month. Mother'sconcern for . Patient denies any abnormal vaginal bleeding or discharge. She reports nausea with vomiting. She has had no fever. Patient has not had a cough. She is here for evaluation. History provided by: Patient deaf interpreter used: No No Known Allergies Home Medications: Prior to Admission medications Medication Sig Start Date End Date Taking? Authorizing Provider amphetamine-dextroamphetamine (ADDERALL) 10 mg tablet Take 1 Tab by mouth 2 times daily. 12/18/10 Sg Garcia MD Past Medical History: History reviewed. No pertinent past medical history. Social History: reports that she has never smoked. She does not have any smokeless tobacco history on file. She reports that she does not drink alcohol or use illicit drugs. Family History: Family History Problem Relation Age of Onset ??? Diabetes Paternal Grandmother ??? Heart Disease Neg Hx Surgical History: Past Surgical History Procedure Laterality Date ??? Appendectomy 2010 Review of Systems Constitutional: Negative for fever and chills. HENT: Negative. Eyes: Negative. Respiratory: Negative for cough and shortness of breath. Cardiovascular: Negative for chest pain, palpitations and leg swelling. Gastrointestinal: Positive for nausea, vomiting and abdominal pain. Negative for diarrhea. Genitourinary: Negative for dysuria and frequency. Musculoskeletal: Negative. Skin: Negative for rash. Neurological: Negative. Psychiatric/Behavioral: Negative. All other systems reviewed and are negative. Blood pressure 135/79, pulse 62, temperature 98.4 ??F (36.9 ??C), temperature source Oral, resp. rate 20, height 5' 1 (1.549 m), weight 147 lb 8 oz (66.906 kg), last menstrual period 08/07/2015, SpO2 100 %. Physical Exam Constitutional: She is oriented to person, place, and time. She appears well- developed and well-nourished. No distress. HENT: Mouth/Throat: Oropharynx is clear and moist. Eyes: Conjunctivae and EOM are normal. Pupils are equal, round, and reactive to light. Neck: Normal range of motion. Neck supple. Cardiovascular: Normal rate and regular rhythm. Exam reveals no gallop and no friction rub. No murmur heard. Pulmonary/Chest: Effort normal and breath sounds normal. Abdominal: Soft. Bowel sounds are normal. She exhibits no distension. There is no tenderness. Musculoskeletal: She exhibits no edema. Lymphadenopathy: She has no cervical adenopathy. Neurological: She is alert and oriented to person, place, and time. Skin: Skin is warm and dry. No rash noted. Psychiatric: She has a normal mood and affect. Nursing note and vitals reviewed. Procedures Radiology/EKG/Labs: Results for orders placed or performed during the hospital encounter of 08/22/15 CBC WITH AUTO DIFF Result Value Ref Range WBC 9.6 4.0 - 11.0 x10(3)/mcL RBC 4.33 3.80 - 5.10 x10(6)/mcL Hgb 13.5 12.0 - 15.6 gm/dL Hct 39.8 35.7 - 45.9 % MCV 92.0 82.5 - 99.8 fL MCH 31.1 27.0 - 34.3 pg MCHC 33.8 32.1 - 35.3 gm/dL RDW 12.5 11.5 - 15.0 % Platelet 314 144 - 423 x10(3)/mcL MPV 9.1 6.8 - 10.8 fL HCG QUALITATIVE Result Value Ref Range HCG QUAL Negative BASIC METABOLIC PANEL Result Value Ref Range Sodium 136 136 - 145 mmol/L Potassium 4.0 3.5 - 5.0 mmol/L Chloride 98 98 - 107 mmol/L Total CO2 26 22 - 29 mmol/L Anion Gap 12 7 - 16 mmol/L Calcium 9.6 8.4 - 10.2 mg/dL Glucose Lvl 106 (H) 60 - 100 mg/dL BUN 9 5 - 18 mg/dL Creatinine 0.47 (L) 0.51 - 1.30 mg/dL GFR Afr Am N/A GFR Non Afr Am N/A URINALYSIS Result Value Ref Range UA Color Yellow UA Appear Clear Clear UA Glucose Negative Negative UA Ketones Negative Negative UA Blood Negative Negative UA pH 6.0 5.0 - 8.0 UA Protein Negative Negative UA Urobilinogen 0.2 E.U./dL <=1 E.U./dL UA Nitrite Negative Negative UA Leuk Est Negative Negative UA Spec Grav 1.020 1.001 - 1.035 DIFFERENTIAL Result Value Ref Range Neut Percent 60.5 % Lymph Percent 30.5 % Bailey Percent 7.7 % Eos Percent 0.4 % Baso Percent 0.9 % Neut# 5.8 1.8 - 7.7 x10(3)/mcL Lymph# 2.9 0.6 - 4.8 x10(3)/mcL Bailey# 0.7 0.0 - 1.3 x10(3)/mcL Eos# 0.0 0.0 - 0.5 x10(3)/mcL Baso# 0.1 0.0 - 0.2 x10(3)/mcL ED Course: Appropriate laboratory and radiology studies reviewed Patient arrives to the emergency room with her mother essentially for test. His mother states that she only wants the blood test , because the other one does not work on her family. Bloodwork is normal. test is negative. She is discharged home. She is prescribed Zofran. ED Clinical Impression: test negative (primary encounter diagnosis) Non-intractable vomiting with nausea, vomiting of unspecified type Critical Care time Condition at Discharge/Transfer from Department: Stable This chart was completed using voice recognition technology and may contain unintended errors Garry Figueroa MD 08/23/15 1731 documented in this encounter Plan of Treatment Not on file documented as of this encounter Procedures Procedure Name Priority Date/Time Associated Diagnosis Comments HCG QUALITATIVE Routine 08/22/2015 7:30 PM EDT DIFFERENTIAL STAT 08/22/2015 7:30 PM EDT URINALYSIS STAT 08/22/2015 7:30 PM EDT CBC WITH DIFF STAT 08/22/2015 7:30 PM EDT BASIC METABOLIC PANEL STAT 08/22/2015 7:30 PM EDT documented in this encounter Results * DIFFERENTIAL (08/22/2015 7:30 PM EDT) [facility] Neut Percent 60.5 % [facility] Lymph Percent 30.5 % [facility] Bailey Percent 7.7 % [facility] Eos Percent 0.4 % [facility] Baso Percent 0.9 % [facility] Neut# 5.8 1.8 - 7.7 x10(3)/mcL [facility] Lymph# 2.9 0.6 - 4.8 x10(3)/mcL [facility] Bailey# 0.7 0.0 - 1.3 x10(3)/mcL [facility] Eos# 0.0 0.0 - 0.5 x10(3)/mcL [facility] Baso# 0.1 0.0 - 0.2 x10(3)/mcL [facility] Blood specimen (specimen) 08/22/2015 7:30 PM EDT 08/22/2015 7:35 PM EDT [facility] HEMATOLOGY ORDERABL ES Final Result [facility] [address] [place] [address] * URINALYSIS (08/22/2015 7:30 PM EDT) [facility] UA Color Yellow [facility] UA Appear Clear Clear [facility] UA Glucose Negative Negative [facility] UA Ketones Negative Negative [facility] UA Blood Negative Negative [facility] UA pH 6.0 5.0 - 8.0 [facility] Comment:Reference range nikki d for random specimens only. UA Protein Negative Negative [facility] UA Urobilinogen 0.2 E.U./dL <=1 E.U./dL [facility] UA Nitrite Negative Negative [facility] UA Leuk Est Negative Negative [facility] UA Spec Grav 1.020 1.001 - 1.035 [facility] Comment:Reference range nikki d for random specimens only. Urine specimen (specimen) URINE SPECIMEN COLLECTION, CLEAN CATCH / Unknown 08/22/2015 7:30 PM EDT 08/22/2015 7:35 PM EDT Garry Figueroa MD URINE ORDERABLES Final Result Performing Organization Address [facility] de Phone Number [facility] [address] [place] [address] * (ABNORMAL) BASIC METABOLIC PANEL (08/22/2015 7:30 PM EDT) Sodium 136 136 - 145 mmol/L [facility] Potassium 4.0 3.5 - 5.0 mmol/L [facility] Chloride 98 98 - 107 mmol/L [facility] Total CO2 26 22 - 29 mmol/L [facility] Anion Gap 12 7 - 16 mmol/L [facility] Calcium 9.6 8.4 - 10.2 mg/dL [facility] Glucose Lvl 106(H) 60 - 100 mg/dL [facility] BUN 9 5 - 18 mg/dL [facility] Creatinine 0.47(L) 0.51 - 1.30 mg/dL [facility] GFR Afr Am N/A [facility] GFR Non Afr Am N/A [facility] Blood specimen (specimen) UPPER LIMB STRUCTURE / Unknown 08/22/2015 7:30 PM EDT 08/22/2015 7:35 PM EDT Garry Figueroa MD CHEMISTRY ORDERABLES Edited R esult - Final Performing Organization Address [facility] Co de Phone Number [facility] [address] [place] [address] * HCG QUALITATIVE (08/22/2015 7:30 PM EDT) Pathologist [facility] HCG QUAL Negative [facility] Blood specimen (specimen) 08/22/2015 7:30 PM EDT 08/22/2015 7:35 PM EDT Garry Figueroa MD CHEMISTRY ORDERABLES Edited R esult - Final Performing Organization Address [facility] de Phone Number [facility] [address] [place] [address] * CBC WITH AUTO DIFF (08/22/2015 7:30 PM EDT) [facility] WBC 9.6 4.0 - 11.0 x10(3)/mcL [facility] RBC 4.33 3.80 - 5.10 x10(6)/mcL [facility] Hgb 13.5 12.0 - 15.6 gm/dL [facility] Hct 39.8 35.7 - 45.9 % [facility] MCV 92.0 82.5 - 99.8 fL [facility] MCH 31.1 27.0 - 34.3 pg [facility] MCHC 33.8 32.1 - 35.3 gm/dL [facility] RDW 12.5 11.5 - 15.0 % [facility] Platelet 314 144 - 423 x10(3)/mcL [facility] MPV 9.1 6.8 - 10.8 fL [facility] Blood specimen (specimen) UPPER LIMB STRUCTURE / Unknown 08/22/2015 7:30 PM EDT 08/22/2015 7:35 PM EDT us Garry Figueroa MD HEMATOLOGY ORDERABLES Final R esult Performing Organization Address [facility] Co de Phone Number [facility] [address] [place] [address] documented in this encounter Visit Diagnoses Diagnosis test negative- Primary examination or test, negative result Non-intractable vomiting with nausea, vomiting of unspecified type documented in this encounter Care Teams Cake Tester Relationship Specialty Start Date End Date Simeon Marley MD [address] [place] [address] PCP - General 03/11/09 08/30/16 documented as of this encounter
--- OUTSIDE RECORDS SUMMARY | 2024-04-21 05:14 | XMS_ITS | Encounter Summary ---
Author Organization [place] [address] Care Team Providers Care Archivist [employer]profit [employer] Name Role Phone Unavailable Primary Care Provider Unavailabl e Encounter Details Date Type Department Care Team (Late st Contact Info) Description 02/10/2000 1:10 PM EDT - 02/10/2000 1:50 PM EDT Hospital Encounter HST EPIC CON UNK COV Lokesh Frey MD [address] [place] [address] [place] [address] Juan Novoa, DO [address] [place] [address] Social History Tobacco Use Types Packs/Day Years Used Date Smoking Tobacco: Never Assessed Comments Unknown Sex and Gender Information Value Date Recorded Sex Assigned at Not on file Legal Sex Female 4:43 AM EDT Gender Identity Not on file Sexual Orientation Not on file documented as of this encounter Plan of Treatment Not on file documented as of this encounter Visit Diagnoses Not on filedocumented in this encounter
--- OUTSIDE RECORDS SUMMARY | 2024-04-21 05:14 | XMS_ITS | Encounter Summary ---
Author Organization [place] [address] Care Team Providers Care Supervisor Tumbling And Rolling Name Role Phone Simeon Marley MD Primary Care Provider [phone] Reason for Referral * Consultation (Routine) - Closed Specialty Diagnoses / Procedures Referred By Contac t Referred To Contact Otolaryngology Diagnoses Cerumen impaction Recurrent acute otitis media Nathan Taveras MD Magary, Steven P, MD [address] [facility] [address] [address] [place] [address] Phone: tel: fax: Referral ID Status Reason Start Date Expiration Date V isits Requested Visits Authorized [id number] Closed Specialty Services Required 07/29/2010 01/25/2011 1 1 Reason for Visit * Reason Comments Otalgia Encounter Details Date Type Department Care Team (Late st Contact Info) Description 07/29/2010 10:10 AM EST Office Visit [facility] [address] [place] [address] Nathan Taveras MD Cerumen impaction; Recurrent acute otitis media Social History Tobacco Use Types Packs/Day Years [...] Sign Reading Time Taken Comments Blood Pressure 102/62 07/29/2010 10:05 AM EST Pulse - - Temperature 36.5 ??C (97.7 ??F) 07/29/2010 10:[address] Respiratory Rate - - Oxygen Saturation - - Inhaled Oxygen Concentration - - Weight 59.4 kg (131 lb) 07/29/2010 10:05 AM EST Height - - Body Mass Index - - documented in this encounter Progress Notes * Unknown, Unknown - 08/21/2011 11:43 AM EDT * Trevor, Fur Sorter - 12/19/2010 9:26 AM EDT * Nathan Taveras MD - 07/29/2010 10:17 AM EST SUBJECTIVE: 2 days full feeling R ear with decreased hearing. History of recurrent OM. No fever. OBJECTIVE: She appears well, in no apparent distress. Alert and oriented times three, pleasant and cooperative. BP 102/62 Temp 97.7 ??F (36.5 ??C) Wt 131 lb (59.421 kg) Obstructing cerumen R side only. L normal. ent otherwise ok. ASSESSMENT: Cerumen impaction History recurrent OM PLAN: Refer ent. documented in this encounter Plan of Treatment Scheduled Referrals Name Type Priority Associated Diagnoses Orde r Schedule AMB REFERRAL TO ENT Outpatient Referral Routine Cerumen impaction Recurrent acute otitis media Ordered: 07/29/2010 documented as of this encounter Visit Diagnoses Diagnosis Cerumen impaction Impacted cerumen Recurrent acute otitis media Unspecified otitis media documented in this encounter Care Teams Supervisor Tumbling And Rolling Relationship Specialty Start Date End Date Simeon Marley MD [address] [place] [address] PCP - General 03/11/09 08/30/16 documented as of this encounter
--- OUTSIDE RECORDS SUMMARY | 2024-04-21 05:14 | XMS_ITS | Encounter Summary ---
Author Organization [place] [address] Care Team Providers Care Bioassayist Name Role Phone Simeon Marley MD Primary Care Provider [phone] Encounter Details Date Type Department Care Team (Late st Contact Info) Description 12/20/2009 Abstract [facility] [address] [place] [address] Simeon Marley MD [address] [place] [address] [address] [place] [address] ADHD (attention deficit hyperactivity disorder) Social History Tobacco Use Types Packs/Day Years Used Date Smoking Tobacco: Never Assessed Comments No Sex and Gender Information Value Date Recorded Sex Assigned at Not on file Legal Sex Female 4:43 AM EDT Gender Identity Not on file Sexual Orientation Not on file documented as of this encounter Plan of Treatment Not on file documented as of this encounter Visit Diagnoses Diagnosis ADHD (attention deficit hyperactivity disorder) Attention deficit disorder with hyperactivity documented in this encounter Historical Medications * This list may reflect changes made after this encounter. methylphenidate (CONCERTA) 27 mg CR tablet Take 27 mg by mouth daily. 01/13/2010 added in this encounter Care Teams Bioassayist Relationship Specialty Start Date End Date Simeon Marley MD [address] [place] [address] [address] [place] [address] PCP - General 03/11/09 08/30/16 documented as of this encounter
--- OUTSIDE RECORDS SUMMARY | 2024-04-21 05:14 | XMS_ITS | Encounter Summary ---
Author Organization [facility] Address [address] [place] [address] Care Team Providers Care Analyst Sales Name Role Phone Unavailable Primary Care Provider Unavailabl e Encounter Details Date Type Department Care Team (Late st Contact Info) Description 01/15/2009 11:58 PM EDT - 01/17/2009 10:27 AM EDT Hospital Encounter [facility] [place] [address] Sg Farmer MD Social History Tobacco Use Types Packs/Day Years Used Date Smoking Tobacco: Never Assessed Comments Unknown Sex and Gender Information Value Date Recorded Sex Assigned at Not on file Legal Sex Female 4:43 AM EDT Gender Identity Not on file Sexual Orientation Not on file documented as of this encounter Discharge Summaries * Unknown, U - 12/22/2009 3:01 PM EDT documented in this encounter H&P Notes * Unknown, U - 12/22/2009 3:05 PM EDT documented in this encounter Procedure Notes * Unknown, U - 12/22/2009 3:01 PM EDTAssociated Order(s): SCANNED OR REPORT documented in this encounter Plan of Treatment Scheduled Orders Name Type Priority Associated Diagnoses Orde r Schedule CT ABD/PE[facility] SURGICAL AIDE Imaging Routine Once fo r 1 Occurrences starting 08/11/2009 until 08/11/2009, 1 completed documented as of this encounter Procedures Procedure Name Priority Date/Time Associated Diagnosis Comments SCANNED OR REPORT 12/22/2009 12: [address] ABD/PELVIS SURGICAL AIDE Routine 01/15/2009 9:4 0 PM EDT documented in this encounter Results * SCANNED OR REPORT (12/22/2009 12:00 AM EDT) Narrative 12/22/2009 9:41 PM EDT Ordered by an unspecified provider. Transcriptions Unknown, U - 12/22/2009 3:01 PM EDT us U Unknown PROCEDURE/MINOR SURGICAL ORDERAB LES Final Result * CT ABD/PELVIS SURGICAL AIDE (01/15/2009 9:40 PM EDT) Anatomical Region Laterality Modality Other 01/15/2009 9:40 PM EDT Narrative 01/15/2009 10:[address] Scan of the Abdomen and Pelvis, 01/15/2009. HISTORY- ??Right lower quadrant pain, vomiting and fever. TECHNICAL FACTORS- ??Scans were performed throughout the abdomen and pelvis following the oral and intravenous administration of contrast material. ??75 mL of Optiray-320 was injected. ABDOMEN- ??The liver and spleen appear normal. ??The gallbladder and pancreas appear normal. ??The kidneys and adrenals appear normal. PELVIS- ??The appendix is enlarged, measuring 13 mm in diameter and there is prominent wall thickening of the appendix with increased enhancement. ??There is moderate infiltration of the fat adjacent to the appendix. ??No abscess cavity is seen. ??There is a small to moderate amount of free fluid within the pelvis which may just be physiologic. No other significant abnormality is seen. IMPRESSION- ??Findings are consistent with acute appendicitis. ??No abscess cavity is seen. ??There is small to moderate amount of free fluid in the pelvis which may just be physiologic. I called the report to Dr. Rowan in the Operating Room at 10-02 p.m. on 01/15/2009. ? Apprentice Funeral Director- SOURAV MENDOSA ? Reading Physician- TANYA RODRIUGEZ ? Released Date Time- 01/16/09 1149 Procedure Note Tanya Rodriguez - 08/11/2009 CT Scan of the Abdomen and Pelvis, 01/15/2009. HISTORY- Right lower quadrant pain, vomiting and fever. TECHNICAL FACTORS- Scans were performed throughout the abdomen and pelvis following the oral and intravenous administration of contrast material. 75 mL of Optiray-320 was injected. ABDOMEN- The liver and spleen appear normal. The gallbladder and pancreas appear normal. The kidneys and adrenals appear normal. PELVIS- The appendix is enlarged, measuring 13 mm in diameter and there is prominent wall thickening of the appendix with increased enhancement. There is moderate infiltration of the fat adjacent to the appendix. No abscess cavity is seen. There is a small to moderate amount of free fluid within the pelvis which may just be physiologic. No other significant abnormality is seen. IMPRESSION- Findings are consistent with acute appendicitis. No abscess cavity is seen. There is small to moderate amount of free fluid in the pelvis which may just be physiologic. I called the report to Dr. Rowan in the Operating Room at 10-02 p.m. on 01/15/2009. Apprentice Funeral Director- SOURAV MENDOSA Reading Physician- TANYA RODRIGUEZ MD Released Date Time- 01/16/09 1149 Result [facility] Norberto Rowan MD [facility] STAR RAD HISTO RICAL Final Result documented in this encounter Visit Diagnoses Not on filedocumented in this encounter
--- OUTSIDE RECORDS SUMMARY | 2024-04-21 05:14 | XMS_ITS | Encounter Summary ---
Author Organization [place] [address] Care Team Providers Care Customer Solutions Representative Name Role Phone Simeon Marley MD Primary Care Provider [phone] Reason for Visit * Reason Onset Date Comments Other 02/14/2010 Encounter Details Date Type Department Care Team (Late st Contact Info) Description 02/14/2010 Telephone [facility] [place] [address] [place] [address] Deisi Bennett MA Other Social History Tobacco Use Types Packs/Day Years [...] encounter Miscellaneous Notes * Telephone Encounter - Polly Cedeño - 02/14/2010 3:11 PM EDT Left message that forms were faxed over. * Telephone Encounter - Juliet Bennett - 02/14/2010 11:04 AM EDT Please fax copy of physical form and immunizations to Attn: Nurse Villagran @ [phone]... Please call mom when done. documented in this encounter Plan of Treatment Not on file documented as of this encounter Visit Diagnoses Not on filedocumented in this encounter Care Teams Customer Solutions Representative Relationship Specialty Start Date End Date Simeon Marley MD [address] [place] [address] PCP - General 03/11/09 08/30/16 documented as of this encounter
--- OUTSIDE RECORDS SUMMARY | 2024-04-21 05:14 | XMS_ITS | Encounter Summary ---
Author Organization [place] [address] Care Team Providers Care Phlebotomist Medical Lab Assistant Name Role Phone Unavailable Primary Care Provider Unavailabl e Encounter Details Date Type Department Care Team (Late st Contact Info) Description 07/27/1999 5:07 PM EST - 07/27/1999 5:50 PM EST Hospital Encounter [facility] Norberto Rowan MD Social History Tobacco Use Types Packs/Day [...]
--- OUTSIDE RECORDS SUMMARY | 2024-04-21 05:14 | XMS_ITS | Encounter Summary ---
Author Organization [place] [address] Care Team Providers Care Deck Scaler Name Role Phone Unavailable Primary Care Provider Unavailabl e Encounter Details Date Type Department Care Team (Late st Contact Info) Description 04/04/2008 11:41 PM EST - 04/05/2008 1:57 AM EST Hospital Encounter [facility] EP[facility] EDG Joey Dewey MD [address] [place] [address] [place] [address] Social History Tobacco Use Types [...]
--- OUTSIDE RECORDS SUMMARY | 2024-04-21 05:14 | XMS_ITS | Encounter Summary ---
Author Organization [place] [address] Care Team Providers Care Donations Attendant Name Role Phone Unavailable Primary Care Provider Unavailabl e Encounter Details Date Type Department Care Team (Late st Contact Info) Description 04/21/2001 11:51 PM EST - 04/22/2001 12:50 AM EST Hospital Encounter [facility] [address] [place] [address] [phone] (Fax) Social History Tobacco Use Types Packs/Day Years [...]
--- OUTSIDE RECORDS SUMMARY | 2024-04-21 05:14 | XMS_ITS | Encounter Summary ---
Author Organization [place] [address] Care Team Providers Care Process Project Engineer Name Role Phone Simeon Marley MD Primary Care Provider [phone] Reason for Visit * Reason Comments Otalgia Encounter Details Date Type Department Care Team (Late st Contact Info) Description 12/20/2009 3:15 PM EDT Office Visit [facility] [address] [place] [address] Sg Garcia MD [address] [place] [address] Otitis externa (Primary Dx) Social History Tobacco Use Types Packs/Day Years Used Date Smoking Tobacco: Never Assessed Comments No Sex and Gender Information Value Date Recorded Sex Assigned at Not on file Legal Sex Female 4:43 AM EDT Gender Identity Not on file Sexual Orientation Not on file documented as of this encounter Last Filed Vital Signs Vital Sign Reading Time Taken Comments Blood Pressure 110/60 12/20/2009 3:27 PM EDT Pulse - - Temperature 37.1 ??C (98.8 ??F) 12/20/2009 3:27 PM ED T Respiratory Rate - - Oxygen Saturation - - Inhaled Oxygen Concentration - - Weight 54 kg (119 lb) 12/20/2009 3:27 PM EDT Height - - Body Mass Index - - documented in this encounter Ordered Prescriptions Prescription Sig Dispense Quantity Refills Last Filled Start Date End Date ciprofloxacin-hydr ocortisone (CIPRO HC OTIC)Indications:O titis externa Place 3 Drops in ear(s) 2 times daily. Administer drops in the right ear only. 10 mL 0 12/20/2009 08/13/201 0 documented in this encounter Progress Notes * Trevor Dinkey Operator Slag - 12/20/2009 4:10 PM EDT * Sg Garcia MD - 12/20/2009 3:44 PM EDT HPI AZALIA BLANCAS is a 14 y.o. female who presents with the following: CHIEF COMPLAINT Chief Complaint Patient presents with ??? Otalgia Right freq otalgia mom tried ear wax removal drained x 2 days then tried old ear drops today screaming with pain + swimming no fever/ST/cough/runny nose PAST MEDICAL HISTORY Patient Active Problem List Diagnoses Date Noted ADHD (attention deficit hyperactivity disorder) [314.01M] CURRENT MEDICATIONS Current outpatient prescriptions Medication Sig Dispense Refill ??? methylphenidate (CONCERTA) 27 mg CR tablet Take 27 mg by mouth daily. REVIEW OF SYSTEMS See HPI for further details. Review of systems otherwise negative. SURGICAL HISTORY Past Surgical History Procedure Date ??? Appendectomy ALLERGIES No Known Allergies EXAM BP 110/60 Temp 98.8 ??F (37.1 ??C) Wt 119 lb (53.978 kg) NAD TM's - TM L wnl ; Right canal swollen with white coating, TM is opaque; auricles wnl Throat - not red, no pus, tonsils not enlarged, midline uvula Neck - non-tender, supple, few shoddy nodes, no masses Lungs - nl BS, no wheeze, no crackles, no chest wall pain Heart - RRR without MRG Subjective: Patient ID: AZALIA BLANCAS is a 14 y.o. female. HPI Patient's medications, allergies, past medical, surgical, social and family histories were reviewedand updated as appropriate. Review of Systems Objective: Physical Exam Assessment and Plan: Azalia was seen today for otalgia. Diagnoses and associated orders for this visit: - Otitis externa - Ciprofloxacin-hydrocortisone 0.2 %-1 % ear drops, susp -- Place 3 Drops in ear(s) 2 times daily. Administer drops in the right ear only. Failed Cortisporin documented in this encounter Plan of Treatment Not on file documented as of this encounter Visit Diagnoses Diagnosis Otitis externa- Primary Infective otitis externa, unspecified documented in this encounter Care Teams Process Project Engineer Relationship Specialty Start Date End Date Simeon Marley MD [facility] [place] [address] PCP - General 03/11/09 08/30/16 documented as of this encounter
--- OUTSIDE RECORDS SUMMARY | 2024-04-21 05:14 | XMS_ITS | Encounter Summary ---
Author Organization [place] [address] Care Team Providers Care Nursery Supervisor Name Role Phone Unavailable Primary Care Provider Unavailabl e Encounter Details Date Type Department Care Team (Late st Contact Info) Description 08/25/2000 6:48 PM EST - 08/25/2000 7:38 PM EST Hospital Encounter [facility] EP[facility] CON [facility]K COV Corey Jean-Baptiste MD Social History Tobacco Use Types Packs/Day [...]
--- OUTSIDE RECORDS SUMMARY | 2024-04-21 05:14 | XMS_ITS | Encounter Summary ---
Author Organization [place] [address] Care Team Providers Care Store Sales Consultant Name Role Phone Unavailable Primary Care Provider Unavailabl e Encounter Details Date Type Department Care Team (Late st Contact Info) Description 1997 8:45 PM EDT - 1997 9:45 PM EDT Hospital Encounter [facility] ER EDG Norberto Rowan MD Social History Tobacco Use [...]
--- OUTSIDE RECORDS SUMMARY | 2024-04-21 05:14 | XMS_ITS | Encounter Summary ---
Author Organization [place] [address] Care Team Providers Care Helicopter Technician Name Role Phone Unavailable Primary Care Provider Unavailabl e Encounter Details Date Type Department Care Team (Late st Contact Info) Description 02/18/2000 5:26 PM EDT - 02/18/2000 6:25 PM EDT Hospital Encounter [facility] Radha [facility] [address] [place] [id number] Social History Tobacco Use Types Packs/Day Years [...]
--- OUTSIDE RECORDS SUMMARY | 2024-04-21 05:14 | XMS_ITS | Encounter Summary ---
Author Organization [place] [address] Care Team Providers Care Steel Pourer Name Role Phone Unavailable Primary Care Provider Unavailabl e Encounter Details Date Type Department Care Team (Late st Contact Info) Description 03/11/1998 11:23 PM EDT - 03/11/1998 11:59 PM EDT Hospital Encounter HST EPIC CON [...]
--- OUTSIDE RECORDS SUMMARY | 2024-04-21 05:14 | XMS_ITS | Encounter Summary ---
Author Organization [place] [address] Care Team Providers Care Process Safety Manager Name Role Phone Unavailable Primary Care Provider Unavailabl e Encounter Details Date Type Department Care Team (Late st Contact Info) Description 07/30/1999 5:13 PM EST - 07/30/1999 5:50 PM [facility] Hospital Encounter [facility] Hadley Rowley [address] [facility] [place] [address] Social History Tobacco Use Types Packs/Day Years [...]
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
--- OUTSIDE RECORDS SUMMARY | 2024-04-21 05:14 | XMS_ITS | Encounter Summary ---
Author Organization [place] [address] Care Team Providers Care Piping Drafter Name Role Phone Unavailable Primary Care Provider Unavailabl e Encounter Details Date Type Department Care Team (Late st Contact Info) Description 1997 6:30 AM EDT - 1997 12:56 PM EDT Hospital Encounter [facility] [place], Vinicio Dunham MD [address] [place] [address] [address], [place] [address] Social History Tobacco Use Types Packs/Day Years Used Date Smoking Tobacco: Never Assessed Comments Unknown Sex and Gender Information Value Date Recorded Sex Assigned at Not on file Legal Sex Female 4:43 AM EDT Gender Identity Not on file Sexual Orientation Not on file documented as of this encounter Discharge Summaries * Unknown, U - 12/27/2009 10:51 PM EDT documented in this encounter H&P Notes * Unknown, U - 12/28/2009 4:20 AM EDT documented in this encounter Plan of Treatment Not on file documented as of this encounter Visit Diagnoses Not on filedocumented in this encounter
--- OUTSIDE RECORDS SUMMARY | 2024-04-21 05:14 | XMS_ITS | Encounter Summary ---
Author Organization [place] [address] Care Team Providers Care 4 Year Olds Preschool Teacher Name Role Phone Unavailable Primary Care Provider Unavailabl e Encounter Details Date Type Department Care Team (Late st Contact Info) Description 08/19/2001 12:46 AM EST - 08/19/2001 1:30 AM EST Hospital Encounter HST MAJOR ER EDG Juan Novoa, DO [address] [place] [address] Social History Tobacco Use Types [...]
--- OUTSIDE RECORDS SUMMARY | 2024-04-21 05:14 | XMS_ITS | Encounter Summary ---
Author Organization [place] [address] Care Team Providers Care Rehab Aide Name Role Phone Simeon Marley MD Primary Care Provider Reason for Visit * Reason Comments ADHD angry in school, not focosed--depression--getting worse. (started at the begin. of the school year.) Encounter Details Date Type Department Care Team (Latest Contact Info) Description 07/10/2010 3:00 PM EST Office Visit [facility] [address] [place] [address] Simeon Marley MD [address] [place] [address] ADHD (attention deficit hyperactivity disorder) (Primary Dx) Social History Tobacco Use Types [...] Sign Reading Time Taken Comments Blood Pressure 118/70 07/10/2010 2:54 PM EST Pulse - - Temperature 36.8 ??C (98.2 ??F) 07/10/2010 2:54 PM ES T Respiratory Rate - - Oxygen Saturation - - Inhaled Oxygen Concentration - - Weight 60.3 kg (133 lb) 07/10/2010 2:54 PM EST Height 161 cm (5' 3.39 ) 07/10/2010 2:54 PM EST Body Mass Index 23.27 07/10/2010 2:54 PM EST Body Mass Index Percentile 88.77% 07/10/2010 2:5 4 PM EST Growth Chart: [facility] (Girls, 2- 20 Years) documented in this encounter Ordered Prescriptions Prescription Sig Dispense Quantity Refills Last Filled Start Date End Date amphetamine-dextroa mphetamine (ADDERALL) 10 mg tabletIndications:A DHD (attention deficit hyperactivity disorder) Take 1 Tab by mouth 2 times daily. 30 Tab 0 07/10/2010 12/18/2010 documented in this encounter Progress Notes * Trevor, Parcel Post Truck Driver - 07/24/2010 1:25 PM EST * Simeon Marley MD - 07/10/2010 3:27 PM EST Subjective: Patient ID: AZALIA BLANCAS is a 14 y.o. female. HPI Patient's medications, allergies, past medical, surgical, social and family histories were reviewedand updated as appropriate. Chief Complaint Patient presents with ??? ADHD angry in school, not focussed--depression--getting worse. (started at the begin. of the school year.) had been diagnosed with this in past. has seen school counselor - has low self esteem , in special classes grades have been slipping - is being bullied by another student. having behavioral problems. has lost interest in swim team. no change in sleep or appetite patterns. lost a few friendships. having a hard time staying on task, easily distracted, constantly fidgeting, interrupting class. Review of Systems Constitutional: Negative. HENT: Negative. Eyes: Negative. Respiratory: Negative. Cardiovascular: Negative. Gastrointestinal: Negative. Genitourinary: Negative. Neurological: Negative. Psychiatric/Behavioral: Positive for behavioral problem, dysphoric mood, decreased concentration and agitation. Negative for suicidal ideas, hallucinations, confusion, sleep disturbance and self-injury. The patient is nervous/anxious and is hyperactive. Objective: Filed Vitals: 07/10/2010 2:54 PM BP: 118/70 Temp: 98.2 ??F (36.8 ??C) Height: 5' 3.39 (1.61 m) Weight: 133 lb (60.328 kg) Physical Exam Nursing note and vitals reviewed. Constitutional: She appears not diaphoretic. She is active. No distress. Cardiovascular: Normal rate, regular rhythm, S1 normal and S2 normal. Pulmonary/Chest: Effort normal and breath sounds normal. No stridor. No respiratory distress. Air movement is not decreased. She has no wheezes. She has no rhonchi. She has no rales. She exhibits no retraction. Musculoskeletal: Normal range of motion. Neurological: She is alert. Skin: She is not diaphoretic. Psychiatric: Her affect is blunt. Her speech is delayed. She is slowed and withdrawn. Cognition andmemory are impaired. She expresses impulsivity. She expresses no suicidal ideation. She expresses no suicidal plans. Assessment and Plan: Azalia was seen today for adhd. Diagnoses and associated orders for this visit: - Adhd (attention deficit hyperactivity disorder) (vs ? Mood disorder) - Amphetamine-dextroamphetamine 10 mg tab -- Take 1 Tab by mouth 2 times daily. Pt advised should he develop any adverse stimulant side effects from medication (palpitations, heart racing, insomnia, nervousness, dyspnea, light headedness, headaches, etc) to stop medication immediately and inform us. - cont to f/u with school counselor RTO 1 mo, if no improvement may refer for formal psychological evaluation. documented in this encounter Plan of Treatment Not on file documented as of this encounter Visit Diagnoses Diagnosis ADHD (attention deficit hyperactivity disorder)- Primary Attention deficit disorder with hyperactivity documented in this encounter Care Teams Rehab Aide Relationship Specialty Start Date End Date Simeon Marley MD [facility] [address] [facility] [address] [place], [place] [id number] PCP - General 03/11/09 08/30/16 documented as of this encounter
--- OUTSIDE RECORDS SUMMARY | 2024-04-21 05:14 | XMS_ITS | Encounter Summary ---
Author Organization [place] [address] Care Team Providers Care Water Pollution Control Technician Name Role Phone Simeon Marley MD Primary Care Provider [phone] Reason for Visit * Reason Comments Otalgia right ear--no draina ge from ear--started x2days ago Encounter Details Date Type Department Care Team (Late st Contact Info) Description 03/29/2010 10:10 AM EDT Office Visit [facility] [address] [place] [address] Simeon Marley MD [address] [place] [address] Acute suppurative otitis media (Primary Dx) Social History Tobacco Use Types [...] Sign Reading Time Taken Comments Blood Pressure 115/70 03/29/2010 10:21 AM EDT Pulse - - Temperature 36.7 ??C (98.1 ??F) 03/29/2010 10:21 AM E DT Respiratory Rate - - Oxygen Saturation - - Inhaled Oxygen Concentration - - Weight 54.9 kg (121 lb) 03/29/2010 10:21 AM EDT Height 161 cm (5' 3.39 ) 03/29/2010 10:21 AM EDT Body Mass Index 21.17 03/29/2010 10:21 AM EDT Body Mass Index Percentile 79.45% 03/29/2010 10: 21 AM EDT Growth Chart: [facility] (Girls, 2- 20 Years) documented in this encounter Ordered Prescriptions Prescription Sig Dispense Quantity Refills Last Filled Start Date End Date amoxicillin (AMOXIL) 500 mg capsuleIndications: Acute suppurative otitis media Take 1 Cap by mouth 3 times daily for 10 days. 30 Cap 0 03/29/2010 04/08/2010 documented in this encounter Progress Notes * Simeon Marley MD - 03/29/2010 10:41 AM EDT Subjective: Patient ID: AZALIA BLANCAS is a 14 y.o. female. HPI Patient's medications, allergies, past medical, surgical, social and family histories were reviewedand updated as appropriate. Chief Complaint Patient presents with ??? Otalgia right ear--no drainage from ear--started x2days ago - no fevers, chills, sweats. No vomiting or diarrhea. No runny nose, congestion. Tried some ear drops from previous visit - no help. Review of Systems Constitutional: Negative for fever, chills, diaphoresis, irritability and fatigue. HENT: Positive for hearing loss and ear pain. Negative for congestion, rhinorrhea, sneezing, postnasal drip, sinus pressure and ear discharge. Eyes: Negative. Respiratory: Negative for cough and shortness of breath. Cardiovascular: Negative for chest pain, palpitations and leg swelling. Gastrointestinal: Negative for nausea, abdominal pain and diarrhea. Objective: Filed Vitals: 03/29/2010 10:21 AM BP: 115/70 Temp: 98.1 ??F (36.7 ??C) Height: 5' 3.39 (1.61 m) Weight: 121 lb (54.885 kg) Physical Exam Nursing note and vitals reviewed. Constitutional: She is active. HENT: Right Ear: There is drainage. A middle ear effusion is present. Decreased hearing is noted. Left Ear: Tympanic membrane normal. Nose: Nose normal. Mouth/Throat: Mucous membranes are dry. Dentition is normal. No tonsillar exudate. Oropharynx is clear. Pharynx is normal. purulent drainage, R EAC/TM. Eyes: Conjunctivae are normal. Pupils are equal, round, and reactive to light. Neck: Normal range of motion. No no adenopathy. Cardiovascular: Regular rhythm, S1 normal and S2 normal. Pulmonary/Chest: Effort normal and breath sounds normal. No stridor. No respiratory distress. Air movement is not decreased. She has no wheezes. She has no rhonchi. She has no rales. She exhibits no retraction. Neurological: She is alert. Assessment and Plan: Azalia was seen today for otalgia. Diagnoses and associated orders for this visit: - Acute suppurative otitis media, R - Amoxicillin 500 mg cap -- Take 1 Cap by mouth 3 times daily for 10 days. - RTO 2 weeks to re-check. documented in this encounter Plan of Treatment Not on file documented as of this encounter Visit Diagnoses Diagnosis Acute suppurative otitis media- Primary Acute suppurative otitis media without spontaneous rupture of eardrum documented in this encounter Care Teams Water Pollution Control Technician Relationship Specialty Start Date End Date Simeon Marley MD [address] [facility] [address] [place] [address] PCP - General 03/11/09 08/30/16 documented as of this encounter
--- OUTSIDE RECORDS SUMMARY | 2024-04-21 05:14 | XMS_ITS | Encounter Summary ---
Author Organization [place] [address] Care Team Providers Care Group Account Director Name Role Phone Unavailable Primary Care Provider Unavailabl e Encounter Details Date Type Department Care Team (Late st Contact Info) Description 05/20/1999 11:18 PM EST - 05/21/1999 1:50 AM [facility] Hospital Encounter [facility] Gloria Ann MD [address] [place] [address] [place] [address] Social History Tobacco Use Types [...]
--- OUTSIDE RECORDS SUMMARY | 2024-04-21 05:14 | XMS_ITS | Encounter Summary ---
Author Organization [place] [address] Care Team Providers Care Security Trainer Name Role Phone Simeon Marley MD Primary Care Provider [phone] Reason for Visit * Reason Comments Annual Exam sports physical Encounter Details Date Type Department Care Team (Latest Contact Info) Description 12/18/2010 3:15 PM EDT Office Visit [facility] [address] [place] [address] Sg Garcia MD [address] [place] [address] Well child check (Primary Dx); ADHD (attention deficit hyperactivity disorder) Social History [...] Sign Reading Time Taken Comments Blood Pressure 91/65 12/18/2010 3:27 PM EDT Pulse 84 12/18/2010 3:27 PM EDT Temperature - - Respiratory Rate - - Oxygen Saturation - - Inhaled Oxygen Concentration - - Weight 62.1 kg (137 lb) 12/18/2010 3:27 PM EDT Height 160 cm (5' 3 ) 12/18/2010 3:27 PM EDT Body Mass Index 24.27 12/18/2010 3:27 PM EDT Body Mass Index Percentile 90.70% 12/18/2010 3:2 7 PM EDT Growth Chart: [facility] (Girls, 2- 20 Years) documented in this encounter Ordered Prescriptions Prescription Sig Dispense Quantity Refills Last Filled Start Date End Date amphetamine-dextroam phetamine (ADDERALL) 10 mg tabletIndications:AD HD (attention deficit hyperactivity disorder) Take 1 Tab by mouth 2 times daily. 60 Tab 0 12/18/2010 documented in this encounter Progress Notes * Unknown, Unknown - 06/22/2011 9:25 AM EST * Trevor, Baker Paint - 12/22/2010 2:23 PM EDT * Trevor, Baker [employer] - 12/18/2010 4:07 PM EDT * Sg Garcia MD - 12/18/2010 3:57 PM EDT HPI AZALIA BLANCAS is a 15 y.o. female who presents with the following: ??? Annual Exam sports physical & ADD Problems Patient Active Problem List Diagnoses Code ??? ADHD (attention deficit hyperactivity disorder) 314.01M ??? Otitis media, Right 382.9C ??? Well child check V20.2C Medications No current outpatient prescriptions on file. REVIEW OF SYSTEMS See HPI for further details. Review of systems otherwise negative. Past Surgical History Past Surgical History Procedure Date ??? Appendectomy 2010 Family History Family History Problem Relation ??? Diabetes Paternal Grandmother ??? Heart Disease Neg Hx Social History Social History Occupational History ??? 7th grade [employer] Social History Main Topics ??? Smoking status: Never Smoker ??? Smokeless tobacco: Never Used ??? Alcohol Use: No ??? Drug Use: No ??? Sexually Active: Not on file Immunizations Immunization History Administered Date(s) Administered ??? DTaP 1997, 04/27/1998, 06/27/1998, 02/17/1999, 01/07/2002 ??? HPV 01/13/2010 ??? Hepatitis B 1997, 1997, 06/27/1998 ??? HiB 1997, 04/27/1998, 02/17/1999, 04/27/1999 ??? IPV 1997, 04/27/1998, 10/04/1998, 01/07/2002 ??? MMR 10/04/1998, 03/06/2000 ??? Meningococcal Conjugate 01/13/2010 ??? Tdap 01/13/2010 ??? Varicella 10/04/1998, 01/13/2010 Allergy No Known Allergies EXAM BP 91/65 Pulse 84 Ht 5' 3 (1.6 m) Wt 137 lb (62.143 kg) Body mass index is 24.27 kg/(m^2). NAD TM's - TM R & L wnl ; auricles wnl Throat - not red, no pus, tonsils not enlarged, midline uvula Neck - non-tender, supple, no nodes, no masses Lungs - nl BS, no wheeze, no crackles, no chest wall pain Heart - RRR without MRG Abd - soft, flat, non-tender, no HSM/masses sports exam = wnl - Well child check-Sports exam - OK to play, plan HPV #2&3 in winter - wants to wait for us to give here (Medicaid) - see forms - Adhd (attention deficit hyperactivity disorder) - will resume with school - Amphetamine-dextroamphetamine 10 mg tab -- Take 1 Tab by mouth 2 times daily. No SE's documented in this encounter Miscellaneous Notes * Patient Instructions - Jennifer Adair MA - 12/18/2010 3:29 PM EDT Thank you for enrolling in [facility]. Please follow the instructions below to securely access your online medical record. [facility] allows you to send messages to your doctor, view your test results, renew your prescriptions, request appointments and more. How Do I Sign Up? In your Internet browser, navigate to [email or web address] or [email or web address] and click on the [email or web address] link. Or you can navigate to [email or web address]. Click on the Sign Up Now link in the Sign In box. You will see the New Member Sign Up page. Enter your [facility] Access Code exactly as it appears below. You will not need to use this code after you???ve completed the sign-up process. This activation code will 60 days after the date atthe top of this page at which time you must request a new code from your doctors office. [facility] Access Code: [email or web address] Expires: 02/16/11 03:29 PM Enter your Social Security Number ([id number]) and Date of (mm/dd/yyyy) as indicated and click Submit. You will be taken to the next sign-up page. Create a [facility] ID. This will be your [facility] login ID and cannot be changed, so think of one thatis secure and easy to remember. Create a [facility] password. You can change your password at any time. Enter your Password Reset Question and Answer. This can be used at a later time if you forget your password. Enter your e-mail address. You will receive e-mail notification when new information is available in [facility]. Click Sign Up. You can now view your medical record. Additional Information Additional Information If you have questions, you can email [email or web address] to talk to our [facility] staff. Remember, [facility] is NOT to be used for urgent needs. For medical emergencies, dial 911. documented in this encounter Plan of Treatment Not on file documented as of this encounter Visit Diagnoses Diagnosis Well child check- Primary Routine infant or child health check ADHD (attention deficit hyperactivity disorder) Attention deficit disorder with hyperactivity documented in this encounter Discontinued Medications Medication Sig Discontinue Reason Start Date End Da te amoxicillin-clavulanate (AUGMENTIN) 500-125 mg per tabletIndications:Otitis media Take 1 Tab by mouth 2 times daily. 01/13/2010 12/18/2010 amphetamine-dextroamphetam ine (ADDERALL) 10 mg tabletIndications:ADHD (attention deficit hyperactivity disorder) Take 1 Tab by mouth 2 times daily. 07/10/2010 12/18/2010 amphetamine-dextroamphetam ine (ADDERALL) 10 mg tabletIndications:ADHD (attention deficit hyperactivity disorder) Take 1 Tab by mouth 2 times daily. Reorder 07/10/2010 12/18/2010 documented as of this encounter Care Teams Security Trainer Relationship Specialty Start Date End Date Simeon Marley MD [address] [address] [address] [facility] [address] [place] [address] PCP - General 03/11/09 08/30/16 documented as of this encounter
--- OUTSIDE RECORDS SUMMARY | 2024-04-21 05:14 | XMS_ITS | Encounter Summary ---
Author Organization [place] [address] Care Team Providers Care Boiler Shop Mechanic Name Role Phone Unavailable Primary Care Provider Unavailabl e Encounter Details Date Type Department Care Team (Late st Contact Info) Description 02/27/2001 8:32 PM EDT - 02/27/2001 9:10 PM EDT Hospital Encounter [facility] Mercedes Barney [address] [place] [address] [address] Social History Tobacco Use Types Packs/Day Years [...]
--- OUTSIDE RECORDS SUMMARY | 2024-04-21 05:14 | XMS_ITS | Encounter Summary ---
Author Organization [place] [address] Care Team Providers Care Sweetbread Trimmer Name Role Phone Simeon Marley MD Primary Care Provider [phone] Reason for Visit * Reason Onset Date Comments Other 04/19/2010 Encounter Details Date Type Department Care Team (Late st Contact Info) Description 04/19/2010 Telephone [facility] [address] [place] [address] Simeon Marley MD [address] [place] [address] Other Social History Tobacco Use Types Packs/Day [...] encounter Miscellaneous Notes * Telephone Encounter - Kandy Pruitt - 04/19/2010 1:27 PM EST Pt mom aware * Telephone Encounter - Simeon Marley MD - 04/19/2010 12:57 PM EST ok. * Telephone Encounter - Nisa Clayton - 04/19/2010 11:44 AM EST Pt's mother called and said that she brought two children in yesterday Jordan & Jazzmine, and now Azalia is sick as well but mother said that since Jazzmine wasn't prescribed anything she didn't want to bring Azalia in if she wasn't going to get any meds. Pt's mother wanted to know if she could just get a school note for her. Please call mother with questions. Thank you. documented in this encounter Plan of Treatment Not on file documented as of this encounter Visit Diagnoses Not on filedocumented in this encounter Care Teams Sweetbread Trimmer Relationship Specialty Start Date End Date Simeon Marley MD [address] [place] [address] PCP - General 03/11/09 08/30/16 documented as of this encounter
--- OUTSIDE RECORDS SUMMARY | 2024-04-21 05:14 | XMS_ITS | Encounter Summary ---
Author Organization [place] [address] Care Team Providers Care Doctor Of Osteopathy Name Role Phone Simeon Marley MD Primary Care Provider [phone] Reason for Visit * Reason Comments Annual Exam school Encounter Details Date Type Department Care Team (Latest Contact Info) Description 01/13/2010 2:00 PM EDT Office Visit [facility] [address] [place] [address] Sg Garcia MD [address] [place] [address] Well child check (Primary Dx); Otitis media; ADHD (attention deficit hyperactivity disorder); Otitis media, Right Social History Tobacco Use Types Packs/Day Years [...] Sign Reading Time Taken Comments Blood Pressure 102/60 01/13/2010 1:58 PM EDT Pulse - - Temperature - - Respiratory Rate - - Oxygen Saturation - - Inhaled Oxygen Concentration - - Weight 54 kg (119 lb) 01/13/2010 1:58 PM EDT Height 156 cm (5' 1.42 ) 01/13/2010 1:58 PM EDT Body Mass Index 22.18 01/13/2010 1:58 PM EDT Body Mass Index Percentile 86.09% 01/13/2010 1:5 8 PM EDT Growth Chart: [facility] (Girls, 2- 20 Years) documented in this encounter Ordered Prescriptions Prescription Sig Dispense Quantity Refills Last Filled Start Date End Date amoxicillin-clavula van (AUGMENTIN) 500-125 mg per tabletIndications:O titis media Take 1 Tab by mouth 2 times daily. 20 Tab 0 01/13/2010 12/18/2010 documented in this encounter Progress Notes * Mai Murray - 01/14/2010 2:58 PM EDT * Sg Garcia MD - 01/13/2010 5:51 PM EDTAssociated Problem(s): Well child check - Well child check - Varivax - varicella vacc, sq - Adacel - tdap vaccine >= 7yo im - Menactra - mening conj vacc 4-valent, im - Gardasil - hpv vaccine quadravalent, 3 dose im See scanned 6th grade school form - OK * Sg Garcia MD - 01/13/2010 5:51 PM EDTAssociated Problem(s): ADHD (attention deficit hyperactivity disorder) behavioral tx only, no Rx's * Sg Garcia MD - 01/13/2010 2:38 PM EDTAssociated Problem(s): Otitis media, Right Looks chronic Augmentin 500bid Cont Cipro otic recheck 3 wks - ? need ENT * Sg Garcia MD - 01/13/2010 2:03 PM EDT BROOKE BLANCAS is a 14 y.o. female who presents with the following: CHIEF COMPLAINT Chief Complaint Patient presents with ??? Annual Exam school, 6th grade PAST MEDICAL HISTORY Patient Active Problem List Diagnoses Code ??? ADHD (attention deficit hyperactivity disorder) 314.01M CURRENT MEDICATIONS NONE REVIEW OF SYSTEMS See HPI for further details. Review of systems otherwise negative. SURGICAL HISTORY Social History Occupational History ??? Not on file. Social History Main Topics ??? Tobacco Use: Never ??? Alcohol Use: No ??? Drug Use: No ??? Sexually Active: Not on file Immunization History Administered Date(s) Administered ??? DTaP 1997, 04/27/1998, 06/27/1998, 02/17/1999, 01/07/2002 ??? Hepatitis B 1997, 1997, 06/27/1998 ??? HiB 1997, 04/27/1998, 02/17/1999, 04/27/1999 ??? IPV 1997, 04/27/1998, 10/04/1998, 01/07/2002 ??? MMR 10/04/1998, 03/06/2000 ??? Varicella 10/04/1998 ALLERGIES No Known Allergies EXAM BP 102/60 Ht 5' 1.42 (1.56 m) Wt 119 lb (53.978 kg) Last 3 Encounter Wt Readings: Date Wt 01/13/2010 119 lb (53.978 kg) (85.07%) 12/20/2009 119 lb (53.978 kg) (85.66%) Last 3 Encounter Ht Readings: Date Ht 01/13/2010 5' 1.42 (1.56 m) (65.25%) Body mass index is 22.18 kg/(m^2). 86.09% of growth percentile based on BMI-for-age. 85.07% of growth percentile based on warxlk-hiy-qad. 65.24% of growth percentile based on wfhlled-pkt-ghp. NAD TM's - TM R & L wnl ; auricles wnl Throat - not red, no pus, tonsils not enlarged, midline uvula Neck - non-tender, supple, no nodes, no masses Lungs - nl BS, no wheeze, no crackles, no chest wall pain Heart - RRR without MRG Abd - soft, flat, non-tender, no HSM/masses documented in this encounter Plan of Treatment Not on file documented as of this encounter Visit Diagnoses Diagnosis Well child check- Primary Routine infant or child health check Otitis media, Right Unspecified otitis media ADHD (attention deficit hyperactivity disorder) Attention deficit disorder with hyperactivity documented in this encounter Discontinued Medications Medication Sig Discontinue Reason Start Date End Da te methylphenidate (CONCERTA) 27 mg CR tablet Take 27 mg by mouth daily. 01/13/2010 ciprofloxacin-hydrocor tisone (CIPRO HC OTIC)Indications:Otiti s externa Place 3 Drops in ear(s) 2 times daily. Administer drops in the right ear only. 12/20/2009 01/13/2010 documented as of this encounter Orders Immunization/Injection Count Last Ordered Date First Ordered Date HPV VACCINE QUAD 3 DOSE IM 1 01/13/2010 MENINGOCOCCAL CONJUGATE VACC INE 4-VALENT IM 1 01/13/2010 TDAP VACCINE =>7YO IM 1 01/13/2010 VARICELLA VACCINE SQ 1 01/13/2010 documented in this encounter Care Teams Doctor Of Osteopathy Relationship Specialty Start Date End Date Simeon Marley MD [address] [place] [address] PCP - General 03/11/09 08/30/16 documented as of this encounter
--- OUTSIDE RECORDS SUMMARY | 2024-04-21 05:14 | XMS_ITS | Encounter Summary ---
Author Organization [place] [address] Care Team Providers Care Spot Welder Name Role Phone Unavailable Primary Care Provider Unavailabl e Encounter Details Date Type Department Care Team (Late st Contact Info) Description 12/21/2006 12:35 AM EDT - 12/21/2006 1:08 AM EDT Hospital Encounter [facility] Edward Phan MD [address] [place] [address] [place] [address] Social History Tobacco Use Types [...]
--- OUTSIDE RECORDS SUMMARY | 2024-04-21 05:14 | XMS_ITS | Encounter Summary ---
Author Organization [place] [address] Care Team Providers Care Hydroelectric Component Machinist Name Role Phone Simeon Marley MD Primary Care Provider [phone] Reason for Visit * Reason Onset Date Comments Other 12/20/2010 Encounter Details Date Type Department Care Team (Late st Contact Info) Description 12/20/2010 Telephone [facility] [place] [facility] [address] [place] [address] Jennifer Adair, A [address] [place] [address] Other Social History Tobacco Use Types Packs/Day [...] encounter Miscellaneous Notes * Telephone Encounter - Imani Livingston - 12/22/2010 3:25 PM EDT Home phn# busy again and no answer on cell # or [facility]. Letter mailed to home to have them call theoffice * Telephone Encounter - Imani Livingston - 12/21/2010 3:17 PM EDT Home phn# busy and cell said [facility] has not been set up yet * Telephone Encounter - Jennifer Adair MA - 12/20/2010 5:12 PM EDT Tried to contact pt's mother - she left RX for adderall here when in for sports physical - rx up front for pickup documented in this encounter Plan of Treatment Not on file documented as of this encounter Visit Diagnoses Not on filedocumented in this encounter Care Teams Hydroelectric Component Machinist Relationship Specialty Start Date End Date Simeon Marley MD [address] [place] [phone] PCP - General 03/11/09 08/30/16 documented as of this encounter
--- OUTSIDE RECORDS SUMMARY | 2024-04-21 05:14 | XMS_ITS | Encounter Summary ---
Author Organization [place] [address] Care Team Providers Care Canvas Cutter Machine Name Role Phone Simeon Marley MD Primary Care Provider [phone] Reason for Visit * Reason Onset Date Comments Medication Problem 07/10/2010 Encounter Details Date Type Department Care Team (Late st Contact Info) Description 07/10/2010 Telephone [facility] [address] [place] [address] Simeon Marley MD [address] [place] [address] Medication Problem Social History Tobacco Use Types Packs/Day Years [...] on file documented as of this encounter Ordered Prescriptions Prescription Sig Dispense Quantity Refills Last Filled Start Date End Date amphetamine-dextroa mphetamine (ADDERALL) 10 mg tabletIndications:A DHD (attention deficit hyperactivity disorder) Take 1 Tab by mouth 2 times daily. 60 Tab 0 07/10/2010 12/18/2010 documented in this encounter Miscellaneous Notes * Telephone Encounter - Simeon Marley MD - 07/10/2010 5:00 PM EST pt needed written Rx for Adderall 10 mg po bid #60 Rf 0 - original Rx was only for #30. Ok for patient to brick picker written script. It is in my bin on my cart. documented in this encounter Plan of Treatment Not on file documented as of this encounter Visit Diagnoses Diagnosis ADHD (attention deficit hyperactivity disorder) Attention deficit disorder with hyperactivity documented in this encounter Discontinued Medications Medication Sig Discontinue Reason Start Date End Da te amphetamine-dextroamphetam ine (ADDERALL) 10 mg tabletIndications:ADHD (attention deficit hyperactivity disorder) Take 1 Tab by mouth 2 times daily. Reorder 07/10/2010 12/18/2010 documented as of this encounter Care Teams Canvas Cutter Machine Relationship Specialty Start Date End Date Simeon Marley MD [address] [place] [id number] PCP - General 03/11/09 08/30/16 documented as of this encounter
--- OUTSIDE RECORDS SUMMARY | 2024-04-21 05:14 | XMS_ITS | Encounter Summary ---
Author Organization [place] [address] Care Team Providers Care Dog Breeder Name Role Phone Unavailable Primary Care Provider Unavailabl e Encounter Details Date Type Department Care Team (Late st Contact Info) Description 07/23/2001 2:06 AM EST - 07/23/2001 4:45 AM EST Hospital Encounter [facility] Monica Donald MD [address] [place] [address] [place] [address] Social History Tobacco Use Types [...]
[2024-04-21 05:59] VITALS: BP 138/70; PULSE 93; RESP 18; TEMP 36.9; O2SAT 99; BMI 37.9
[2024-04-21 06:08] LABS: Basophils % 0.4 % (0.1-2.0); Eosinophils # 0.1 K/mm3 (0.0-0.4); Eosinophils % 0.7 % (0.1-12.0); Hematocrit 31.1 % (37.0-47.0); Hemoglobin 10.9 g/dL (12.2-16.2); Lymphocytes # 3.2 K/mm3 (0.7-4.5); Lymphocytes % 36.2 % (10-50); Mean Corpuscular HGB Conc 35.1 g/dL (31.8-35.4); Mean Corpuscular Hemoglobin 30.7 pg (27.0-31.2); Mean Corpuscular Volume 87.4 fl (81-99); Monocytes # 0.8 K/mm3 (0.1-1.0); Monocytes % 8.8 % (1.7-9.3); Neutrophils # 4.9 K/mm3 (1.8-7.8); Neutrophils % 53.9 % (37.0-80.0); Platelet Count 251 K/mm3 (142-424); Red Blood Count 3.56 M/mm3 (4.20-5.40); Red Cell Distribution Width 15.1 % (11.5-17.5)
[2024-04-21 06:30] LABS: Anion Gap 12.1 mEq/L (5-15); Blood Urea Nitrogen 8 mg/dl (7-17); Calcium 9.3 mg/dl (8.4-10.2); Carbon Dioxide 19 mmol/L (22.0-30.0); Chloride 109 mmol/L (98-107); Creatinine Clearance Estimated 450 mL/min (50-200); Estimated Glomerular Filt Rate 269 ml/min (>60); GFR (African American) 325 ML/MIN (>60); Glucose 94 mg/dl (74-100); Potassium 4.1 mmoL/L (3.5-5.1); Sodium 136 mmol/L (136-145)
[2024-04-21] MEDS: OXYTOCIN/RINGERS LACTATE 30 UNITS/500 ML BAG IV (06:39)
[2024-04-21] MEDS: DEXTROSE 5%-LACTATED RINGERS 1,000 ML 125 ML IV (06:40)
--- NOTE | 2024-04-21 07:26 | EXP.LABOR.NO ---
Labor Note Subjective: Date: 04/21/24 Time: 07:20 irregular contractions Objective: NST:: Reactive Contractions:: infrequent Cervical Dilation:: 2 Effacement:: 50% Station: -2 Membranes: artificially ruptured Comment:: I ruptured her membranes and there was just a small amount of clear fluid. Fetus: Monitoring?: Yes monitoring type:: External Assessment: Labor progressing?: Yes Cephalopelvic disproportion?: No Plan: Anesthesia for epidural?: No Continue to labor down?: Yes Plan for ?: No Continue to monitor?: Yes Start pushing?: No Comment:: Her cervix is very soft and midline. She was 2 cm dilated and 50% effaced.
--- NOTE | 2024-04-21 07:27 | EXP.HP ---
History of Present Illness *Admission Date: 04/21/24 *Reason for visit:: Term , *History of present illness: She is a 28-year-old 3 para 2 who is 39 weeks gestational age. She elected for induction of labor at term. O+ blood Rubella immune Group B streptococcus negative. [facility] Disclaimer: The information contained in this section may have been updated after the patient was seen, as this information can be updated by other users. 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 current occupational exposures/hazards: No caffeine: Yes do you feel safe at home: Yes victim of physical abuse: No victim of emotional abuse: No victim of sexual abuse: No Other Medical History Have you received the Flu Vaccine for this season: No Have you received the Pneumonia Vaccine: No Review of Systems Review of Systems Review of systems:: pertinent systems reviewed and negative unless documented below Meds Home Medications and Allergies Home Medications ?Medication ?Instructions ?Recorded ?Confirmed ?Type albuterol sulfate 90 mcg/actuation 2 puff inhalation Q4HP PRN 12/16/23 04/21/24 Rx aerosol inhaler Shortness Of Breath #6.7 grams cholecalciferol (vitamin D3) 25 25 mcg PO DAILY Supplement #30 caps 12/16/23 04/21/24 Rx mcg (1,000 unit) capsule ergocalciferol (vitamin D2) 1,250 1,250 mcg PO WEEKLY Supplement #60 12/16/23 04/21/24 Rx mcg (50,000 unit) capsule caps ferrous sulfate 325 mg (65 mg 325 mg PO DAILY Supplement #30 tabs 12/16/23 04/21/24 Rx iron) tablet vits no.126-ferrous fum 1 tab PO DAILY #30 tabs 12/16/23 04/21/24 Rx 28 mg iron-folic acid 800 mcg tablet (Classic ) New Prescriptions to Start Prescriptions: Allergies Allergy/AdvReac Type Severity Reaction Status Date / Time famotidine Allergy Intermediate Rash Verified 04/15/24 13:57 metoclopramide (From Reglan) Allergy Intermediate Rash Verified 04/15/24 13:57 Exam Data for Last 24 hours Vital signs and Labs for Last 24 Hours: Temp Pulse Resp BP Pulse Ox O2 Del Method 98.5 F 93 H 18 138/70 99 Room Air 04/21/24 05:59 04/21/24 05:59 04/21/24 05:59 04/21/24 05:59 04/21/24 05:59 04/21/24 05:59 Laboratory Results - last 24 hr 04/21/24 05:14: WBC 9.0, RBC 3.56 L, Hgb 10.9 L, Hct 31.1 L, MCV 87.4, MCH 30.7, MCHC 35.1, RDW 15.1, Plt Count 251, MPV 10.0, Neut % (Auto) 53.9, Lymph % (Auto) 36.2, Bertie % (Auto) 8.8, Eos % (Auto) 0.7, Baso % (Auto) 0.4, Neut # (Auto) 4.9, Lymph # (Auto) 3.2, Bertie # (Auto) 0.8, Eos # (Auto) 0.1, Baso # (Auto) 0.0 04/21/24 05:50: Sodium 136, Potassium 4.1, Chloride 109 H, Carbon Dioxide 19 L, Anion Gap 12.1, BUN 8, Creatinine 0.30 L, Estimated Creat Clear 450 H, Estimated GFR 269, Est GFR ( Amer) 325, Glucose 94, Calcium 9.3 I & O for Last 24 hours: Intake & Output 04/18/24 04/19/24 04/20/24 04/21/24 11:59 11:59 11:59 11:59 Weight 221 lb Constitutional Constitutional: no acute distress *Routine HEENT Exam Head: Present normocephalic Eye: Present EOMI and PERRL ENT: Present mucous membranes moist *Routine Neck Exam Neck: Present supple; Absent lymphadenopathy *Routine Respiratory Exam Respiratory: Present CTA bilaterally *Routine Cardiovascular Exam Cardiovascular: Present RRR *Routine Abdominal Exam Abdominal: Present soft and normoactive bowel sounds; Absent tenderness *Routine Rectal Exam Rectal:: deferred *Routine Genitalia Exam Genitalia:: deferred *Routine Extremities Exam Extremities: Absent cyanosis, clubbing or edema *Routine Skin Exam Skin: Present warm; Absent rash *Routine Neurological Exam Neurological: Present alert and oriented X3 Assessment and Plan *Assessment and plan (1) : Status: Acute Qualifiers: Weeks of gestation: 38 weeks Qualified Code(s): Z3A.38 - 38 weeks gestation of Category: Medical Code(s): Z34.90 - Encounter for supervision of normal , unspecified, unspecified trimester Plan She is admitted for induction of labor at term.
[2024-04-21 07:38] VITALS: BP 121/60; PULSE 89; RESP 16; TEMP 36.9
[2024-04-21 07:53] LABS: Microscopic, Urine URINE MICROSCOPIC (MICROSCOPIC)
[2024-04-21 08:08] LABS: Appearance,Urine CLOUDY (Clear); Bilirubin,Urine Negative (Negative); Blood, Urine Negative (Negative); Color,Urine YELLOW (Yellow); Glucose,Urine (UA) Negative (Negative); Ketones,Urine Negative (Negative); Leukocyte Esterase,Urine 2+ (Negative); Nitrate,Urine Negative (Negative); Protein,Urine TRACE (Negative); Specific Gravity, Urine >= 1.030 (1.005-1.030)
[2024-04-21 08:20] LABS: Barbiturates Screen,Urine Negative ng/ml (<200)
[2024-04-21 08:21] LABS: Amphetamine/Metha Screen,Urine Negative ng/ml (<1000); Benzodiazepines Screen,Urine Negative ng/ml (<200)
[2024-04-21 08:22] LABS: Cannabinoid Screen,Urine Negative ng/ml (<50)
[2024-04-21 08:23] LABS: Cocaine Screen,Urine Negative ng/ml (<300); Methadone Screen,Urine Negative ng/ml (<300)
[2024-04-21 08:24] LABS: Opiate Screen,Urine Negative ng/ml (<300)
[2024-04-21 08:25] LABS: Phencyclidine Screen,Urine Negative ng/ml (<25)
--- NOTE | 2024-04-21 09:06 | EXP.ANES.CKL ---
[facility] Disclaimer: The information contained in this section may have been updated after the patient was seen, as this information can be updated by other users. 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 current occupational exposures/hazards: No caffeine: Yes do you feel safe at home: Yes victim of physical abuse: No victim of emotional abuse: No victim of sexual abuse: No [facility] Anesthesia Checklist Patient Identification Patient Identification: Arm Band and Verbal (Name & ) Structural Data Admitted From: Home Planned Operative Procedure/s: Labor epidural Consent for Planned Operative Procedure(s) Verified: Yes Verified Documents: Surgical Consent and History and Physical NPO Status Verified Time NPO: 00:00 Chart Verification Results Verified: CBC Additional verifications Anesthesia Reactions: No Hx Blood Transfusions: No Blood Transfusion Reaction: No Airway Assessment Mallampati Score:: Class II C-Spine Mobility Assessed: Yes TMJ Mobility Assessed: Yes Dentition: Good Dentition Neurological Assessment Level of Consciousness: Awake Hx Seizures: No Numbness or tingling in extremities: No Anesthesia Plan Anesthesia Risk discussed: Yes Anesthesia Plan: Verified ASA Class: II Anesthesia Type: Epidural
[2024-04-21 09:28] LABS: Bacteria,Urine 1+ /lpf; RBC,Urine Occasional #/hpf (0-3)
--- NOTE | 2024-04-21 10:59 | EXP.LABOR.NO ---
Labor Note Subjective: Date: 04/21/24 Time: 10:59 regular contraction Objective: NST:: Reactive Contractions:: every 2-3 minutes Cervical Dilation:: 9-10 Effacement:: 100% Station: 0 Membranes: artificially ruptured Fetus: Monitoring?: Yes monitoring type:: External Assessment: Labor progressing?: Yes Cephalopelvic disproportion?: No Plan: Anesthesia for epidural?: Yes Continue to labor down?: Yes Plan for ?: No Continue to monitor?: Yes Start pushing?: No Comment:: She just has a small anterior lip and I think she could push by it but she cannot feel her pelvis to push. We are going to decrease her epidural and see if she can have this baby soon.
[2024-04-21] MEDS: OXYTOCIN/RINGERS LACTATE 30 UNITS/500 ML BAG 40 UNITS IV (11:47)
--- NOTE | 2024-04-21 12:05 | P.PCN_ITS ---
Delivery Note Delivery Date:: 04/21/24 Delivery Time:: 11:43 Anesthesia Type: Epidural Was labor medically induced?: Yes Induction method: per pitocin protocol Gestational age (weeks): 39 delivered prior to 39 weeks?: No Justification for early elective delivery:: Other Gender: Male at 1 minute: 7 at 5 minutes: 8 Delivery Procedure:: She is a 28-year-old 3 para 2 at 39 weeks gestational age. She has had large babies in the past and as result of that was offered induction of labor at term. She was started on IV oxytocin had her membranes ruptured. Under labor epidural she progressed to full dilation and delivered spontaneously a liveborn male child at 11:43 AM on the morning of April 21, 2024. On deliver the head the anterior shoulder then delivered followed by the rest the infant's body atraumatically. The oropharynx and nasopharynx were bulb suction. The baby was vigorous so we allowed the cord to continue to pulsate for approximately 1 minute. The cord was then doubly clamped and cut and the was placed on the mother's abdomen for further care. The nurses assigned Apgars of 7 at 1 minute and 8 at 5 minutes. We then obtained cord blood. She received IV oxytocin using gentle traction on the cord and countertraction the fundus the placenta delivered intact 4 minutes after delivery. It had a normal three-vessel cord. There were no perineal or vaginal lacerations. She has O+ blood, she is rubella immune and was group B streptococcus negative. Her activities leader Dr. Ayala. Estimated blood loss was approximately 150 cc. When the 's anterior shoulder delivered I heard a crunching sound and we suspect that the baby may have a left-sided collarbone fracture. [employer] will be notified and appropriate investigations performed. Placental Delivery Description: Spontaneous
--- NOTE | 2024-04-21 17:58 | EXP.DC.SUM ---
General Admission date:: 04/21/24 Discharge date: 04/21/24 HPI HPI HPI: She is a 28-year-old 3 para 2 who is 39 weeks gestational age. She elected for induction of labor at term. O+ blood Rubella immune Group B streptococcus negative. Hospital Course Hospital Course Hospital Course: On the morning of April 21, 2024 she was started on IV oxytocin. She had her membranes ruptured and under labor epidural she progressed to full dilation. She delivered a liveborn male child at 11:43 AM on the morning of April 21, 2024. The baby had Apgars of 7 at 1 minute and 8 at 5 minutes. The baby was found to have a left fractured collarbone. He weighed 9 pounds 8 ounces. He has been having some grunting post and is having difficulty maintaining his saturations without oxygen. As result of that Dr. Ayala has elected to have him transferred to the [facility]. We will go ahead and discharge Azalia so she can follow the baby down to . She has done well and has remained afebrile with her hospitalization. Her lochia is normal. She is eating and drinking and ambulating. She has been breast-feeding. She will be discharged home to the follow-up with me in a couple of weeks time. She will continue with her vitamins and iron. She was given these instructions with respect to limiting her activity, driving and sexual activity. Exam Data for Last 24 hours Vital signs and Labs for Last 24 Hours: Temp Pulse Resp BP Pulse Ox O2 Del Method 98.4 F 89 16 121/60 99 Room Air 04/21/24 07:38 04/21/24 07:38 04/21/24 07:38 04/21/24 07:38 04/21/24 05:59 04/21/24 05:59 Laboratory Results - last 24 hr 04/21/24 05:14: WBC 9.0, RBC 3.56 L, Hgb 10.9 L, Hct 31.1 L, MCV 87.4, MCH 30.7, MCHC 35.1, RDW 15.1, Plt Count 251, MPV 10.0, Neut % (Auto) 53.9, Lymph % (Auto) 36.2, [place] % (Auto) 8.8, Eos % (Auto) 0.7, Baso % (Auto) 0.4, Neut # (Auto) 4.9, Lymph # (Auto) 3.2, [place] # (Auto) 0.8, Eos # (Auto) 0.1, Baso # (Auto) 0.0 04/21/24 05:50: Sodium 136, Potassium 4.1, Chloride 109 H, Carbon Dioxide 19 L, Anion Gap 12.1, BUN 8, Creatinine 0.30 L, Estimated Creat Clear 450 H, Estimated GFR 269, Est GFR ( Amer) 325, Glucose 94, Calcium 9.3, Blood Type O Positive, Antibody Screen Negative 04/21/24 : Urine Color Yellow, Urine Appearance Cloudy, Urine pH 6.0, Ur Specific [place] >= 1.030, Urine Protein Trace, Urine Glucose (UA) Negative, Urine Ketones Negative, Urine Blood Negative, Urine Nitrate Negative, Urine Bilirubin Negative, Urine Urobilinogen 1.0, Ur Leukocyte Esterase 2+ A, Urine RBC Occasional, Urine WBC 10-20, Ur Squamous Epith Cells 5-10, Urine Bacteria 1+, Urine Opiates Screen Negative, Urine Methadone Screen Negative, Ur Barbituates Screen Negative, Ur Phencyclidine Scrn Negative, Ur Amphetamines Screen Negative, U Benzodiazepines Scrn Negative, Urine Cocaine Screen Negative, U Marijuana (THC) Screen Negative I & O for Last 24 hours: Intake & Output 04/19/24 04/20/24 04/21/24 04/22/24 11:59 11:59 11:59 11:59 Weight 221 lb Constitutional Constitutional: no acute distress *Routine HEENT Exam Head: Present normocephalic *Routine Respiratory Exam Respiratory: Present normal respiratory effort and able to speak in complete sentences; Absent accessory muscle use *Routine Neurological Exam Neurological: Present alert and oriented X3 Routine Psychiatric Exam Psychiatric: Present normal affect and normal thought process Results Data Completed and Pending Labs on day of discharge: Labs from last 24 hours 04/21/24 04/21/24 04/21/24 Unknown 05:50 05:14 WBC 9.0 RBC 3.56 L Hgb 10.9 L Hct 31.1 L MCV 87.4 MCH 30.7 MCHC 35.1 RDW 15.1 Plt Count 251 MPV 10.0 Neut % (Auto) 53.9 Lymph % (Auto) 36.2 [place] % (Auto) 8.8 Eos % (Auto) 0.7 Baso % (Auto) 0.4 Neut # (Auto) 4.9 Lymph # (Auto) 3.2 [place] # (Auto) 0.8 Eos # (Auto) 0.1 Baso # (Auto) 0.0 Sodium 136 Potassium 4.1 Chloride 109 H Carbon Dioxide 19 L Anion Gap 12.1 BUN 8 Creatinine 0.30 L Estimated Creat Clear 450 H Estimated GFR 269 Est GFR ( Amer) 325 Glucose 94 Calcium 9.3 Urine Color Yellow Urine Appearance Cloudy Urine pH 6.0 Ur Specific [place] >= 1.030 Urine Protein Trace Urine Glucose (UA) Negative Urine Ketones Negative Urine Blood Negative Urine Nitrate Negative Urine Bilirubin Negative Urine Urobilinogen 1.0 Ur Leukocyte Esterase 2+ A Urine RBC Occasional Urine WBC 10-20 Ur Squamous Epith Cells 5-10 Urine Bacteria 1+ Urine Opiates Screen Negative Urine Methadone Screen Negative Ur Barbituates Screen Negative Ur Phencyclidine Scrn Negative Ur Amphetamines Screen Negative U Benzodiazepines Scrn Negative Urine Cocaine Screen Negative U Marijuana (THC) Screen Negative Blood Type O Positive Antibody Screen Negative DS: Diagnosis Discharge Diagnosis (1) Normal delivery: Status: Acute Code(s): O80 - Encounter for full-term uncomplicated delivery (2) High serum thyroxine (T4): Status: Acute Code(s): R79.89 - Other specified abnormal findings of blood chemistry (3) Low TSH level: Status: Acute Code(s): R79.89 - Other specified abnormal findings of blood chemistry Meds Home Medications and Allergies Home Medications ?Medication ?Instructions ?Recorded ?Confirmed ?Type albuterol sulfate 90 mcg/actuation 2 puff inhalation Q4HP PRN 12/16/23 04/21/24 Rx aerosol inhaler Shortness Of Breath #6.7 grams cholecalciferol (vitamin D3) 25 25 mcg PO DAILY Supplement #30 caps 12/16/23 04/21/24 Rx mcg (1,000 unit) capsule ergocalciferol (vitamin D2) 1,250 1,250 mcg PO WEEKLY Supplement #60 12/16/23 04/21/24 Rx mcg (50,000 unit) capsule caps ferrous sulfate 325 mg (65 mg 325 mg PO DAILY Supplement #30 tabs 12/16/23 04/21/24 Rx iron) tablet vits no.126-ferrous fum 1 tab PO DAILY #30 tabs 12/16/23 04/21/24 Rx 28 mg iron-folic acid 800 mcg tablet (Classic ) New Prescriptions to Start Prescriptions: Allergies Allergy/AdvReac Type Severity Reaction Status Date / Time famotidine Allergy Intermediate Rash Verified 04/15/24 13:57 metoclopramide (From Reglan) Allergy Intermediate Rash Verified 04/15/24 13:57 Discharge Plan Disposition Patient Disposition: Home, Self-Care Discharge Order Discharge Orders: Discharge Order (Routine); Ordered 04/21/24 Ordered By: Carson De Leon Follow up Plan Prescriptions/Medication Reconciliation: Continued albuterol sulfate 90 mcg/actuation HFA aerosol inhaler 2 puff inhalation Q4HP PRN (Reason: Shortness Of Breath) Qty: 6.7 0RF cholecalciferol (vitamin D3) 25 mcg (1,000 unit) capsule 25 mcg PO DAILY Qty: 30 2RF ergocalciferol (vitamin D2) 1,250 mcg (50,000 unit) capsule 1,250 mcg PO WEEKLY Qty: 60 0RF ferrous sulfate 325 mg (65 mg iron) tablet 325 mg PO DAILY Qty: 30 11RF Classic 28 mg iron- 800 mcg tablet 1 tab PO DAILY Qty: 30 11RF Problem Reconciliation Problems Reviewed?: Yes Patient Discharge Instructions ACTIVITY: No heavy lifting DIET: continue same diet Print Language: Gibraltarian Providers Primary Care Provider: Provider,Referral Admit Provider: Karen Evans Attending Provider: Karen Evans
[2024-04-22 12:20] LABS: Rapid Plasma Reagin Ab Titer Non Reactive titer (NonRea<1:1)
== END 2024-04-21 19:55 | disposition home or self-care (01) | DRG 807 ==
PROVIDERS: Nurse Practitioner Obstetrics & Gynecology; Admitting Provider Obstetrics & Gynecology; Visit Provider Obstetrics & Gynecology
DX: O80 Encounter for full-term uncomplicated delivery (principal); Z37.0 Single live birth; Z3A.39 39 weeks gestation of pregnancy
CPT/HCPCS: 59025; 80048; 80307; 81001; 85025; 86593; 86850; 87086; 87088; 87186; 94761; G0283; J3010

== ENCOUNTER 2024-04-24 11:47 | Emergency (ER) | payer OTHER, SELFPAY ==
[2024-04-24 12:01] VITALS: BP 117/63; PULSE 78; RESP 18; TEMP 36.6; O2SAT 97; BMI 36.6
--- NOTE | 2024-04-24 12:06 | ED_ITS ---
Discharge Plan Disposition Patient Disposition: Home, Self-Care Condition: Good Prescriptions Prescriptions: New azithromycin [Zithromax Z-Good] 250 mg tablet See Rx Instructions .ROUTE .COMPLEX 5 Days Qty: 6 0RF Rx Instructions: For 250 mg dose pack: take 500 mg today (day 1), then 250 mg for 4 days (days 2-5) No Action Classic 28 mg iron- 800 mcg tablet 1 tab PO DAILY Qty: 30 11RF Referrals Follow up/Referrals: Provider,Referral, MD [Primary Care Provider] - See instructions Activity Restrictions/Add. Instructions Additional Instructions/Restrictions: Monitor Temp, Over the counter Motrin or Tylenol as directed/as needed Tylenol every 4 hours and Motrin every 6 hours (as long as your family doctor has told you that you can take it) for fever or pain. and straight to ER if unable to lower temp less than 101.0 after medication given *Warm salt water gargles may help to soothe the throat *Throat Lozenges? *Warm fluids like tea with honey may help to soothe the throat? *Sleep elevated *Humidifier/Vaporizer Your testing should be back later today and available on the [facility] My health Portal Your throat swab was sent for culture. Those results are typically sent to your primary care. Be sure to follow up in 2-3 days with your family doctor/primary care physician if no improvement so they can review those result and treat if necessary. If you don?t have a primary care doctor, I recommend you get one but in the mean time, you will have to return to a walk in clinic Follow up IMMEDIATELY for new or worsening symptoms or no Noticeable improvement over the next 48-72 hours. 911 for difficulty breathing or swallowing Clinical Impressions Clinical Impression: Cough Qualifiers: Cough type: unspecified Qualified Code(s): R05.9 - Cough, unspecified Instructions Patient Instructions: Cough Print Language Print Language: Uzbek Discharge ED Provider: Mercedes Fraser [facility] HPI General Stated complaint: cough, congestion Mode of Arrival: Ambulatory Source of Information: Patient Time Seen by Provider: 04/24/24 12:07 Description of Symptoms (Recalled from Triage Doc. by RN): COUGH, WANTS CHECKED D/T BABY BEING IN HOSPITAL HEENT Symptoms (Recalled from RN notes): No Resp Symptoms (Recalled from RN notes): Yes Skin Symptoms (Recalled from RN notes): No MS Symptoms (Recalled from RN notes): No Functional Status (Recalled from RN notes): WNL History of Present Illness Provider Complaint: Patient states that she just had a baby 3 days ago and the baby is still in the hospital States that she has a cough and they wanted her to get tested for RSV and COVID states Related Data Previous Rx's ?Medication ?Instructions ?Recorded vits no.126-ferrous fum 1 tab PO DAILY #30 tabs 12/16/23 28 mg iron-folic acid 800 mcg tablet (Classic ) azithromycin 250 mg tablet See Rx Instructions PO .COMPLEX 5 04/24/24 (Zithromax Z-Good) days #6 tabs Allergies Allergy/AdvReac Type Severity Reaction Status Date / Time famotidine Allergy Intermediate Rash Verified 04/15/24 13:57 metoclopramide (From Reglan) Allergy Intermediate Rash Verified 04/15/24 13:57 Worker's Comp Is this a Worker's Comp case?: No PFSH PFS Disclaimer: The information contained in this section may have been updated after the patient was seen, as this information can be updated by other users. 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 current occupational exposures/hazards: No caffeine: Yes do you feel safe at home: Yes victim of physical abuse: No victim of emotional abuse: No victim of sexual abuse: No ROS Obtained: Yes All systems reviewed & no additional complaints except as documented and Yes Systems reviewed as appropriate & no additional complaints except as documented Constitutional Constitutional: Reports system reviewed and no additional complaints, except as documented, Reports as per HPI, Denies body ache, Denies chills and Denies fever(s) ENT Ears, Nose, Mouth, and Throat: Reports system reviewed and no additional complaints, except as documented, Reports as per HPI, Denies otalgia, Denies nasal congestion, Denies nasal discharge and Denies sore throat Cardiovascular Cardiovascular: Reports system reviewed and no additional complaints, except as documented, Reports as per HPI, Denies dyspnea and Denies dyspnea on exertion Respiratory Respiratory: Reports system reviewed and no additional complaints, except as documented, Reports as per HPI, Denies shortness of breath, Denies chest congestion, Reports cough, Denies dyspnea, Denies dyspnea on exertion, Denies hemoptysis, Denies pain on inspiration, Denies pain with cough, Denies stridor and Denies wheezing Gastrointestinal Gastrointestingal: Reports system reviewed and no additional complaints, except as documented and as per HPI Allergic/Immunologic Allergic/Immunologic: Denies wheezing Physical Exam General General appearance: alert and in no apparent distress ENT ENT exam: Present normal exam, normal oropharynx, mucous membranes moist and TM's normal bilaterally Respiratory Respiratory exam: Present normal lung sounds bilaterally; Absent respiratory distress or wheezes Cardiovascular Cardiovascular exam: Present regular rate, normal rhythm and normal heart sounds Neurological Exam Neurological exam: Present alert, oriented X3 and normal gait Medical Decision Making Medical Records Screening: Per USPSTF and CDC recommendations, given the prevalence of disease in our [facility], it is our hospital?s policy to screen for HIV and viral Hepatitis for all patients aged 18 and over and those with ongoing risk factors. Zach Inquiry Pt receiving controlled substance: No Zach was queried for this patient: No Vital Signs: 04/24/24 12:01 Temperature 97.9 F Temperature Source Oral Pulse Rate [Left Radial] 78 Respiratory Rate 18 Blood Pressure [Left Arm] 117/63 Blood Pressure Mean [Left Arm] 81 02 Sat by Pulse Oximetry 97
[2024-04-24 12:25] LABS: Coronavirus 19, PCR Not Detected (NotDetected); Influenza A, PCR Not Detected (NotDetected); Influenza B, PCR Not Detected (NotDetected)
[2024-04-24 12:31] VITALS: BP 117/63; PULSE 78; RESP 18; TEMP 36.6
[2024-04-24 12:53] LABS: RSV Rapid Ab Screen Negative (Negative)
[2024-04-24 13:11] LABS: Mycoplasma Pneumo IGM (Rapid) Reactive (Non-Reactiv)
== END 2024-04-24 12:34 | disposition home or self-care (01) ==
PROVIDERS: Emergency Provider Nurse Practitioner
DX: R05.9 Cough, unspecified (principal); R09.81 Nasal congestion; Z29.11 Encounter for prophylactic immunotherapy for respiratory syncytial virus (RSV); Z11.52 Encounter for screening for COVID-19; O99.519 Diseases of the respiratory system complicating pregnancy, unspecified trimester
CPT/HCPCS: 86738; 87636; 87807; 99212; G0381

== ENCOUNTER 2024-05-05 02:45 | Emergency (ER) | payer OTHER, SELFPAY ==
[2024-05-05 02:46] VITALS: BP 123/66; PULSE 75; RESP 18; TEMP 36.8; O2SAT 100; BMI 37.2
[2024-05-05 03:23] VITALS: BP 112/76; PULSE 85; RESP 18; TEMP 36.8; O2SAT 99
--- NOTE | 2024-05-05 04:03 | ED_ITS ---
Discharge Plan Disposition Patient Disposition: Home, Self-Care Condition: Good Prescriptions Prescriptions: No Action Classic 28 mg iron- 800 mcg tablet 1 tab PO DAILY Qty: 30 11RF albuterol sulfate [Ventolin HFA] 90 mcg/actuation HFA aerosol inhaler 2 puff inhalation Q4-6H PRN (Reason: shortness of breath or wheezing) Qty: 6.7 0RF azithromycin [Zithromax Z-Good] 250 mg tablet See Rx Instructions .ROUTE .COMPLEX 5 Days Qty: 6 0RF Rx Instructions: For 250 mg dose pack: take 500 mg today (day 1), then 250 mg for 4 days (days 2-5) Referrals Follow up/Referrals: Provider,Referral, MD [Primary Care Provider] - See instructions Activity Restrictions/Add. Instructions Additional Instructions/Restrictions: You were evaluated in the ER and are appropriate for discharge at this time. Drink plenty of water and eat a balanced diet. Make an appointment with your primary care doctor for reevaluation in a few days. Return to the ER with any new, worsening, or otherwise concerning symptoms as discussed. Clinical Impressions Clinical Impression: Cough, Congested nose Print Language Print Language: Jordanian Discharge ED Provider: Fifi Klein General Adult HPI General Chief complaint: Upper Respiratory Infection Stated complaint: cough, runny nose Time Seen by Provider: 05/05/24 02:50 Mode of Arrival: Ambulatory Source of Information: Patient Limitations: No Limitations Description of Symptoms (Recalled from ER Triage Doc. by RN): pt to ED with c/o cough and runny nose X3 days. Pt reports taking cold/flu OTC at home without effect. Pt reports that her wants to make sure she doesn't have walkiing pna History of Present Illness HPI narrative: 28-year-old female presents to the ER complaining of cough and runny nose for 3 days. She states she is taking urfr-jke-qnfemyx medications without significant improvement. Patient states she has no fevers, chills, chest pain, no shortness of breath, no vomiting, nausea, diarrhea, abdominal pain, dysuria, or hematuria. She states she recently delivered a baby who is still in the NICU. She reports she has started having periods again and is currently on her hours. She states she is otherwise healthy, not currently on any daily medications, no known drug allergies. She reports she has not received COVID or flu shot this year. Related Data Previous Rx's ?Medication ?Instructions ?Recorded vits no.126-ferrous fum 1 tab PO DAILY #30 tabs 12/16/23 28 mg iron-folic acid 800 mcg tablet (Classic ) albuterol sulfate 90 mcg/actuation 2 puff inhalation Q4-6H PRN 04/24/24 aerosol inhaler (Ventolin HFA) shortness of breath or wheezing #6.7 grams azithromycin 250 mg tablet See Rx Instructions PO .COMPLEX 5 04/24/24 (Zithromax Z-Good) days #6 tabs Allergies Allergy/AdvReac Type Severity Reaction Status Date / Time famotidine Allergy Intermediate Rash Verified 04/15/24 13:57 metoclopramide (From Reglan) Allergy Intermediate Rash [facility]24 [facility] Disclaimer: The information contained in this section may have been updated after the patient was seen, as this information can be updated by other users. Medical History Asthma Viral infection Uterine size date discrepancy Nausea & vomiting Acute viral syndrome Amenorrhea Benign paroxysmal positional vertigo Vitamin D deficiency (~06/2017) Surgical History History of laparoscopic appendectomy Hx laparoscopic cholecystectomy Family History Other No significant family history Social History (Updated 04/24/24 @ 13:26 by Mercedes Fraser APRN) Smoking Status: Never smoker second hand exposure: No alcohol intake: never substance use type: denies use current occupational status: employed Travel in the last 8 weeks: None household members: significant other housing: house 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 current occupational exposures/hazards: No caffeine: Yes do you feel safe at home: Yes victim of physical abuse: No victim of emotional abuse: No victim of sexual abuse: No Other Medical History Have you received the Flu Vaccine for this season: No Have you received the Pneumonia Vaccine: No ROS Obtained: Yes Systems reviewed as appropriate & no additional complaints except as documented ROS per HPI Physical Exam General General appearance: alert and in no apparent distress Head Head exam: atraumatic and normocephalic Eye Eye exam: Present PERRL and EOMI ENT ENT exam: Present mucous membranes moist Neck Neck exam: Present normal inspection and full ROM Chest Chest inspection: Present symmetric chest wall rise Respiratory Respiratory exam: Present normal lung sounds bilaterally (Good air movement throughout); Absent respiratory distress, wheezes or stridor Cardiovascular Cardiovascular exam: Present regular rate and normal rhythm Abdominal Exam Abdominal exam: Present soft; Absent distention or tenderness Extremities Exam Extremities exam: Present full ROM Neurological Exam Neurological exam: Present alert and oriented X3; Absent motor sensory deficit Psychiatric Psychiatric exam: Present normal affect and normal mood Skin Skin exam: Present warm and dry Medical Decision Making Medical Records Screening: Per USPSTF and CDC recommendations, given the prevalence of disease in our region, it is our hospital?s policy to screen for HIV and viral Hepatitis for all patients aged 18 and over and those with ongoing risk factors. MR Comment: Review of OB notes demonstrates patient delivered at 39 weeks via induced vaginal delivery on 04/21/24 Zach Inquiry Pt receiving controlled substance: No Vital Signs: 05/05/24 02:46 05/05/24 03:23 Temperature 98.2 F 98.2 F Temperature Source Oral Oral Pulse Rate 85 Pulse Rate [Left Radial] 75 Respiratory Rate 18 18 Blood Pressure 112/76 Blood Pressure [Right Arm] 123/66 Blood Pressure Mean [Right Arm] 85 Blood Pressure Source Automatic Cuff Blood Pressure Source [Right Arm] Automatic Cuff Blood Pressure Position Sitting Blood Pressure Position [Right Arm] Sitting 02 Sat by Pulse Oximetry 100 Oxygen Delivery Method Room Air Room Air Medical Decision Narrative: In summary, this 28-year-old female presents to the emergency department today with cough, congestion. On initial evaluation patient is hemodynamically stable, afebrile, cardiopulmonary exam benign, lungs clear to auscultation bilaterally, patient saturating well on room air. Remainder of exam reassuring. Differential diagnosis includes but is not limited to viral syndrome, I considered possibility of pneumonia though I have low suspicion for this since patient is not having any chest pain, no shortness of breath, no difficulty breathing, no fever. Patient appears to have viral syndrome and I have extremely low suspicion for pneumonia. I recommended viral swab for COVID, flu, full respiratory panel. Patient refused this and stated she does not want any swabs or labs. I do not believe chest x-ray is indicated though was considered for her cough due to her having no fever and extremely low pretest probability of acute thoracic abnormality. Patient is comfortable with no further workup or interventions. She is appropriate for discharge at this time. Patient was given instructions on symptomatic management, follow up instructions, and return precautions for the emergency department. Patient indicated understanding and was discharged in stable condition. Critical Care Critical Care Time Critical Care Time: No
== END 2024-05-05 03:24 | disposition home or self-care (01) ==
PROVIDERS: Emergency Provider Emergency Medicine
DX: R05.9 Cough, unspecified (principal); R09.81 Nasal congestion
CPT/HCPCS: 99281

== ENCOUNTER 2024-06-23 14:37 | Outpatient (CLI) | payer OTHER, SELFPAY ==
[2024-06-23 15:07] LABS: Basophils # 0.1 K/mm3 (0-0.2); Basophils % 0.6 % (0.1-2.0); Eosinophils # 0.1 K/mm3 (0.0-0.4); Eosinophils % 0.6 % (0.1-12.0); Hematocrit 36.9 % (37.0-47.0); Hemoglobin 11.9 g/dL (12.2-16.2); Lymphocytes # 2.9 K/mm3 (0.7-4.5); Lymphocytes % 37.5 % (10-50); Mean Corpuscular HGB Conc 32.2 g/dL (31.8-35.4); Mean Corpuscular Hemoglobin 29.1 pg (27.0-31.2); Mean Corpuscular Volume 90.2 fl (81-99); Mean Platelet Volume 10.7 fl (7.4-10.4); Monocytes # 0.5 K/mm3 (0.1-1.0); Monocytes % 6.8 % (1.7-9.3); Neutrophils # 4.2 K/mm3 (1.8-7.8); Neutrophils % 54.2 % (37.0-80.0); Platelet Count 302 K/mm3 (142-424); Red Blood Count 4.09 M/mm3 (4.20-5.40); Red Cell Distribution Width 14.1 % (11.5-17.5); White Blood Count 7.7 K/mm3 (4.8-10.8)
[2024-06-23 15:18] LABS: Albumin Level 4.6 g/dl (3.5-5.0); Chloride 107 mmol/L (98-107); Potassium 3.8 mmoL/L (3.5-5.1); Sodium 136 mmol/L (136-145)
[2024-06-23 15:21] LABS: Alanine Aminotransferase 48 U/L (12-78); Albumin/Globulin Ratio 1.7 (1.1-1.8); Alkaline Phosphatase 138 U/L (38-126); Anion Gap 9.8 mEq/L (5-15); Aspartate Amino Transferase 38 U/L (14-36); Bilirubin,Total 0.5 mg/dl (0.2-1.3); Blood Urea Nitrogen 11 mg/dl (7-17); Carbon Dioxide 23 mmol/L (22.0-30.0); Estimated Glomerular Filt Rate 149 ml/min (>60); GFR (African American) 180 ML/MIN (>60); Globulin 2.7 g/dL (1.3-3.2); Glucose 91 mg/dl (74-100); Total Protein,Serum 7.3 g/dl (6.3-8.2)
[2024-06-23 15:44] LABS: HCG,Quantitative < 2 mIU/ml (0-5.42)
== END 2024-06-23 23:59 | disposition home or self-care (01) ==
LOC: PREOP 14:37
PROVIDERS: Visit Provider Nurse Practitioner Obstetrics & Gynecology
DX: Z30.2 Encounter for sterilization (principal)
CPT/HCPCS: 80053; 84702; 85025

== ENCOUNTER 2024-06-25 08:07 | Day surgery (SDC) | payer OTHER, SELFPAY ==
[2024-06-23 14:49] VITALS: BMI 37.2
[2024-06-23 15:02] VITALS: BMI 37.2
[2024-06-25] VITALS (12 sets, daily range): BP systolic 102–139; BP diastolic 54–78; PULSE 63–85; RESP 16–20; TEMP 36.1–36.5; O2SAT 94–99
[2024-06-25] MEDS: LACTATED RINGERS 1000ML 1,000 ML 25 ML IV (08:38)
--- NOTE | 2024-06-25 08:57 | EXP.ANES.CKL ---
[facility] Disclaimer: The information contained in this section may have been updated after the patient was seen, as this information can be updated by other users. Medical History Asthma Viral infection Uterine size date discrepancy Nausea & vomiting Acute viral syndrome Amenorrhea Benign paroxysmal positional vertigo Vitamin D deficiency (~06/2017) Surgical History History of laparoscopic appendectomy Hx laparoscopic cholecystectomy Family History Other No significant family history Social History (Updated 06/25/24 @ 08:23 by Polly Denton RN) Smoking Status: Never smoker second hand exposure: No alcohol intake: never substance use type: denies use current occupational status: unemployed Travel in the last 8 weeks: None household members: significant other housing: house 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 Anesthesia Checklist Patient Identification Patient Identification: Arm Band, Family and Verbal (Name & ) Structural Data Admitted From: Home Planned Operative Procedure/s: Lap. RADHA Salp Consent for Planned Operative Procedure(s) Verified: Yes Verified Documents: Surgical Consent and History and Physical NPO Status Verified Time NPO: 22:00 Chart Verification Results Verified: CBC, BMP, ECG, Chest Xray and HCG Additional verifications Patient : No Anesthesia Reactions: No Hx Blood Transfusions: No Blood Transfusion Reaction: No Cardiovascular Assessment Heart Sounds: S1 & S2 Pulse Rhythm: Irregular Peripheral Edema: No Airway Assessment Mallampati Score:: Class II C-Spine Mobility Assessed: Yes (FROM demonstrated) TMJ Mobility Assessed: Yes Dentition: Good Dentition (Nothing loose per pt.) Neurological Assessment Level of Consciousness: Awake, Alert, Appropriate and Follows Commands Hx Seizures: No Numbness or tingling in extremities: No Anesthesia Plan Anesthesia Risk discussed: Yes Anesthesia Plan: Verified ASA Class: II Anesthesia Type: General
[2024-06-25] MEDS: CEFAZOLIN SODIUM 2 GM in 0.9 % SODIUM CHLORIDE 100 ML IV (09:01)
[2024-06-25] MEDS: ROPIVACAINE 0.5% 30ML VIAL 300 MG (09:06)
[2024-06-25] MEDS: SODIUM CHLORIDE IRRIG SOLUTION 3,000 ML 25 ML IR (09:09)
--- NOTE | 2024-06-25 10:01 | EXP.ANES.I ---
[facility] Anesthesia Record Part I Anesthesia Record I Intake, IV Amount: 800 Hydration: Adequate Estimated blood loss (mL): 10 Urine output (mL): 25 Blood Products used (#): none Blood Pressure: 139/78 SaO2: 96 Pulse Rate: 84 Airway Patency: Patent Respiratory Rate: 20 Temperature: 97.0 F Patient is:: Awake, Drowsy and Stable Stable to PACU at:: 10:04
--- NOTE | 2024-06-25 10:32 | EXP.OP.NOTE ---
Date of procedure: 06/25/24 Pre-op Diagnosis:: Desire for sterilization Post-op Diagnosis:: Desire for sterilization Procedure performed:: Laparoscopic bilateral Surgeon:: Carson De Leon MD RESEARCH AND EVALUATION MANAGER:: Dayanara Gisell Anesthesia: GETA Estimated blood loss (mL): 25 Clinical Note:: She is a 28-year-old lady who is about 6 to 8 weeks from a vaginal delivery. She expressed desire for sterilization. The risks and benefits of surgery were discussed the patient prior to surgery. Operative findings:: She had an anteverted bulky uterus. Tubes appeared normal and were followed to their fimbriated ends. The pelvis was normal. She had some adhesions of omentum in the right lower quadrant from a previous appendectomy. The rest of the upper abdomen appeared normal. Operative note:: She was taken to the operating room where general anesthesia was found be adequate. She was prepped and draped in normal sterile fashion in the semilithotomy position. A weighted speculum was placed in the vagina and the anterior lip of the cervix was grasped with a tenaculum. I then inserted a Renita uterine manipulator into the cervical os. The balloon was then insufflated. I changed gloves and injected 10 cc of 0.5% ropivacaine around her umbilicus and made a small incision within the umbilicus. I inserted a Veress needle into the abdominal cavity. The peritoneal cavity was then insufflated with carbon dioxide gas to a pressure of 20 mmHg. I then inserted a 5 millimeter trocar under direct vision. I injected through and through the pubic hairline, made a small incision here and inserted an 8 mm trocar under direct vision. I identified the inferior epigastric artery on the left side, went lateral to these and injected through and through. I then placed a 5 mm trocar here under direct vision. The pelvis and upper abdomen were then inspected and the findings were as previously dictated. I grasped the right tube at the cornua and using harmonic scalpel on coagulation mode I cut through the tube. I then grasped the distal tube and using harmonic scalpel cut along the mesosalpinx. The tube was removed through 8 mm trocar site. This was similarly performed on the patient's left side. She had a small amount of bleeding on the right side along the mesosalpinx. I elected to place an 11 mm trocar suprapubically in the space where the 8 mm trocar previously had been. I then placed a number of hemostatic clips along the mesosalpinx. At that point she was completely hemostatic. I then injected 30 cc of 0.5% ropivacaine into the pelvis. After assuring hemostasis the gas was let out of the abdomen and hemostasis was once again assured. The abdomen was then reinsufflated. The secondary trochars were removed under direct vision. The gas was let out her abdomen. The primary trocar was then removed. The 11 mm trocar site was closed deeply with 2-0 Vicryl suture followed by subcuticular 4-0 Monocryl suture. The 5 mm trocar sites were closed with subcuticular 4-0 Monocryl. Sterile dressings were applied. The patient tolerated the procedure well and was taken to the recovery room in excellent condition. All sponge instrument and needle counts were correct. The estimated blood loss was less than 25 cc. Condition: stable Disposition: PACU Specimens:: Bilateral fallopian tubes Complications:: None
[2024-06-25] MEDS: OXYCODONE 10MG W/APAP 325MG TABLET 1 EACH (11:07)
[2024-06-25] MEDS: ONDANSETRON 4MG/2ML VIAL 4 MG IV (11:08)
--- NOTE | 2024-06-25 15:34 | EXP.ANES.II ---
[facility] Anesthesia Record Part II Anesthesia Record Part II Discharge Time: 10:29 Destination: Surgical Day Care (OP Surgery) PACU nurse assessment reviewed?: Yes Patient Condition:: Good Anesthesia Complications:: None Swallowing reflex intact?: Yes Airway Patency: Patent Cyanosis?: No Blood Pressure: 112/70 SaO2: 96 Respiratory Rate: 20 Pulse Rate: 67 Temperature: 97.0 F Mental Status: Alert & Oriented Pain level:: 0 Nausea and/or vomitting:: None Intake, IV Amount: 800 Hydration: Adequate
== END 2024-06-25 11:32 | disposition home or self-care (01) ==
PROVIDERS: Visit Provider Nurse Practitioner Obstetrics & Gynecology
PROC: (CPT 58661; principal; 2024-06-25 09:30)
DX: Z30.2 Encounter for sterilization (principal)
CPT/HCPCS: 58661; 96374; J3490; J0690; J1100; J1885; J2250; J2405; J3010; J7120

== ENCOUNTER 2024-07-09 13:15 | Outpatient (CLI) | payer OTHER, SELFPAY ==
[2024-07-09 13:56] LABS: Free T4 (Free Thyroxine) 0.82 ng/dl (0.78-2.19)
[2024-07-09 14:10] LABS: Thyroid Stimulating Hormone 0.56 uIU/mL (0.465-4.68)
== END 2024-07-09 23:59 | disposition home or self-care (01) ==
LOC: LAB.DROPOF 13:15
PROVIDERS: PCP Internal Medicine; Visit Provider Internal Medicine
DX: Z13.29 Encounter for screening for other suspected endocrine disorder (principal)
CPT/HCPCS: 84439; 84443

== ENCOUNTER 2024-07-24 09:56 | Emergency (ER) | payer OTHER, SELFPAY ==
[2024-07-24 09:57] VITALS: BP 126/78; PULSE 82; RESP 17; TEMP 36.6; O2SAT 98; BMI 35.0
--- NOTE | 2024-07-24 10:26 | ED_ITS ---
Discharge Plan Disposition Patient Disposition: Home, Self-Care Chief Complaint: Upper Respiratory Infection Prescriptions Prescriptions: No Action No Known Home Medications Referrals Follow up/Referrals: Nishant Evans DO [Primary Care Provider] - See instructions Activity Restrictions/Add. Instructions Additional Instructions/Restrictions: Follow-up with your family doctor as needed for this visit to the emergency department. Clinical Impressions Clinical Impression: Pharyngitis Print Language Print Language: Azeri Discharge ED Provider: Marcus Shirley General Adult HPI General Chief complaint: Upper Respiratory Infection Stated complaint: sore throat cough Time Seen by Provider: 07/24/24 10:03 Mode of Arrival: Family Vehicle Source of Information: Patient and Medical Record Limitations: No Limitations Description of Symptoms (Recalled from ER Triage Doc. by RN): Pt c/o sore throat, dry cough, and maybe dental pain. Denies any fever, chills, or body aches. 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 History of Present Illness HPI narrative: Please note that above description of symptoms, in this electronic medical record under categorization of recalled from ER triage doctor by RN are reflective of an initial nursing assessment, however, is not reflective of my full history and physical exam that was personally taken and clarified. Consequentially, this preceding description of symptoms, which may include the patient's categorized chief complaint in the EMR, do not reflect my personal clinical impression, and the ultimate description of history of present illness and patient stated complaints should be deferred to this section of the note. Unless stated otherwise or congruent with this section of the note, additional signs, symptoms, or incongruence should be interpreted as inaccurate with my clinical impression. Related Data Home Medications ?Medication ?Instructions ?Recorded ?Confirmed No Known Home Medications 07/24/24 07/24/24 Allergies Allergy/AdvReac Type Severity Reaction Status Date / Time famotidine Allergy Intermediate Rash Verified 07/24/24 10:26 metoclopramide (From Reglan) Allergy Intermediate Rash Verified 07/24/24 10:26 [facility] Disclaimer: The information contained in this section may have been updated after the patient was seen, as this information can be updated by other users. Medical History (Updated 07/24/24 @ 10:29 by Marcus Shilrey MD) Asthma Viral infection Uterine size date discrepancy Nausea & vomiting Acute viral syndrome Amenorrhea Benign paroxysmal positional vertigo Vitamin D deficiency (~06/2017) Surgical History Hx of tubal ligation History of laparoscopic appendectomy Hx laparoscopic cholecystectomy Family History Other No significant family history Social History Smoking Status: Never smoker second hand exposure: No alcohol intake: never substance use type: denies use current occupational status: unemployed Travel in the last 8 weeks: None household members: significant other housing: house 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 current occupational exposures/hazards: No caffeine: Yes do you feel safe at home: Yes victim of physical abuse: No victim of emotional abuse: No victim of sexual abuse: No Have you lived/traveled outside [place] in past 30 days?: No Contact w/someone who lives/traveled outside US past 30 days?: No Exposure to someone with infectious disease in past 14 days?: No Do you have a fever (greater than 100.4 F or 38 C)?: No Have you tested positive for COVID-19: No Exposed to someone with COVID-19 in past 14 days?: No Do you have a sore throat?: Yes Do you have a cough?: Yes Do you have any weakness?: No Do you have any diarrhea?: No Are you experiencing any unusual bleeding?: No Do you have any muscle aches/pain?: No Do you have any abdominal pain?: No Are you experiencing loss of taste or smell?: No Other Medical History Have you received the Flu Vaccine for this season: No Have you received the Pneumonia Vaccine: No ROS Obtained: Yes All systems reviewed & no additional complaints except as documented Physical Exam General General appearance: alert Head Head exam: atraumatic and normocephalic Eye Eye exam: Present normal appearance, PERRL and EOMI Neck Neck exam: Present normal inspection, full ROM and trachea midline Respiratory Respiratory exam: Absent respiratory distress, wheezes, stridor, accessory muscle use or prolonged expiratory phase Cardiovascular Cardiovascular exam: Present other (Pulses equal symmetric in upper and lower extremities) Abdominal Exam Abdominal exam: Present soft; Absent distention, tenderness or pulsatile mass Extremities Exam Extremities exam: Absent edema Neurological Exam Neurological exam: Present alert, oriented X3 and CN II-XII intact; Absent motor sensory deficit Skin Skin exam: Present warm and dry; Absent diaphoresis or erythema Medical Decision Making Medical Records Medical records reviewed: Yes I reviewed the patient's medical records. Screening: Per USPSTF and CDC recommendations, given the prevalence of disease in our region, it is our hospital?s policy to screen for HIV and viral Hepatitis for all patients aged 18 and over and those with ongoing risk factors. Zach Inquiry Pt receiving controlled substance: No Zach was queried for this patient: No Vital Signs: 07/24/24 09:57 Temperature 97.9 F Temperature Source Oral Pulse Rate [Right] 82 Respiratory Rate 17 Blood Pressure [Right Arm] 126/78 Blood Pressure Mean [Right Arm] 94 Blood Pressure Source [Right Arm] Automatic Cuff 02 Sat by Pulse Oximetry 98 Oxygen Delivery Method Room Air Medical Decision Narrative: Very clinically well-appearing 28-year-old female presenting with sore throat. Sick contacts, including son who started first. No fevers or chills, but states that she starting to have teeth pain, likely consistent with sinusitis. No fevers or chills, cough, vomiting, diarrhea, chest pain, shortness of breath, or any other symptoms. Still has tonsils, has follow-up with dentist here in the next couple of weeks to evaluate dental pain as well. History obtained the patient. On arrival, very well-appearing. No evidence of tonsillitis, exudate, pharyngeal erythema, uvular deviation, palatal swelling, trismus, external neck swelling, submental induration, dental abscess, angioedema, or other abnormal ye pharyngeal findings. No lymphadenopathy. Labs and imaging were considered, but not be necessary. Viral swab was discussed with patient and she opted out after shared decision making. 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 Close return precautions were discussed. Because patient at baseline without signs or symptoms of clinical decompensation, deemed appropriate for discharge. I discussed my clinical impression with patient and answered all questions. At this time, the evidence for any other entities in the differential is insufficient to warrant any further testing or ED observation. This was explained as well. Advisory was given that persistent or worsening symptoms require further evaluation. I confirmed the understanding of this discussion. Stave Jointer disclaimer Much of this encounter note is an electronic noise tester spoken language to printed text. Electronic noise tester of the spoken language may permit errors. Although I have reviewed the note, some errors may still exist. Critical Care Critical Care Time Critical Care Time: No
[2024-07-24 10:35] VITALS: BP 126/78; PULSE 78; RESP 16; TEMP 36.6; O2SAT 98
[2024-07-24] MEDS: DEXAMETHASONE 4MG TABLET 10 MG PO (10:47)
== END 2024-07-24 10:58 | disposition home or self-care (01) ==
PROVIDERS: Emergency Provider Emergency Medicine; PCP Internal Medicine
DX: J02.9 Acute pharyngitis, unspecified (principal); R05.9 Cough, unspecified
CPT/HCPCS: 99283; J8540

== ENCOUNTER 2024-08-26 16:41 | Emergency (ER) | payer OTHER, SELFPAY ==
[2024-08-26 16:43] VITALS: BP 137/62; PULSE 71; RESP 14; TEMP 37.4; O2SAT 100; BMI 35.0
[2024-08-26 17:05] LABS: Strep Scrn Group A (Rapid) Negative (Negative)
--- NOTE | 2024-08-26 17:18 | ED_ITS ---
Discharge Plan Disposition Patient Disposition: Home, Self-Care Condition: Good Prescriptions Prescriptions: New amoxicillin 875 mg tablet 875 mg PO BID Qty: 14 0RF No Action albuterol sulfate [Ventolin HFA] 90 mcg/actuation HFA aerosol inhaler 1 inh inhalation QID PRN (Reason: shortness of breath or wheezing) Qty: 8.5 4RF Referrals Follow up/Referrals: David Meng MD [Physician] - See instructions Nishant Evans DO [Primary Care Provider] - See instructions Activity Restrictions/Add. Instructions Additional Instructions/Restrictions: At this time it was felt you are safe to be discharged home. If new or worsening symptoms please do not hesitate to return the emergency department. Please take antibiotics as prescribed. Please call and schedule an appointment with ear nose and throat as soon as you are able to talk about your recurrent tonsil inflammation Clinical Impressions Clinical Impression: Acute sore throat, Otitis media Stand Alone Forms Stand Alone Forms: Work/School Release Print Language Print Language: Croatian Discharge ED Provider: Ezekiel Cole General Adult HPI General Chief complaint: Ear Stated complaint: bilateral ear pain, sore throat Time Seen by Provider: 08/26/24 16:45 Mode of Arrival: Ambulatory Source of Information: Patient Description of Symptoms (Recalled from ER Triage Doc. by RN): Patient reports bilateral ear pain and sore throat for 2 days. History of Present Illness HPI narrative: Patient is 28-year-old female with no pertinent past medical history presents emergency department for evaluation of bilateral ear pain and throat pain. Onset was acute, over the last 2 days. Due to persistent symptoms she presents here for continued evaluation. No other acute complaints at this time. Please note that above description of symptoms, in this electronic medical record under categorization of recalled from ER triage doctor by RN are reflective of an initial nursing assessment, however, is not reflective of my full history and physical exam that was personally taken and clarified. Consequentially, this preceding description of symptoms, which may include the patient's categorized chief complaint in the EMR, do not reflect my personal clinical impression, and the ultimate description of history of present illness and patient stated complaints should be deferred to this section of the note. Unless stated otherwise or congruent with this section of the note, additional signs, symptoms, or incongruence should be interpreted as inaccurate with my clinical impression. Related Data Previous Rx's ?Medication ?Instructions ?Recorded albuterol sulfate 90 mcg/actuation 1 inh inhalation QID PRN shortness 08/25/24 aerosol inhaler (Ventolin HFA) of breath or wheezing #8.5 grams amoxicillin 875 mg tablet 875 mg PO BID otitis media #14 tabs 08/26/24 Allergies Allergy/AdvReac Type Severity Reaction Status Date / Time famotidine Allergy Intermediate Rash Verified 07/24/24 10:26 metoclopramide (From Reglan) Allergy Intermediate Rash Verified 07/24/24 10:26 [facility] Disclaimer: The information contained in this section may have been updated after the patient was seen, as this information can be updated by other users. Medical History (Updated 08/26/24 @ 17:16 by Ezekiel Cole MD) Asthma Viral infection Uterine size date discrepancy Nausea & vomiting Acute viral syndrome Amenorrhea Benign paroxysmal positional vertigo Vitamin D deficiency (~06/2017) Surgical History Hx of tubal ligation History of laparoscopic appendectomy Hx laparoscopic cholecystectomy Family History Other No significant family history Social History Smoking Status: Never smoker second hand exposure: No alcohol intake: never substance use type: denies use current occupational status: unemployed Travel in the last 8 weeks: None household members: significant other housing: house 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 current occupational exposures/hazards: No caffeine: Yes do you feel safe at home: Yes victim of physical abuse: No victim of emotional abuse: No victim of sexual abuse: No Have you lived/traveled outside US in past 30 days?: No Contact w/someone who lives/traveled outside US past 30 days?: No Exposure to someone with infectious disease in past 14 days?: No Do you have a fever (greater than 100.4 F or 38 C)?: No Have you tested positive for COVID-19: No Exposed to someone with COVID-19 in past 14 days?: No Do you have a sore throat?: Yes Do you have a cough?: No Do you have any weakness?: No Do you have any diarrhea?: No Are you experiencing any unusual bleeding?: No Do you have any muscle aches/pain?: No Do you have any abdominal pain?: No Are you experiencing loss of taste or smell?: No Other Medical History Have you received the Flu Vaccine for this season: No Have you received the Pneumonia Vaccine: No ROS Obtained: Yes Systems reviewed as appropriate & no additional complaints except as documented Physical Exam General General appearance: alert and in no apparent distress Head Head exam: atraumatic and normocephalic Eye Eye exam: Present PERRL ENT ENT exam: Present mucous membranes moist; Absent normal oropharynx (Erythematous posterior oropharynx, tonsils are moderately swollen, uvula midline, purulence over the tonsils) or TM's normal bilaterally (Right-sided purulent middle ear effusion) Neck Neck exam: Present normal inspection Chest Chest inspection: Present normal inspection and symmetric chest wall rise Respiratory Respiratory exam: Present normal lung sounds bilaterally; Absent respiratory distress Cardiovascular Cardiovascular exam: Present regular rate and normal rhythm Abdominal Exam Abdominal exam: Present soft; Absent tenderness Extremities Exam Extremities exam: Present normal inspection Neurological Exam Neurological exam: Present alert Psychiatric Psychiatric exam: Present normal affect Skin Skin exam: Present warm and dry Medical Decision Making Medical Records Screening: Per USPSTF and CDC recommendations, given the prevalence of disease in our region, it is our hospital?s policy to screen for HIV and viral Hepatitis for all patients aged 18 and over and those with ongoing risk factors. Zach Inquiry Pt receiving controlled substance: No Vital Signs: 08/26/24 16:43 08/26/24 17:19 Temperature 99.3 F 99.3 F Temperature Source Oral Pulse Rate 69 Pulse Rate [Right] 71 Respiratory Rate 14 16 Blood Pressure 129/65 Blood Pressure [Right Arm] 137/62 Blood Pressure Mean [Right Arm] 87 Blood Pressure Position [Right Arm] Sitting 02 Sat by Pulse Oximetry 100 Oxygen Delivery Method Room Air Lab Data Lab Results 08/26/24 11:51: Group A Strep Rapid Negative Orders (Tests/Meds): ORDERS Category Date Time Status Rapid Strep Scrn Group A [Strep Scrn Group A (Rapid)] Lab 08/26/24 11:51 Completed Stat Strep Screen Confirmation Stat Micro 08/26/24 11:51 Received Medical Decision Narrative: In summary patient is 28-year-old female past medical history described above who presents emergency department for evaluation of sore throat and ear pain. Patient is hemodynamically stable nontoxic-appearing arrival, afebrile. Differential diagnosis includes strep pharyngitis, viral pharyngitis, among others. Clinically patient has no otitis media. Strep swab was obtained in triage and reviewed by me and negative however regardless patient has otitis media will be treated with amoxicillin. No concern for deep space infection of the neck based on exam therefore workup with other hematologic labs and imaging was considered but will be deferred. Eyelet Maker disclaimer Much of this encounter note is an electronic marine firefighter spoken language to p rinted text. Electronic marine firefighter of the spoken language may permit errors. Although I have reviewed the note, some errors may still exist. Critical Care Critical Care Time Critical Care Time: No
[2024-08-26 17:19] VITALS: BP 129/65; PULSE 69; RESP 16; TEMP 37.4; O2SAT 99
== END 2024-08-26 17:21 | disposition home or self-care (01) ==
PROVIDERS: Emergency Provider Emergency Medicine; PCP Internal Medicine
DX: J02.9 Acute pharyngitis, unspecified (principal); H66.93 Otitis media, unspecified, bilateral
CPT/HCPCS: 87430; 99283

== ENCOUNTER 2025-01-28 10:02 | Outpatient (CLI) | payer OTHER, SELFPAY ==
[2025-01-28 14:49] LABS: Free T4 (Free Thyroxine) 1.08 ng/dl (0.78-2.19)
[2025-01-28 15:03] LABS: Thyroid Stimulating Hormone 0.47 uIU/mL (0.465-4.68)
--- OUTSIDE RECORDS SUMMARY | 2025-01-29 12:50 | XMS_ITS | Clinical Summary ---
Author Organization [facility] Address [address] [place] [address] Care Team Providers Care Adolescent Medicine Specialist Name Role Phone Unavailable Primary Care [...]
== END 2025-01-28 23:59 | disposition home or self-care (01) ==
LOC: LAB.DROPOF 01-29 12:44
PROVIDERS: PCP Internal Medicine; Visit Provider Internal Medicine
DX: R79.89 Other specified abnormal findings of blood chemistry (principal)
CPT/HCPCS: 84439; 84443